=== PATIENT | male | born 1950 | race Caucasian/White ===

== ENCOUNTER 2019-12-09 06:17 | Day surgery (SDC) | payer OTHER, SELFPAY ==
[2019-12-08 07:46] VITALS: BMI 23.8
[2019-12-09 06:46] VITALS: BP 146/89; PULSE 104; RESP 18; TEMP 36.4; O2SAT 92
[2019-12-09] MEDS: sodium chloride 0.9% 1,000 ML 30 ML (06:50)
--- NOTE | 2019-12-09 07:04 | PM.HPUD ---
H&P update H&P Update: DATE OF SURGERY/PROCEDURE: 12/09/19 DATE H&P PERFORMED: 09/13/19 H&P UPDATE INFORMATION: No changes to prior documentation and H&P to be scanned into chart PLANNED PROCEDURE: Operation Date: 12/09/19 07:15 Proposed Procedures p EGD/COLON 87945 [id number] R14.10 Z86.010(Not Applicable) - Jacinto Diez MD s Colonoscopy(Not Applicable) - Jacinto Diez MD Conscious Sedation: PHYSICAL EXAM: alert and oriented x 3 OTHER PERTINENT EXAM FINDINGS: Abdomen: Soft Full H&P HPI: PLANNED PROCEDURE: colonoscopy with possible biopsy HPI: Patient is here for a 6-month follow-up colonoscopy, denies any symptoms ROS: ROS: Negative except for HPI Perinent History: Social History: Social History Smoking and tobacco status: former smoker Pertinent Exam Findings: PHYSICAL EXAM: alert and oriented x 3 OTHER PERTINENT EXAM FINDINGS: Abdomen soft A&P Assessment and plan (1) Hx of colonic polyps: Colonoscopy under MAC Status: Acute Code(s): Z86.010 - Personal history of colonic polyps
--- NOTE | 2019-12-09 07:15 | ANES.PREANE2 ---
Pre-Anesthetic Assessment Pre-Anesthetic Assessment: Height/Weight: Height 1.65 m Weight 64.864 kg Temp Pulse Resp BP Pulse Ox 97.5 F L 104 H 18 146/89 92 12/09/19 06:46 12/09/19 06:46 12/09/19 06:46 12/09/19 06:46 12/09/19 06:46 Proposed Procedure: Operation Date: 12/09/19 07:15 Proposed Procedures p EGD/COLON 54634 97287 R14.10 Z86.010(Not Applicable) - Jacinto Diez MD s Colonoscopy(Not Applicable) - Jacinto Diez MD Was Beta Maria Elena taken within 24 hours: N/A Last intake: Intake Last Liquid Date 12/08/19 Last Liquid Time 21:00 Social: Social History: No alcohol and No tobacco Exam: Pre-Anes Outpt Exam: alert, oriented x 3, clear to auscultation bilaterally and regular rate & rhythm Airway: Submandibular: WNL Cervical ROM: WNL MP: 2 Dentition: False (U & L) History/ROS: No significant history except as noted and No significant complaints Pulmonary: Pulmonary: Sleep apnea (CPAP at night) : Comments: ureteral stone Hepatic: Hepatic: None reported Musc/skel: Musc/skel: None reported Neuropsych: Neuropsych: None reported Anesthetic Plan: ASA status: II Anesthesia: Anesthesia Evaluation and MAC Risk of > 500 ml blood loss (7ml/kg in children): No PFSH Anesthesia PFSH: Medical History (Updated 12/09/19 @ 07:06 by Jacinto Diez MD) Hx of colonic polyps (Acute) Social History (Updated 11/17/19 @ 07:29 by Maame Calloway RN) Smoking and tobacco status: former smoker Data Anesthesia Cardiac Studies: No Data to Display
[2019-12-09 08:25] VITALS: BP 89/58; PULSE 99; RESP 16; TEMP 36.1; O2SAT 99
[2019-12-09 08:46] VITALS: BP 109/74; PULSE 85; RESP 18; O2SAT 98
--- NOTE | 2019-12-09 09:08 | ANE.PACU2 ---
 Inpatient post-anesthesia follow up: Airway intact: Yes Vital signs: Temperature 97 F Pulse Rate 85 Respiratory Rate 18 Blood Pressure 109/74 Pulse Oximetry 98 Oxygen Delivery Me thod Room Air Oxygen Flow Rate 3 Fraction of Inspir ed Oxygen Hydration adequate: Yes Nausea and vomiting: No Mental status: Baseline
--- NOTE | 2019-12-20 12:33 | P.HP_ITS ---
Same Day Surgery H&P Indication for Procedure/HPI DATE OF PROCEDURE: December 09, 2019 CHIEF COMPLAINT/INDICATIONFOR SURGICAL PROCEDURE: Anemia PREOP DIAGNOSIS: Anemia PLANNED PROCEDRUE: Operation Date: 12/09/19 07:15 Proposed Procedures p EGD/COLON 78872 97831 R14.10 Z86.010(Not Applicable) - Jacinto Diez MD s Colonoscopy(Not Applicable) - Jacinto Diez MD Medications/Allergies* Home Medications Medication Instructions Recorded Confirmed Type Combivent Respimat 1 puff INHALATION BID 11/17/19 12/09/19 History aspirin [Aspir-81] 81 mg PO DAILY 11/17/19 12/09/19 History bupropion HCl 300 mg PO DAILY 11/17/19 12/09/19 History diphenhydramine HCl 25 mg PO BEDTIME 11/17/19 12/09/19 History donepezil 5 mg PO DAILY 11/17/19 12/09/19 History loratadine 10 mg PO DAILY 11/17/19 12/09/19 History potassium citrate 10 meq PO BID 11/17/19 12/09/19 History primidone 250 mg PO BID 11/17/19 12/09/19 History Allergies/Adverse Reactions Allergy/AdvReac Type Severity Reaction Status Date / Time No Known Drug Allergies Allergy Unknown Verified 11/17/19 07:29 Pertinent History/Comorbid Conditions* Medical History (Updated 12/09/19 @ 07:06 by Jacinto Diez MD) Hx of colonic polyps Surgical History (Updated 12/09/19 @ 08:32 by Jacinto Diez MD) H/O esophagogastroduodenoscopy 12/09/2019: Gastritis Status post colonoscopy with polypectomy 12/09/2019: 3 polyps removed from descending colon Social History Smoking and tobacco status: former smoker Pertinent Exam Findings alert, oriented x 3, clear to auscultation bilaterally and regular rate & rhythm Recommendations Surgery/Procedure today Coding Level of Care Code Acute Security Systems Integrator for Frnakie Garcia
== END 2019-12-09 09:15 | disposition home or self-care (01) ==
PROVIDERS: Family Provider Internal Medicine; PCP Internal Medicine; Visit Provider Surgery
PROC: 0DJ08ZZ Inspection of Upper Intestinal Tract, Via Natural or Artificial Opening Endoscopic (ICD-10-PCS; CPT 43235; principal; 2019-12-09 07:15)
PROC: 0DJD8ZZ Inspection of Lower Intestinal Tract, Via Natural or Artificial Opening Endoscopic (ICD-10-PCS; CPT 45378; 2019-12-09 07:15)
DX: Z86.010 Personal history of colon polyps (principal); D64.9 Anemia, unspecified; Z87.891 Personal history of nicotine dependence; D12.4 Benign neoplasm of descending colon; K57.30 Diverticulosis of large intestine without perforation or abscess without bleeding; K64.8 Other hemorrhoids; K29.70 Gastritis, unspecified, without bleeding; G47.30 Sleep apnea, unspecified
CPT/HCPCS: 12345; 43239; 45385; 88305; J2704; J7030

== ENCOUNTER 2021-03-14 06:00 | Outpatient (RCR) | payer OTHER, SELFPAY | END 2021-04-04 23:59 | disposition home or self-care (01) | LOC: TST 06:00 | PROVIDERS: PCP Internal Medicine; Referring Provider Family Medicine; Visit Provider Family Medicine | DX: R47.02 Dysphasia (principal) | CPT/HCPCS: 92507; 92523 ==

== ENCOUNTER 2021-04-05 06:00 | Outpatient (RCR) | payer OTHER, SELFPAY | END 2021-05-04 23:59 | disposition home or self-care (01) | LOC: TST 06:00 | PROVIDERS: PCP Internal Medicine; Referring Provider Family Medicine; Visit Provider Family Medicine | DX: R47.02 Dysphasia (principal) | CPT/HCPCS: 92507 ==

== ENCOUNTER 2021-04-19 10:48 | Emergency (ER) | payer OTHER, MEDICARE, SELFPAY ==
[2021-04-19 11:22] VITALS: BP 129/55; PULSE 67; RESP 16; TEMP 36.3; O2SAT 94; BMI 20.9
--- NOTE | 2021-04-19 11:37 | XR_ITS ---
WS: [id number] Exam: XR knee RT 3V* [id number] Date/Time of Exam: 04/19/2021 11:52 AM Reason For Exam: fall No fracture or dislocation noted. Articular relationships are intact. No joint effusion. XR/XR knee RT 3V* [id number] Impression: Normal right knee Kellgren-Melchor Classification: 0
--- NOTE | 2021-04-19 11:37 | XR_ITS ---
WS: [id number] Exam: XR knee LT 3V* [id number] Date/Time of Exam: 04/19/2021 11:52 AM Reason For Exam: fall No fracture or dislocation noted. Articular relationships are intact. No joint effusion. XR/XR knee LT 3V* [id number] Impression: Normal left knee Kellgren-Melchor Classification: 0
--- NOTE | 2021-04-19 11:37 | XR_ITS ---
WS: [id number] Exam: XR elbow LT 2V [id number] Date/Time of Exam: 04/19/2021 11:52 AM Reason For Exam: fall Findings: There are no fractures, soft tissue swelling, or calcifications. The elbow shows normal bony alignme nt. There is no irregularity of the bony architecture. XR/XR elbow LT 2V [id number] IMPRESSION: Negative left elbow.
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
[2021-04-19 12:34] VITALS: BP 124/74; PULSE 65; RESP 16; O2SAT 96
== END 2021-04-19 12:35 | disposition home or self-care (01) ==
PROVIDERS: Emergency Provider Family Medicine; PCP Internal Medicine
DX: S80.02XA Contusion of left knee, initial encounter (principal); S80.01XA Contusion of right knee, initial encounter; S50.02XA Contusion of left elbow, initial encounter; Z79.82 Long term (current) use of aspirin; Z87.891 Personal history of nicotine dependence; V49.9XXA Car occupant (driver) (passenger) injured in unspecified traffic accident, initial encounter
CPT/HCPCS: 73070; 73562; 99282

== ENCOUNTER 2021-06-28 12:58 | Emergency (ER) | payer OTHER, MEDICARE, SELFPAY ==
[2021-06-28 14:12] VITALS: BP 129/76; PULSE 110; RESP 17; TEMP 36.4; O2SAT 91
--- NOTE | 2021-06-28 14:27 | W.ED.EXTPRO ---
HPI - Extremity Problem General: Chief complaint: Extremity Injury, Upper Stated complaint: RUE INJURY Time Seen by Provider: 06/28/21 14:22 History of Present Illness: HPI Narrative: Patient is a 71-year-old male comes to the ED with with right hand pain and stiffness in the fingers. Patient says approximately 4 months ago he fell hurting his right hand. He he then had another incident of falling and landing on his right hand again about 5 weeks ago. He is not been seen by a provider and evaluated after those hand injuries. He has not had any x-rays done of his hand either. He continues to have some right hand pain and stiffness since the initial injury. he says the pain is mild and its the finger stiffness that he is most concerned about. Today, he had a wire mesh cat cage that he was tossing with his right hand. When he went to throw it he says his fingers did not let go causing worsening pain in right hand. Associated symptoms: Deny chest pain, fever(s) or rash Review of Systems Const: Denies: fever(s), chills or fatigue Eyes: Denies: change in vision or eye discomfort ENMT: Denies: throat pain, odynophagia, nasal discharge or nasal congestion Card: Denies: chest pain, palpitations, edema, swelling of feet/ankles, dyspnea on exertion or orthopnea Resp: Denies: dyspnea, productive cough or non-productive cough GI: Denies: abdominal pain, nausea, vomiting, diarrhea, constipation or hematochezia : Denies: flank pain, difficulty urinating, dysuria or hematuria Musc: Reports: extremity pain (right hand pain ) and joint stiffness (fingers in right hand); Denies: neck pain, back pain or extremity swelling Skin/Breast: Denies: rash or new lesions Neuro: Denies: headache(s), numbness in extremities or weakness in extremities PFS ED PFSH: Medical History Gastritis Hx of colonic polyps Surgical History H/O esophagogastroduodenoscopy 12/09/2019: Gastritis Status post colonoscopy with polypectomy 12/09/2019: 3 polyps removed from descending colon, follow-up colonoscopy in 3 years Family History Denies family history of Anesthesia complication Bleeding disorder Social History Smoking and tobacco status: former smoker Alcohol intake: former Lives independently: Yes Household members: spouse Current occupational status: retired History of recent travel: No Physical Exam Const: COMMON NORMALS: no acute distress, patient oriented x3 and alert GENERAL APPEARANCE: cooperative and comfortable HENMT: COMMON NORMALS: normocephalic HEAD & SCALP: normocephalic MOUTH: Normal oral and palatal mucosa present THROAT: posterior oropharynx normal and uvula midline Neck/C-Spine: COMMON NORMALS: supple GENERAL: Yes normal visual inspection Resp: COMMON NORMALS: normal respiratory effort, No retractions, No use of accessory muscles and clear to auscultation bilaterally AUSCULTATION: clear to auscultation bilaterally Cardio: COMMON NORMALS: regular rate, regular rhythm, S1 normal heart sound present, S2 normal heart sound present, No gallops present (Cardio), No clicks present (Cardio), No murmurs present (Cardio) and Peripheral pulses 2+ throughout RATE: regular rate RHYTHM: regular rhythm HEART SOUNDS: S1 normal heart sound present and S2 normal heart sound present PERIPHERAL PULSES: Peripheral pulses 2+ throughout GI: COMMON NORMALS: Normal to inspection, nondistended, normoactive bowel sounds present, Soft to palpation, non-tender and no masses PALPATION: Yes Soft to palpation : COMMON NORMALS: Yes no CVA tenderness BLADDER/KIDNEY EXAM: Yes no CVA tenderness Back/Pelvis: COMMON NORMALS: no CVA tenderness Extremity: COMMON NORMALS: normal to inspection and full ROM Neuro: COMMON NORMALS: patient oriented x3 and moves all extremities SENSORIUM/ORIENTATION: Yes alert Skin: COMMON NORMALS: no rashes or lesions noted GENERAL SKIN EXAM: no rashes or lesions noted Course Vital Signs: Vital signs: Vital Signs Temperature 97.6 F 06/28/21 14:12 Pulse Rate 110 H 06/28/21 14:12 Respiratory Rate 17 06/28/21 14:12 Blood Pressure 129/76 06/28/21 14:12 Pulse Oximetry 91 06/28/21 14:12 MDM - Extremity (Nontraumatic) Imaging Data^: Xray Ortho: Attestation: I personally reviewed and interpreted this imaging study as follows: Radiologist's impression: [address] [address] XRay Report Signed Patient: Catalino Ivy Unit #: [id number] : 1950 Age/Sex: 71 / M ADM Date: 06/28/21 Loc: ER Room/Bed: Attending Dr: Ordering Provider/Ordering MD: Vin Raygoza Date of Service: 06/28/21 Procedure(s): XR hand RT min 3V* [id number] Accession Number(s): [id number] Report Number: [id number] WS: [id number] Exam: XR hand RT min 3V* [id number] Date/Time of Exam: 06/28/2021 2:47 PM Reason For Exam: right hand injury with pain and stiffness in fingers No fracture or dislocation. Soft tissue swelling of the index finger. No radiopaque soft tissue foreign bodies are seen. XR/XR hand RT min 3V* [id number] IMPRESSION: 1. No acute fracture or dislocation. Dictated By: Rafael White DO Signed By: Rafael White DO Signed Date/Time: 06/28/211455 DD/ 52 Discharge Plan Discharge Patient Disposition: Home Clinical Impression: Hand pain, right Joint stiffness of hand Qualifiers: Laterality: right Qualified Code(s): M25.641 - Stiffness of right hand, not elsewhere classified Condition: Stable Prescriptions: No Action donepezil 5 mg tablet 5 mg PO DAILY RF: 0 potassium citrate 10 mEq (1,080 mg) Tablet Extended Release 10 meq PO BID RF: 0 loratadine 10 mg tablet 10 mg PO DAILY RF: 0 bupropion HCl 300 mg tablet extended release 24 hr 300 mg PO DAILY RF: 0 Combivent Respimat 20-100 mcg/actuation Mist 1 puff INHALATION BID RF: 0 primidone 50 mg tablet 50 mg PO DAILY RF: 0 Aspir-81 81 mg Tablet,Delayed Release (Dr/Ec) 81 mg PO DAILY RF: 0 rosuvastatin 10 mg tablet 5 mg PO DAILY RF: 0 Discharge Orders: Discharge ED (Routine); Ordered 06/28/21 Ordered By: Vin Raygoza Referrals: Merle Sanchez MD [Primary Care Provider] - Discharge Diet: Regular Discharge Activity: Increase activity as tolerated Patient Instructions: Arthralgia (ED) Activity Restrictions/Additional Instructions: Follow-up with medical provider as directed in 7-10 days for reevaluation. Continue taking home medications as prescribed. Take [id number] Tylenol for any pain. Return to the ER or your medical provider if condition worsens. Please read and understand discharge instructions. Thank you for choosing [facility] for your healthcare needs today. Please realize this is an emergency room and that we are providing you with a medical screening exam and this may not be complete and all inclusive of all the testing and or work up that you may need to determine your ailment or severity of your illness. It is very important that you follow up as instructed or that you return to the Emergency Department should you have concerns or if your condition changes or worsens in any way. Coding Level of Care Code ED Physiatrist for Frankie Garcia Exam Comprehensive
--- NOTE | 2021-06-28 14:36 | XR_ITS ---
WS: [id number] Exam: XR hand RT min 3V* [id number] Date/Time of Exam: 06/28/2021 2:47 PM Reason For Exam: right hand injury with pain and stiffness in fingers No fracture or dislocation. Soft tissue swelling of the index finger. No radiopaque soft tissue forei gn bodies are seen. XR/XR hand RT min 3V* [id number] IMPRESSION: 1. No acute fracture or dislocation.
== END 2021-06-28 15:37 | disposition home or self-care (01) ==
PROVIDERS: Emergency Provider Physician Assistant; PCP Family Medicine
DX: Z87.891 Personal history of nicotine dependence (principal); M25.641 Stiffness of right hand, not elsewhere classified
CPT/HCPCS: 73130; 99282

== ENCOUNTER 2021-07-23 16:49 | Emergency (ER) | payer OTHER, SELFPAY ==
[2021-07-23 16:51] VITALS: BP 143/92; PULSE 123; RESP 20; TEMP 37.1; O2SAT 93; BMI 21.4
--- NOTE | 2021-07-23 16:59 | ECG_ITS ---
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 Measurements Intervals [place] Rate: 121 P: 78 [place]: 163 QRS: 87 QRSD: 98 T: 63 QT: 298 QTc: 424 Interpretive Statements SINUS TACHYCARDIA ABNORMAL RHYTHM ECG Compared to ECG 10/09/2019 14:25:14 Sinus rhythm no longer present Electronically Signed On 07-24-2021 18:01:17 CDT by Gerard Hall M.D. [id number] f
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
--- NOTE | 2021-07-23 16:59 | XRR_ITS ---
PROCEDURE INFORMATION: Exam: XR Chest Exam date and time: 07/23/2021 4:59 PM Age: 71 years old Clinical indication: Cough TECHNIQUE: Imaging protocol: XR of the chest. Views: 1 view. COMPARISON: CT chest abd pel wo con 07/23/2021 5:28 PM FINDINGS: Lungs: The lungs are somewhat hyperinflated with increased interstitial markings, likely representing COPD. No evidence of focal consolidation to suggest pneumonia. Pleural spaces: Unremarkable. No pleural effusion. No pneumothorax. Heart/Mediastinum: Unremarkable. No cardiomegaly. Bones/joints: Unremarkable. XR/XR chest 1V portable [id number] IMPRESSION: No evidence of focal consolidation. COPD changes.
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
[2021-07-23 17:08] LABS: Basophils % 0.3 %; Eosinophils % 0.3 %; Hematocrit 44.7 % (42.0-52.0); Hemoglobin 14.2 g/dL (11.7-16.6); Lymphocytes # 1.4 10^3/uL (0.8-4.8); Mean Corpuscular HGB Conc 31.8 g/dL (30.0-36.0); Mean Corpuscular Hemoglobin 28.9 pg (28.0-34.0); Mean Corpuscular Volume 90.9 fl (80-94); Mean Platelet Volume 9.8 fL (7.4-10.4); Monocytes # 0.5 10^3/uL (0.2-0.9); Monocytes % 4.7 %; Neutrophils # 7.75 10^3/uL (1.8-7.7); Neutrophils % 80.3 %; Nucleated Red Blood Cells % 0 %; Platelet Count 243 10^3/cmm (130-400); Red Blood Count 4.92 10^6/uL (4.1-5.3); Red Cell Distribution Width 13.6 % (12.1-15.1); White Blood Count 9.7 10^3/uL (4.0-10.0)
[2021-07-23 17:15] VITALS: BP 143/90; RESP 120; O2SAT 94
[2021-07-23 17:36] LABS: Add Urine Microscopic? NO; Charge for UA Resulting for Rev
[2021-07-23 17:39] LABS: Bilirubin Urine Neg (Negative); Blood Urine Neg (Negative); Glucose Urine UA Norm (Normal); Ketones Urine Negative (Negative); Leukocyte Esterase Urine Negative (Negative); Nitrate Urine Negative (Negative); Protein Urine Neg (Negative); Urine Appearance Clear (CLEAR); Urine Color Yellow (Yellow); Urobilinogen Urine Norm (Negative); pH Urine 6 (5-7)
[2021-07-23 17:56] LABS: ABG PCO2 49.7 mmHg (35-45); ABG PH Result 7.36 (7.35-7.45); Alveolar-Arterial Oxygen Gradi 6.4 mmHg (5-10); Arterial Blood Gas Hematocrit 43.6 % (42-52); Blood Gas Allen Test Pos; Blood Gas LPM 1.8 %; Blood Gas Sample Site Radial, left; Blood Gas Sample Type Arterial; HCO3 ABG 28.3 mmol/L (22-26); Ionized Calcium Level - ABG 1.3 mmol/L (1.1-1.4); Methemoglobin 0.4 % (0.4-1.5); Oxygen Device NC; Oxygen Saturation ABG 96.3; PO2 ABG 82.3 mmHg (80.0-100.0); Total Hemoglobin 14.2 g/dL (14-18)
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
[2021-07-23 18:13] LABS: INR 0.98 (0.8-1.2)
[2021-07-23 18:14] LABS: Partial Thromboplastin Time 28.8 SECONDS (23.9-36.7)
[2021-07-23 18:24] LABS: Alanine Aminotransferase 23 U/L (0-41); Albumin Level 4.3 g/dL (3.5-5.2); Alkaline Phosphatase 79 IU/L (40-130); Anion Gap 17.3 (5-19); Aspartate Amino Transferase 23 U/L (0-40); Blood Urea Nitrogen 20 mg/dL (8-23); Calcium 9.7 mg/dL (8.5-10.5); Carbon Dioxide 27 mmol/L (22-29); Chloride 102 mmol/L (98-107); Globulin 2.5 g/dL (1.3-4.6); Glucose 128 mg/dL (65-115); Osmolality Calculated 298 mOsm/kg (285-295); Potassium 4.3 mmol/L (3.5-5.1); Sodium 142 mmol/L (136-145); Total Bilirubin 0.3 mg/dL (0.15-1.2); Total Protein 6.8 g/dL (6.6-8.7)
[2021-07-23 18:32] VITALS: BP 127/82; PULSE 128; RESP 18; O2SAT 98
[2021-07-23] MEDS: ondansetron 2 mg/ML SDV 2 mL 4 MG IVP (19:05)
[2021-07-23] MEDS: morphine 4 mg/mL SDV 1 mL 2 MG IVP (19:06)
[2021-07-23 19:18] LABS: SARS Covid-2 Antigen Negative (Negative)
[2021-07-23 19:29] VITALS: BP 131/79; PULSE 79; RESP 20; O2SAT 94
== END 2021-07-23 19:25 | disposition home or self-care (01) ==
PROVIDERS: Emergency Provider Emergency Medicine; PCP Family Medicine
DX: S39.011A Strain of muscle, fascia and tendon of abdomen, initial encounter (principal); J44.9 Chronic obstructive pulmonary disease, unspecified; Z79.82 Long term (current) use of aspirin; Z87.891 Personal history of nicotine dependence; V89.2XXA Person injured in unspecified motor-vehicle accident, traffic, initial encounter; Z20.822 Contact with and (suspected) exposure to COVID-19
CPT/HCPCS: 36600; 70450; 71045; 71250; 72125; 74176; 80051; 80053; 81003; 82330; 82805; 85025; 85610; 85730; 87426; 93005; 96374; 96375; 99284; J2270; J2405

== ENCOUNTER 2021-08-12 11:17 | Emergency (ER) | payer OTHER, MEDICARE, SELFPAY ==
[2021-08-12 11:30] VITALS: BP 133/73; PULSE 69; RESP 16; TEMP 36.4; O2SAT 96
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
--- NOTE | 2021-08-12 11:59 | XR_ITS ---
WS: [id number] XR chest 1V portable [id number] REASON FOR EXAM: L rib pain FINDINGS: The chest is unchanged compared to previous examination of 07/23/2021. Heart and mediastinum are within normal limits. Calcified granulomatous disease in both hemithoraces. No active pulmonary parenchymal or pleural disease is identified. Degenerative changes in the thoracic spine. XR/XR chest 1V portable [id number] IMPRESSION: No acute chest abnormality.
--- NOTE | 2021-08-12 11:59 | XR_ITS ---
WS: [email or web address] XR ribs LT 2V* 24306 REASON FOR EXAM: L rib pain FINDINGS: No fracture or other focal bony abnormality of the left ribs is identified. No soft tissue abnormality identified. XR/XR ribs LT 2V* [id number] IMPRESSION: No acute abnormality identified.
[2021-08-12 12:02] VITALS: BP 130/70; PULSE 65; RESP 15; O2SAT 99
--- NOTE | 2021-08-12 12:07 | ECG_ITS ---
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 Measurements Intervals Brady Rate: 58 P: 83 VA: 163 QRS: 78 QRSD: 104 T: 80 QT: 387 QTc: 382 Interpretive Statements SINUS BRADYCARDIA Compared to ECG 07/23/2021 17:05:22 Sinus tachycardia no longer present Electronically Signed On 08-12-2021 19:21:20 CDT by Kathya Dimas M.D. [email or web address]
[2021-08-12 14:11] LABS: Basophils % 0.6 %; Eosinophils # 0.1 10^3/uL (0.0-0.8); Eosinophils % 1.2 %; Hematocrit 47.9 % (42.0-52.0); Hemoglobin 15.2 g/dL (11.7-16.6); Lymphocytes # 2.2 10^3/uL (0.8-4.8); Mean Corpuscular HGB Conc 31.7 g/dL (30.0-36.0); Mean Corpuscular Hemoglobin 29.4 pg (28.0-34.0); Mean Corpuscular Volume 92.6 fl (80-94); Monocytes # 0.6 10^3/uL (0.2-0.9); Neutrophils # 3.68 10^3/uL (1.8-7.7); Neutrophils % 55.9 %; Nucleated Red Blood Cells % 0 %; Platelet Count 259 10^3/cmm (130-400); Red Blood Count 5.17 10^6/uL (4.1-5.3); Red Cell Distribution Width 13.9 % (12.1-15.1); White Blood Count 6.6 10^3/uL (4.0-10.0)
[2021-08-12 14:34] LABS: Blood Urea Nitrogen 22 mg/dL (8-23); Carbon Dioxide 31 mmol/L (22-29); Chloride 101 mmol/L (98-107); Glucose 92 mg/dL (65-115); Osmolality Calculated 295 mOsm/kg (285-295); Sodium 141 mmol/L (136-145)
[2021-08-12 14:35] LABS: Troponin T (5th) Once 11 ng/L (0-15)
[2021-08-12 14:57] LABS: D Dimer 0.45 ug/mIFEU (0-0.59)
[2021-08-12 15:52] VITALS: BP 144/88; PULSE 75; RESP 16; O2SAT 97
== END 2021-08-12 15:52 | disposition home or self-care (01) ==
PROVIDERS: Emergency Provider Emergency Medicine; PCP Family Medicine
DX: R07.9 Chest pain, unspecified (principal); R07.81 Pleurodynia; Z79.82 Long term (current) use of aspirin; Z87.891 Personal history of nicotine dependence
CPT/HCPCS: 71045; 71100; 80048; 84484; 85025; 85378; 93005; 99283

== ENCOUNTER 2021-08-19 12:36 | Emergency (ER) | payer OTHER, MEDICARE, SELFPAY ==
[2021-08-19 13:25] VITALS: BP 136/84; PULSE 103; RESP 18; TEMP 36.9; O2SAT 91; BMI 18.1
--- NOTE | 2021-08-19 13:31 | XR_ITS ---
WS: [id number] XR acute abdomen series 56416 REASON FOR EXAM: plugged up and decreased sat FINDINGS: No free air or retroperitoneal air. Bowel gas pattern is unremarkable. No findings of obstruction and no large volume stool in the colon. No mass identified. No significant calcification. No acute chest abnormality. XR/XR acute abdomen series 22426 IMPRESSION: No acute abnormality.
[2021-08-19 16:17] LABS: Add Urine Microscopic? NO; Charge for UA Resulting for Rev
[2021-08-19 16:26] LABS: Bilirubin Urine Neg (Negative); Blood Urine Neg (Negative); Glucose Urine UA Norm (Normal); Ketones Urine Negative (Negative); Leukocyte Esterase Urine Negative (Negative); Nitrate Urine Negative (Negative); Protein Urine Neg (Negative); Specific Gravity, Urine 1.015 (1.005-1.030); Urine Appearance Clear (CLEAR); Urine Color Yellow (Yellow); Urobilinogen Urine Norm (Negative); pH Urine 6 (5-7)
[2021-08-19 17:05] VITALS: BP 142/87; PULSE 86; RESP 14; O2SAT 97
--- NOTE | 2021-08-19 17:12 | PC.NURSE ---
Pt states that four weeks ago after eating fish, he vomited. Pt has had abdominal cramping and vomiting since that episode. Pt states that he was in ER a few days ago with no relief.
--- NOTE | 2021-08-19 17:26 | CTR_ITS ---
PROCEDURE INFORMATION: Exam: CT Chest With Contrast; Diagnostic Exam date and time: 08/19/2021 5:26 PM Age: 71 years old Clinical indication: Nausea and vomiting; Patient HX: C/O recurrent n/v w 30#wt loss in about a month; Additional info: Vomiting and 30 lb weight loss-former smoker TECHNIQUE: Imaging protocol: Diagnostic computed tomography of the chest with contrast. Radiation optimization: All CT scans at this facility use at least one of these dose optimization techniques: automated exposure control; mA and/or kV adjustment per patient size (includes targeted exams where dose is matched to clinical indication); or iterative reconstruction. Contrast material: VISI 320; Contrast volume: 75 ml; Contrast route: INTRAVENOUS (IV); COMPARISON: CT chest abd pel wo con 07/23/2021 5:28 PM RADIATION DOSE METRICS: Total DLP (mGy-cm): 1024.18 FINDINGS: Lungs: Lungs are clear. Pleural spaces: There is mild apical pleural thickening on the right. Heart: Unremarkable. No cardiomegaly. No pericardial effusion. Mediastinal space: There is no evidence of mediastinal fluid, masses, or gas. Aorta: Mild atherosclerotic calcification of the ascending thoracic aorta and aortic arch.There is no thoracic aortic aneurysm or dissection. Lymph nodes: There is no evidence of lymphadenopathy. Bones/joints: Unremarkable. No acute fracture. Soft tissues: Unremarkable. IMPRESSION: No acute findings in the chest. PROCEDURE INFORMATION: Exam: CT Abdomen And Pelvis With Contrast Exam date and time: 08/19/2021 5:26 PM Age: 71 years old Clinical indication: Nausea and vomiting; Patient HX: C/O recurrent n/v w 30#wt loss in about a month; Additional info: Vomiting and 30 lb weight loss-former smoker TECHNIQUE: Imaging protocol: Computed tomography of the abdomen and pelvis with contrast. Radiation optimization: All CT scans at this facility use at least one of these dose optimization techniques: automated exposure control; mA and/or kV adjustment per patient size (includes targeted exams where dose is matched to clinical indication); or iterative reconstruction. Contrast material: VISI 320; Contrast volume: 75 ml; Contrast route: INTRAVENOUS (IV); COMPARISON: CT chest abd pel wo con 07/23/2021 5:28 PM RADIATION DOSE METRICS: Total DLP (mGy-cm): 1024.18 FINDINGS: Liver: There is several small hypodensities in the liver measuring 2-4 mm in size, too small to definitively characterize by CT scanning but possibly small simple cysts. Gallbladder and bile ducts: The gallbladder is normal. Pancreas: The pancreas is normal. Spleen: The spleen is normal. Adrenal glands: The adrenal glands are normal. Kidneys and ureters: There are small simple cortical cysts in both kidneys. There are multiple right renal collecting system calcifications. There is no evidence of hydronephrosis. There is no stone along the course of either ureter. Right kidney is moderately atrophic. Stomach and bowel: There is no evidence of colitis/diverticulitis. Appendix: A normal appendix is identified. Intraperitoneal space: There is no evidence of free intraperitoneal fluid. Vasculature: The aorta demonstrates moderate atherosclerotic calcification. There is no evidence of an abdominal aortic aneurysm. Lymph nodes: There is no evidence of lymphadenopathy. Urinary bladder: Unremarkable as visualized. Reproductive: The prostate demonstrates moderate nonspecific enlargement. The seminal vesicles are normal. Bones/joints: The lumbar spine demonstrates moderate degenerative changes at multiple levels. Soft tissues: There is small right inguinal hernia containing fat. CT/CT chest abd pel w con* IMPRESSION: 1. Right nephrolithiasis 2. Atrophic right kidney 3. Small hepatic hypodensities, likely tiny cysts but too small to definitively characterize by CT scanning. 4. No acute finding. COMMENTS: Consistent with the [employer]'s Incidental Findings Committee white paper (J Am Sydney Radiol 2018): Any incidental renal lesion less than 1 cm or classified as too small to characterize, or any incidental cystic renal lesion characterized as simple-appearing, is likely benign. No follow-up imaging is recommended for these lesions per consensus recommendations based on imaging criteria. Radiation Dose CTDIVOL = (mGy): DLP = 1024.18~1024.18 (mGy-cm)
--- NOTE | 2021-08-19 17:26 | W.ED.NAVMDI ---
HPI - Nausea/Vomiting/Diarrhea General: Chief complaint: Nausea/Vomiting/Diarrhea Stated complaint: PLUGGED UP Time Seen by Provider: 08/19/21 16:57 History of Present Illness: HPI Narrative: This patient presents to our emergency department because of recurrent vomiting. He states he has been having vomiting with eating and drinking for the past month. He states he weighed in excess of 150 pounds over a month ago and his weight today at triage was 109 pounds. He relates that an aunt on a timeline from episode where he was ate a fish restaurant with his and and upon returning home later that evening he vomited. He states that since that time he has had recurrent vomiting with any attempts to eat food or drink much in the way of liquids. He states he is somewhat successful with eating peanut butter and jelly. He has never had any food intolerance in the past. He has had no abdominal surgeries. He states he has had no blood in his stools or black tarry stools but has had very minimal stooling over the past month. He states he is still producing urine and relatively normal amounts. He states he is somewhat fatigued but denies any shortness of breath or chest pain. He has not been exposed to any infectious disease. He is a former smoker having quit some years ago. No history of thyroid problems, travel, etc. He states that he has no pain other than when he vomits. Associated symtoms: Reports fatigue; Denies anxiety, change in vision, chest pain, dysuria, headache(s) or palpitations Review of Systems Const: Reports: change in weight and fatigue; Denies: fever(s) or chills Eyes: Denies: change in vision ENMT: Denies: throat pain or mouth pain Card: Denies: chest pain, palpitations, irregular heart rhythm or edema Resp: Denies: dyspnea, productive cough or non-productive cough GI: Reports: vomiting; Denies: hematemesis, coffee ground emesis, dysphagia, heartburn, early satiety, hematochezia or melena : Denies: flank pain, difficulty urinating, dysuria or urinary frequency Musc: Denies: neck pain, back pain or extremity pain Skin/Breast: Denies: rash Neuro: Denies: headache(s), numbness in extremities or weakness in extremities Psych: Denies: anxiety, depression or mood swings Endo: Denies: polyuria or polydipsia Juan Miguel/Lymph: Denies: easy bruising or easy bleeding All/Imm: Denies: throat swelling PFSH ED PFSH: Medical History Gastritis Hx of colonic polyps Surgical History H/O esophagogastroduodenoscopy 12/09/2019: Gastritis Status post colonoscopy with polypectomy 12/09/2019: 3 polyps removed from descending colon, follow-up colonoscopy in 3 years Family History Denies family history of Anesthesia complication Bleeding disorder Social History Smoking and tobacco status: former smoker Alcohol intake: former Lives independently: Yes Household members: spouse Current occupational status: retired History of recent travel: No Physical Exam Const: COMMON NORMALS: no acute distress and patient oriented x3 OTHER: He is alert no acute distress. He is somewhat thin but no signs of acute illness HENMT: COMMON NORMALS: normocephalic, external ears normal, Normal external nose present, moist oral mucous membranes and oropharynx normal HEAD & SCALP: normocephalic NOSE: Normal external nose present EXTERNAL EAR: Yes external ears normal Eye: COMMON NORMALS: Equal, round and reactive pupils present, EOMs intact bilaterally, conjunctivae normal and no scleral icterus CONJUNCTIVA: Yes conjunctivae normal PUPIL: Yes Equal, round and reactive pupils present Neck/C-Spine: COMMON NORMALS: full ROM, no lymphadenopathy, supple, no meningeal signs and No carotid bruits Lymph: LYMPHATIC: no lymphadenopathy noted Chest: COMMONS NORMALS: normal inspection of the chest and normal palpation of entire chest wall Resp: COMMON NORMALS: normal respiratory effort, No retractions, No use of accessory muscles and clear to auscultation bilaterally EFFORT & INSPECTION: Yes able to speak in complete sentences AUSCULTATION: clear to auscultation bilaterally Cardio: COMMON NORMALS: regular rate, regular rhythm, No murmurs present (Cardio) and Peripheral pulses 2+ throughout RATE: regular rate RHYTHM: regular rhythm PERIPHERAL PULSES: Peripheral pulses 2+ throughout GI: COMMON NORMALS: Normal to inspection, nondistended, normoactive bowel sounds present, Soft to palpation, non-tender, no masses and no bruits PALPATION: Yes Soft to palpation : COMMON NORMALS: Yes no CVA tenderness BLADDER/KIDNEY EXAM: Yes no CVA tenderness Back/Pelvis: COMMON NORMALS: no CVA tenderness, thoracic and lumbar spine normal to inspection, no thoracic nor lumbar tenderness and thoraco-lumbar ROM normal GENERAL BACK: No erythema and No ecchymosis Extremity: COMMON NORMALS: normal to inspection, full ROM, no joint enlargement, no clubbing, cyanosis or edema, no calf tenderness and no pedal edema Neuro: COMMON NORMALS: patient oriented x3, moves all extremities, no focal motor deficits, no sensory deficits noted and gait normal MENINGEAL SIGNS: Yes no meningeal signs CRANIAL NERVES: Yes CN normal except as noted Psych: COMMON NORMALS: mental status grossly normal and Normal thought process present THOUGHT PROCESS: Normal thought process present Skin: COMMON NORMALS: no rashes or lesions noted, no wounds, turgor normal, no jaundice and no petechiae GENERAL SKIN EXAM: no rashes or lesions noted and turgor normal Course Reevaluation(s): Reevaluation #1: He remained stable. I discussed findings with both he and his spouse. They voiced understanding. He is to follow-up with his doctor this coming week to discuss referral for EGD and additional work-up as indicated. Vital Signs: Vital signs: Vital Signs Temperature 98.5 F 08/19/21 13:25 Pulse Rate 89 08/19/21 18:36 Respiratory Rate 20 H 08/19/21 18:36 Blood Pressure 131/97 08/19/21 18:36 Pulse Oximetry 96 08/19/21 18:36 MDM - Nausea/Vomiting/Diarrhea MDM Narrative: Medical decision making narrative: The patient's history is remarkable in that he states he is not been able to eat well for the last 4 weeks or more. His work-up is essentially unremarkable. There is a history of weight loss which needs to be further evaluated. At this point he is not having any evidence of an ongoing emergency medical condition that requires immediate hospitalization or additional observation or work-up at this point. We will go and place him on Reglan for his prokinetic value and have him see his regular doctor for referral for upper endoscopy and additional evaluation. He is stable at this time. Lab Data: Attestation: I reviewed the patient's lab results. Labs: Lab Results 08/19/21 08/19/21 08/19/21 13:24 17:13 17:13 WBC 7.3 10^3/uL 10^3/ uL (4.0-10.0) RBC 5.43 10^6/uL H 10 ^6/uL (4.1-5.3) Hgb 16.1 g/dL g/dL (11.7-16.6) Hct 49.9 % % (42.0-52.0) MCV 91.9 fl fl (80-94) MCH 29.7 pg pg (28.0-34.0) MCHC 32.3 g/dL g/dL (30.0-36.0) RDW 14.1 % % (12.1-15.1) Plt Count 207 10^3/cmm 10^3 /cmm (130-400) MPV 9.9 fL fL (7.4-10.4) Neut % (Auto) 62.4 % % Lymph % (Auto) 29.1 % % [place] % (Auto) 7.6 % % Eos % (Auto) 0.3 % % Baso % (Auto) 0.3 % % Neut # (Auto) 4.53 10^3/uL 10^3 /uL (1.8-7.7) Lymph # (Auto) 2.1 10^3/uL 10^3/ uL (0.8-4.8) [place] # (Auto) 0.6 10^3/uL 10^3/ uL (0.2-0.9) Eos # (Auto) 0.0 10^3/uL 10^3/ uL (0.0-0.8) Baso # (Auto) 0.0 10^3/uL 10^3/ uL (0.0-0.1) Nucleated RBC % (a uto) 0 % % Nucleated RBCs # 0.0 /100WBC /100W BC Sodium 138 mmol/L mmol/L (136-145) Potassium 4.5 mmol/L mmol/L (3.5-5.1) Chloride 96 mmol/L L mmol/ L (98-107) Carbon Dioxide 31 mmol/L H mmol/ L (22-29) Anion Gap 15.5 (5-19) BUN 21 mg/dL mg/dL (8-23) Creatinine 1.1 mg/dL mg/dL (0.7-1.2) GFR Calculation Not Reportable Glucose 87 mg/dL mg/dL (65-115) Calculated Osmolal ity 288 mOsm/kg mOsm/ kg (285-295) Calcium 10.1 mg/dL mg/dL (8.5-10.5) Magnesium Total Bilirubin 0.4 mg/dL mg/dL (0.15-1.2) AST 19 U/L U/L (0-40) ALT 23 U/L U/L (0-41) Alkaline Phosphata se 87 IU/L IU/L (40-130) Total Protein 7.0 g/dL g/dL (6.6-8.7) Albumin 4.7 g/dL g/dL (3.5-5.2) Globulin 2.3 g/dL g/dL (1.3-4.6) Lipase 35 U/L U/L (13-60) TSH Urine Color Yellow (Yellow) Urine Appearance Clear (CLEAR) Urine pH 6 (5-7) Ur Specific Gravit y 1.015 (1.005-1.030) Urine Protein Neg (Negative) Urine Glucose (UA) Norm (Normal) Urine Ketones Negative (Negative) Urine Blood Neg (Negative) Urine Nitrate Negative (Negative) Urine Bilirubin Neg (Negative) Urine Urobilinogen Norm mg/dL mg/dL (Negative) Ur Leukocyte Jasmyne ase Negative (Negative) 08/19/21 17:13 WBC RBC Hgb Hct MCV MCH MCHC RDW Plt Count MPV Neut % (Auto) Lymph % (Auto) [place] % (Auto) Eos % (Auto) Baso % (Auto) Neut # (Auto) Lymph # (Auto) [place] # (Auto) Eos # (Auto) Baso # (Auto) Nucleated RBC % (a uto) Nucleated RBCs # Sodium Potassium Chloride Carbon Dioxide Anion Gap BUN Creatinine GFR Calculation Glucose Calculated Osmolal ity Calcium Magnesium 2.3 mg/dL mg/dL (1.7-2.3) Total Bilirubin AST ALT Alkaline Phosphata se Total Protein Albumin Globulin Lipase TSH 1.36 uIU/mL uIU/m L (0.27-4.20) Urine Color Urine Appearance Urine pH Ur Specific Gravit y Urine Protein Urine Glucose (UA) Urine Ketones Urine Blood Urine Nitrate Urine Bilirubin Urine Urobilinogen Ur Leukocyte Jasmyne ase Discharge Plan Discharge Patient Disposition: Home Clinical Impression: Recurrent vomiting Condition: Stable Prescriptions: New Reglan 5 mg tablet 5 mg PO TIDWMEAL Qty: 30 RF: 0 No Action donepezil 5 mg tablet 5 mg PO DAILY RF: 0 potassium citrate 10 mEq (1,080 mg) Tablet Extended Release 10 meq PO BID RF: 0 loratadine 10 mg tablet 10 mg PO DAILY RF: 0 bupropion HCl 300 mg tablet extended release 24 hr 300 mg PO DAILY RF: 0 Combivent Respimat 20-100 mcg/actuation Mist 1 puff INHALATION BID RF: 0 primidone 50 mg tablet 50 mg PO DAILY RF: 0 Aspir-81 81 mg Tablet,Delayed Release (Dr/Ec) 81 mg PO DAILY RF: 0 rosuvastatin 10 mg tablet 5 mg PO DAILY RF: 0 acetaminophen 500 mg tablet 500 mg PO Q6H PRN (Reason: pain) 10 Days Qty: 40 RF: 0 lidocaine 5 % adhesive patch,medicated 1 patch topical DAILY PRN (Reason: pain) 10 Days Qty: 10 RF: 0 Discharge Orders: Discharge ED (Routine); Ordered 08/19/21 Ordered By: Shon España Referrals: Merle Sanchez MD [Primary Care Provider] - Discharge Diet: Advance as tolerated Discharge Activity: Resume usual activity Patient Instructions: Opioid Safety Activity Restrictions/Additional Instructions: Start taking the medication as prescribed to help reduce your vomiting with meals. Add protein drinks such as Ensure etc. 1?2 8 ounce bottles daily. Call your doctor next week to discuss further work-up. If your symptoms persist or worsen or new symptoms develop return to this or the nearest emergency department. Coding Level of Care Code ED It Network Engineer for Frankie Fwmarlon Exam Comprehensive
[2021-08-19 17:30] LABS: Basophils % 0.3 %; Eosinophils % 0.3 %; Hematocrit 49.9 % (42.0-52.0); Hemoglobin 16.1 g/dL (11.7-16.6); Lymphocytes # 2.1 10^3/uL (0.8-4.8); Lymphocytes % 29.1 %; Mean Corpuscular HGB Conc 32.3 g/dL (30.0-36.0); Mean Corpuscular Hemoglobin 29.7 pg (28.0-34.0); Mean Corpuscular Volume 91.9 fl (80-94); Mean Platelet Volume 9.9 fL (7.4-10.4); Monocytes # 0.6 10^3/uL (0.2-0.9); Monocytes % 7.6 %; Neutrophils # 4.53 10^3/uL (1.8-7.7); Neutrophils % 62.4 %; Nucleated Red Blood Cells % 0 %; Platelet Count 207 10^3/cmm (130-400); Red Blood Count 5.43 10^6/uL (4.1-5.3); Red Cell Distribution Width 14.1 % (12.1-15.1); White Blood Count 7.3 10^3/uL (4.0-10.0)
[2021-08-19 17:47] LABS: Alanine Aminotransferase 23 U/L (0-41); Albumin Level 4.7 g/dL (3.5-5.2); Alkaline Phosphatase 87 IU/L (40-130); Anion Gap 15.5 (5-19); Aspartate Amino Transferase 19 U/L (0-40); Blood Urea Nitrogen 21 mg/dL (8-23); Calcium 10.1 mg/dL (8.5-10.5); Carbon Dioxide 31 mmol/L (22-29); Chloride 96 mmol/L (98-107); Globulin 2.3 g/dL (1.3-4.6); Glucose 87 mg/dL (65-115); Lipase 35 U/L (13-60); Osmolality Calculated 288 mOsm/kg (285-295); Potassium 4.5 mmol/L (3.5-5.1); Sodium 138 mmol/L (136-145); Total Bilirubin 0.4 mg/dL (0.15-1.2)
[2021-08-19] MEDS: sodium chloride 0.9% 500 ML IV (17:51)
[2021-08-19 18:00] VITALS: BP 142/87; PULSE 80; RESP 16; O2SAT 95
[2021-08-19 18:03] LABS: Magnesium 2.3 mg/dL (1.7-2.3); Thyroid Stimulating Hormone 1.36 uIU/mL (0.27-4.20)
[2021-08-19] MEDS: iodixanol 320 mg/mL 100mL Btl IV (18:04)
[2021-08-19 18:10] LABS: Slide Review Slide Review Perform
[2021-08-19 18:36] VITALS: BP 131/97; PULSE 89; RESP 20; O2SAT 96
[2021-08-19 19:57] VITALS: BP 139/87; PULSE 80; RESP 20; O2SAT 97
== END 2021-08-19 19:55 | disposition home or self-care (01) ==
PROVIDERS: Nurse Practitioner Family; Emergency Provider Emergency Medicine; PCP Family Medicine
DX: R11.10 Vomiting, unspecified (principal); Z79.82 Long term (current) use of aspirin; Z87.891 Personal history of nicotine dependence
CPT/HCPCS: 71260; 74022; 74177; 80053; 81003; 83690; 83735; 84443; 85025; 96360; 99283; J7040; Q9967

== ENCOUNTER 2022-01-09 17:57 | Emergency (ER) | payer OTHER, MEDICARE, SELFPAY ==
--- NOTE | 2022-01-09 18:11 | ED_ITS ---
HPI - Nausea/Vomiting/Diarrhea General: Chief complaint: Nausea/Vomiting/Diarrhea Stated complaint: n/v Time Seen by Provider: 01/09/22 18:00 Source: patient Mode of arrival: EMS Limitations: no limitations History of Present Illness: Patient is a nice 71-year-old male who presents to ED today with a complaint of nausea and vomiting. Patient tells me around 9 AM this morning he drove to [facility] to drop his truck off at the [employer]. He states he had not eaten breakfast that morning so he went to [facility]. He states when he walked in the door he became nauseous and went to the bathroom and had one episode of emesis. He states he then ordered a cup of coffee and a breakfast sandwich states he was unable to eat secondary to nausea. He states he had another episode of emesis at [facility]. He states after his truck was finished he drove home and states he had 2 more episodes of emesis when he got home. He states vomit is not bilious or bloody. He is not having any diarrhea. He is not having any abdominal pain. He is not having any throat pain or difficulty swallowing. No chest pains, palpitations, or SOB. Patient was seen here in our facility on 08/2021 for recurrent episodes of vomiting. He states he has not really had any issues since that visit. Reviewing documentation dur ing that last visit he had reported a large amount of weight loss. He states [facility] but tells me the [facility] loss was never addressed. He has not lost any further weight since that visit. He had an unremarkable CT scan on that visit. Patient has not been running fevers. No poor food exposure. No sick contacts. Patient's colonoscopy is UTD-performed in 2019-recommendations were for repeat colonoscopy in 3 years. MD elicited complaint: nausea and vomiting Onset (ago): hour(s) Associated nausea: Yes Associated abdominal pain: No Location of pain: None Associated symtoms: Reports nausea; Denies chest pain, dizziness, dysuria, fatigue, headache(s) or malaise Review of Systems Const: Denies: fever(s), chills, body aches, fatigue or malaise ENMT: Denies: throat pain or odynophagia Card: Denies: chest pain Resp: Denies: dyspnea GI: Reports: nausea and vomiting; Denies: abdominal pain, hematemesis, diarrhea, constipation, change in bowel habits, pain on defecation, hematochezia or melena : Denies: flank pain, dysuria or hematuria Musc: Denies: neck pain, back pain, extremity pain or joint pain Skin/Breast: Denies: rash Neuro: Denies: headache(s), numbness in extremities, weakness in extremities, sensory changes or dizziness PFSH ED PFSH: Medical History Gastritis Hx of colonic polyps Surgical History H/O esophagogastroduodenoscopy 12/09/2019: Gastritis Status post colonoscopy with polypectomy 12/09/2019: 3 polyps removed from descending colon, follow-up colonoscopy in 3 years Family History Denies family history of Anesthesia complication Bleeding disorder Social History Smoking and tobacco status: former smoker Alcohol intake: former Lives independently: Yes Household members: spouse Current occupational status: retired History of recent travel: No Physical Exam Const: COMMON NORMALS: no acute distress, patient oriented x3, no limitations, alert and well nourished GENERAL APPEARANCE: cooperative ORIENTATION/CONSCIOUSNESS: Yes awake, Yes oriented to person, Yes oriented to place and Yes oriented to time HENMT: COMMON NORMALS: normocephalic and atraumatic HEAD & SCALP: normocephalic and atraumatic MOUTH: Normal oral and palatal mucosa present, lip normal and tongue normal THROAT: posterior oropharynx normal, tonsils normal and uvula midline Neck/C-Spine: COMMON NORMALS: full ROM and no lymphadenopathy GENERAL: Yes normal visual inspection, No anterior neck swelling, No tender, No tracheal deviation, No submandibular swelling and No Mass present (neck) Resp: COMMON NORMALS: normal respiratory effort and clear to auscultation bilaterally AUSCULTATION: clear to auscultation bilaterally Cardio: COMMON NORMALS: regular rate and regular rhythm RATE: regular rate RHYTHM: regular rhythm GI: COMMON NORMALS: Normal to inspection, nondistended, normoactive bowel ramona nds present, Soft to palpation, non-tender, No hepatosplenomegaly present and no masses INSPECTION: Yes normal to inspection AUSCULTATION: Yes normoactive bowel sounds PALPATION: Yes Soft to palpation and Yes No hepatosplenomegaly present Extremity: GENERAL: Yes normal exam except as noted Neuro: BO[place] COMA SCALE: document [facility] findings [place] coma scale eye opening: Spontaneous [place] coma scale verbal response: Orientated [place] coma scale motor response: [place]bey commands [place] coma scale total score: 15 COMMON NORMALS: patient oriented x3 SENSORIUM/ORIENTATION: Yes alert, Yes oriented to person, Yes oriented to place and Yes oriented to time SPEECH: speech normal Skin: COMMON NORMALS: no rashes or lesions noted GENERAL SKIN EXAM: no rashes or lesions noted Course Vital Signs: Vital signs: Vital Signs Pulse Rate 88 01/09/22 18:30 Respiratory Rate 18 01/09/22 18:30 Blood Pressure 133/86 01/09/22 18:30 Pulse Oximetry 95 01/09/22 18:30 MDM - Nausea/Vomiting/Diarrhea Medical Decision Making Patient clinically appears in no acute distress. His vital signs are normal. Lab work is unremarkable. Patient was given oral Zofran and was able to hold down fluids here. He has not had any episodes of vomiting during his visit. Again he does not complain of diarrhea, abdominal pain, or fevers. He is not complaining of any throat pain or trouble swallowing. Patient states he believes he has an appointment with [facility] this [facility]. Recommend he speak to them if he is still having nausea and vomiting. Also recommended he speak to them in re gards to the weight loss although he states his weight has been stable over the past 4 months. Strict return to ED precautions verbally given to patient. Lab Data : 01/09/22 18:15 01/09/22 18:15 Laboratory Results WBC 7.6 10^3/uL (4.0-10.0) 01/09/22 18:15 RBC 5.26 10^6/uL (4.1-5.3) 01/09/22 18:15 Hgb 15.3 g/dL (11.7-16.6) 01/09/22 18:15 Hct 49.0 % (42.0-52.0) 01/09/22 18:15 MCV 93.2 fl (80-94) 01/09/22 18:15 MCH 29.1 pg (28.0-34.0) 01/09/22 18:15 MCHC 31.2 g/dL (30.0-36.0) 01/09/22 18:15 RDW 13.5 % (12.1-15.1) 01/09/22 18:15 Plt Count 190 10^3/cmm (130-400) 01/09/22 18:15 MPV 10.0 fL (7.4-10.4) 01/09/22 18:15 Neut % (Auto) 82.7 % 01/09/22 18:15 Lymph % (Auto) 11.7 % 01/09/22 18:15 [place] % (Auto) 5.1 % 01/09/22 18:15 Eos % (Auto) 0.1 % 01/09/22 18:15 Baso % (Auto) 0.3 % 01/09/22 18:15 Neut # (Auto) 6.30 10^3/uL (1.8-7.7) 01/09/22 18:15 Lymph # (Auto) 0.9 10^3/uL (0.8-4.8) 01/09/22 18:15 [place] # (Auto) 0.4 10^3/uL (0.2-0.9) 01/09/22 18:15 Eos # (Auto) 0.0 10^3/uL (0.0-0.8) 01/09/22 18:15 Baso # (Auto) 0.0 10^3/uL (0.0-0.1) 01/09/22 18:15 Nucleated RBC % (auto) 0 % 01/09/22 18:15 Nucleated RBCs # 0.0 /100WBC 01/09/22 18:15 Sodium 141 mmol/L (136-145) 01/09/22 18:15 Potassium 5.0 mmol/L (3.5-5.1) 01/09/22 18:15 Chloride 101 mmol/L (98-107) 01/09/22 18:15 Carbon Dioxide 29 mmol/L (22-29) 01/09/22 18:15 Anion Gap 16.0 (5-19) 01/09/22 18:15 BUN 19 mg/dL (8-23) 01/09/22 18:15 Creatinine 1.3 mg/dL (0.7-1.2) H 01/09/22 18:15 GFR Calculation Not Reportable 01/09/22 18:15 Glucose 148 mg/dL (65-115) H 01/09/22 18:15 Calculated Osmolality 297 mOsm/kg (285-295) H 01/09/22 18:15 Calcium 10.5 mg/dL (8.5-10.5) 01/09/22 18:15 Total Bilirubin 0.3 mg/dL (0.15-1.2) 01/09/22 18:15 AST 32 U/L (0-40) 01/09/22 18:15 ALT 35 U/L (0-41) 01/09/22 18:15 Alkaline Phosphatase 91 IU/L (40-130) 01/09/22 18:15 Total Protein 7.2 g/dL (6.6-8.7) 01/09/22 18:15 Albumin 4.9 g/dL (3.5-5.2) 01/09/22 18:15 Globulin 2.3 g/dL (1.3-4.6) 01/09/22 18:15 Lipase 23 U/L (13-60) 01/09/22 18:15 Urine Color Yellow (Yellow) 01/09/22 19:07 Urine Appearance Clear (CLEAR) 01/09/22 19:07 Urine pH 7 (5-7) 01/09/22 19:07 Ur Specific [place] 1.015 (1.005-1.030) 01/09/22 19:07 Urine Protein Neg (Negative) 01/09/22 19:07 Urine Glucose (UA) Norm (Normal) 01/09/22 19:07 Urine Ketones Negative (Negative) 01/09/22 19:07 Urine Blood Neg (Negative) 01/09/22 19:07 Urine Nitrate Negative (Negative) 01/09/22 19:07 Urine Bilirubin Neg (Negative) 01/09/22 19:07 Urine Urobilinogen Norm mg/dL (Negative) 01/09/22 19:07 Ur Leukocyte Esterase Negative (Negative) 01/09/22 19:07 Discharge Plan Discharge Patient Disposition: Home Clinical Impression: Nausea and vomiting Qualifiers: Vomiting type: unspecified Qualified Code(s): R11.2 - Nausea with vomiting, unspecified Condition: Stable Prescriptions: New Zofran 4 mg tablet 4 mg PO Q6H PRN (Reason: nausea and vomiting) Qty: 10 0RF No Action donepezil 5 mg tablet 5 mg PO DAILY 0RF loratadine 10 mg tablet 10 mg PO DAILY 0RF bupropion HCl 300 mg tablet extended release 24 hr 300 mg PO DAILY 0RF Combivent Respimat 20-100 mcg/actuation Mist 1 puff INHALATION BID 0RF primidone 50 mg tablet 50 mg PO DAILY 0RF aspirin [Aspir-81] 81 mg Tablet,Delayed Release (Dr/Ec) 81 mg PO DAILY 0RF rosuvastatin 10 mg tablet 5 mg PO DAILY 0RF Rx Instructions: TAKE 1/2 TAB DAILY Klor-Con M20 20 mEq Tablet,Er Particles/Crystals 20 meq PO BID 0RF tamsulosin 0.4 mg capsule 0.4 mg PO DAILY 0RF hydroxyzine HCl 10 mg tablet 10 mg PO QID 0RF Discharge Orders: Discharge ED (Routine); Ordered 01/09/22 Ordered By: Una Grimaldo Referrals: Merle Sanchez MD [Primary Care Provider] - Activity Restrictions/Additional Instructions: As we discussed please follow-up with your primary care provider at your scheduled appointment this week at the [place] [facility]. [facility] of vomiting, diarrhea, severe abdominal pains, fevers, or any other concerns you may have. Coding Level of Care Code ED Drivematic Machine Operator for Frankie Fwmarlon Exam Comprehensive
[2022-01-09] MEDS: ondansetron 4 MG Tablet PO (18:24)
[2022-01-09 18:30] VITALS: BP 133/86; PULSE 88; RESP 18; O2SAT 95
[2022-01-09 18:30] LABS: Basophils % 0.3 %; Eosinophils % 0.1 %; Hemoglobin 15.3 g/dL (11.7-16.6); Lymphocytes # 0.9 10^3/uL (0.8-4.8); Lymphocytes % 11.7 %; Mean Corpuscular HGB Conc 31.2 g/dL (30.0-36.0); Mean Corpuscular Hemoglobin 29.1 pg (28.0-34.0); Mean Corpuscular Volume 93.2 fl (80-94); Monocytes # 0.4 10^3/uL (0.2-0.9); Monocytes % 5.1 %; Neutrophils % 82.7 %; Nucleated Red Blood Cells % 0 %; Platelet Count 190 10^3/cmm (130-400); Red Blood Count 5.26 10^6/uL (4.1-5.3); Red Cell Distribution Width 13.5 % (12.1-15.1); White Blood Count 7.6 10^3/uL (4.0-10.0)
[2022-01-09 18:51] LABS: Alanine Aminotransferase 35 U/L (0-41); Albumin Level 4.9 g/dL (3.5-5.2); Alkaline Phosphatase 91 IU/L (40-130); Blood Urea Nitrogen 19 mg/dL (8-23); Calcium 10.5 mg/dL (8.5-10.5); Carbon Dioxide 29 mmol/L (22-29); Chloride 101 mmol/L (98-107); Globulin 2.3 g/dL (1.3-4.6); Glucose 148 mg/dL (65-115); Lipase 23 U/L (13-60); Osmolality Calculated 297 mOsm/kg (285-295); Sodium 141 mmol/L (136-145); Total Bilirubin 0.3 mg/dL (0.15-1.2); Total Protein 7.2 g/dL (6.6-8.7)
[2022-01-09 18:55] LABS: Aspartate Amino Transferase 32 U/L (0-40)
[2022-01-09 19:25] LABS: Add Urine Microscopic? NO; Charge for UA Resulting for Rev
[2022-01-09 19:26] LABS: Glucose Urine UA Norm (Normal); Protein Urine Neg (Negative); Specific Gravity, Urine 1.015 (1.005-1.030); Urine Appearance Clear (CLEAR); Urine Color Yellow (Yellow); pH Urine 7 (5-7)
[2022-01-09 19:27] LABS: Bilirubin Urine Neg (Negative); Blood Urine Neg (Negative); Ketones Urine Negative (Negative); Leukocyte Esterase Urine Negative (Negative); Nitrate Urine Negative (Negative); Urobilinogen Urine Norm (Negative)
[2022-01-09 19:41] VITALS: BP 130/78; PULSE 96; RESP 16; O2SAT 96
== END 2022-01-09 19:43 | disposition home or self-care (01) ==
PROVIDERS: Emergency Provider Physician Assistant; PCP Family Medicine
DX: R11.2 Nausea with vomiting, unspecified (principal); Z79.82 Long term (current) use of aspirin; Z87.891 Personal history of nicotine dependence
CPT/HCPCS: 80053; 81003; 83690; 85025; 99283; Q0162

== ENCOUNTER 2022-06-15 07:07 | Emergency (ER) | payer MEDICARE, OTHER, SELFPAY ==
[2022-06-15 07:11] VITALS: BP 136/79; PULSE 112; RESP 16; TEMP 36.5; O2SAT 100; BMI 18.8
--- NOTE | 2022-06-15 07:25 | USCV_ITS ---
Catalino Ivy Age: 72 Gender: M : 1950 Exam Date: 06/15/2022 07:58 Ordering Phys: Vin Raygoza Technologist: William Young Exam Location: [facility] [place]_ Indication: left leg pain PROCEDURES: Venous duplex imaging was performed in only the left lower extremity. The following venous structures were evaluated: common femoral vein, profunda vein, proximal portion of the greater saphenous vein, superficial femoral vein, and the popliteal vein. In addition, the posterior tibial and peroneal trunk were evaluated. Serial compression, augmentation maneuvers, and spectral Doppler flow evaluation were performed. FINDINGS: Normal 2-D Doppler and augmentation and compressibility throughout the lower extremity venous structures. Additional imaging through the proximal calf veins also reveals no thrombus. Limited evaluation of the greater saphenous vein is patent with no thrombus. CONCLUSIONS No DVT left lower extremity. Dr. Jesika Urena DO (Electronically Signed) Final Date: 15 June 2022 08:45 S
--- NOTE | 2022-06-15 07:54 | ED_ITS ---
HPI - Extremity Problem General: Chief complaint: Extremity Injury, Lower Stated complaint: left leg pain Time Seen by Provider: 06/15/22 07:11 History of Present Illness: Patient is a 72-year-old male comes to the ED with left leg pain. Pains been going on now for approximately 1 month. Pain has progressed. Pain initially started in his left foot and has progressed up to mid lieberman. He denies any fall, injury or trauma to cause pain. Pain resolves when he is at rest. He only feels the pain in his left lower leg when he gets up and ambulates. Pain gets worse throughout the day when he is up and ambulating on it. Denies any history of blood clots. Denies any left leg swe lling, chest pain, shortness of breath. Associated symptoms: Deny chest pain, fever(s) or rash Review of Systems Const: Denies: fever(s), chills or fatigue Eyes: Denies: change in vision or eye discomfort ENMT: Denies: throat pain, odynophagia, nasal discharge or nasal congestion Card: Denies: chest pain, palpitations, edema, swelling of feet/ankles, dyspnea on exertion or orthopnea Resp: Denies: dyspnea, productive cough or non-productive cough GI: Denies: abdominal pain, nausea, vomiting, diarrhea, constipation or hematochezia : Denies: flank pain, difficulty urinating, dysuria or hematuria Musc: Denies: neck pain, back pain or extremity swelling Skin/Breast: Denies: rash or new lesions Neuro: Denies: headache(s), numbness in extremities or weakness in extremities PFSH ED PFSH: Medical History Gastritis Hx of colonic polyps Surgical History H/O esophagogastroduodenoscopy 12/09/2019: Gastritis Status post colonoscopy with polypectomy 12/09/2019: 3 polyps removed from descending colon, follow-up colonoscopy in 3 years Family History Denies family history of Anesthesia complication Bleeding disorder Social History Smoking and tobacco status: former smoker Alcohol intake: former Lives independently: Yes Household members: spouse Current occupational status: retired History of recent travel: No Physical Exam Const: COMMON NORMALS: patient oriented x3 and alert HENMT: COMMON NORMALS: normocephalic HEAD & SCALP: normocephalic MOUTH: Normal oral and palatal mucosa present THROAT: posterior oropharynx normal a nd uvula midline Neck/C-Spine: COMMON NORMALS: supple GENERAL: Yes normal visual inspection Resp: COMMON NORMALS: normal respiratory effort, No retractions, No use of accessory muscles and clear to auscultation bilaterally AUSCULTATION: clear to auscultation bilaterally Cardio: COMMON NORMALS: regular rate, regular rhythm, S1 normal heart sound present, S2 normal heart sound present, No gallops present (Cardio), No clicks present (Cardio) and No murmurs present (Cardio) RATE: regular rate RHYTHM: regular rhythm HEART SOUNDS: S1 normal heart sound present and S2 normal heart sound present OTHER: Left lower leg trace popliteal pulse noted. GI: COMMON NORMALS: Normal to inspection, nondistended, normoactive bowel sounds present, Soft to palpation, non-tender and no masses PALPATION: Yes Soft to palpation : COMMON NORMALS: Yes no CVA tenderness BLADDER/KIDNEY EXAM: Yes no CVA tenderness Back/Pelvis: COMMON NORMALS: no CVA tenderness Extremity: COMMON NORMALS: normal to inspection, full ROM, no calf tenderness and no pedal edema Neuro: COMMON NORMALS: patient oriented x3 SENSORIUM/ORIENTATION: Yes alert GAIT: Yes Normal gait present Skin: GENERAL SKIN EXAM: dry skin Course Vital Signs: Vital signs: Vital Signs Temperature 97.7 F 06/15/22 07:11 Pulse Rate 112 H 06/15/22 07:11 Respiratory Rate 16 06/15/22 07:11 Blood Pressure 136/79 06/15/22 07:11 Pulse Oximetry 100 06/15/22 07:11 Oxygen Delivery Me thod 06/15/22 07:11 MDM - Extremity (Nontraumatic) Medical Decision Making Patient is a 72-year-old male comes to the ED with left leg pain. Pains been going on now for approximately 1 month. Denies any injury, fall or trauma to cause pain. He has no pain at rest and only has pain when he is up and ambulating. Denies any chest pain, shortness of breath, fevers, abdominal pain, nausea/vomiting. Vitals are stable. Patient appears nontoxic in no acute distress or pain. Trace left popliteal pulse. No calf tenderness and no edema noted. Rest of exam is benign. Ultrasound venous duplex showed no DVT or blood clot. Ultrasound arterial Doppler of left lower extremity showed triphasic and biphasic flow with ANDRES 0.96. Patient was diagnosed with left leg pain which could be the start of some peripheral arterial disease in the left leg. Patient was stable for discharge home and told to follow-up with his PCP within the next week for reevaluation. I sent patient home with some meloxicam for pain. Return to ED precautions given. Patient understood and agreed with plan. Discharge Plan Discharge Patient Disposition: Home Clinical Impression: Pain in left lower leg Condition: Stable Prescriptions: New meloxicam 15 mg tablet 15 mg PO DAILY PRN (Reason: pain) Qty: 20 0RF No Action donepezil 5 mg tablet 5 mg PO DAILY loratadine 10 mg tablet 10 mg PO DAILY bupropion HCl 300 mg tablet extended release 24 hr 300 mg PO DAILY Combivent Respimat 20-100 mcg/actuation Mist 1 puff INHALATION BID primidone 50 mg tablet 50 mg PO DAILY aspirin [Aspir-81] 81 mg Tablet,Delayed Release (Dr/Ec) 81 mg PO DAILY rosuvastatin 10 mg tablet 5 mg PO DAILY Rx Instructions: TAKE 1/2 TAB DAILY Klor-Con M20 20 mEq Tablet,Er Particles/Crystals 20 meq PO BID tamsulosin 0.4 mg capsule 0.4 mg PO DAILY hydroxyzine HCl 10 mg tablet 10 mg PO QID Zofran 4 mg tablet 4 mg PO Q6H PRN (Reason: nausea and vomiting) Qty: 10 0RF Discharge Orders: Discharge ED (Routine); Ordered 06/15/22 Ordered By: Vin Raygoza Referrals: Merle Sanchez MD [Primary Care Provider] - Discharge Diet: Regular Discharge Activity: Increase activity as tolerated Activity Restrictions/Additional Instructions: Follow-up with medical provider as directed in the next 5 to 7 days for reevaluation. Take medications as prescribed. Return to the ER or your medical provider if condition worsens. Please read and understand discharge instructions. Thank you for choosing [facility] for your healthcare needs today. Please realize this is an emergency room and that we are providing you with a medical screening exam and this may not be complete and all inclusive of all the testing and or work up that you may need to determine your ailment or severity of your illness. It is very important that you follow up as instructed or that you return to the Emergency Department should you have concerns or if your condition changes or worsens in any way. Coding Level of Care Code ED Print Line Operator for Frankie Garcia Exam Comprehensive
--- NOTE | 2022-06-15 07:54 | USR_ITS ---
PROCEDURE INFORMATION: Exam: US Duplex Left Lower Extremity Arteries Or Arterial Bypass Grafts Exam date and time: 06/15/2022 8:13 AM Age: 72 years old Clinical indication: Pain; Leg, lower; Left; Additional info: Left leg pain with ambulation. No injury or trauma TECHNIQUE: Imaging protocol: Left Real-time duplex scan of the arteries or arterial bypass grafts of the left lower extremity with 2-D aguirre scale, color Doppler flow and spectral waveform analysis. Images documented and saved. COMPARISON: CT chest abd pel w con* 08/19/2021 6:00 PM FINDINGS: Left external iliac artery: Left iliac artery: Proximal 79.1 cm/sec, mid 72.3 cm/sec, distal 65.7 cm/sec, triphasic. Left common femoral artery: 64.9 cm/sec, triphasic. Left superficial femoral artery: Proximal SFA 84.9 cm/sec, biphasic. Mid SFA 72.8 cm/sec, biphasic. Distal SFA 40.1 cm/sec, biphasic. Left popliteal artery: Proximal popliteal 47.3 cm/sec, biphasic. Left calf/foot arteries: Distal WOODWORKING MACHINE OFFBEARER 42.1 cm/sec, biphasic. Dorsalis pedis 70.7 cm/sec, biphasic. Ankle brachial index: 0.96 (dorsalis pedis). US/CV arterial duplex [facility] [id number] IMPRESSION: Intimal calcifications. No hemodynamically significant stenosis (0% stenosis) by peak systolic velocity criteria.
[2022-06-15 08:33] VITALS: BMI 28.5
[2022-06-15 08:57] VITALS: PULSE 108; RESP 18; O2SAT 99
[2022-06-15 08:58] VITALS: BP 148/89
--- NOTE | 2022-06-15 08:58 | PC.NURSE ---
PT REFUSING VITAL SIGNS
== END 2022-06-15 09:01 | disposition home or self-care (01) ==
PROVIDERS: Emergency Provider Physician Assistant; PCP Family Medicine
DX: M79.605 Pain in left leg (principal); Z79.82 Long term (current) use of aspirin; Z87.891 Personal history of nicotine dependence
CPT/HCPCS: 93926; 93971; 99284

== ENCOUNTER 2022-07-17 11:21 | Outpatient (CLI) | payer OTHER, SELFPAY ==
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
== END 2022-07-17 11:22 | disposition home or self-care (01) ==
LOC: RAD 11:22
PROVIDERS: PCP Family Medicine; Visit Provider Family Medicine
DX: Z86.73 Personal history of transient ischemic attack (TIA), and cerebral infarction without residual deficits (principal); G93.89 Other specified disorders of brain; I67.82 Cerebral ischemia
CPT/HCPCS: 70450

== ENCOUNTER 2022-12-01 12:12 | Outpatient (CLI) | payer OTHER, SELFPAY ==
--- NOTE | 2022-12-01 12:48 | MR_ITS ---
WS: [id number] MRI LUMBAR SPINE NONCONTRAST HISTORY: RADICULOPATHY SCIATICA COMPARISON: None available. TECHNIQUE: Sagittal and axial multisequence imaging is submitted. Normal lumbar alignment with no compression fractures or marrow edema. Mild disc space narrowing and desiccation at L5-S1. Conus terminates normally at L1-2 disc level. L1-L2: Normal. L2-L3: Very mild bilateral facet joint arthritis and ligamentum flavum hypertrophy. No stenosis. L3-L4: Mild annular disc bulge with a central disc protrusion. Mild ligamentum flavum and facet arthr itis. Very mild central and bilateral subarticular recess encroachment. L4-L5: Mild annular disc bulge. Marked ligamentum flavum hypertrophy and facet arthritis encroaching into the thecal sac. Moderate to severe central with bilateral subarticular recess and moderate tatum inal stenosis. L5-S1: Diffuse asymmetric disc bulging without focal phyllis with a central and LEFT paracentral disc pro trusion extending into the foramen. Additional broad-based disc protrusion in the RIGHT foramen. Most significant contact on the LEFT traversing S1 nerve root. Disc contacts the RIGHT L5 exiting nerve r oot also. LEFT renal cyst 9 mm. Moderate atrophy of the RIGHT kidney. MR/MR lumbar spine wo con* [id number] IMPRESSION: 1. Moderate to severe central with bilateral subarticular recess and moderate foraminal stenosis at L4-5. Significant ligamentum flavum hypertrophy encroachi ng into the thecal sac. 2. Central and LEFT paracentral broad-based disc protrusions with an additiona l RIGHT foraminal broad-based disc protrusion at L5-S1. 3. Significant disc contact on the LEFT traversing S1 nerve root and moderate contact on the RIGHT L5 exiting nerve root. 4. Small central disc protrusion at L3-4. There is mild central and bilateral subarticular recess encroachment at L3-4. 5. Moderate atrophy RIGHT kidney.
--- NOTE | 2022-12-01 12:48 | MR_ITS ---
WS: [id number] MRI PELVIS without CONTRAST. COMPARISON: None Multiplanar, multisequence imaging is performed without contrast. History: Radiculopathy and sciatica. No fractures or marrow edema. SI joints are symmetric bilaterally. No erosions or edema. There is no widening or asymmetry of the SI joints. Disc protrusions and nerve root involvement is reidentified a t the L5-S1 level. Better seen on the MRI of the lumbar spine. The sacrum there is no soft tissue patti ng the nerve root complexes. Symmetric appearance of the soft tissues. MR/MR pelvis wo con* [id number] IMPRESSION: 1. No destructive masses involving the pelvis. 2. Sacral nerve roots are negative.
== END 2022-12-01 12:13 | disposition home or self-care (01) ==
LOC: RAD 12:13
PROVIDERS: PCP Family Medicine; Visit Provider Family Medicine
DX: Z01.89 Encounter for other specified special examinations (principal); M54.10 Radiculopathy, site unspecified; M54.30 Sciatica, unspecified side; N26.1 Atrophy of kidney (terminal); M51.26 Other intervertebral disc displacement, lumbar region
CPT/HCPCS: 72148; 72195

== ENCOUNTER 2022-12-26 20:40 | Emergency (ER) | payer OTHER, SELFPAY ==
[2022-12-26 20:44] VITALS: BP 140/68; PULSE 69; RESP 20; TEMP 36.9; O2SAT 95; BMI 16.7
--- NOTE | 2022-12-26 20:55 | ECG_ITS ---
[facility] Test Date: 2022-12-26 Pat Name: Catalino Ivy Department: Room: Gender: Male Gore Cutter: : 1950 Requested By: Yan Palmer Order Number: [id number] [place] MD: Gio Walters M.D. Measurements Intervals [place] Rate: 75 P: 72 NH: 155 QRS: 76 QRSD: 110 T: 71 QT: 379 QTc: 425 Interpretive Statements SINUS RHYTHM POSSIBLE LEFT ATRIAL ENLARGEMENT [-0.1mV P-WAVE IN V1/V2] Compared to ECG 08/12/2021 12:27:52 Sinus bradycardia no longer present Electronically Signed On 12-27-2022 10:27:03 JEWELRY MAKER by Gio Walters M.D. [id number]
--- NOTE | 2022-12-26 21:07 | CTR_ITS ---
PROCEDURE INFORMATION: Exam: CT Head Without Contrast Exam date and time: 12/26/2022 9:21 PM Age: 72 years old Clinical indication: Altered mental status/memory loss; Patient HX: Arrival via EMS for AMS. Patient acting confused. History of stroke. TECHNIQUE: Imaging protocol: Computed tomography of the head without contrast. Radiation optimization: All CT scans at this facility use at least one of these dose optimization techniques: automated exposure control; mA and/or kV adjustment per patient size (includes targeted exams where dose is matched to clinical indication); or iterative reconstruction. REPORTING DATA: Count of CT and Cardiac NM exams in prior 12 months: This patient has received [address] and 0 known cardiac nuclear medicine studies in the 12 months prior to the current study. COMPARISON: CT head wo con* [id number] 07/17/2022 11:28 AM RADIATION DOSE METRICS: Total DLP (mGy-cm): 1081.58 FINDINGS: Brain: Moderate diffuse white matter disease likely reflecting chronic microvascular ischemic changes. Cerebral ventricles: No ventriculomegaly. Paranasal sinuses: Visualized sinuses are unremarkable. No fluid levels. Mastoid air cells: Visualized mastoid air cells are well aerated. Bones/joints: Unremarkable. No acute fracture. Soft tissues: Unremarkable. 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 CT/CT head wo con* [id number] IMPRESSION: 1. Negative for intracranial hemorrhage or mass effect. 2. Moderate diffuse white matter disease likely reflecting chronic microvascular ischemic changes. 3. 

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
[2022-12-26 21:26] LABS: Add Urine Microscopic? NO; Charge for UA Resulting for Rev
[2022-12-26 21:37] LABS: Bilirubin Urine Neg (Negative); Blood Urine Neg (Negative); Glucose Urine UA Norm (Normal); Ketones Urine 1+ (Negative); Leukocyte Esterase Urine Negative (Negative); Nitrate Urine Negative (Negative); Protein Urine Neg (Negative); Specific Gravity, Urine 1.015 (1.005-1.030); Urine Appearance Clear (CLEAR); Urine Color Yellow (Yellow); Urobilinogen Urine Norm (Negative); pH Urine 7 (5-7)
[2022-12-26 21:42] LABS: Basophils % 0.5 %; Eosinophils % 0.7 %; Hematocrit 42.1 % (42.0-52.0); Hemoglobin 13.2 g/dL (11.7-16.6); Lymphocytes # 1.4 10^3/uL (0.8-4.8); Lymphocytes % 25.2 %; Mean Corpuscular HGB Conc 31.4 g/dL (30.0-36.0); Mean Corpuscular Volume 92.5 fl (80-94); Mean Platelet Volume 9.9 fL (7.4-10.4); Monocytes # 0.6 10^3/uL (0.2-0.9); Monocytes % 10.1 %; Neutrophils # 3.51 10^3/uL (1.8-7.7); Neutrophils % 63.3 %; Nucleated Red Blood Cells % 0 %; Platelet Count 223 10^3/cmm (130-400); Red Blood Count 4.55 10^6/uL (4.1-5.3); Red Cell Distribution Width 13.4 % (12.1-15.1); White Blood Count 5.6 10^3/uL (4.0-10.0)
[2022-12-26 22:10] LABS: Albumin Level 4.3 g/dL (3.5-5.2); Alkaline Phosphatase 75 U/L (40-130); Blood Urea Nitrogen 21 mg/dL (8-23); Calcium 9.8 mg/dL (8.5-10.5); Carbon Dioxide 30 mmol/L (22-29); Chloride 102 mmol/L (98-107); Globulin 2.4 g/dL (1.3-4.6); Glucose 90 mg/dL (65-115); Osmolality Calculated 297 mOsm/kg (285-295); Sodium 142 mmol/L (136-145); Total Bilirubin 0.4 mg/dL (0.15-1.2); Total Protein 6.7 g/dL (6.6-8.7)
[2022-12-26 22:13] LABS: Alanine Aminotransferase 37 U/L (0-41); Alcohol Level < 10 mg/dL (0-10); Aspartate Amino Transferase 51 U/L (0-40)
[2022-12-26 22:14] LABS: Anion Gap 14.4 (5-19); Potassium 4.4 mmol/L (3.5-5.1)
[2022-12-26 22:29] VITALS: PULSE 72; RESP 16; O2SAT 96
== END 2022-12-26 22:40 | disposition home or self-care (01) ==
PROVIDERS: Emergency Provider Emergency Medicine; PCP Family Medicine
DX: R41.0 Disorientation, unspecified (principal); Z79.82 Long term (current) use of aspirin; Z87.891 Personal history of nicotine dependence
CPT/HCPCS: 70450; 80053; 80307; 81003; 85025; 93005; 99285

== ENCOUNTER 2022-12-29 20:00 | Emergency (ER) | payer OTHER, SELFPAY ==
[2022-12-29 20:05] VITALS: BP 145/90; PULSE 80; RESP 18; TEMP 36.7; O2SAT 94; BMI 13.9
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
== END 2022-12-29 22:31 | disposition home or self-care (01) ==
PROVIDERS: Emergency Provider Emergency Medicine; PCP Family Medicine
DX: Z63.4 Disappearance and death of family member (principal); Z79.82 Long term (current) use of aspirin; Z87.891 Personal history of nicotine dependence
CPT/HCPCS: 99283

== ENCOUNTER 2023-02-23 11:43 | Observation (INO) | payer OTHER, SELFPAY ==
[2023-02-23] VITALS (54 sets, daily range): BP systolic 123–152; BP diastolic 70–91; PULSE 62–107; RESP 15–21; TEMP 36.4–36.6; O2SAT 76–100
--- NOTE | 2023-02-23 11:59 | XRR_ITS ---
PROCEDURE INFORMATION: Exam: XR Chest Exam date and time: 02/23/2023 12:16 PM Age: 72 years old Clinical indication: Other: AMS TECHNIQUE: Imaging protocol: Radiologic exam of the chest. Views: 1 view. COMPARISON: CT chest abdpel w/*[id number] 08/19/2021 6:00 PM FINDINGS: Lungs: Unremarkable. No consolidation. Pleural spaces: Unremarkable. No pleural effusion. No pneumothorax. Heart/Mediastinum: Unremarkable. No cardiomegaly. Bones/joints: Unremarkable for age. XR/XR chest 1V portable [id number] IMPRESSION: Negative chest exam.
--- NOTE | 2023-02-23 11:59 | CT_ITS ---
WS: [id number] CT HEAD NONCONTRAST HISTORY: ams, vomiting TECHNIQUE: Contiguous axial imaging performed through the brain in 2.5 mm imaging. Bone and soft tiss ue windows. Sagittal and coronal reformats reviewed. All CT scans at [facility] use at least one of these dose optimization techniques: automated exposure control; mA and/or kV adjustment per pa tient size (includes targeted exams where dose is matched to clinical indication); or iterative recon struction. DLP: 1037.98 mGy.cm COMPARISON: 12/26/2022 No acute intracranial hemorrhage, midline shift or mass effect. Moderate atrophy is symmetric. Mild small vessel ischemic type changes. No acute infarct. No interval change. Ventricles: Mild ventriculomegaly and also prominence of the extra-axial spaces on the basis of atro phy. Mild temporal horn dilatation. No inferior displacement of cerebellar tonsils. Paranasal sinuses: As visualized are clear. Mastoid air cells: Well pneumatized. Calvarium and scalp: Skull is intact with no soft tissue edema or swelling. CT/CT head wo con* [id number] IMPRESSION: 1. No acute intracranial hemorrhage or edema. 2. Stable noncontrast head CT since 12/26/2022. 3. Mild ventriculomegaly is probably on the basis of atrophy. Consider normal pressure hydrocephalus also as a possible etiology.
--- NOTE | 2023-02-23 12:01 | ECG_ITS ---
[facility] Test Date: 2023-02-23 Pat Name: Catalino Ivy Department: Room: Gender: Male Hospital Cna: : [id number] Requested By: Antwan Angulo Order Number: [id number] [place] MD: Gerard Hall M.D. Measurements Intervals [place] Rate: 60 P: 83 MO: 171 QRS: 86 QRSD: 101 T: 78 QT: 385 QTc: 388 Interpretive Statements SINUS RHYTHM POSSIBLE LEFT ATRIAL ENLARGEMENT [-0.1mV P-WAVE IN V1/V2] Compared to ECG 12/26/2022 20:58:45 No significant changes Electronically Signed On 02-23-2023 22:07:33 CDT by Gerard Hall M.D. [email or web address]
[2023-02-23 12:02] LABS: Glucose Point of Care 114 mg/dL (70-110)
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
[2023-02-23 13:39] LABS: Basophils % 0.3 %; Eosinophils % 0.1 %; Hematocrit 49.7 % (42.0-52.0); Hemoglobin 15.2 g/dL (11.7-16.6); Lymphocytes # 0.9 10^3/uL (0.8-4.8); Mean Corpuscular HGB Conc 30.6 g/dL (30.0-36.0); Mean Corpuscular Hemoglobin 28.4 pg (28.0-34.0); Mean Corpuscular Volume 92.9 fl (80-94); Mean Platelet Volume 10.2 fL (7.4-10.4); Monocytes # 0.3 10^3/uL (0.2-0.9); Monocytes % 3.9 %; Neutrophils # 5.51 10^3/uL (1.8-7.7); Neutrophils % 82.6 %; Nucleated Red Blood Cells % 0 %; Platelet Count 234 10^3/cmm (130-400); Red Blood Count 5.35 10^6/uL (4.1-5.3); Red Cell Distribution Width 13.7 % (12.1-15.1); White Blood Count 6.7 10^3/uL (4.0-10.0)
[2023-02-23 13:54] LABS: Ammonia 21 umol/L (16-60); Lactate (Lactic Acid level) 1.3 mmol/L (0.5-2.2)
[2023-02-23 14:02] LABS: Troponin(5th) Baseline 16 ng/L (0-15)
[2023-02-23 14:05] LABS: Alanine Aminotransferase 20 U/L (0-41); Albumin Level 4.8 g/dL (3.5-5.2); Alkaline Phosphatase 105 U/L (40-130); Anion Gap 15.8 (5-19); Aspartate Amino Transferase 17 U/L (0-40); Blood Urea Nitrogen 24 mg/dL (8-23); Carbon Dioxide 31 mmol/L (22-29); Chloride 100 mmol/L (98-107); Glucose 98 mg/dL (65-115); Lipase 84 U/L (13-60); Osmolality Calculated 298 mOsm/kg (285-295); Potassium 4.8 mmol/L (3.5-5.1); Sodium 142 mmol/L (136-145); Thyroid Stimulating Hormone 1.38 uIU/mL (0.27-4.20); Total Bilirubin 0.5 mg/dL (0.15-1.2); Total Protein 7.8 g/dL (6.6-8.7)
[2023-02-23 14:10] LABS: Alcohol Level < 10 mg/dL (0-10)
[2023-02-23 14:42] LABS: Add Urine Microscopic? NO; Charge for UA Resulting for Rev
[2023-02-23 14:59] LABS: Bilirubin Urine Neg (Negative); Blood Urine Neg (Negative); Glucose Urine UA Norm (Normal); Ketones Urine Negative (Negative); Leukocyte Esterase Urine Negative (Negative); Nitrate Urine Negative (Negative); Protein Urine Neg (Negative); Urine Appearance SL Hazy (CLEAR); Urine Color Yellow (Yellow); Urobilinogen Urine Neg (Negative); pH Urine 7 (5-7)
[2023-02-23 15:05] LABS: Amphetamines Screen Urine Negative (Negative); Barbiturates Screen Urine Positive (Negative); Benzodiazepines Screen Urine Negative (Negative); Cocaine Screen Urine Negative (Negative); Opiate Screen Urine Negative (Negative); PCP Screen Urine Negative (Negative); THC Screen Urine Negative (Negative)
--- NOTE | 2023-02-23 15:10 | PC.PHAR ---
pt states he takes no medications pt states he has not picked up any medications up from [facility] from himself and states he doesnt get meds from [facility] has crestor 5mg qpm-bupropion sa 300mg 24hr 1 tab daily-primidone 50mg take 25mg bid-aspirin 325mg daily and advair 100/50 1p bid-jim [facility] states the pt picked up donepezil 5mg hs-mirtazapine 15mg hs -bupropion xl 150mg qam on 01/09/23 30d/s
--- NOTE | 2023-02-23 16:09 | CTR_ITS ---
PROCEDURE INFORMATION: Exam: CT Abdomen And Pelvis With Contrast Exam date and time: 02/23/2023 4:23 PM Age: 72 years old Clinical indication: Abdominal pain; Generalized; Additional info: N/v, poss pancreatitis TECHNIQUE: Imaging protocol: Computed tomography of the abdomen and pelvis with contrast. Radiation optimization: All CT scans at this facility use at least one of these dose optimization techniques: automated exposure control; mA and/or kV adjustment per patient size (includes targeted exams where dose is matched to clinical indication); or iterative reconstruction. Contrast material: OMNI 350; Contrast volume: 80 ml; Contrast route: INTRAVENOUS (IV); REPORTING DATA: Count of CT and Cardiac NM exams in prior 12 months: This patient has received 2 known CTs and 0 known cardiac nuclear medicine studies in the 12 months prior to the current study. COMPARISON: MR pelvis wo con* [id number] 12/01/2022 1:43 PM RADIATION DOSE METRICS: Total DLP (mGy-cm): 283.13 FINDINGS: Lungs: Lung bases are clear. Liver: There are scattered small hypodensities within the liver too small to adequately characterize but statistically likely benign. Gallbladder and bile ducts: Normal. No calcified stones. No ductal dilation. Pancreas: Pancreas is unremarkable. There are no mass or inflammatory changes evident. Main pancreatic duct is not dilated. Spleen: Normal. No splenomegaly. Adrenal glands: Diffuse thickening of the mediolateral limbs of the left adrenal gland likely benign, secondary to nodular hyperplasia. Right adrenal gland is unremarkable. Kidneys and ureters: Right kidney is atrophic and somewhat scarred. There are small nonobstructing right renal stones. Small left renal cysts and tiny nonobstructing left renal stone otherwise kidneys unremarkable Stomach and bowel: Unremarkable. No obstruction. No mucosal thickening. Appendix: No evidence of appendicitis. Intraperitoneal space: Unremarkable. No free air. No significant fluid collection. Vasculature: Mild atherosclerotic changes with focal ectasia of the distal abdominal aorta measuring 2.3 cm. No aortic aneurysm. Lymph nodes: Unremarkable. No enlarged lymph nodes. Urinary bladder: Unremarkable as visualized. Reproductive: Prostate gland is mildly enlarged. Bones/joints: Unremarkable. No acute fracture. Soft tissues: 4.5 cm oval-shaped mass lower portion right inguinal canal suspicious for partially undescended right testicle. CT/CT abdomen pelvis w con* [id number] IMPRESSION: 1. No acute findings within the abdomen or pelvis. No evidence of acute pancreatitis. 2. Chronic scarring and atrophy right kidney and small nonobstructing calculi both kidneys. 3. Findings suspicious for partially undescended right testicle. 4. Additional nonemergent findings as above. COMMENTS: Consistent with the [employer]'s Incidental Findings Committee white paper (J Am Sydney Radiol 2018): Any incidental renal lesion less than 1 cm or classified as too small to characterize, or any incidental cystic renal lesion characterized as simple-appearing, is likely benign. No follow-up imaging is recommended for these lesions per consensus recommendations based on imaging criteria.
[2023-02-23 16:11] LABS: Troponin 5 2HR 13.45 ng/L (0-15)
[2023-02-23 16:30] LABS: Troponin 5 2HR Delta -2.55 ABS# (0-10)
[2023-02-23] MEDS: iohexol 350 mg/mL 500 mL Btl (per mL) IV (16:32)
[2023-02-23] MEDS: lactated ringers 1,000 ML 999 ML IV (16:52)
--- NOTE | 2023-02-23 19:11 | PC.NURSE ---
report given to JONATHAN Reis to assume care
[2023-02-23 19:59] LABS: Troponin 5 6HR 14.13 ng/L (0-15)
[2023-02-23 20:02] LABS: Troponin 5 6HR Delta -1.87 ng/L (0-12)
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
[2023-02-23 22:49] LABS: Estmated Average Glucose 108; Hemoglobin A1C 5.4 % (4.0-6.0)
[2023-02-23 23:03] LABS: Procalcitonin 0.08 ng/mL (0-0.5); Thyroid Stimulating Hormone 1.87 uIU/mL (0.27-4.20)
[2023-02-23] MEDS: sodium chloride 0.9% 1,000 ML 75 ML IV (23:03)
[2023-02-23] MEDS: enoxaparin 40 mg/0.4 mL Syringe SUBCUT (23:04)
[2023-02-23] MEDS: pantoprazole 40 mg SDV IVP (23:04)
[2023-02-23 23:14] LABS: Chol HDL Ratio 2.55 mg/dL (1.0-5.00); Cholesterol 120 mg/dL (0-200); HDL Cholesterol 47 mg/dL (60-100); LDL Cholesterol Calculated 62 mg/dL (50-129); LDL HDL Ratio 1.32 RATIO (0.00-3.22); Triglycerides 53 mg/dL (0-150)
[2023-02-24] VITALS (7 sets, daily range): BP systolic 123–146; BP diastolic 65–78; PULSE 52–74; RESP 15–18; TEMP 36.4–36.7; O2SAT 97–98
[2023-02-24 06:24] LABS: Basophils % 0.5 %; Eosinophils % 0.6 %; Hematocrit 43.5 % (42.0-52.0); Hemoglobin 13.8 g/dL (11.7-16.6); Lymphocytes # 1.5 10^3/uL (0.8-4.8); Lymphocytes % 24.8 %; Mean Corpuscular HGB Conc 31.7 g/dL (30.0-36.0); Mean Corpuscular Hemoglobin 29.5 pg (28.0-34.0); Mean Corpuscular Volume 92.9 fl (80-94); Mean Platelet Volume 10.4 fL (7.4-10.4); Monocytes # 0.7 10^3/uL (0.2-0.9); Monocytes % 10.6 %; Neutrophils % 63.3 %; Nucleated Red Blood Cells % 0 %; Platelet Count 211 10^3/cmm (130-400); Red Blood Count 4.68 10^6/uL (4.1-5.3); Red Cell Distribution Width 13.7 % (12.1-15.1); White Blood Count 6.2 10^3/uL (4.0-10.0)
[2023-02-24 06:51] LABS: Anion Gap 8.6 (5-19); Blood Urea Nitrogen 18 mg/dL (8-23); Calcium 9.2 mg/dL (8.5-10.5); Carbon Dioxide 31 mmol/L (22-29); Chloride 96 mmol/L (98-107); Glucose 80 mg/dL (65-115); Magnesium 1.9 mg/dL (1.7-2.3); Osmolality Calculated 273 mOsm/kg (285-295); Phosphorus 2.8 mg/dL (2.5-4.5); Potassium 4.6 mmol/L (3.5-5.1); Sodium 131 mmol/L (136-145)
[2023-02-24] MEDS: fluoxetine 20 mg Capsule PO (09:39)
[2023-02-24] MEDS: sodium chloride 0.9% 1,000 ML 75 ML IV (11:57)
--- NOTE | 2023-02-24 15:14 | PC.NURSE ---
Pt had a dog tick on his right hip.
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
== END 2023-02-24 18:15 | disposition home or self-care (01) ==
LOC: ER 20:47 → MEDSURG 21:04
PROVIDERS: Admitting Provider Family Medicine; Emergency Provider Emergency Medicine; PCP Family Medicine; Visit Provider Student in an Organized Health Care Education/Training Program
DX: R41.82 Altered mental status, unspecified (principal); R62.7 Adult failure to thrive; Z68.1 Body mass index [BMI] 19.9 or less, adult; Z63.4 Disappearance and death of family member; E86.0 Dehydration; F32.A Depression, unspecified; E78.5 Hyperlipidemia, unspecified
CPT/HCPCS: 36415; 36416; 70450; 71045; 74177; 80048; 80053; 80061; 80306; 80307; 81003; 82140; 82962; 83036; 83605; 83690; 83735; 84100; 84145; 84443; 84484; 85025; 93005; 96361; 96372; 96374; 97116; 97161; 97165; 99285; C9113; G0378; J1650; J7030; J7120; Q9967

== ENCOUNTER 2023-03-02 15:56 | Observation (INO) | payer OTHER, SELFPAY ==
[2023-03-02] VITALS (7 sets, daily range): BP systolic 107–161; BP diastolic 72–88; PULSE 63–85; RESP 16–18; TEMP 36.4–36.9; O2SAT 90–95; BMI 16.6
--- NOTE | 2023-03-02 16:11 | ECG_ITS ---
[facility] Test Date: 2023-03-02 Pat Name: Catalino Ivy Department: Room: Gender: Male [employer]: : 1950 Requested By: Rosendo Boo Order Number: [id number] [place] MD: Gerard Hall M.D. Measurements Intervals [place] Rate: 73 P: 89 WA: 156 QRS: 82 QRSD: 99 T: 88 QT: 373 QTc: 413 Interpretive Statements SINUS RHYTHM POSSIBLE RIGHT ATRIAL ENLARGEMENT [0.25mV P-WAVE] Compared to ECG 02/23/2023 12:34:06 No significant changes Electronically Signed On 03-03-2023 16:34:25 CDT by Gerard Hall M.D. [email or web address]
--- NOTE | 2023-03-02 16:26 | W.ED.GENADLT ---
Documented by User: Rosendo Crowley DO 03/03/23 05:47 HPI - General Adult General: Chief complaint: Upper Respiratory Infection Stated complaint: Trouble Remembering, N/V Time Seen by Provider: 03/02/23 16:09 Source: patient Mode of arrival: ambulatory History of Present Illness: 72-year-old male presents to the emergency room complaining of difficulty remembering confusion poor appetite moderate cough. Patient is disoriented to time and place he is oriented to person. He was here about a week ago CT of his head was negative he has similar complaint at that time. He denies chest or abdominal pain dysuria urgency or frequency. He is cachectic in appearance. Severity: moderate Relieving factors: none Exacerbating factors: none Associated symptoms: Deny chest pain, confusion, cough, diaphoresis, decreased appetite, dyspnea, fevers/chills, headache(s), malaise, nausea, rash, palpitations, seizures, short of breath, syncope, vomiting or weakness Treatments prior to arrival: none Review of Systems Const: Denies: fever(s), chills, fatigue, malaise or diaphoresis Card: Denies: chest pain, palpitations or syncope Resp: Denies: dyspnea GI: Denies: abdominal pain, nausea or vomiting : Denies: flank pain, dysuria, urinary frequency or urinary urgency Skin/Breast: Denies: rash Neuro: Denies: headache(s) or confusion PFSH ED PFSH: Medical History Anxiety Gastritis History of kidney stones Hx of colonic polyps Hyperlipidemia Sleep apnea Surgical History H/O esophagogastroduodenoscopy 12/09/2019: Gastritis Status post colonoscopy with polypectomy 12/09/2019: 3 polyps removed from descending colon, follow-up colonoscopy in 3 years Family History Denies family history of Anesthesia complication Bleeding disorder Social History Smoking and tobacco status: former smoker Alcohol intake: former Substance/Drug Use: never Lives independently: Yes Household members: spouse Current occupational status: retired Physical Exam Const: GENERAL APPEARANCE: cooperative and comfortable ORIENTATION/CONSCIOUSNESS: Yes awake and Yes oriented to place HENMT: COMMON NORMALS: normocephalic, atraumatic and hearing grossly normal bilaterally HEAD & SCALP: normocephalic and atraumatic Resp: COMMON NORMALS: normal respiratory effort, No retractions, No use of accessory muscles and clear to auscultation bilaterally AUSCULTATION: clear to auscultation bilaterally Cardio: COMMON NORMALS: regular rate, regular rhythm and No murmurs present (Cardio) RATE: regular rate RHYTHM: regular rhythm GI: COMMON NORMALS: Soft to palpation and No hepatosplenomegaly present AUSCULTATION: Yes normoactive bowel sounds PALPATION: Yes Soft to palpation, No Tenderness to palpation present (GI), No Guarding due to palpation present (GI) and Yes No hepatosplenomegaly present Extremity: COMMON NORMALS: normal to inspection, capillary refill normal, no clubbing, cyanosis or edema, no calf tenderness and no pedal edema Neuro: SENSORIUM/ORIENTATION: Yes oriented to place Skin: COMMON NORMALS: no rashes or lesions noted GENERAL SKIN EXAM: no rashes or lesions noted Course Vital Signs: Vital signs: Vital Signs Temperature 97.5 F L 03/03/23 04:00 Pulse Rate 52 L 03/03/23 04:00 Respiratory Rate 16 03/03/23 04:00 Blood Pressure 137/66 03/03/23 04:00 Pulse Oximetry 92 03/03/23 04:00 Oxygen Delivery Me thod Room Air 03/03/23 04:00 MDM - General Adult Medical Decision Making Care signed out to Dr. Aaron at change of shift. See final notes for diagnosis and disposition. Patient presents here with weakness along with failure to thrive he does live alone he is not really able to take care of himself at all and has had multiple falls will admit at this time for likely fdc placement. Lab Data 03/02/23 17:39 03/02/23 17:[address] 03/02/23 16:27 IMPRESSION: 1. Negative for intracranial hemorrhage or mass effect. 2. Mild stable ventricular prominence may be secondary to underlying atrophy, normal pressure hydrocephalus may also be a consideration as previously noted. Chest X-Ray 03/02/23 17:43 IMPRESSION: No acute findings. Laboratory Results WBC 5.8 10^3/uL (4.0-10.0) 03/02/23 17: RBC 4.57 10^6/uL (4.1-5.3) 03/02/23 17: Hgb 13.2 g/dL (11.7-16.6) 03/02/23 17: Hct 41.6 % (42.0-52.0) L 03/02/23 17: MCV 91.0 fl (80-94) 03/02/23 17: MCH 28.9 pg (28.0-34.0) 03/02/23 17: MCHC 31.7 g/dL (30.0-36.0) 03/02/23 17: RDW 14.2 % (12.1-15.1) 03/02/23 17: Plt Count 190 10^3/cmm (130-400) 03/02/23 17: MPV 10.2 fL (7.4-10.4) 03/02/23 17: Neut % (Auto) 77.2 % 03/02/23 17: Lymph % (Auto) 12.2 % 03/02/23 17:39 [place] % (Auto) 10.1 % 03/02/23 17: Eos % (Auto) 0.0 % 03/02/23 17: Baso % (Auto) 0.3 % 03/02/23: Neut # (Auto) 4.49 10^3/uL (1.8-7.7) 03/02/23 17: Lymph # (Auto) 0.7 10^3/uL (0.8-4.8) L 03/02/23 17:39 [place] # (Auto) 0.6 10^3/uL (0.2-0.9) 03/02/23 17: Eos # (Auto) 0.0 10^3/uL (0.0-0.8) 03/02/23 17: Baso # (Auto) 0.0 10^3/uL (0.0-0.1) 03/02/23 17: Nucleated RBC % (auto) 0 % 03/02/23: Nucleated RBCs # 0.0 /100WBC 03/02/23 17:39 D-Dimer 0.70 ug/mIFEU (0-0.59) H 03/02/23 17:39 Sodium 139 mmol/L (136-145) 03/02/23 17:39 Potassium 4.0 mmol/L (3.5-5.1) 03/02/23 17:39 Chloride 99 mmol/L (98-107) 03/02/23 17:39 Carbon Dioxide 30 mmol/L (22-29) H 03/02/23 17:39 Anion Gap 14.0 (5-19) 03/02/23 17:39 BUN 30 mg/dL (8-23) H 03/02/23 17:39 Creatinine 1.2 mg/dL (0.7-1.2) 03/02/23 17:39 GFR Calculation Not Reportable 03/02/23 17:39 Glucose 97 mg/dL (65-115) 03/02/23 17:39 Estimat Average Glucose 123 03/02/23 17:39 Hemoglobin A1c 5.9 % (4.0-6.0) 03/02/23 17:39 Calculated Osmolality 294 mOsm/kg (285-295) 03/02/23 17:39 Calcium 9.1 mg/dL (8.5-10.5) 03/02/23 17:39 Total Bilirubin 0.3 mg/dL (0.15-1.2) 03/02/23 17:39 AST 20 U/L (0-40) 03/02/23 17:39 ALT 22 U/L (0-41) 03/02/23 17:39 Alkaline Phosphatase 74 U/L (40-130) 03/02/23 17:39 Ammonia 55 umol/L (16-60) 03/02/23 17:39 Total Protein 6.3 g/dL (6.6-8.7) L 03/02/23 17:39 Albumin 4.0 g/dL (3.5-5.2) 03/02/23 17:39 Globulin 2.3 g/dL (1.3-4.6) 03/02/23 17:39 Lipase 73 U/L (13-60) H 03/02/23 17:39 Vitamin B12 900 pg/mL (232-1245) 03/02/23 17:39 TSH 1.26 uIU/mL (0.27-4.20) 03/02/23 17:39 Discharge Plan Discharge Patient Disposition: Admitted As Inpatient Admit Provider: Kt Nix Clinical Impression: Weakness, Adult failure to thrive Condition: Stable Coding Level of Care Code ED Sports Activities Foul Judge for Chg Fwd Documented by User: Joel Aaron MD 03/02/23 18:45 HPI - General Adult General: Chief complaint: Upper Respiratory Infection Stated complaint: Trouble Remembering, N/V Time Seen by Provider: 03/02/23 16:09 PFSH ED PFSH: Medical History Anxiety Gastritis History of kidney stones Hx of colonic polyps Hyperlipidemia Sleep apnea Surgical History H/O esophagogastroduodenoscopy 12/09/2019: Gastritis Status post colonoscopy with polypectomy 12/09/2019: 3 polyps removed from descending colon, follow-up colonoscopy in 3 years Family History Denies family history of Anesthesia complication Bleeding disorder Social History Smoking and tobacco status: former smoker Alcohol intake: former Substance/Drug Use: never Lives independently: Yes Household members: spouse Current occupational status: retired Course Vital Signs: Vital signs: Vital Signs Temperature 97.5 F L 03/03/23 04:00 Pulse Rate 52 L 03/03/23 04:00 Respiratory Rate 16 03/03/23 04:00 Blood Pressure 137/66 03/03/23 04:00 Pulse Oximetry 92 03/03/23 04:00 Oxygen Delivery Me thod Room Air 03/03/23 04:00 MDM - General Adult Medical Decision Making Patient presents here with weakness along with failure to thrive he does live alone he is not really able to take care of himself at all and has had multiple falls will admit at this time for likely fdc placement. Lab Data 03/02/23 17:39 03/02/23 17:[address] 03/02/23 16:27 IMPRESSION: 1. Negative for intracranial hemorrhage or mass effect. 2. Mild stable ventricular prominence may be secondary to underlying atrophy, normal pressure hydrocephalus may also be a consideration as previously noted. Chest X-Ray 03/02/23 17:43 IMPRESSION: No acute findings. Laboratory Results WBC 5.8 10^3/uL (4.0-10.0) 03/02/23 17:39 RBC 4.57 10^6/uL (4.1-5.3) 03/02/23 17:39 Hgb 13.2 g/dL (11.7-16.6) 03/02/23 17:39 Hct 41.6 % (42.0-52.0) L 03/02/23 17:39 MCV 91.0 fl (80-94) 03/02/23 17:39 MCH 28.9 pg (28.0-34.0) 03/02/23 17:39 MCHC 31.7 g/dL (30.0-36.0) 03/02/23 17:39 RDW 14.2 % (12.1-15.1) 03/02/23 17:39 Plt Count 190 10^3/cmm (130-400) 03/02/23 17:39 MPV 10.2 fL (7.4-10.4) 03/02/23 17:39 Neut % (Auto) 77.2 % 03/02/23 17:39 Lymph % (Auto) 12.2 % 03/02/23 17:39 [place] % (Auto) 10.1 % 03/02/23 17:39 Eos % (Auto) 0.0 % 03/02/23 17:39 Baso % (Auto) 0.3 % 03/02/23 17:39 Neut # (Auto) 4.49 10^3/uL (1.8-7.7) 03/02/23 17:39 Lymph # (Auto) 0.7 10^3/uL (0.8-4.8) L 03/02/23 17:39 [place] # (Auto) 0.6 10^3/uL (0.2-0.9) 03/02/23 17:39 Eos # (Auto) 0.0 10^3/uL (0.0-0.8) 03/02/23 17:39 Baso # (Auto) 0.0 10^3/uL (0.0-0.1) 03/02/23 17:39 Nucleated RBC % (auto) 0 % 03/02/23 17:39 Nucleated RBCs # 0.0 /100WBC 03/02/23 17:39 D-Dimer 0.70 ug/mIFEU (0-0.59) H 03/02/23 17:39 Sodium 139 mmol/L (136-145) 03/02/23 17:39 Potassium 4.0 mmol/L (3.5-5.1) 03/02/23 17:39 Chloride 99 mmol/L (98-107) 03/02/23 17:39 Carbon Dioxide 30 mmol/L (22-29) H 03/02/23 17:39 Anion Gap 14.0 (5-19) 03/02/23 17:39 BUN 30 mg/dL (8-23) H 03/02/23 17:39 Creatinine 1.2 mg/dL (0.7-1.2) 03/02/23 17:39 GFR Calculation Not Reportable 03/02/23 17:39 Glucose 97 mg/dL (65-115) 03/02/23 17:39 Estimat Average Glucose 123 03/02/23 17:39 Hemoglobin A1c 5.9 % (4.0-6.0) 03/02/23 17:39 Calculated Osmolality 294 mOsm/kg (285-295) 03/02/23 17:39 Calcium 9.1 mg/dL (8.5-10.5) 03/02/23 17:39 Total Bilirubin 0.3 mg/dL (0.15-1.2) 03/02/23 17:39 AST 20 U/L (0-40) 03/02/23 17:39 ALT 22 U/L (0-41) 03/02/23 17:39 Alkaline Phosphatase 74 U/L (40-130) 03/02/23 17:39 Ammonia 55 umol/L (16-60) 03/02/23 17:39 Total Protein 6.3 g/dL (6.6-8.7) L 03/02/23 17:39 Albumin 4.0 g/dL (3.5-5.2) 03/02/23 17:39 Globulin 2.3 g/dL (1.3-4.6) 03/02/23 17:39 Lipase 73 U/L (13-60) H 03/02/23 17:39 Vitamin B12 900 pg/mL (232-1245) 03/02/23 17:39 TSH 1.26 uIU/mL (0.27-4.20) 03/02/23 17:39 Discharge Plan Discharge Patient Disposition: Admitted As Inpatient Admit Provider: Kt Nix Clinical Impression: Weakness, Adult failure to thrive Condition: Stable Coding Level of Care Code ED Sports Activities Foul Judge for Frankie Garcia
--- NOTE | 2023-03-02 16:27 | CTR_ITS ---
PROCEDURE INFORMATION: Exam: CT Head Without Contrast Exam date and time: 03/02/2023 4:40 PM Age: 72 years old Clinical indication: Altered mental status/memory loss; Confusion or disorientation; Additional info: AMS TECHNIQUE: Imaging protocol: Computed tomography of the head without contrast. Radiation optimization: All CT scans at this facility use at least one of these dose optimization techniques: automated exposure control; mA and/or kV adjustment per patient size (includes targeted exams where dose is matched to clinical indication); or iterative reconstruction. REPORTING DATA: Count of CT and Cardiac NM exams in prior 12 months: This patient has received 4 known CTs and 0 known cardiac nuclear medicine studies in the 12 months prior to the current study. COMPARISON: CT head wo con* [id number] 02/23/2023 12:03 PM RADIATION DOSE METRICS: Total DLP (mGy-cm): 1055.55 FINDINGS: Brain: Mild diffuse white matter disease likely reflecting chronic microvascular ischemic changes. Cerebral ventricles: Mild stable ventricular prominence may be secondary to underlying atrophy, normal pressure hydrocephalus may also be a consideration as previously noted. Paranasal sinuses: Visualized sinuses are unremarkable. No fluid levels. Mastoid air cells: Visualized mastoid air cells are well aerated. Bones/joints: Unremarkable. No acute fracture. Soft tissues: Unremarkable. CT/CT head wo con* [id number] IMPRESSION: 1. Negative for intracranial hemorrhage or mass effect. 2. Mild stable ventricular prominence may be secondary to underlying atrophy, normal pressure hydrocephalus may also be a consideration as previously noted.
--- NOTE | 2023-03-02 17:43 | XRR_ITS ---
PROCEDURE INFORMATION: Exam: XR Chest Exam date and time: 03/02/2023 5:56 PM Age: 72 years old Clinical indication: Cough; Additional info: Dyspnea/cough TECHNIQUE: Imaging protocol: Radiologic exam of the chest. Views: 1 view. COMPARISON: CR XR chest 1V portable [id number] 02/23/2023 12:16 PM FINDINGS: Lungs: Unremarkable. No consolidation. Pleural spaces: Unremarkable. No pleural effusion. No pneumothorax. Heart/Mediastinum: Unremarkable. No cardiomegaly. Bones/joints: Unremarkable. XR/XR chest 1V portable [id number] IMPRESSION: No acute findings.
[2023-03-02 17:46] LABS: Basophils % 0.3 %; Hematocrit 41.6 % (42.0-52.0); Hemoglobin 13.2 g/dL (11.7-16.6); Lymphocytes # 0.7 10^3/uL (0.8-4.8); Lymphocytes % 12.2 %; Mean Corpuscular HGB Conc 31.7 g/dL (30.0-36.0); Mean Corpuscular Hemoglobin 28.9 pg (28.0-34.0); Mean Platelet Volume 10.2 fL (7.4-10.4); Monocytes # 0.6 10^3/uL (0.2-0.9); Monocytes % 10.1 %; Neutrophils # 4.49 10^3/uL (1.8-7.7); Neutrophils % 77.2 %; Nucleated Red Blood Cells % 0 %; Platelet Count 190 10^3/cmm (130-400); Red Blood Count 4.57 10^6/uL (4.1-5.3); Red Cell Distribution Width 14.2 % (12.1-15.1); White Blood Count 5.8 10^3/uL (4.0-10.0)
[2023-03-02 18:03] LABS: Alanine Aminotransferase 22 U/L (0-41); Alkaline Phosphatase 74 U/L (40-130); Aspartate Amino Transferase 20 U/L (0-40); Blood Urea Nitrogen 30 mg/dL (8-23); Calcium 9.1 mg/dL (8.5-10.5); Carbon Dioxide 30 mmol/L (22-29); Chloride 99 mmol/L (98-107); Globulin 2.3 g/dL (1.3-4.6); Glucose 97 mg/dL (65-115); Lipase 73 U/L (13-60); Osmolality Calculated 294 mOsm/kg (285-295); Sodium 139 mmol/L (136-145); Total Bilirubin 0.3 mg/dL (0.15-1.2); Total Protein 6.3 g/dL (6.6-8.7)
[2023-03-02 18:04] LABS: Ammonia 55 umol/L (16-60)
--- NOTE | 2023-03-02 18:43 | PM.HP ---
Providers/Chief Complaint Primary Care Provider: Merle Sanchez MD Chief Complaint: Trouble Remembering, N/V History of Present Illness Catalino Ivy is a 72 year old male who lives alone, patient is stating that his son is not in touch with him, present to the hospital for recurrent falls failure to thrive he has not been able to take care of himself. Patient is stating that he is not sure whether he will opt for snf but he needs some help. He has been extremely recurrent falls, does not have energy to take care of himself and daily activities. He also syncopal episode of emesis. He has not experienced any chest pain, shortness of breath, fever. At the time of evaluation he is on room air hemodynamically stable. He was worried about his cat at home Review of Systems Const: Reports: chills and body aches; Denies: fever(s) Eyes: Denies: change in vision ENMT: Denies: throat pain Card: Denies: chest pain Resp: Reports: dyspnea GI: Reports: nausea : Denies: flank pain Musc: Denies: neck pain Skin/Breast: Denies: rash Neuro: Denies: headache(s) Psych: Reports: anxiety Endo: Denies: polyuria Juan Miguel/Lymph: Denies: easy bruising Medications/Allergies Home Medications Medication Instructions Recorded Confirmed Last Taken Type fluoxetine 20 mg capsule 20 mg PO DAILY 30 days #30 caps 02/24/23 Unknown Rx fluoxetine 20 mg capsule 20 mg PO DAILY 30 days #30 caps 02/24/23 Unknown Rx Allergies Allergy/AdvReac Type Severity Reaction Status Date / Time No Known Drug Allergies Allergy Unknown Verified 02/23/23 12:02 PFSH Acute PFSH: Medical History Anxiety Gastritis History of kidney stones Hx of colonic polyps Hyperlipidemia Sleep apnea Surgical History H/O esophagogastroduodenoscopy 12/09/2019: Gastritis Status post colonoscopy with polypectomy 12/09/2019: 3 polyps removed from descending colon, follow-up colonoscopy in 3 years Family History Denies family history of Anesthesia complication Bleeding disorder Social History Smoking and tobacco status: former smoker Alcohol intake: former Substance/Drug Use: never Lives independently: Yes Household members: spouse Current occupational status: retired Vitals/I&O/Wt Last Vital Signs Temp 98.4 F 03/02/23 16:07 Pulse 72 03/02/23 18:40 Resp 16 03/02/23 16:07 BP 142/75 03/02/23 18:40 Pulse Ox 91 03/02/23 18:40 O2 Del Method Room Air 03/02/23 16:07 Weight last 48 hrs Weight 45.359 kg Physical Exam Narrative: Cachectic malnourished early male Muscle mass loss elderly male Appears stated age No active signs of CHF Abdomen soft No audible stridor or wheezing Currently on room air Pleasant and cooperative Short attention span Cognitive impairment Nonfocal neuro exam Data 03/02/23 17:39 03/02/23 17:39 A&P Assessment and plan (1) Weakness: (2) Adult failure to thrive: (3) COPD (chronic obstructive pulmonary disease): Plan Recurrent falls Failure to thrive Concern for normal pressure hydrocephalus? Patient has age-related degeneration which is evident on CT head No active signs of pancreatitis Patient care history of gastritis Sickle therapy requested Check TSH and B12 He might benefit from SNF/rehab Lives alone, patient stating he has not been in touch with his son Please call his son in the morning EKG with sinus rhythm Hemodynamically stable Full code Cardiac diet Start IV fluids Patient lives alone and worried about his cat at home Attestations Medical Necessity Statement*: Anticipating discharge to snf Diagnoses Weakness R53.1 Adult failure to thrive R62.7 COPD (chronic obstructive pulmonary disease) J44.9
[2023-03-02] MEDS: sodium chloride 0.9% 1,000 ML 75 ML IV (20:35)
[2023-03-02 20:37] LABS: Thyroid Stimulating Hormone 1.26 uIU/mL (0.27-4.20); Vitamin B12 900 pg/mL (232-1245)
[2023-03-02 22:46] LABS: Estmated Average Glucose 123; Hemoglobin A1C 5.9 % (4.0-6.0)
[2023-03-03] VITALS (9 sets, daily range): BP systolic 122–153; BP diastolic 59–70; PULSE 48–58; RESP 14–19; TEMP 36.3–37; O2SAT 92–95
[2023-03-03 05:58] LABS: Add Urine Microscopic? YES; Bilirubin Urine Neg (Negative); Blood Urine Neg (Negative); Glucose Urine UA Norm (Normal); Ketones Urine Negative (Negative); Leukocyte Esterase Urine Negative (Negative); Nitrate Urine Negative (Negative); Protein Urine Trace (Negative); Urine Appearance Clear (CLEAR); Urine Color Yellow (Yellow); Urobilinogen Urine Norm (Negative); pH Urine 5 (5-7)
[2023-03-03 06:05] LABS: Bacteria Urine 1+ /hpf; Squamous Epithelial Cell Urine 0-4 /hpf (0-5)
[2023-03-03 07:11] LABS: Blood Urea Nitrogen 25 mg/dL (8-23); Calcium 9.1 mg/dL (8.5-10.5); Carbon Dioxide 30 mmol/L (22-29); Chloride 101 mmol/L (98-107); Glucose 82 mg/dL (65-115); Magnesium 2.1 mg/dL (1.7-2.3); Osmolality Calculated 295 mOsm/kg (285-295); Sodium 141 mmol/L (136-145)
[2023-03-03] MEDS: ipratropium-albuterol 3 mL Neb INHALATION (08:32)
[2023-03-03] MEDS: sennosides-docusate Tablet 1 TAB PO (10:00)
[2023-03-03] MEDS: sodium chloride 0.9% 1,000 ML 75 ML IV ×2 (10:02→22:19)
--- NOTE | 2023-03-03 14:58 | PM.PN ---
Subjective Subjective: Patient denies any problems today. States that he is feeling some better. Discussed with patient today regarding possibly going to a facility for short time for rehab. He is not against doing this, but does not have insurance or financial means of affording this. He receives his care through the [facility]. Vitals/I&O/Wt Last Vital Signs Temp 97.4 F L 03/03/23 12:00 Pulse 54 L 03/03/23 12:00 Resp 15 03/03/23 12:00 BP 129/69 03/03/23 12:00 Pulse Ox 95 03/03/23 12:00 O2 Del Method Room Air 03/03/23 12:00 03/02/23 03/03/23 03/03/23 22:59 06:59 14:59 Intake Total 1720 / 1720 Balance 1720 / 1720 Weight last 48 hrs Weight 100 lb Physical Exam Narrative: General: Cooperative patient in no apparent distress. Cachexic. HEENT: Normocephalic, Atraumatic. External ears normal. Nasal passages patent without drainage. MMM. Heart: RRR. Resp: LCTA. No respiratory distress, no use of accessory muscles. Abd: Soft, non-tender. Non-distended. Extremities: No edema. Skin: No rash or lesions on exposed areas. Data 03/02/23 17:39 03/03/23 06:18 A&P Assessment and plan (1) Weakness: (2) Adult failure to thrive: (3) COPD (chronic obstructive pulmonary disease): Plan 72-year-old male admitted for failure to thrive, weakness and recurrent falls. Continue close inpatient monitoring. We will have therapy work with the patient today. Discussed with case management in regards to possible placement after discharge from facility. Patient would likely benefit from from ongoing physical and occupational therapies due to his ongoing weakness and falls. Recheck a.m. labs. Hemodynamically stable Continue oxygen protocol and respiratory to assess and treat. Code Status: Full IVF: NS at 75 DVT PPx: SCDs GI PPx: None ABx: None Diet: Cardiac Discharge plan: Home vs. SNF. Attestations Medical Necessity Statement*: Continue inpatient monitoring for weakness, recurrent falls, therapy and therapy see if placement can be arranged. Coding Level of Care Code Acute Code for Chg Fwd Moderate MDM includes number and complexity of problems actively addressed during encounter, amount and/or complexity of data reviewed/ordered and described risk of complication, morbidity or mortality of management as documented Diagnoses Weakness R53.1 Adult failure to thrive R62.7 COPD (chronic obstructive pulmonary disease) J44.9
[2023-03-04] VITALS (8 sets, daily range): BP systolic 130–164; BP diastolic 64–76; PULSE 44–64; RESP 16–96; TEMP 36.5–36.8; O2SAT 94–97
[2023-03-04 06:10] LABS: Basophils % 0.5 %; Eosinophils % 0.9 %; Hematocrit 37.8 % (42.0-52.0); Lymphocytes # 1.2 10^3/uL (0.8-4.8); Lymphocytes % 28.7 %; Mean Corpuscular HGB Conc 31.7 g/dL (30.0-36.0); Mean Corpuscular Hemoglobin 28.9 pg (28.0-34.0); Mean Corpuscular Volume 91.1 fl (80-94); Mean Platelet Volume 10.5 fL (7.4-10.4); Monocytes # 0.4 10^3/uL (0.2-0.9); Monocytes % 9.5 %; Neutrophils % 60.2 %; Nucleated Red Blood Cells % 0 %; Platelet Count 160 10^3/cmm (130-400); Red Blood Count 4.15 10^6/uL (4.1-5.3); Red Cell Distribution Width 14.2 % (12.1-15.1); White Blood Count 4.3 10^3/uL (4.0-10.0)
[2023-03-04 06:27] LABS: Alanine Aminotransferase 31 U/L (0-41); Albumin Level 3.3 g/dL (3.5-5.2); Alkaline Phosphatase 58 U/L (40-130); Anion Gap 11.7 (5-19); Aspartate Amino Transferase 26 U/L (0-40); Blood Urea Nitrogen 19 mg/dL (8-23); Calcium 8.4 mg/dL (8.5-10.5); Carbon Dioxide 26 mmol/L (22-29); Chloride 102 mmol/L (98-107); Creatinine Clr Calc Pharmacy 53.5488; Globulin 1.9 g/dL (1.3-4.6); Glucose 72 mg/dL (65-115); Osmolality Calculated 283 mOsm/kg (285-295); Potassium 3.7 mmol/L (3.5-5.1); Sodium 136 mmol/L (136-145); Total Bilirubin 0.3 mg/dL (0.15-1.2); Total Protein 5.2 g/dL (6.6-8.7)
--- NOTE | 2023-03-04 09:51 | ECG_ITS ---
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 Measurements Intervals [place] Rate: 53 P: 84 MO: 158 QRS: 84 QRSD: 94 T: 82 QT: 427 QTc: 404 Interpretive Statements SINUS BRADYCARDIA INTERPRETATION BASED ON A DEFAULT AGE OF 40 YEARS Compared to ECG 03/02/2023 16:28:19 Sinus rhythm no longer present Electronically Signed On 03-04-2023 22:35:13 CDT by Gerard Hall M.D. [email or web address]
--- NOTE | 2023-03-04 11:10 | PM.PN ---
Subjective Subjective: Patient is stating that he does not want to go to any snf, He has been working with PT We might be able to arrange home health services Sinus bradycardia noted I request another EKG which showed sinus bradycardia no signs of high degree AV block Most likely patient will be able to go home by tomorrow Vitals/I&O/Wt Last Vital Signs Temp 97.8 F 03/04/23 08:00 Pulse 47 L 03/04/23 08:00 Resp 18 03/04/23 08:00 BP 146/69 03/04/23 08:00 Pulse Ox 96 03/04/23 08:00 O2 Del Method Room Air 03/04/23 08:00 03/03/23 03/04/23 03/04/23 22:59 06:59 14:59 Intake Total 1401.25 / 3121.25 240 / 240 Balance 1401.25 / 3121.25 240 / 240 Weight last 48 hrs Weight 45.359 kg Physical Exam Narrative: Awake and alert Nonfocal neuro exam GCS 15 Hemodynamically stable No active complaints S1, S2 sinus bradycardia Abdomen soft Doing well on room air Data 03/04/23 04:52 03/04/23 04:52 A&P Assessment and plan (1) Weakness: (2) Adult failure to thrive: (3) Hydrocephalus: Qualifiers: Hydrocephalus type: unspecified Qualified Code(s): G91.9 - Hydrocephalus, unspecified (4) H/O esophagogastroduodenoscopy: Plan Recurrent falls Patient is not experiencing any change in mentation to consider normal pressure hydrocephalus No incontinence His recurrent falls are related to generalized weakness and fatigue Physical deconditioning He might benefit from home health services Patient does not want to go to rehab Head CT unremarkable EKG showing sinus bradycardia no signs of high degree AV block Not a candidate of pacemaker No need to repeat labs for tomorrow Discharge tomorrow Full code Attestations Medical Necessity Statement*: Discharge tomorrow Diagnoses Weakness R53.1 Adult failure to thrive R62.7 Hydrocephalus G91.9 Hydrocephalus type: unspecified H/O esophagogastroduodenoscopy Z98.890
[2023-03-05 04:00] VITALS: BP 151/69; PULSE 57; RESP 17; TEMP 36.6; O2SAT 93
[2023-03-05 08:00] VITALS: BP 144/69; PULSE 58; PULSE 62; RESP 16; RESP 18; TEMP 36.8; O2SAT 96; O2SAT 97
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
[2023-03-05 11:46] VITALS: BP 128/80; PULSE 56; RESP 18; TEMP 36.7; O2SAT 97
== END 2023-03-05 15:24 | disposition home health service (06) ==
LOC: ER 18:45 → MEDSURG 19:41
PROVIDERS: Family Medicine; Admitting Provider Internal Medicine; Emergency Provider Emergency Medicine; PCP Family Medicine; Visit Provider Internal Medicine
DX: R53.1 Weakness (principal); R62.7 Adult failure to thrive; J44.9 Chronic obstructive pulmonary disease, unspecified; R53.83 Other fatigue; G91.9 Hydrocephalus, unspecified; E78.5 Hyperlipidemia, unspecified; Z87.891 Personal history of nicotine dependence
CPT/HCPCS: 36415; 70450; 71045; 80048; 80053; 81001; 82140; 82607; 83036; 83690; 83735; 84443; 85025; 85378; 93005; 94640; 94664; 97110; 97116; 97161; 97166; 97530; 99285; G0378; J7030

== ENCOUNTER 2023-03-09 11:04 | Emergency (ER) | payer OTHER, SELFPAY ==
[2023-03-09] VITALS (17 sets, daily range): BP systolic 123–156; BP diastolic 62–107; PULSE 71; RESP 16; TEMP 36.3; O2SAT 81–100
--- NOTE | 2023-03-09 11:06 | CTR_ITS ---
PROCEDURE INFORMATION: Exam: CT Head Without Contrast Exam date and time: 03/09/2023 12:03 PM Age: 72 years old Clinical indication: Altered mental status/memory loss; Additional info: AMS TECHNIQUE: Imaging protocol: Computed tomography of the head without contrast. Radiation optimization: All CT scans at this facility use at least one of these dose optimization techniques: automated exposure control; mA and/or kV adjustment per patient size (includes targeted exams where dose is matched to clinical indication); or iterative reconstruction. REPORTING DATA: Count of CT and Cardiac NM exams in prior 12 months: This patient has received 5 known CTs and 0 known cardiac nuclear medicine studies in the 12 months prior to the current study. COMPARISON: CT head wo con* [id number] 03/02/2023 4:40 PM RADIATION DOSE METRICS: Total DLP (mGy-cm): 1056.15 FINDINGS: Brain: No acute intracranial hemorrhage. Possible lacunar infarct adjacent to the left basal ganglia that is new from prior. No mass, mass effect or midline shift. There is no evidence of acute large vessel infarct. There is mild patchy subcortical and periventricular hypodensity, most commonly associated with small vessel ischemic disease of indeterminate age. The posterior fossa is grossly unremarkable; however, it is partially obscurred by beam hardening artifact. Cerebral ventricles: The ventricles are prominent, compatible with moderate parenchymal volume loss. Paranasal sinuses: The visualized paranasal sinuses are clear. Mastoid air cells: No mastoid effusion. Orbital cavities: The visualized orbits are unremarkable. Bones/joints: No acute fracture is seen. Soft tissues: No significant scalp soft tissue swelling. CT/CT head wo con* [id number] IMPRESSION: 1. Possible lacunar infarct adjacent to the left basal ganglia that is new from prior. 2. [id number] senescent changes as above. 3. No acute intracranial hemorrhage.
--- NOTE | 2023-03-09 11:07 | XR_ITS ---
WS: [id number] Portable AP upright chest, 03/09/2023 Clinical Data: dyspnea/cough Comparison: Portable chest, 03/02/2023 Findings: No nodules, masses or effusions are seen. The heart is normal. The pulmonary vascularity is not increased. No pneumonia or pneumothorax is seen. The aortic arch and descending thoracic aorta s how minimal tortuosity and calcification. The diaphragms are flattened. XR/XR chest 1V portable [id number] Impression: Atherosclerosis and hyperinflation.
--- NOTE | 2023-03-09 11:14 | ECG_ITS ---
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 Measurements Intervals [place] Rate: 69 P: 84 [place]: 148 QRS: 83 QRSD: 101 T: 76 QT: 378 QTc: 405 Interpretive Statements SINUS RHYTHM POSSIBLE LEFT ATRIAL ENLARGEMENT [-0.1mV P-WAVE IN V1/V2] Compared to ECG 03/04/2023 09:51:52 Sinus bradycardia no longer present Electronically Signed On 03-09-2023 11:21:58 CDT by iGo Walters M.D. [id number]
[2023-03-09 11:40] LABS: ABG PCO2 47.3 mmHg (35-45); ABG PH Result 7.43 (7.35-7.45); Alveolar-Arterial Oxygen Gradi 4.6 mmHg (5-10); Arterial Blood Gas Hematocrit 44.3 % (42-52); Base Excess ABG 5.7 mmol/L (-2.0-2.0); Blood Gas Allen Test Pos; Blood Gas Operator Identificat WALCI; Blood Gas Sample Site Brachial, right; Blood Gas Sample Type Arterial; Carboxyhemoglobin 1.3 %THgb (0.4-20.1); HCO3 ABG 31.1 mmol/L (22-26); HGB O2 Sat 89.1 % (95-100); Ionized Calcium Level - ABG 1.3 mmol/L (1.1-1.4); Methemoglobin 0.6 % (0.4-1.5); Oxygen Saturation ABG 90.7; PO2 ABG 56.4 mmHg (80.0-100.0); Potassium Level - ABG 4.1 mmol/L (3.5-5.0); Total Hemoglobin 14.5 g/dL (14-18)
--- NOTE | 2023-03-09 11:51 | W.ED.AMS ---
HPI - Altered Mental Status General: Chief Complaint: Altered Mental Status Stated Complaint: ams Time Seen by Provider: 03/09/23 11:05 Source: patient Mode of arrival: EMS PFSH ED PFSH: Medical History Anxiety Gastritis History of kidney stones Hx of colonic polyps Hyperlipidemia Sleep apnea Surgical History H/O esophagogastroduodenoscopy 12/09/2019: Gastritis Status post colonoscopy with polypectomy 12/09/2019: 3 polyps removed from descending colon, follow-up colonoscopy in 3 years Family History Denies family history of Anesthesia complication Bleeding disorder Social History Smoking and tobacco status: former smoker Alcohol intake: former Substance/Drug Use: never Lives independently: Yes Household members: spouse Current occupational status: retired Course Vital Signs: Vital signs: Vital Signs Temperature 97.4 F L 03/09/23 11:06 Pulse Rate 71 03/09/23 11:45 Respiratory Rate 16 03/09/23 11:45 Blood Pressure 123/78 03/09/23 11:45 Pulse Oximetry 97 03/09/23 11:45 Oxygen Delivery Me thod Room Air 03/09/23 11:45 MDM - Altered Mental Status Lab Data Radiology Impressions Chest X-Ray 03/09/23 11:07 Impression: Atherosclerosis and hyperinflation. Laboratory Results Specimen Type Arterial 03/09/23 11:29 Sample Site Brachial, right 03/09/23 11:29 ABG pH 7.43 (7.35-7.45) 03/09/23 11:29 ABG pCO2 47.3 mmHg (35-45) H 03/09/23 11:29 ABG pO2 56.4 mmHg (80.0-100.0) L 03/09/23 11:29 ABG HCO3 31.1 mmol/L (22-26) H 03/09/23 11:29 ABG O2 Saturation 90.7 03/09/23 11:29 ABG Base Excess 5.7 mmol/L (-2.0-2.0) H 03/09/23 11:29 Glen Test Pos 03/09/23 11:29 A-a O2 Gradient 4.6 mmHg (5-10) L 03/09/23 11:29 Hematocrit 44.3 % (42-52) 03/09/23 11:29 Hgb O2 Saturation 89.1 % (95-100) L 03/09/23 11:29 Carboxyhemoglobin 1.3 %THgb (0.4-20.1) 03/09/23 11:29 Methemoglobin 0.6 % (0.4-1.5) 03/09/23 11:29 Total Hemoglobin 14.5 g/dL (14-18) 03/09/23 11:29 Sodium 140.0 mmol/L (131-143) 03/09/23 11:29 Potassium 4.1 mmol/L (3.5-5.0) 03/09/23 11:29 Glucose 92.0 mg/dL (70-115) 03/09/23 11:29 Ionized Calcium 1.3 mmol/L (1.1-1.4) 03/09/23 11:29 O2 Delivery Device None 03/09/23 11:29 FiO2 21.0 % 03/09/23 11:29 Food Adviser ID Jeanetteci 03/09/23 11:29 Discharge Plan Discharge Condition: Stable Prescriptions: No Action fluoxetine 20 mg capsule 20 mg PO DAILY 30 Days Qty: 30 1RF Referrals: Merle Sanchez MD [Primary Care Provider] - Patient Instructions: Altered Mental Status (ED), Alcohol Intoxication (ED), Benzodiazepine Use Disorder (ED), Concussion (ED), Dementia (ED), Subarachnoid Hemorrhage (GEN), Hyponatremia (ED), Non-diabetic Hypoglycemia (ED), Hypoglycemia in a Person with Diabetes (ED) Coding Level of Care Code ED Oyster Opener for Frankie Garcia
--- NOTE | 2023-03-09 11:53 | ED_ITS ---
HPI - General Adult General: Chief complaint: Altered Mental Status Stated complaint: ams Time Seen by Provider: 03/09/23 11:05 Source: patient Mode of arrival: EMS History of Present Illness: 72-year-old male who presents to the emergency room with complaints of hallucinations. He lives alone has home health nurses hematuria his normal state yesterday over the came to see him today he was having apparent hallucinations. On arrival here he is awake and alert he is relatively good historian he can tell me everything that was going on. He knows he is in [place] and was sent here by the home health care nurse he is not a having any apparent hallucinations at this time he does not seem to be entirely sure why he is here. He denies chest pain fever sweats chills shortness of breath denies any abdominal pain. No recent injuries or falls. Relieving factors: none Exacerbating factors: none Associated symptoms: Deny chest pain, confusion, cough, diaphoresis, decreased appetite, dyspnea, fevers/chills, headache(s), malaise, nausea, rash, palpitations, seizures, short of breath, syncope, vomiting or weakness Treatments prior to arrival: none Review of Systems Const: Denies: fever(s), chills, fatigue, malaise or diaphoresis ENMT: Denies: throat pain, ear or mastoid pain, nasal discharge or nasal congestion Card: Denies: chest pain, palpitations or syncope Resp: Denies: dyspnea GI: Denies: abdominal pain, nausea or vomiting : Denies: flank pain, dysuria, urinary frequency or urinary urgency Musc: Denies: neck pain or back pain Skin/Breast: Denies: rash Neuro: Denies: headache(s) or confusion PFSH ED PFSH: Medical History Adult failure to thrive Anxiety Gastritis History of kidney stones Hx of colonic polyps Hyperlipidemia Sleep apnea Weakness Surgical History H/O esophagogastroduodenoscopy 12/09/2019: Gastritis Status post colonoscopy with polypectomy 12/09/2019: 3 polyps removed from descending colon, follow-up colonoscopy in 3 years Family History Denies family history of Anesthesia complication Bleeding disorder Social History Smoking and tobacco status: former smoker Alcohol intake: former Substance/Drug Use: never Lives independently: Yes Household members: spouse Current occupational status: retired Physical Exam Const: GENERAL APPEARANCE: cooperative and comfortable NUTRITIONAL APPEARANCE: cachectic ORIENTATION/CONSCIOUSNESS: Yes awake, Yes oriented to person, Yes oriented to place and Yes oriented to time HENMT: COMMON NORMALS: normocephalic, atraumatic and hearing grossly normal bilaterally HEAD & SCALP: normocephalic and atraumatic Resp: COMMON NORMALS: normal respiratory effort, No retractions, No use of accessory muscles and clear to auscultation bilaterally AUSCULTATION: clear to auscultation bilaterally Cardio: COMMON NORMALS: regular rate, regular rhythm and No murmurs present (Cardio) RATE: regular rate RHYTHM: regular rhythm GI: COMMON NORMALS: Soft to palpation and No hepatosplenomegaly present AUSCULTATION: Yes normoactive bowel sounds PALPATION: Yes Soft to palpation, No Tenderness to palpation present (GI), No Guarding due to palpation present (GI) and Yes No hepatosplenomegaly present Extremity: COMMON NORMALS: normal to inspection, capillary refill normal, no clubbing, cyanosis or edema, no calf tenderness and no pedal edema Neuro: SENSORIUM/ORIENTATION: Yes oriented to person, Yes oriented to place and Yes oriented to time Skin: COMMON NORMALS: no rashes or lesions noted GENERAL SKIN EXAM: no rashes or lesions noted Course Vital Signs: Vital signs: Vital Signs Temperature 97.4 F L 03/09/23 11:06 Pulse Rate 71 03/09/23 11:45 Respiratory Rate 16 03/09/23 11:45 Blood Pressure 123/78 03/09/23 11:45 Pulse Oximetry 97 03/09/23 11:45 Oxygen Delivery Me thod Room Air 03/09/23 11:45 MDM - General Adult Medical Decision Making Patient has no focal neurologic deficit this time the report of altered mental status he is awake and alert no hallucinations. He is able to give appropriate history. Offered admission. Given his new CVA and report of confusion at times also generally he is having failure to thrive. He declines he would prefer to go home. We will go ahead and discharge him home per his request encouraged him to return if he has any further problems. We will contact his home health care nurse who evidently had advised him to come in today. Also to try and help augment available services for him we will have Department of family services contacted to see if they can further assist him. Unfortunately per his report he does not have any family available to is helping at this time. Medical Records I reviewed the patient's medical records. Lab Data I reviewed the patient's lab results. 03/09/23 11:50 03/09/23 11:[address] 03/09/23 11:06 IMPRESSION: 1. Possible lacunar infarct adjacent to the left basal ganglia that is new from prior. 2. [id number] senescent changes as above. 3. No acute intracranial hemorrhage. Chest X-Ray 03/09/23 11:07 Impression: Atherosclerosis and hyperinflation. Laboratory Results WBC 7.1 10^3/uL (4.0-10.0) 03/09/23 11:50 RBC 5.12 10^6/uL (4.1-5.3) 03/09/23 11:50 Hgb 14.9 g/dL (11.7-16.6) 03/09/23 11:50 Hct 46.9 % (42.0-52.0) 03/09/23 11:50 MCV 91.6 fl (80-94) 03/09/23 11:50 MCH 29.1 pg (28.0-34.0) 03/09/23 11:50 MCHC 31.8 g/dL (30.0-36.0) 03/09/23 11:50 RDW 13.8 % (12.1-15.1) 03/09/23 11:50 Plt Count 238 10^3/cmm (130-400) 03/09/23 11:50 MPV 10.2 fL (7.4-10.4) 03/09/23 11:50 Neut % (Auto) 71.8 % 03/09/23 11:50 Lymph % (Auto) 18.1 % 03/09/23 11:50 [place] % (Auto) 9.1 % 03/09/23 11:50 Eos % (Auto) 0.3 % 03/09/23 11:50 Baso % (Auto) 0.4 % 03/09/23 11:50 Neut # (Auto) 5.08 10^3/uL (1.8-7.7) 03/09/23 11:50 Lymph # (Auto) 1.3 10^3/uL (0.8-4.8) 03/09/23 11:50 [place] # (Auto) 0.6 10^3/uL (0.2-0.9) 03/09/23 11:50 Eos # (Auto) 0.0 10^3/uL (0.0-0.8) 03/09/23 11:50 Baso # (Auto) 0.0 10^3/uL (0.0-0.1) 03/09/23 11:50 Nucleated RBC % (auto) 0 % 03/09/23 11:50 Nucleated RBCs # 0.0 /100WBC 03/09/23 11:50 Specimen Type Arterial 03/09/23 11:29 Sample Site Brachial, right 03/09/23 11:29 ABG pH 7.43 (7.35-7.45) 03/09/23 11:29 ABG pCO2 47.3 mmHg (35-45) H 03/09/23 11:29 ABG pO2 56.4 mmHg (80.0-100.0) L 03/09/23 11:29 ABG HCO3 31.1 mmol/L (22-26) H 03/09/23 11:29 ABG O2 Saturation 90.7 03/09/23 11:29 ABG Base Excess 5.7 mmol/L (-2.0-2.0) H 03/09/23 11:29 Glen Test Pos 03/09/23 11:29 A-a O2 Gradient 4.6 mmHg (5-10) L 03/09/23 11:29 Hematocrit 44.3 % (42-52) 03/09/23 11:29 Hgb O2 Saturation 89.1 % (95-100) L 03/09/23 11:29 Carboxyhemoglobin 1.3 %THgb (0.4-20.1) 03/09/23 11:29 Methemoglobin 0.6 % (0.4-1.5) 03/09/23 11:29 Total Hemoglobin 14.5 g/dL (14-18) 03/09/23 11:29 Sodium 140.0 mmol/L (131-143) 03/09/23 11:29 Potassium 4.1 mmol/L (3.5-5.0) 03/09/23 11:29 Glucose 92.0 mg/dL (70-115) 03/09/23 11:29 Ionized Calcium 1.3 mmol/L (1.1-1.4) 03/09/23 11:29 O2 Delivery Device None 03/09/23 11:29 FiO2 21.0 % 03/09/23 11:29 Desk Assistant ID Walci 03/09/23 11:29 Sodium 139 mmol/L (136-145) 03/09/23 11:50 Potassium 4.4 mmol/L (3.5-5.1) 03/09/23 11:50 Chloride 99 mmol/L (98-107) 03/09/23 11:50 Carbon Dioxide 29 mmol/L (22-29) 03/09/23 11:50 Anion Gap 15.4 (5-19) 03/09/23 11:50 BUN 32 mg/dL (8-23) H 03/09/23 11:50 Creatinine 1.4 mg/dL (0.7-1.2) H 03/09/23 11:50 GFR Calculation Not Reportable 03/09/23 11:50 Glucose 86 mg/dL (65-115) 03/09/23 11:50 Calculated Osmolality 294 mOsm/kg (285-295) 03/09/23 11:50 Calcium 9.8 mg/dL (8.5-10.5) 03/09/23 11:50 Total Bilirubin 0.7 mg/dL (0.15-1.2) 03/09/23 11:50 AST 24 U/L (0-40) 03/09/23 11:50 ALT 32 U/L (0-41) 03/09/23 11:50 Alkaline Phosphatase 87 U/L (40-130) 03/09/23 11:50 Troponin T Baseline 22 ng/L (0-15) H 03/09/23 11:50 Total Protein 6.8 g/dL (6.6-8.7) 03/09/23 11:50 Albumin 3.9 g/dL (3.5-5.2) 03/09/23 11:50 Globulin 2.9 g/dL (1.3-4.6) 03/09/23 11:50 Discharge Plan Discharge Patient Disposition: Home Clinical Impression: CVA (cerebral vascular accident), Adult failure to thrive Condition: Stable Prescriptions: No Action fluoxetine 20 mg capsule 20 mg PO DAILY 30 Days Qty: 30 1RF Discharge Orders: Discharge ED (Routine); Ordered 03/09/23 Ordered By: Rosendo Crowley Referrals: Merle Sanchez MD [Primary Care Provider] - Discharge Diet: Usual diet Discharge Activity: Increase activity as tolerated Patient Instructions: Opioid Safety Activity Restrictions/Additional Instructions: You were seen today for weakness and report of altered mental status. Your CT showed what appears to be a new stroke likely from several days ago. We recommend admission but you preferred to go home. I would recommend that you consider having home health assist you at home or even consider assisted living. If you have any further problems or change in your symptoms return to the [facility]. Coding Level of Care Code ED Garde Manger for Frankie Garcia
[2023-03-09 12:01] LABS: Basophils % 0.4 %; Eosinophils % 0.3 %; Hematocrit 46.9 % (42.0-52.0); Hemoglobin 14.9 g/dL (11.7-16.6); Lymphocytes # 1.3 10^3/uL (0.8-4.8); Lymphocytes % 18.1 %; Mean Corpuscular HGB Conc 31.8 g/dL (30.0-36.0); Mean Corpuscular Hemoglobin 29.1 pg (28.0-34.0); Mean Corpuscular Volume 91.6 fl (80-94); Mean Platelet Volume 10.2 fL (7.4-10.4); Monocytes # 0.6 10^3/uL (0.2-0.9); Monocytes % 9.1 %; Neutrophils # 5.08 10^3/uL (1.8-7.7); Neutrophils % 71.8 %; Nucleated Red Blood Cells % 0 %; Platelet Count 238 10^3/cmm (130-400); Red Blood Count 5.12 10^6/uL (4.1-5.3); Red Cell Distribution Width 13.8 % (12.1-15.1); White Blood Count 7.1 10^3/uL (4.0-10.0)
[2023-03-09] MEDS: sodium chloride 0.9% 1,000 ML 999 ML IV (12:01)
[2023-03-09 12:20] LABS: Alanine Aminotransferase 32 U/L (0-41); Albumin Level 3.9 g/dL (3.5-5.2); Alkaline Phosphatase 87 U/L (40-130); Aspartate Amino Transferase 24 U/L (0-40); Blood Urea Nitrogen 32 mg/dL (8-23); Calcium 9.8 mg/dL (8.5-10.5); Carbon Dioxide 29 mmol/L (22-29); Chloride 99 mmol/L (98-107); Globulin 2.9 g/dL (1.3-4.6); Glucose 86 mg/dL (65-115); Osmolality Calculated 294 mOsm/kg (285-295); Sodium 139 mmol/L (136-145); Total Bilirubin 0.7 mg/dL (0.15-1.2); Total Protein 6.8 g/dL (6.6-8.7)
[2023-03-09 12:23] LABS: Anion Gap 15.4 (5-19); Potassium 4.4 mmol/L (3.5-5.1)
--- NOTE | 2023-03-09 12:52 | PC.PHAR ---
Addendum entered by Nteta Cardona 03/09/23 13:08: prozac 20mg daily filled 02/24/23 30d/s as on previous discharge paperwork from 03/05/23 unable to verify any medications with pt or home health states didnt set up meds for pt states referred pt to hospice-pts [place] med list has crestor 5mg qpm-bupropion sa 300mg 24hr 1 tab daily-primidone 50mg take 25mg bid-aspirin 325mg daily and advair 100/50 1p bid-[facility] states the pt picked up donepezil 5mg hs-mirtazapine 15mg hs -bupropion xl 150mg qam on 01/09/23 30d/s Original Note: pt unable to verify medications-pt states he has home health-[facility] home care per evan states the pt didnt meet the needs of home health-[facility] [phone] per mika states the pt didnt meet the needs for home health states they referred him to hospice she thinks it was [facility]-
[2023-03-09 13:06] LABS: Troponin(5th) Baseline 22 ng/L (0-15)
--- NOTE | 2023-03-09 13:07 | ECG_ITS ---
[facility] Test Date: 2023-03-09 Pat Name: Catalino Ivy Department: Room: Gender: Male Memorial Marker Designer: : 1950 Requested By: Rosendo Boo Order Number: [id number] [place] MD: Gio Walters M.D. Measurements Intervals [place] Rate: 46 P: 79 [place]: 161 QRS: 81 QRSD: 94 T: 79 QT: 444 QTc: 391 Interpretive Statements SINUS BRADYCARDIA POSSIBLE LEFT ATRIAL ENLARGEMENT [-0.1mV P-WAVE IN V1/V2] Compared to ECG 03/09/2023 11:14:59 Sinus rhythm no longer present Electronically Signed On 03-09-2023 23:06:18 CDT by Gio Walters M.D. [id number]
--- NOTE | 2023-03-09 13:56 | DCPLANNER ---
manager costing was asked to confirm that patient had been referred to hospice. manager costing was told that patient had been discharged from the hospital and was set up with HH from [facility]. When [facility] went to patients house to evaluate patient, that they declined patient and referred patient to hospice. manager costing called [facility], spoke with Marleny, was told that hospice did receive a referral on patient from [facility]. manager costing faxed patients information to Marelny at [facility].
[2023-03-09 15:26] LABS: Add Urine Microscopic? NO; Charge for UA Resulting for Rev
[2023-03-09 15:30] LABS: Troponin 5 2HR 18.39 ng/L (0-15)
[2023-03-09 15:31] LABS: Troponin 5 2HR Delta -3.61 ABS# (0-10)
[2023-03-09 15:33] LABS: Bilirubin Urine Neg (Negative); Blood Urine Neg (Negative); Glucose Urine UA Norm (Normal); Ketones Urine Negative (Negative); Leukocyte Esterase Urine Negative (Negative); Nitrate Urine Negative (Negative); Protein Urine Neg (Negative); Specific Gravity, Urine 1.015 (1.005-1.030); Urine Appearance Clear (CLEAR); Urine Color Yellow (Yellow); Urobilinogen Urine Neg (Negative); pH Urine 6 (5-7)
== END 2023-03-09 15:38 | disposition home or self-care (01) ==
PROVIDERS: Emergency Provider Family Medicine; PCP Family Medicine
DX: I63.9 Cerebral infarction, unspecified (principal); R62.7 Adult failure to thrive; Z68.1 Body mass index [BMI] 19.9 or less, adult; E78.5 Hyperlipidemia, unspecified; Z87.891 Personal history of nicotine dependence
CPT/HCPCS: 36415; 36600; 70450; 71045; 80051; 80053; 81003; 82330; 82805; 84484; 85025; 93005; 96360; 99285; J7030

== ENCOUNTER 2023-03-13 15:14 | Observation (INO) | payer OTHER, SELFPAY ==
[2023-03-13] VITALS (26 sets, daily range): BP systolic 113–154; BP diastolic 68–102; PULSE 64–95; RESP 17–24; TEMP 36.7–36.9; O2SAT 90–99
--- NOTE | 2023-03-13 15:20 | ED_ITS ---
HPI - Altered Mental Status General: Chief Complaint: Altered Mental Status Stated Complaint: AMS Time Seen by Provider: 03/13/23 15:16 Limitations: altered mental status History of Present Illness: Mr. Ivy is a 72-year-old gentleman presenting the emergency department for mental status change. Apparently he was [facility] and noted to be confused at that time. He does endorse a fall while getting out of the [place] transport van. He was also noted to have wheezing by EMS and an albuterol nebulizer was administered. He has had a cough end identifies having fluid though he is unsure of how long. History is otherwise limited by patient's m ental status. Onset (ago): unknown Severity: moderate Consistency of symptoms: Unknown Review of Systems General: Reports: 10 or more systems reviewed and unremarkable except in HPI and below (Questionable reliability) PFSH ED PFSH: Medical History Adult failure to thrive Anxiety Gastritis History of kidney stones Hx of colonic polyps Hyperlipidemia Sleep apnea Weakness Surgical History H/O esophagogastroduodenoscopy 12/09/2019: Gastritis Status post colonoscopy with polypectomy 12/09/2019: 3 polyps removed from descending colon, follow-up colonoscopy in 3 years Family History Denies family history of Anesthesia complication Bleeding disorder Social History Smoking and tobacco status: former smoker Alcohol intake: former Substance/Drug Use: never Lives independently: Yes Household members: spouse Current occupational status: retired Physical Exam Const: COMMON NORMALS: alert GENERAL APPEARANCE: cooperative, well developed and frail appearing HENMT: COMMON NORMALS: normocephalic and atraumatic HEAD & SCALP: normocephalic and atraumatic Eye: COMMON NORMALS: conjunctivae normal CONJUNCTIVA: Yes conjunctivae normal SCLERA: sclerae normal Neck/C-Spine: COMMON NORMALS: supple GENERAL: Yes trachea midline Resp: COMMON NORMALS: normal respiratory effort EFFORT & INSPECTION: Yes able to speak in complete sentences Cardio: COMMON NORMALS: regular rate and regular rhythm RATE: regular rate RHYTHM: regular rhythm GI: COMMON NORMALS: Soft to palpation PALPATION: Yes Soft to palpation and No Tenderness to palpation present (GI) Extremity: GENERAL: Yes normal exam except as noted and No edema Neuro: COMMON NORMALS: CN's II-XII intact bilaterally, moves all extremities, no focal motor deficits and no sensory deficits noted SENSORIUM/ORIENTATION: Yes alert, Yes Orientation impaired and Yes fluctuating sensorium Course Vital Signs: Vital signs: Vital Signs Temperature 97.8 F 03/16/23 19:41 Pulse Rate 79 03/16/23 20:00 Respiratory Rate 16 03/16/23 20:00 Blood Pressure 138/78 03/16/23 19:41 Pulse Oximetry 99 03/16/23 20:58 Oxygen Delivery Me thod Room Air 03/16/23 20:58 MDM - Altered Mental Status Medical Decision Making 72-year-old gentleman presenting with possible mental status change. Overall there is concern for complete lack of self-care. The patient himself is a very poor historian however there are no focal neurologic deficits. EKG demonstrates sinus rhythm with normal axis and intervals, no STEMI. Labs with no leukocytosis, normal hemoglobin and platelet count. Metabolic panel with evidence of dehydration including KODI. Negative range 2-hour delta troponin. Urine pending. Chest x-ray with no lobar consolidation or pneumothorax, findings are consistent with COPD. Head CT and cervical spine CT are negative for acute traumatic injury, intracranial hemorrhage or mass are negative. On reassessment patient remains confused. Exact etiology of patient's symptoms is unclear however he does have KODI and given overall clinical context requires admission for further evaluation and management. Patient was discussed with state worker assigned to his case. The results of ED evaluation were discussed with the patient including plan for admission due to requirement for level of care not available if discharged to prevent significant worsening/deterioration. Patient agreeable with plan. Discussed with hospitalist service who was agreeable to admit patient. Medical Records I reviewed the patient's medical records. Lab Data I reviewed the patient's lab results. 03/14/23 04:27 03/15/23 10:00 Radiology Impressions Cervical Spine CT 03/13/23 15:38 IMPRESSION: No acute abnormality. Chest X-Ray 03/13/23 15:38 IMPRESSION: Hyperinflated lungs. Correlation with chronic obstructive airway disease. Head CT 03/13/23 15:38 IMPRESSION: No acute intracranial abnormality. Chronic microvascular ischemic changes. Head MRI 03/14/23 09:30 IMPRESSION: 1. No acute infarct or diffusion abnormality identified. 2. Moderate bilateral symmetric atrophy. 3. Mild ventriculomegaly. 4. Very mild small vessel ischemic disease. Laboratory Results WBC 9.3 10^3/uL (4.0-10.0) 03/13/23 15:47 RBC 5.33 10^6/uL (4.1-5.3) H 03/13/23 15:47 Hgb 15.3 g/dL (11.7-16.6) 03/13/23 15:47 Hct 49.2 % (42.0-52.0) 03/13/23 15:47 MCV 92.3 fl (80-94) 03/13/23 15:47 MCH 28.7 pg (28.0-34.0) 03/13/23 15:47 MCHC 31.1 g/dL (30.0-36.0) 03/13/23 15:47 RDW 14.1 % (12.1-15.1) 03/13/23 15:47 Plt Count 283 10^3/cmm (130-400) 03/13/23 15:47 MPV 10.2 fL (7.4-10.4) 03/13/23 15:47 Neut % (Auto) 78.0 % 03/13/23 15:47 Lymph % (Auto) 15.7 % 03/13/23 15:47 [place] % (Auto) 5.4 % 03/13/23 15:47 Eos % (Auto) 0.2 % 03/13/23 15:47 Baso % (Auto) 0.4 % 03/13/23 15:47 Neut # (Auto) 7.22 10^3/uL (1.8-7.7) 03/13/23 15:47 Lymph # (Auto) 1.5 10^3/uL (0.8-4.8) 03/13/23 15:47 [place] # (Auto) 0.5 10^3/uL (0.2-0.9) 03/13/23 15:47 Eos # (Auto) 0.0 10^3/uL (0.0-0.8) 03/13/23 15:47 Baso # (Auto) 0.0 10^3/uL (0.0-0.1) 03/13/23 15:47 Nucleated RBC % (auto) 0 % 03/13/23 15:47 Nucleated RBCs # 0.0 /100WBC 03/13/23 15:47 Sodium 140 mmol/L (136-145) 03/13/23 15:47 Potassium 5.0 mmol/L (3.5-5.1) 03/13/23 15:47 Chloride 97 mmol/L (98-107) L 03/13/23 15:47 Carbon Dioxide 31 mmol/L (22-29) H 03/13/23 15:47 Anion Gap 17.0 (5-19) 03/13/23 15:47 BUN 33 mg/dL (8-23) H 03/13/23 15:47 Creatinine 1.8 mg/dL (0.7-1.2) H 03/13/23 15:47 GFR Calculation Not Reportable 03/13/23 15:47 Glucose 87 mg/dL (65-115) 03/13/23 15:47 Estimat Average Glucose 120 03/13/23 15:47 Hemoglobin A1c 5.8 % (4.0-6.0) 03/13/23 15:47 Calculated Osmolality 297 mOsm/kg (285-295) H 03/13/23 15:47 Calcium 10.4 mg/dL (8.5-10.5) 03/13/23 15:47 Total Bilirubin 0.4 mg/dL (0.15-1.2) 03/13/23 15:47 AST 25 U/L (0-40) 03/13/23 15:47 ALT 31 U/L (0-41) 03/13/23 15:47 Alkaline Phosphatase 96 U/L (40-130) 03/13/23 15:47 Troponin T Baseline 27 ng/L (0-15) H 03/13/23 15:47 Troponin T 120 Minute 21.22 ng/L (0-15) H 03/13/23 17:40 Delta Troponin T -5.78 ABS# (0-10) L 03/13/23 17:40 Total Protein 7.1 g/dL (6.6-8.7) 03/13/23 15:47 Albumin 4.5 g/dL (3.5-5.2) 03/13/23 15:47 Globulin 2.6 g/dL (1.3-4.6) 03/13/23 15:47 Triglycerides 66 mg/dL (0-150) 03/13/23 15:47 Cholesterol 127 mg/dL (0-200) 03/13/23 15:47 LDL Cholesterol, Calc 65 mg/dL (50-129) 03/13/23 15: HDL Cholesterol 49 mg/dL (60-100) L 03/13/23 15:47 LDL/HDL Ratio 1.33 RATIO (0.00-3.22) 03/13/23 15: Cholesterol/HDL Ratio 2.59 mg/dL (1.0-5.00) 03/13/23 15: Procalcitonin 0.14 ng/mL (0-0.5) 03/13/23 15: TSH 1.96 uIU/mL (0.27-4.20) 03/13/23 15:47 Urine Color Yellow (Yellow) 03/13/23 17:00 Urine Appearance Hazy (CLEAR) A 03/13/23 17:00 Urine pH 5 (5-7) 03/13/23 17:00 Ur Specific [place] 1.020 (1.005-1.030) 03/13/23 17:00 Urine Protein 1+ (Negative) H 03/13/23 17:00 Urine Glucose (UA) Norm (Normal) 03/13/23 17:00 Urine Ketones 1+ (Negative) H 03/13/23 17:00 Urine Blood Neg (Negative) 03/13/23 17:00 Urine Nitrate Negative (Negative) 03/13/23 17:00 Urine Bilirubin Neg (Negative) 03/13/23 17:00 Urine Urobilinogen Norm mg/dL (Negative) 03/13/23 17:00 Ur Leukocyte Esterase Trace (Negative) H 03/13/23 17:00 Urine RBC Rare /hpf (0-2) 03/13/23 17:00 Urine WBC 0-4 /hpf (0-5) H 03/13/23 17:00 Ur Squamous Epith Cells Rare /hpf (0-5) 03/13/23 17:00 Amorphous Sediment Not Reportable 03/13/23 17:00 Urine Bacteria Trace /hpf (NONE) 03/13/23 17:00 Discharge Plan Discharge Patient Disposition: Placed in Observation Admit Provider: Sandra Lamar Clinical Impression: Altered mental status, KODI (acute kidney injury) Coding Level of Care Code ED Paper Production Engineer for Frankie Garcia
--- NOTE | 2023-03-13 15:38 | CTR_ITS ---
PROCEDURE INFORMATION: Exam: CT Cervical Spine Without Contrast Exam date and time: 03/13/2023 4:13 PM Age: 72 years old Clinical indication: Injury or trauma; Fall; Blunt trauma; Additional info: AMS, fall TECHNIQUE: Imaging protocol: Computed tomography of the cervical spine without contrast. Radiation optimization: All CT scans at this facility use at least one of these dose optimization techniques: automated exposure control; mA and/or kV adjustment per patient size (includes targeted exams where dose is matched to clinical indication); or iterative reconstruction. REPORTING DATA: Count of CT and Cardiac NM exams in prior 12 months: This patient has received 6 known CTs and 0 known cardiac nuclear medicine studies in the 12 months prior to the current study. COMPARISON: CT cervical spin wo con* [id number] 07/23/2021 5:25 PM RADIATION DOSE METRICS: Total DLP (mGy-cm): 146 FINDINGS: Bones/joints: Multilevel degenerative disc disease, most prominent at C5-C6 level.There is multilevel uncovertebral and facet hypertrophy with neural foramina narrowing. Lungs: Lung apices are normal. Soft tissues: Unremarkable. CT/CT cervical spin wo con* [id number] IMPRESSION: No acute abnormality.
--- NOTE | 2023-03-13 15:38 | XRR_ITS ---
PROCEDURE INFORMATION: Exam: XR Chest Exam date and time: 03/13/2023 3:51 PM Age: 72 years old Clinical indication: Cough; Patient HX: PT AMS TECHNIQUE: Imaging protocol: Radiologic exam of the chest. Views: 1 view. COMPARISON: CR XR chest 1V portable [id number] 03/09/2023 11:11 AM FINDINGS: Lungs: Hyperinflated lungs. Pleural spaces: Unremarkable. No pleural effusion. No pneumothorax. Heart/Mediastinum: Unremarkable. No cardiomegaly. Bones/joints: Degenerative changes of the spine. XR/XR chest 1V portable [id number] IMPRESSION: Hyperinflated lungs. Correlation with chronic obstructive airway disease.
--- NOTE | 2023-03-13 15:38 | CTR_ITS ---
PROCEDURE INFORMATION: Exam: CT Head Without Contrast Exam date and time: 03/13/2023 4:13 PM Age: 72 years old Clinical indication: Injury or trauma; Fall; Blunt trauma (contusions or hematomas); Altered mental status/memory loss; Additional info: AMS TECHNIQUE: Imaging protocol: Computed tomography of the head without contrast. Radiation optimization: All CT scans at this facility use at least one of these dose optimization techniques: automated exposure control; mA and/or kV adjustment per patient size (includes targeted exams where dose is matched to clinical indication); or iterative reconstruction. REPORTING DATA: Count of CT and Cardiac NM exams in prior 12 months: This patient has received 6 known CTs and 0 known cardiac nuclear medicine studies in the 12 months prior to the current study. COMPARISON: CT head wo con* [id number] 03/09/2023 12:03 PM RADIATION DOSE METRICS: Total DLP (mGy-cm): 1100 FINDINGS: Brain: There are moderate periventricular and subcortical lucencies consistent with chronic microvascular ischemic changes.The aguirre-white differentiation is maintained. No hemorrhage. No edema. Cerebral ventricles: No ventriculomegaly. Paranasal sinuses: Visualized sinuses are unremarkable. No fluid levels. Mastoid air cells: Visualized mastoid air cells are well aerated. Bones/joints: Unremarkable. No acute fracture. Soft tissues: Unremarkable. CT/CT head wo con* [id number] IMPRESSION: No acute intracranial abnormality. Chronic microvascular ischemic changes.
--- NOTE | 2023-03-13 16:00 | ECG_ITS ---
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 Measurements Intervals [place] Rate: 80 P: 86 PA: 152 QRS: 88 QRSD: 90 T: 80 QT: 364 QTc: 420 Interpretive Statements SINUS RHYTHM POSSIBLE RIGHT ATRIAL ENLARGEMENT [0.25mV P-WAVE] POSSIBLE LEFT ATRIAL ENLARGEMENT [-0.1mV P-WAVE IN V1/V2] Compared to ECG 03/09/2023 14:29:54 Sinus bradycardia no longer present Electronically Signed On 03-13-2023 16:56:55 CDT by Gio Walters M.D. [email or web address] memorial [email or web address] medical specialty hospital - [id number]
[2023-03-13 16:05] LABS: Basophils % 0.4 %; Eosinophils % 0.2 %; Hematocrit 49.2 % (42.0-52.0); Hemoglobin 15.3 g/dL (11.7-16.6); Lymphocytes # 1.5 10^3/uL (0.8-4.8); Lymphocytes % 15.7 %; Mean Corpuscular HGB Conc 31.1 g/dL (30.0-36.0); Mean Corpuscular Hemoglobin 28.7 pg (28.0-34.0); Mean Corpuscular Volume 92.3 fl (80-94); Mean Platelet Volume 10.2 fL (7.4-10.4); Monocytes # 0.5 10^3/uL (0.2-0.9); Monocytes % 5.4 %; Neutrophils # 7.22 10^3/uL (1.8-7.7); Nucleated Red Blood Cells % 0 %; Platelet Count 283 10^3/cmm (130-400); Red Blood Count 5.33 10^6/uL (4.1-5.3); Red Cell Distribution Width 14.1 % (12.1-15.1); White Blood Count 9.3 10^3/uL (4.0-10.0)
[2023-03-13 16:36] LABS: Troponin(5th) Baseline 27 ng/L (0-15)
[2023-03-13 16:40] LABS: Alanine Aminotransferase 31 U/L (0-41); Albumin Level 4.5 g/dL (3.5-5.2); Alkaline Phosphatase 96 U/L (40-130); Aspartate Amino Transferase 25 U/L (0-40); Blood Urea Nitrogen 33 mg/dL (8-23); Calcium 10.4 mg/dL (8.5-10.5); Carbon Dioxide 31 mmol/L (22-29); Chloride 97 mmol/L (98-107); Globulin 2.6 g/dL (1.3-4.6); Glucose 87 mg/dL (65-115); Osmolality Calculated 297 mOsm/kg (285-295); Sodium 140 mmol/L (136-145); Thyroid Stimulating Hormone 1.96 uIU/mL (0.27-4.20); Total Bilirubin 0.4 mg/dL (0.15-1.2); Total Protein 7.1 g/dL (6.6-8.7)
[2023-03-13] MEDS: sodium chloride 0.9% 1,000 ML 999 ML IV (17:05)
--- NOTE | 2023-03-13 17:38 | ECG_ITS ---
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 Measurements Intervals [place] Rate: 74 P: 82 [place]: 182 QRS: 86 QRSD: 85 T: 83 QT: 376 QTc: 419 Interpretive Statements SINUS RHYTHM POSSIBLE LEFT ATRIAL ENLARGEMENT [-0.1mV P-WAVE IN V1/V2] Compared to ECG 03/13/2023 16:00:39 No significant changes Electronically Signed On 03-14-2023 7:19:36 CDT by Gio Walters M.D. [id number]
[2023-03-13 17:39] LABS: Blood Urine Neg (Negative); Glucose Urine UA Norm (Normal); Ketones Urine 1+ (Negative); Protein Urine 1+ (Negative); Urine Appearance Hazy (CLEAR); Urine Color Yellow (Yellow); pH Urine 5 (5-7)
[2023-03-13 17:40] LABS: Add Urine Microscopic? YES; Bacteria Urine TRACE /hpf; Bilirubin Urine Neg (Negative); Leukocyte Esterase Urine Trace (Negative); Nitrate Urine Negative (Negative); RBC Urine RARE /hpf (0-2); Squamous Epithelial Cell Urine RARE /hpf (0-5); Urobilinogen Urine Norm (Negative); WBC Urine 0-4 /hpf (0-5)
[2023-03-13 18:28] LABS: Troponin 5 2HR 21.22 ng/L (0-15)
[2023-03-13 18:29] LABS: Troponin 5 2HR Delta -5.78 ABS# (0-10)
--- NOTE | 2023-03-13 19:25 | P.HP_ITS ---
Providers/Chief Complaint Primary Care Provider: Merle Sanchez MD Chief Complaint: AMS History of Present Illness Catalino Ivy is a 72 year old male with past medical history of failure to thrive, anxiety, kidney stones, hyperlipidemia, sleep apnea presented to the hospital today for altered mental status initially. [facility] to [facility] and therefore from there was recommended to go to the ER. He did have a fall as well when he got out of the transport van. Patient appeared to be somewhat short of breath and therefore received a nebulizing treatment with albuterol. Patient does have a cough however unknown of how long its been going on for. He is not accompanied by any family at this time. Patient able to answer some questions however unable to provide a detailed history due to word finding difficulty. Does state that he has had 3 strokes in the past. Patient states that this time he would be interested in going to a retirement facility. He noted seizure 2022 and knows that he is in [facility]. It takes a while to answer the question but is able to answer the question. I do not believe patient is confused at this time. He states he has had strokes before however they have not given him any physical deficits except it is difficult for him to speak and find words. States his family cannot do anything for him and we should not be calling his son. He states his son has been informed already that he is in the hospital however does not want us to contact him. He states he is a full code if anything happens. He also states he was told by his primary care doctor that he has pneumonia and therefore he should go to the hospital. He has been coughing and bringing up yellow phlegm. He states even if he had a fever at the hospital he would not know about it. Denies smoking however has smoked in the past. States he was on inhalers in the past however does not use them anymore. Denies nausea, vomiting, diarrhea, abdominal pain, chest pain, shortness of breath at this time. He was recently on the ER on 09 March where he was reported to have hallucinations however he was awake alert and a good historian and therefore was sent home. He has had a recent stroke. Department of family services have been contacted as well. There is no family available to help patient at this time as per previous ER note. Previous admission he was noted to have hydrocephalus ex vacuo on CT head, protein calorie malnourishment, mass loss failure to thrive. He was s uggested to go home with retirement facility however patient refused and was sent home with home health. 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 Today patient seen at bedside with presence of RN using audiovisual cart. ED course: Blood pressure 113/68, respiratory 22, pulse 76, 93% saturation on room air. Cervical spine CT showed no acute abnormality, chest x-ray shows hyperinflated lungs correlation with chronic obstructive airway disease recommended. CT head no acute intracranial abnormality. Chronic microvascular ischemic changes noted. Labs obtained. WBC 9.3, hemoglobin 15.3, platelet 283, sodium 140, potassium 5, CO2 31, creatinine 1.8. Glucose 87, delta troponin - 5.78. UA negative. Medications/Allergies Home Medications Medication Instructions Recorded Confirmed Last Taken Type fluoxetine 20 mg capsule 20 mg PO DAILY 30 days #30 caps 02/24/23 03/13/23 Unknown Rx Allergies Allergy/AdvReac Type Severity Reaction Status Date / Time No Known Drug Allergies Allergy Unknown Verified 03/13/23 15:31 PFSH Acute PFSH: Medical History Adult failure to thrive Anxiety Gastritis History of kidney stones Hx of colonic polyps Hyperlipidemia Sleep apnea Weakness Surgical History H/O esophagogastroduodenoscopy 12/09/2019: Gastritis Status post colonoscopy with polypectomy 12/09/2019: 3 polyps removed from descending colon, follow-up colonoscopy in 3 years Family History Denies family history of Anesthesia complication Bleeding disorder Social History Smoking and tobacco status: former smoker Alcohol intake: former Substance/Drug Use: never Lives independently: Yes Household members: spouse Current occupational status: retired Vitals/I&O/Wt Last Vital Signs Temp 98.4 F 03/13/23 15:19 Pulse 76 03/13/23 19:15 Resp 22 H 03/13/23 18:45 BP 113/68 03/13/23 19:15 Pulse Ox 93 03/13/23 19:15 O2 Del Method Room Air 03/13/23 15:19 Weight last 48 hrs Weight 43.998 kg Physical Exam Narrative: Examined with help of RN using audiovisual cart virtually using telemedicine. General: Alert oriented x3, patient seen up in bed appearing comfortable at this time. Does have significant word finding difficulty and at times broken speech. Appears frail and emaciated. HEENT: Normocephalic, atraumatic, EOMI, breathing after being on room air saturating 91%. Does cough continuously throughout encounter. Cardio: Regular rate rhythm, normal S1-S2, no gross murmurs. Sinus rhythm on monitor. Respiratory: Rhonchi bilateral lung liriano, no wheezing present at this time. GI: Abdomen soft, nontender, bowel sounds + Behavior: Appropriate and cooperative Extremities: No edema noted. Neuro: Cranial nerves II to XII intact, strength left upper extremity 4 out of 5, right upper extremity 3 out of 5. Bilateral lower extremity equal 4 out of 5 . Gait not tested. No gross cerebellar signs present. Does have significant word finding difficulty and at times broken speech. Follows all commands and able to make needs known and answer questions appropriately however takes time to respond. Awake and alert. Data 03/13/23 15:47 03/13/23 15:47 A&P Assessment and plan (1) CVA (cerebral vascular accident): (2) Adult failure to thrive: (3) KODI (acute kidney injury): (4) Adult failure to thrive: (5) Altered mental status: (6) Abnormal serum level of lipase: (7) Hydrocephalus: Qualifiers: Hydrocephalus type: unspecified Qualified Code(s): G91.9 - Hydrocephalus, unspecified Plan #Word finding difficulty most likely secondary to previous CVA #Failure to thrive #Severe protein calorie malnutrition #Recent CVA, possible lacunar infarct #Acute kidney injury on CKD, baseline 1.2-1.4. #Possible COPD exacerbation ? Referral to case management ? I do not believe patient is having altered mental status at this time. He is appropriately able to answer questions but has significant word finding difficulty due to which it seems he may be confused however I do not believe so. ? Fall precautions ? PT/OT ? Placed on IV fluids normal saline 75 cc/h ? We will need to confirm home medications from pharmacy in a.m. ? We will check a urine culture ? Check an ammonia level, B12 ? Troponin delta negative. EKG did not show any acute ischemic changes ? Check procalcitonin ? Check sputum Gram stain culture ? DuoNeb every 4 hours as needed ? Oxygen therapy protocol ? TSH reviewed . ? Patient did have a possible lacunar infarct adjacent to the left basal ganglia that is new from prior on March 09, 2023. His symptoms could possibly be from evolving stroke. He did request to go home from ER visit last time. ? We will check MRI brain without contrast in a.m. ? Consider neurology referral ? Neurochecks every 2 hours - I may start aspirin 325, atorvastatin 40 daily at this time. ? Placed on Solu-Medrol 40 every 12 hours, azithromycin 500x1, 250 daily thereafter x4. ? Consider discharging on albuterol and Symbicort. Full code SCDs, heparin SQ twice daily Patient states not to contact his son. Attestations Medical Necessity Statement*: Will cross greater than 2 midnight stay for possible placement to retirement facility at this time including management of acute kidney injury. Coding Level of Care Code G0426 (50 min) TH Encounter Time (min): 50 Patient seen via Telehealth in the acute care setting (hospital or ED location) by agreement and consent of patient or patient community health representative. Telehealth technology used during the visit includes video and audio. This patient encounter is appropriate and reasonable under the circumstances given the patient?s particular presentation at this time. The patient has been advised of the potential risks and limitations of this mode of treatment (including but not limited to the absence of in-person examination at this time) and has agreed to be treated by an off-site physician for this visit. If deemed clinically necessary from this telehealth visit, or if condition or consent for telehealth visit changes, an in-person visit will be arranged. For this encounter, total time for the origination of telehealth care on this date is as shown. Patient provided consent to be seen over audiovisual cart before proceeding with history taking and physical exam in presence of RN. Diagnoses CVA (cerebral vascular accident) I63.9 Adult failure to thrive R62.7 KODI (acute kidney injury) N17.9 Altered mental status R41.82 Abnormal serum level of lipase R74.8 Hydrocephalus G91.9 Hydrocephalus type: unspecified
[2023-03-13 20:10] LABS: Estmated Average Glucose 120; Hemoglobin A1C 5.8 % (4.0-6.0)
[2023-03-13] MEDS: heparin 5,000 unit/mL INJ 1 mL 5000 UNIT SUBCUT (20:15)
[2023-03-13] MEDS: sodium chloride 0.9% 1,000 ML 75 ML IV (20:23)
[2023-03-13 20:50] LABS: Chol HDL Ratio 2.59 mg/dL (1.0-5.00); Cholesterol 127 mg/dL (0-200); HDL Cholesterol 49 mg/dL (60-100); LDL Cholesterol Calculated 65 mg/dL (50-129); LDL HDL Ratio 1.33 RATIO (0.00-3.22); Triglycerides 66 mg/dL (0-150)
[2023-03-13 20:57] LABS: Procalcitonin 0.14 ng/mL (0-0.5)
[2023-03-13 22:21] LABS: Troponin 5 6HR 24.71 ng/L (0-15)
--- NOTE | 2023-03-13 22:23 | ECG_ITS ---
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 Measurements Intervals [place] Rate: 64 P: 85 [place]: 158 QRS: 85 QRSD: 89 T: 81 QT: 399 QTc: 413 Interpretive Statements SINUS RHYTHM POSSIBLE LEFT ATRIAL ENLARGEMENT [-0.1mV P-WAVE IN V1/V2] Compared to ECG 03/13/2023 17:54:05 No significant changes Electronically Signed On 03-14-2023 7:18:43 CDT by Gio Walters M.D. [email or web address]/store/[id number]
[2023-03-13 22:24] LABS: Troponin 5 6HR Delta -2.29 ng/L (0-12)
[2023-03-13] MEDS: aspirin 325 mg Tablet PO (23:02)
[2023-03-13] MEDS: atorvastatin 40 mg Tablet PO (23:02)
[2023-03-14] VITALS (11 sets, daily range): BP systolic 102–116; BP diastolic 54–71; PULSE 55–76; RESP 14–18; TEMP 36.6–37.2; O2SAT 90–99
[2023-03-14 00:38] LABS: Vitamin B12 1043 pg/mL (232-1245)
[2023-03-14] MEDS: azithromycin 500 MG in sodium chloride 0.9% 250 ML 250 MG IV ×2 (00:39→23:30)
[2023-03-14 04:46] LABS: Basophils % 0.4 %; Eosinophils % 0.3 %; Hemoglobin 14.3 g/dL (11.7-16.6); Lymphocytes # 0.8 10^3/uL (0.8-4.8); Lymphocytes % 10.5 %; Mean Corpuscular HGB Conc 31.8 g/dL (30.0-36.0); Mean Corpuscular Hemoglobin 29.2 pg (28.0-34.0); Mean Corpuscular Volume 91.8 fl (80-94); Mean Platelet Volume 10.4 fL (7.4-10.4); Monocytes # 0.3 10^3/uL (0.2-0.9); Monocytes % 3.5 %; Neutrophils # 6.62 10^3/uL (1.8-7.7); Nucleated Red Blood Cells % 0 %; Platelet Count 252 10^3/cmm (130-400); Red Cell Distribution Width 14.3 % (12.1-15.1); White Blood Count 7.8 10^3/uL (4.0-10.0)
[2023-03-14] MEDS: ipratropium-albuterol 3 mL Neb INHALATION ×4 (08:02→20:37)
--- NOTE | 2023-03-14 09:30 | MR_ITS ---
WS: [id number] MRI BRAIN WITHOUT CONTRAST HISTORY: stroke, word finding difficulty COMPARISON: Noncontrast CT head 03/13/2023 TECHNIQUE: Diffusion imaging, multiplanar T1, T2 and FLAIR imaging obtained. Motion artifact. No evidence for acute infarct or hemorrhage. Jovel-white matter differentiation is normal. There are a few scattered T2 and FLAIR signal hyperintensities on the FLAIR sequence. The extent of s mall vessel disease may be obscured by the motion artifact. There is no large territory infarct. No h emorrhage. Moderate bilateral diffuse symmetric atrophy. Mild diffuse ventriculomegaly. No inferior displacement of cerebellar tonsils. The sella turcica and pituitary gland are unremarkabl e. Paranasal sinuses: Mucous retention cyst in the RIGHT maxillary sinus. No air-fluid levels. Mastoid air cells: Normal. Calvarium and scalp: Intact. MR/MR head wo con* [id number] IMPRESSION: 1. No acute infarct or diffusion abnormality identified. 2. Moderate bilateral symmetric atrophy. 3. Mild ventriculomegaly. 4. Very mild small vessel ischemic disease.
[2023-03-14] MEDS: heparin 5,000 unit/mL INJ 1 mL 5000 UNIT SUBCUT ×2 (10:20→20:26)
[2023-03-14] MEDS: pantoprazole DR 40 mg Tablet PO (10:21)
[2023-03-14 13:02] LABS: Alanine Aminotransferase 33 U/L (0-41); Albumin Level 3.6 g/dL (3.5-5.2); Alkaline Phosphatase 75 U/L (40-130); Aspartate Amino Transferase 33 U/L (0-40); Blood Urea Nitrogen 31 mg/dL (8-23); Calcium 8.7 mg/dL (8.5-10.5); Carbon Dioxide 27 mmol/L (22-29); Chloride 104 mmol/L (98-107); Globulin 2.5 g/dL (1.3-4.6); Glucose 177 mg/dL (65-115); Magnesium 1.9 mg/dL (1.7-2.3); Osmolality Calculated 305 mOsm/kg (285-295); Sodium 142 mmol/L (136-145); Total Bilirubin 0.2 mg/dL (0.15-1.2); Total Protein 6.1 g/dL (6.6-8.7)
[2023-03-14 13:06] LABS: Anion Gap 15.8 (5-19); Potassium 4.8 mmol/L (3.5-5.1)
--- NOTE | 2023-03-14 13:24 | PM.PN ---
Subjective Subjective: Patient is awake. He is conversational but extremely tangential make it difficult to obtain a reliable history. He seems to recall some of the events that brought him to the hospital but many if not most the details seem incorrect. He denies any pain. Denies fevers, chills, nausea or emesis. Medications: Reviewed: Yes Vitals/I&O/Wt Last Vital Signs Temp 98.9 F 03/14/23 11:53 Pulse 68 03/14/23 11:53 Resp 14 03/14/23 11:53 BP 102/60 03/14/23 11:53 Pulse Ox 98 03/14/23 11:53 O2 Del Method Room Air 03/14/23 11:53 03/13/23 03/14/23 03/14/23 22:59 06:59 14:59 Intake Total 1000 / 1000 250 / 1250 1599 / 1599 Output Total 150 / 150 Balance 1000 / 1000 250 / 1250 1449 / 1449 Weight last 48 hrs Weight 43.998 kg Physical Exam Narrative: General: Patient is awake. Frail and cachetic appearing. Head: Normocephalic. Atraumatic. Temporal wasting. Neck: No JVD. Cardiovascular: RRR. No gallops. No murmurs. Lungs: Non-labored. No use of accessory muscles, no crackles or wheezes. Skin: No jaundice. No rashes. Abdomen: Normal bowel sounds, abdomen soft. Genito Urinary: Genital exam not performed since complaints not related. Rectal: Rectal exam not performed since no symptoms indicated blood loss. Extremities: No cyanosis or clubbing. Musculoskeletal: No swollen or erythematous joints. Neurological: Moves all 4 extremities. No myoclonus. Data 03/14/23 04:27 03/14/23 11:55 A&P Assessment and plan (1) CVA (cerebral vascular accident): (2) Adult failure to thrive: (3) KODI (acute kidney injury): (4) Altered mental status: (5) Abnormal serum level of lipase: (6) Hydrocephalus: Qualifiers: Hydrocephalus type: unspecified Qualified Code(s): G91.9 - Hydrocephalus, unspecified Plan Word finding difficulty most likely secondary to previous CVA Failure to thrive Severe protein calorie malnutrition Recent CVA, possible lacunar infarct Acute kidney injury on CKD, baseline 1.2-1.4. Acute COPD exacerbation Discussed w/ CM Follow up imaging Therapy evaluation Labs reviewed Change to prednisone Continue abx Supplemental oxygen as needed Full code SCDs, heparin SQ twice daily Patient states not to contact his son Attestations Medical Necessity Statement*: Patient requires ongoing hospitalization for antibiotics, MRI imaging, serial neuro exams, therapy, IV fluids, and supportive care. Coding Level of Care Code Acute Code for Chg Fwd Diagnoses CVA (cerebral vascular accident) I63.9 Adult failure to thrive R62.7 KODI (acute kidney injury) N17.9 Altered mental status R41.82 Abnormal serum level of lipase R74.8 Hydrocephalus G91.9 Hydrocephalus type: unspecified
[2023-03-14] MEDS: sodium chloride 0.9% 1,000 ML 44 ML IV (21:08)
[2023-03-15] VITALS (9 sets, daily range): BP systolic 115–137; BP diastolic 64–79; PULSE 52–93; RESP 16–18; TEMP 36.4–36.8; O2SAT 95–100
[2023-03-15] MEDS: ipratropium-albuterol 3 mL Neb INHALATION ×3 (08:06→20:25)
[2023-03-15] MEDS: heparin 5,000 unit/mL INJ 1 mL 5000 UNIT SUBCUT ×2 (08:21→20:14)
[2023-03-15] MEDS: predniSONE 20 mg Tablet 40 MG PO (08:21)
[2023-03-15] MEDS: pantoprazole DR 40 mg Tablet PO (08:21)
[2023-03-15 10:52] LABS: Albumin Level 3.3 g/dL (3.5-5.2); Anion Gap 14.9 (5-19); Blood Urea Nitrogen 21 mg/dL (8-23); Calcium 8.6 mg/dL (8.5-10.5); Carbon Dioxide 25 mmol/L (22-29); Chloride 102 mmol/L (98-107); Glucose 151 mg/dL (65-115); Phosphorus 2.1 mg/dL (2.5-4.5); Potassium 4.9 mmol/L (3.5-5.1); Sodium 137 mmol/L (136-145)
--- NOTE | 2023-03-15 13:14 | PM.PN ---
Subjective Subjective: Patient is initially sleeping but awake to verbal stimulation. He denies fevers, chills, nausea, chest pain or abdominal pain. Tangential on exam. Medications: Reviewed: Yes Vitals/I&O/Wt Last Vital Signs Temp 98.2 F 03/15/23 11:53 Pulse 79 03/15/23 11:53 Resp 18 03/15/23 11:53 BP 136/73 03/15/23 11:53 Pulse Ox 97 03/15/23 11:53 O2 Del Method Room Air 03/15/23 11:53 03/14/23 03/15/23 03/15/23 22:59 06:59 14:59 Intake Total 0 / 1719 250 / 1969 240 / 240 Balance 0 / 1569 250 / 1819 240 / 240 Weight last 48 hrs Weight 43.998 kg Physical Exam Narrative: General: Patient is awake after verbal stimulation. Frail and cachetic. Pleasant. Interactive but tangential. Head: Normocephalic. Atraumatic. Temporal wasting. Neck: No JVD. Cardiovascular: RRR. No gallops. No murmurs. Lungs: Non-labored. No use of accessory muscles, no crackles or wheezes. Skin: No jaundice. No rashes. Abdomen: Normal bowel sounds, abdomen soft. Extremities: No cyanosis or clubbing. Musculoskeletal: No swollen or erythematous joints. Neurological: Moves all 4 extremities. No myoclonus. Data 03/14/23 04:27 03/15/23 10:00 Micro: Microbiology 03/14/23 08:09 Gram Stain - Final Sputum - Expectorated Sputum A&P Assessment and plan (1) Adult failure to thrive: Patient with multiple comorbidities c/b by FTT Therapy evaluation, anticipate postacute care needs Assess neuro status Fall precautions Encourage oral intake CM consulted Discontinue IVF (2) Altered mental status: Secondary to acute metabolic encephalopathy Imaging reviewed Resolved, mentation back at baseline (3) CVA (cerebral vascular accident): Start aspirin Not on statin, consider stating Neurochecks (4) Abnormal serum level of lipase: Denies abnl pain (5) Hydrocephalus: Supportive care Qualifiers: Hydrocephalus type: unspecified Qualified Code(s): G91.9 - Hydrocephalus, unspecified (6) KODI (acute kidney injury): Resolved Plan Word finding difficulty most likely secondary to previous CVA Failure to thrive Severe protein calorie malnutrition Recent CVA, possible lacunar infarct Acute kidney injury on CKD, baseline 1.2-1.4. Acute COPD exacerbation Discussed w/ CM Follow up imaging Therapy evaluation Labs reviewed Change to prednisone Continue abx Supplemental oxygen as needed Full code SCDs, heparin SQ twice daily Patient states not to contact his son Attestations Medical Necessity Statement*: Patient requires ongoing hospitalization for therapy, coordiation of post acute care, monitoring of electrolytes, and supportive care Coding Level of Care Code Acute Code for Chg Fwd Diagnoses Adult failure to thrive R62.7 Altered mental status R41.82 CVA (cerebral vascular accident) I63.9 Abnormal serum level of lipase R74.8 Hydrocephalus G91.9 Hydrocephalus type: unspecified KODI (acute kidney injury) N17.9
[2023-03-15] MEDS: sodium chloride 0.9% 1,000 ML 44 ML IV (20:14)
[2023-03-15] MEDS: azithromycin 500 MG in sodium chloride 0.9% 250 ML 250 MG IV (23:11)
[2023-03-16] VITALS (12 sets, daily range): BP systolic 103–151; BP diastolic 52–79; PULSE 62–98; RESP 16–18; TEMP 36.6–37; O2SAT 92–99
[2023-03-16] MEDS: fluoxetine 20 mg Capsule PO (08:22)
[2023-03-16] MEDS: pantoprazole DR 40 mg Tablet PO (08:22)
[2023-03-16] MEDS: heparin 5,000 unit/mL INJ 1 mL 5000 UNIT SUBCUT ×2 (08:22→19:59)
[2023-03-16] MEDS: aspirin 81 mg Chew Tablet PO (08:22)
[2023-03-16] MEDS: predniSONE 20 mg Tablet 40 MG PO (08:22)
[2023-03-16] MEDS: ipratropium-albuterol 3 mL Neb INHALATION ×3 (10:05→20:53)
--- NOTE | 2023-03-16 12:33 | PM.PN ---
Subjective Subjective: Patient is awake and alert. Denies fevers, chills, nausea or emesis. Discussed waiting for insurance auth for SNF. Medications: Reviewed: Yes Vitals/I&O/Wt Last Vital Signs Temp 98.1 F 03/16/23 12:00 Pulse 77 03/16/23 12:00 Resp 17 03/16/23 12:00 BP 125/76 03/16/23 12:00 Pulse Ox 93 03/16/23 12:00 O2 Del Method Room Air 03/16/23 12:00 03/15/23 03/16/23 03/16/23 22:59 06:59 14:59 Intake Total 1360 / 1960 250 / 2210 240 / 240 Output Total 350 / 350 Balance 1360 / 1960 -100 / 1860 240 / 240 Physical Exam Narrative: General: Patient is awake. Frail appaering. Head: Normocephalic. Atraumatic. Temporal wasting. Neck: No JVD. Cardiovascular: RRR. No gallops. No murmurs. Lungs: Non-labored. No use of accessory muscles, no crackles or wheezes. Skin: No jaundice. No rashes. Abdomen: Normal bowel sounds, abdomen soft. Extremities: No cyanosis or clubbing. Musculoskeletal: No swollen or erythematous joints. Neurological: Moves all 4 extremities. No myoclonus. Data 03/14/23 04:27 03/15/23 10:00 Micro: Microbiology 03/14/23 08:09 Gram Stain - Final Sputum - Expectorated Sputum Sputum Culture - Preliminary A&P Assessment and plan (1) Adult failure to thrive: Patient with multiple comorbidities c/b by FTT Working on post acute arrangements Fall precautions Encourage oral intake Discontinue IVF (2) CVA (cerebral vascular accident): Continue aspirin Not on statin, consider stating (3) Altered mental status: Resolved Plan DVT ppx: Heparin Code status: Full Code Attestations Medical Necessity Statement*: Pt requires ongoing hospitalization for ongoing medical care as well as no safe disposition has yet been secured either. Coding Level of Care Code Acute Code for Chg Fwd Diagnoses Adult failure to thrive R62.7 CVA (cerebral vascular accident) I63.9 Altered mental status R41.82
[2023-03-17] VITALS (12 sets, daily range): BP systolic 125–143; BP diastolic 65–84; PULSE 52–96; RESP 16–19; TEMP 36.6–36.8; O2SAT 90–99
--- NOTE | 2023-03-17 07:49 | ECG_ITS ---
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 Measurements Intervals [place] Rate: 56 P: 87 [place]: 154 QRS: 82 QRSD: 101 T: 74 QT: 405 QTc: 393 Interpretive Statements SINUS BRADYCARDIA POSSIBLE LEFT ATRIAL ENLARGEMENT [-0.1mV P-WAVE IN V1/V2] SEPTAL MYOCARDIAL INFARCTION , OF INDETERMINATE AGE [40+ ms Q WAVE IN V1/V2] Compared to ECG 03/13/2023 22:23:08 Myocardial infarct finding now present Sinus rhythm no longer present Electronically Signed On 03-17-2023 19:22:41 CDT by Gerard Hall M.D. [email or web address]
[2023-03-17] MEDS: ipratropium-albuterol 3 mL Neb INHALATION ×4 (07:51→20:25)
[2023-03-17] MEDS: pantoprazole DR 40 mg Tablet PO (08:17)
[2023-03-17] MEDS: heparin 5,000 unit/mL INJ 1 mL 5000 UNIT SUBCUT ×2 (08:17→20:35)
[2023-03-17] MEDS: predniSONE 20 mg Tablet 40 MG PO (08:17)
[2023-03-17] MEDS: fluoxetine 20 mg Capsule PO (08:17)
[2023-03-17] MEDS: aspirin 81 mg Chew Tablet PO (08:17)
--- NOTE | 2023-03-17 16:05 | P.PN_ITS ---
Subjective Subjective: Patient remains impulsive. Denies nausea, chest pain, fevers, abdominal pain or headache. Peer to peer is needed by Sunday per . Medications: Reviewed: Yes Vitals/I&O/Wt Last Vital Signs Temp 97.8 F 03/17/23 15:52 Pulse 96 03/17/23 15:52 Resp 18 03/17/23 15:52 BP 135/65 03/17/23 15:52 Pulse Ox 92 03/17/23 15:52 O2 Del Method Room Air 03/17/23 15:52 O2 Flow Rate 2 03/17/23 07:30 03/17/23 03/17/23 03/17/23 06:59 14:59 22:59 Intake Total 880 / 880 Output Total 950 / 950 950 / 950 Balance -950 / 770 -70 / -70 Physical Exam Narrative: General: Patient is awake. Frail appaering. Laying in bed. Head: Normocephalic. Atraumatic. Temporal wasting. Neck: No JVD. Cardiovascular: RRR. No gallops. No murmurs. Lungs: Non-labored. No use of accessory muscles, no crackles or wheezes. Skin: No jaundice. No rashes. Abdomen: Normal bowel sounds, abdomen soft. Extremities: No cyanosis or clubbing. Musculoskeletal: Poor muscular development. Neurological: Moves all 4 extremities. No myoclonus. Data 03/14/23 04:27 03/15/23 10:00 Micro: Microbiology 03/14/23 08:09 Gram Stain - Final Sputum - Expectorated Sputum Sputum Culture - Preliminary Yeast A&P Assessment and plan (1) Adult failure to thrive: Patient with multiple comorbidities c/b by FTT Working on post acute arrangements, his insurance has denied him, peer to peer now pending Fall precautions Encourage oral intake (2) CVA (cerebral vascular accident): Continue aspirin (3) Debility: Supportive care (4) Physical deconditioning: Supportive care Plan DVT ppx: Heparin Code status: Full Code Attestations Medical Necessity Statement*: Patient requires ongoing hospitalization for ongoing medical care as well as no safe disposition has yet been secured either. Coding Level of Care Code Acute Code for [facility] Fwd Diagnoses Adult failure to thrive R62.7 CVA (cerebral vascular accident) I63.9 Debility R53.81 Physical deconditioning R53.81
[2023-03-18] VITALS (12 sets, daily range): BP systolic 110–154; BP diastolic 65–84; PULSE 64–98; RESP 16–18; TEMP 36.4–36.7; O2SAT 90–97
[2023-03-18] MEDS: ipratropium-albuterol 3 mL Neb INHALATION ×4 (07:59→20:41)
[2023-03-18] MEDS: heparin 5,000 unit/mL INJ 1 mL 5000 UNIT SUBCUT ×2 (08:38→20:23)
[2023-03-18] MEDS: pantoprazole DR 40 mg Tablet PO (08:39)
[2023-03-18] MEDS: predniSONE 20 mg Tablet 40 MG PO (08:39)
[2023-03-18] MEDS: aspirin 81 mg Chew Tablet PO (08:39)
[2023-03-18] MEDS: fluoxetine 20 mg Capsule PO (08:39)
--- NOTE | 2023-03-18 21:13 | PM.PN ---
Subjective Subjective: Catalino remain impulsive occasionally challenging bed alarm. He is noted to be very unsteady on his feet. He is reportedly able to walk some distance but then seems to inevitably fall. Remains unsafe to discharge home. Would benefit from continued skilled therapy. Denies fevers, chills, nausea or emesis. Medications: Reviewed: Yes Vitals/I&O/Wt Last Vital Signs Temp 97.5 F L 03/18/23 20:00 Pulse 80 03/18/23 20:35 Resp 16 03/18/23 20:35 BP 127/73 03/18/23 20:00 Pulse Ox 97 03/18/23 20:35 O2 Del Method Room Air 03/18/23 20:35 O2 Flow Rate 2 03/18/23 08:00 03/18/23 03/18/23 03/18/23 06:59 14:59 22:59 Intake Total 240 / 1660 120 / 120 Output Total 500 / 1450 Balance -260 / 210 120 / 120 Physical Exam Narrative: General: Patient is awake. Frail. Cachetic Laying in bed. Head: Normocephalic. Temporal wasting. Neck: No JVD. Cardiovascular: RRR. No gallops. No murmurs. Lungs: Non-labored. No use of accessory muscles, no crackles or wheezes. Skin: No jaundice. No rashes. Abdomen: Normal bowel sounds, abdomen soft. Extremities: No cyanosis or clubbing. Musculoskeletal: Poor muscular development. Neurological: Moves all 4 extremities. No myoclonus. Data 03/14/23 04:27 03/15/23 10:00 Micro: Microbiology 03/14/23 08:09 Gram Stain - Final Sputum - Expectorated Sputum Sputum Culture - Final Nubia albicans A&P Assessment and plan (1) Adult failure to thrive: Patient with multiple comorbidities c/b by FTT Unfortunately he has a [employer] medical advantage plan which has delayed his care, therapy and SNF placement Plan for peer to peer in AM Fall precautions Encourage oral intake (2) CVA (cerebral vascular accident): Continue aspirin (3) Debility: Supportive care (4) Physical deconditioning: Supportive care Plan DVT ppx: Heparin Code status: Full Code Attestations Medical Necessity Statement*: Patient requires ongoing hospitalization for ongoing medical care as well as no safe disposition has yet been secured due to insurance issues Coding Level of Care Code Acute Code for Chg Fwd Diagnoses Adult failure to thrive R62.7 CVA (cerebral vascular accident) I63.9 Debility R53.81 Physical deconditioning R53.81
[2023-03-19] VITALS (10 sets, daily range): BP systolic 112–141; BP diastolic 68–82; PULSE 80–119; RESP 16–20; TEMP 36.4–37; O2SAT 92–96
[2023-03-19] MEDS: ipratropium-albuterol 3 mL Neb INHALATION ×4 (08:13→19:54)
[2023-03-19] MEDS: heparin 5,000 unit/mL INJ 1 mL 5000 UNIT SUBCUT ×2 (08:48→20:28)
[2023-03-19] MEDS: pantoprazole DR 40 mg Tablet PO (08:49)
[2023-03-19] MEDS: aspirin 81 mg Chew Tablet PO (08:50)
[2023-03-19] MEDS: fluoxetine 20 mg Capsule PO (08:50)
[2023-03-19] MEDS: predniSONE 20 mg Tablet 40 MG PO (08:50)
--- NOTE | 2023-03-19 15:10 | PM.PN ---
Subjective Subjective: Hospital course, labs appreciated. Examination patient sleeping comfortably in bed. Wakes up to verbal stimulus. On waking up patient seems jittery, slightly anxious but able to answer questions appropriately. Is alert and oriented to self, being in hospital. States he came to the hospital because he fell. Denies going to the SNF. States he will only go if he can get physical therapy. As per the nurses no episodes of agitation but does have episodes of confusion requiring reorientation. Hyperkalemia History of lymphoma afebrile on room air. Medications: Reviewed: Yes Medication Review Details: Needs further reconciliation of medications through patient's outpatient pharmacy or PCP. Clinically patient seems to be in withdrawal Vitals/I&O/Wt Last Vital Signs Temp 98.6 F 03/19/23 11:41 Pulse 95 03/19/23 11:58 Resp 20 H 03/19/23 11:58 BP 126/82 03/19/23 11:41 Pulse Ox 93 03/19/23 11:58 O2 Del Method Room Air 03/19/23 11:58 O2 Flow Rate 2 03/18/23 08:00 03/19/23 03/19/23 03/19/23 06:59 14:59 22:59 Intake Total 480 / 480 Balance 480 / 480 Physical Exam Narrative: General: AOx3, anxious, no acute distress, frail, chronically sick appearing, cachectic Head: Normocephalic. Temporal wasting. Neck: No JVD. Cardiovascular: RRR. No gallops. No murmurs. Lungs: Non-labored. No use of accessory muscles, no crackles or wheezes. Skin: No jaundice. No rashes. Abdomen: Normal bowel sounds, abdomen soft. Extremities: No cyanosis or clubbing. Musculoskeletal: Poor muscular development. Neurological: Moves all 4 extremities. No myoclonus. Psych: COMMON NORMALS: mental status grossly normal, speech normal, denies homicidal ideation and denies suicidal ideation ATTITUDE: Yes engaged, No paranoid, No agitated and No aggressive ACTIVITY/MOTOR BEHAVIOR: Yes fidgeting, Yes disorganized behavior and Yes restless SPEECH: Yes normal speech MOOD & AFFECT: Yes anxious THOUGHT PROCESS: Tangential thought process present Data 03/14/23 04:27 03/15/23 10:00 Micro: Microbiology 03/14/23 08:09 Gram Stain - Final Sputum - Expectorated Sputum Sputum Culture - Final Nubia albicans A&P Assessment and plan (1) Altered mental status: Cannot rule out this being patient's baseline. No acute abnormality noted so far during hospitalization. No leg abnormality or signs of infection. MRI done negative for any new stroke but consistent with chronic age-related atrophy. Could be secondary to withdrawal from medications. It seems patient currently is only on fluoxetine 20 mg daily but on further review of home medications patient is supposed to be on donepezil, bupropion as well. Will reconcile after confirming with outpatient pharmacy. (2) Confusion: (3) CVA (cerebral vascular accident): (4) Adult failure to thrive: (5) KODI (acute kidney injury): Most likely secondary dehydration. Resolved. (6) Abnormal serum level of lipase: (7) Hydrocephalus: Qualifiers: Hydrocephalus type: unspecified Qualified Code(s): G91.9 - Hydrocephalus, unspecified (8) Protein-energy malnutrition: Plan Discharge plan: Given advanced age, recent passing of of patient's spouse, failure to thrive, presentation patient would benefit from placement to SNF as he does at a high risk of falls, adverse events though patient did well with physical therapy and as per their evaluation does not need rehabitation. Patient declines going to SNF if not for physical therapy. But is agreeable for possible home health. Patient states he lives by himself does have a son but estranged. We will plan to discharge home with home health once medically stable. We will need to reconcile medications further. Full code. Regular mechanical soft diet. Heparin for DVT prophylaxis Famotidine for PUD prophylaxis. Attestations Medical Necessity Statement*: Requires further hospitalization for management of confusion in the elderly with severe protein energy malnutrition, failure to thrive while safe discharge planning is sought. Diagnoses Altered mental status R41.82 Confusion R41.0 CVA (cerebral vascular accident) I63.9 Adult failure to thrive R62.7 KODI (acute kidney injury) N17.9 Abnormal serum level of lipase R74.8 Hydrocephalus G91.9 Hydrocephalus type: unspecified Protein-energy malnutrition E46
[2023-03-19] MEDS: donepezil 5 MG Tablet PO (20:28)
[2023-03-19] MEDS: mirtazapine 15 mg Tablet PO (20:28)
[2023-03-20] VITALS (11 sets, daily range): BP systolic 108–125; BP diastolic 47–69; PULSE 72–99; RESP 15–18; TEMP 36.6–37.1; O2SAT 92–98
[2023-03-20] MEDS: ipratropium-albuterol 3 mL Neb INHALATION ×4 (07:29→19:45)
[2023-03-20] MEDS: buPROPion XL (24 HR) 150 mg Tablet PO (08:28)
[2023-03-20] MEDS: pantoprazole DR 40 mg Tablet PO (08:28)
[2023-03-20] MEDS: predniSONE 20 mg Tablet 40 MG PO (08:29)
[2023-03-20] MEDS: heparin 5,000 unit/mL INJ 1 mL 5000 UNIT SUBCUT ×2 (08:29→21:27)
[2023-03-20] MEDS: aspirin 81 mg Chew Tablet PO (08:29)
[2023-03-20] MEDS: primidone 50 mg Tablet PO ×2 (11:09→18:03)
--- NOTE | 2023-03-20 12:52 | PM.PN ---
Subjective Subjective: No acute events overnight. Today morning on examination patient is awake and alert. A lot less jittery during conversation today but continues to have difficulty in finding words. During examination he is alert to self. He thinks he is at hospital. Denies any nausea, vomiting, headache. Discussed about possibly going to the [facility] given the recommendations from occupational therapy. Patient continues to decline and states he would like to go home. He states he lives by himself. States usually he takes his medications when he remembers and takes care of his own meals. He is agreeable for home health so that he can continue taking his medications regularly. Medications: Reviewed: Yes Medication Review Details: Needs further reconciliation of medications through patient's outpatient pharmacy or PCP. Clinically patient seems to be in withdrawal Vitals/I&O/Wt Last Vital Signs Temp 97.8 F 03/20/23 08:00 Pulse 75 03/20/23 11:30 Resp 18 03/20/23 11:30 BP 125/63 03/20/23 08:00 Pulse Ox 92 03/20/23 11:30 O2 Del Method Room Air 03/20/23 11:30 O2 Flow Rate 2 03/19/23 20:00 03/19/23 03/20/23 03/20/23 22:59 06:59 14:59 Intake Total 600 / 1080 120 / 1200 240 / 240 Balance 600 / 1080 120 / 1200 240 / 240 Physical Exam Narrative: General: AOx3, anxious, no acute distress, frail, chronically sick appearing, cachectic Head: Normocephalic. Temporal wasting. Neck: No JVD. Cardiovascular: RRR. No gallops. No murmurs. Lungs: Non-labored. No use of accessory muscles, no crackles or wheezes. Skin: No jaundice. No rashes. Abdomen: Normal bowel sounds, abdomen soft. Extremities: No cyanosis or clubbing. Musculoskeletal: Poor muscular development. Neurological: Moves all 4 extremities. No myoclonus. Psych: COMMON NORMALS: mental status grossly normal, speech normal, denies homicidal ideation and denies suicidal ideation ATTITUDE: Yes engaged, No paranoid, No agitated and No aggressive ACTIVITY/MOTOR BEHAVIOR: Yes fidgeting, Yes disorganized behavior and Yes restless SPEECH: Yes normal speech MOOD & AFFECT: Yes anxious THOUGHT PROCESS: Tangential thought process present Data 03/14/23 04:27 03/15/23 10:00 A&P Assessment and plan (1) Altered mental status: Most likely patient is at his baseline. Cannot rule out baseline dementia which has gotten worse since the of his from depression and bereavement. No acute abnormality noted so far during hospitalization. No leg abnormality or signs of infection. MRI done negative for any new stroke but consistent with chronic age-related atrophy. Medication reconciliation done. Started back on bupropion 150 mg oral daily, donepezil 5 mg at bedtime along with mirtazapine. On further review of medication it seems patient was also on primidone until April of last year. Start back on primidone 50 mg twice daily. (2) Confusion: (3) CVA (cerebral vascular accident): (4) Adult failure to thrive: (5) KODI (acute kidney injury): Most likely secondary dehydration. Resolved. (6) Abnormal serum level of lipase: (7) Hydrocephalus: Qualifiers: Hydrocephalus type: unspecified Qualified Code(s): G91.9 - Hydrocephalus, unspecified (8) Protein-energy malnutrition: Plan Appreciate PT/OT evaluation. As per OT evaluation patient is not safe to go live by himself as it is a high risk of confusion, fall, unable or forgetting to take his medications or his meals. Patient continues to decline going to the fci. Patient does not have a DPOA on file. Given concerns of dementia with cachexia and failure to thrive and multiple recent admissions we will consult psychiatry to [place] competence in making his own decisions. We will plan for discharge as per psych recommendations. If psych recommends that patient is incompetent to make his own decisions we will proceed state guardianship. Discharge plan: Given advanced age, recent passing of of patient's spouse, failure to thrive, presentation patient would benefit from placement to SNF as he does at a high risk of falls, adverse events though patient did well with physical therapy and as per their evaluation does not need rehabitation. Patient declines going to SNF if not for physical therapy. But is agreeable for possible home health. Patient states he lives by himself does have a son but estranged. Further plan on discharge as per psych evaluation. Full code. Regular mechanical soft diet. Heparin for DVT prophylaxis Famotidine for PUD prophylaxis. Attestations Medical Necessity Statement*: Requires further hospitalization for management of altered mental status/confusion in setting of acute kidney injury which is resolved, baseline bereavement, failure to thrive, cachexia massive discharge planning and competence to make safe medical decisions is governed. Diagnoses Altered mental status R41.82 Confusion R41.0 CVA (cerebral vascular accident) I63.9 Adult failure to thrive R62.7 KODI (acute kidney injury) N17.9 Abnormal serum level of lipase R74.8 Hydrocephalus G91.9 Hydrocephalus type: unspecified Protein-energy malnutrition E46
--- NOTE | 2023-03-20 18:10 | P.NPUCON_ITS ---
Providers/Reason for Consult Consulting Physican/Specialty*: Speedy Lau MD/Psychiatry Reason for Consult*: confusion/dementia. Attending Physician: Dipak Logan MD Primary Care Provider: Merle Sanchez MD Psych Consult HPI History of Present Illness Catalino Ivy is a 72 year old male admitted with multiple medical problems including confusion ,malnutrition, acute kidney injury, and overall adult failure to thrive. Patient had stated that he would like to go home. The patient had been informed by the treatment team that he would likely require placement in a shelter facility and the patient had reported that he would simply like to go back to live by himself. He had acknowledged having problems with memory. He stated that he did not know what he would do if he could not return home. He had stated that he had been responsible for taking care of himself since his had . He was unable to describe the details of when she had . He had not endorsed any depression or problems with anxiety. He states that he has no support from his son who he is estranged from at this time. He was unable to offer any clear reason for his current hospitalization and he did acknowledge that he had been losing weight but was unable to elaborate regarding this matter. He had denied having problems with grieving the of his . He had reported having no problems with sleep. Past psychiatric history: Unknown, although the patient had been placed on antidepressants including Prozac Wellbutrin and Remeron. He is also on done zepil likely for dementia. Drug and alcohol history: None reported Medical history: See primary note Social history: Limited, he previous does appear to have some history. He has previously been . He was unable to provide any reasonable history at this time. Meds Home Medications and Allergies Home Medications Medication Instructions Recorded Confirmed Last Taken Type fluoxetine 20 mg capsule 20 mg PO DAILY 30 days #30 caps 02/24/23 03/13/23 Unknown Rx bupropion HCl 300 mg 24 hr tablet, 150 mg PO DAILY 03/19/23 03/19/23 Unknown History extended release donepezil 5 mg tablet 5 mg PO BEDTIME 03/19/23 03/19/23 Unknown History mirtazapine 15 mg tablet 15 mg PO BEDTIME 03/19/23 03/19/23 Unknown History Allergies Allergy/AdvReac Type Severity Reaction Status Date / Time No Known Drug Allergies Allergy Unknown Verified 03/13/23 15:31 Current Medications Current Medications Generic Name Dose Route Start Last Admin Trade Name Freq PRN Reason Stop Dose Admin Albuterol/Ipratropium 3 ml 03/14/23 08:00 03/20/23 15:41 Ipratropium-Albuterol 3 Ml Neb INHALATION 3 ml QID.RESPIRATORY NILE Administration Aspirin 81 mg 03/16/23 09:00 03/20/23 08:29 Aspirin 81 Mg Chew Tablet PO 81 mg DAILY NILE Administration Bupropion HCl 150 mg 03/20/23 09:00 03/20/23 08:28 Bupropion Xl (24 Hr) 150 Mg Tablet PO 150 mg DAILY NILE Administration Donepezil HCl 5 mg 03/19/23 21:00 03/19/23 20:28 Donepezil 5 Mg Tablet PO 5 mg BEDTIME NILE Administration Heparin Sodium (Porcine) 5,000 unit 03/13/23 19:45 03/20/23 08:29 Heparin 5,000 Unit/Ml Inj 1 Ml SUBCUT 5,000 unit Q12H NILE Administration Mirtazapine 15 mg 03/19/23 21:00 03/19/23 20:28 Mirtazapine 15 Mg Tablet PO 15 mg BEDTIME NILE Administration Pantoprazole Sodium 40 mg 03/14/23 09:00 03/20/23 08:[address] 40 Mg Tablet PO 40 mg DAILY NILE Administration Primidone 50 mg 03/20/23 09:20 03/20/23 18:03 Primidone 50 Mg Tablet PO 50 mg BID NILE Administration PFSH NPU PFSH: Medical History (Updated 03/20/23 @ 18:35 by Speedy Lau MD) Adult failure to thrive Anxiety CVA (cerebral vascular accident) Depression Gastritis History of kidney stones Hx of colonic polyps Hyperlipidemia PTSD (post-traumatic stress disorder) Sleep apnea Weakness Surgical History H/O esophagogastroduodenoscopy 12/09/2019: Gastritis Status post colonoscopy with polypectomy 12/09/2019: 3 polyps removed from descending colon, follow-up colonoscopy in 3 years Family History Denies family history of Anesthesia complication Bleeding disorder Social History Smoking and tobacco status: former smoker Alcohol intake: former Substance/Drug Use: never Lives independently: Yes Household members: spouse Current occupational status: retired Mental Status Exam MSE Comments: The patient appeared quite confused on interview. He had significant problems with stammering and significant word finding issues. He is an emaciated cachectic male who appeared his stated age. He had fair eye contact. His gait was somewhat unsteady. His mood was described as okay. His affect appeared mood incongruent and somewhat flat. His thought process was nonlinear and illogical. He had perseverated about wanting to go home. He did not endorse any thoughts of hurting himself or others. He was unable to provide information regarding his current location but identified himself by name. He he did not appear oriented to year day date or day of the week. Registration of 3 words was 1 out of 3 with efforts to prompt 2 times. His recall after 5 minutes was 0 out of 3. His ability to abstract was impaired. He did not appear to be responding to internal stimuli there was no clear evidence of delusional think ing. His insight and judgment were impaired. His impulse control appeared limited. He had struggled with any clear ability to plan or execute when asked questions on how he would be able to make spaghetti he was unable to provide any reasonable [id number] fashion of constructing a plan to execute this meal. Vitals/I&O/Wt Last Vital Signs Temp 97.9 F 03/20/23 16:00 Pulse 99 03/20/23 16:00 Resp 17 03/20/23 16:00 BP 109/65 03/20/23 16:00 Pulse Ox 94 03/20/23 16:00 O2 Del Method Room Air 03/20/23 16:00 O2 Flow Rate 2 03/19/23 20:00 03/20/23 03/20/23 03/20/23 06:59 14:59 22:59 Intake Total 120 / 1200 720 / 720 Balance 120 / 1200 720 / 720 Data NPU 03/14/23 04:27 03/15/23 10:00 A&P Assessment and plan (1) Dementia: (2) Protein-energy malnutrition: (3) Confusion: (4) Physical deconditioning: (5) Debility: (6) KODI (acute kidney injury): (7) Adult failure to thrive: Plan This patient will require a shelter facility. Despite being informed of risks and benefits of treatment he is unable to process this or even recall and provide any reasonable ability to make a informed decision. He is largely unlikely to be able to make any further decisions given his level of cognitive impairment and will probably require guardianship in some capacity. His chronic neuropsychiatric illness puts him at risk of impaired decision-making capacity. He had shown a basic inability to manage in way pluses and minuses of decision making and was unable to appreciate or understand the conditions that were largely leading to him being malnourished. Furthermore, his active cognitive problems prevented him from being able to fully understand and contemplate the problems that have led to his malnutrition. Further evaluation [facility] Evaluation of living Skills would support his inability to manage himself independently Attestations NPU Medical Necessity Statement*: NA Coding Level of Care Code Acute Code for g Fwd Diagnoses Dementia F03.90 Protein-energy malnutrition E46 Confusion R41.0 Physical deconditioning R53.81 Debility R53.81 KODI (acute kidney injury) N17.9 Adult failure to thrive R62.7
[2023-03-20] MEDS: donepezil 5 MG Tablet PO (21:27)
[2023-03-20] MEDS: mirtazapine 15 mg Tablet PO (21:27)
[2023-03-21] VITALS (14 sets, daily range): BP systolic 111–134; BP diastolic 60–89; PULSE 63–97; RESP 15–18; TEMP 36.4–37; O2SAT 92–96
[2023-03-21] MEDS: ipratropium-albuterol 3 mL Neb INHALATION ×4 (07:32→20:44)
[2023-03-21] MEDS: heparin 5,000 unit/mL INJ 1 mL 5000 UNIT SUBCUT ×2 (08:35→22:05)
[2023-03-21] MEDS: aspirin 81 mg Chew Tablet PO (08:35)
[2023-03-21] MEDS: pantoprazole DR 40 mg Tablet PO (08:35)
[2023-03-21] MEDS: primidone 50 mg Tablet PO ×2 (08:35→17:54)
[2023-03-21] MEDS: buPROPion XL (24 HR) 150 mg Tablet PO (08:35)
--- NOTE | 2023-03-21 11:33 | PC.OT ---
Therapist attempt tx 2x. Patient was asleep both times and was unable to be seen.
--- NOTE | 2023-03-21 15:52 | P.PN_ITS ---
Subjective Subjective: No acute events overnight. Patient has not had any episodes of agitation. Laying comfortably in bed on examination. Wakes up to physical and verbal stimulus. Less jittery and tremors. Continues to remain on room air and hemodynamically stable. Medications: Reviewed: Yes Medication Review Details: Medications reconciled through outpatient pharmacy and outpatient medication logs. Vitals/I&O/Wt Last Vital Signs Temp 97.9 F 03/21/23 12:00 Pulse 91 03/21/23 15:18 Resp 16 03/21/23 15:15 BP 134/74 03/21/23 12:00 Pulse Ox 96 03/21/23 15:15 O2 Del Method Room Air 03/21/23 15:15 O2 Flow Rate 2 03/19/23 20:00 03/21/23 03/21/23 03/21/23 06:59 14:59 22:59 Intake Total 960 / 960 Balance 960 / 960 Physical Exam Narrative: General: AOx3, anxious, no acute distress, frail, chronically sick appearing, cachectic Head: Normocephalic. Temporal wasting. Neck: No JVD. Cardiovascular: RRR. No gallops. No murmurs. Lungs: Non-labored. No use of accessory muscles, no crackles or wheezes. Skin: No jaundice. No rashes. Abdomen: Normal bowel sounds, abdomen soft. Extremities: No cyanosis or clubbing. Musculoskeletal: Poor muscular development. Neurological: Moves all 4 extremities. No myoclonus. Psych: COMMON NORMALS: mental status grossly normal, speech normal, denies h omicidal ideation and denies suicidal ideation ATTITUDE: Yes engaged, No paranoid, No agitated and No aggressive ACTIVITY/MOTOR BEHAVIOR: Yes fidg eting, Yes disorganized behavior and Yes restless SPEECH: Yes normal speech MOOD & AFFECT: Yes anxious THOUGHT PROCESS: Tangential thought process present Data 03/14/23 04:27 03/15/23 10:00 A&P Assessment and plan (1) Altered mental status: Most likely patient is at his baseline. Cannot rule out baseline dementia which has gotten worse since the of his from depression and bereavement. No acute abnormality noted so far during hospitalization. No leg abnormality or signs of infection. MRI done negative for any new stroke but consistent with chronic age-related atrophy. Medication reconciliation done. Started back on bupropion 150 mg oral daily, donepezil 5 mg at bedtime along with mirtazapine. On further review of medication it seems patient was also on primidone until April of last year. Start back on primidone 50 mg twice daily. (2) Confusion: (3) CVA (cerebral vascular accident): (4) Adult failure to thrive: (5) KODI (acute kidney injury): Most likely secondary dehydration. Resolved. (6) Abnormal serum level of lipase: (7) Hydrocephalus: Qualifiers: Hydrocephalus type: unspecified Qualified Code(s): G91.9 - Hydrocephalus, unspecified (8) Protein-energy malnutrition: Plan Plan for today: Appreciate psychiatry evaluation. Deemed not safe to make his own medical decisions. Worsening state guardianship for safe discharge planning. Paperwork filled and notarized. Plan to discharge to SNF. Awaiting AFUA OT evaluation. Continue with bupropion 150 mg oral daily, donepezil 5 mg, mirtazapine 15 mg and primidone 50 mg twice daily. Continue soft mechanical diet. Labs vacation tomorrow. Discharge plan: Given advanced age, recent passing of of patient's spouse, failure to thrive, presentation patient would benefit from placement to SNF as he does at a high risk of falls, adverse events though patient did well with physical therapy and as per their evaluation does not need rehabitation. Patient declines going to SNF if not for physical therapy. But is agreeable for possible home health. Patient states he lives by himself does have a son but estranged. Patient is being not Able to make his own medical decisions safely by psychiatry. Awaiting state guardianship. Case management alerted. Full code. Regular mechanical soft diet. Heparin for DVT prophylaxis Famotidine for PUD prophylaxis. Attestations Medical Necessity Statement*: Requires further hospitalization while state appointed guardianship is sought given patient found to be incompetent to make his own medical decision safely Diagnoses Altered mental status R41.82 Confusion R41.0 CVA (cerebral vascular accident) I63.9 Adult failure to thrive R62.7 KODI (acute kidney injury) N17.9 Abnormal serum level of lipase R74.8 Hydrocephalus G91.9 Hydrocephalus type: unspecified Protein-energy malnutrition E46
--- NOTE | 2023-03-21 17:49 | W.PM.NPUPNS ---
Subjective NPU Subjective: 72-year-old white male with dementia and significant medical problems with severe malnutrition and confusion. The patient appeared to be in no acute distress today. He had stated that he needed his dentures in order to eat. He had continued to show evidence of word finding issues. He had not appeared to recognize the blog writer of this note today. There were no notable changes today compared to yesterday. Mental Status Exam MSE Comments: The patient appeared quite confused on interview. He had significant problems with stammering and significant word finding issues. He is an emaciated cachectic male who appeared his stated age. He had fair eye contact. His mood was described as all right. His affect appeared mood incongruent and somewhat flat. His thought process was nonlinear and illogical. There was no perseveration regarding his going home today. He did not endorse any thoughts of hurting himself or others. He was unable to provide information regarding his current location but identified himself by name. He he did not appear oriented to year month day date or day of the week. His recent and remote memory appeared impaired. His ability to abstract was poor. He did not appear to be responding to internal stimuli there was no clear evidence of delusional thinking. His insight and judgment were impaired. His impulse control appeared limited. Vitals/I&O/Wt Last Vital Signs Temp 97.9 F 03/21/23 16:00 Pulse 89 03/21/23 16:00 Resp 15 03/21/23 16:00 BP 116/65 03/21/23 16:00 Pulse Ox 96 03/21/23 16:00 O2 Del Method Room Air 03/21/23 16:00 O2 Flow Rate 2 03/19/23 20:00 03/21/23 03/21/23 03/21/23 06:59 14:59 22:59 Intake Total 960 / 960 Balance 960 / 960 Data NPU 03/14/23 04:27 03/15/23 10:00 A&P Assessment and plan (1) Dementia: (2) Protein-energy malnutrition: (3) Confusion: (4) Physical deconditioning: (5) Debility: (6) KODI (acute kidney injury): (7) Adult failure to thrive: Plan This patient will require placement at a care home facility. Despite being informed of risks and benefits of treatment he is unable to process this or even recall and provide any reasonable ability to make a informed decision. He is largely unlikely to be able to make any further decisions given his level of cognitive impairment and will probably require guardianship in some capacity. His chronic neuropsychiatric illness puts him at risk of impaired decision-making capacity. He had shown a basic inability to weigh risks and benefits and make a reasonable decision regarding his care. He remains unable to appreciate or understand the conditions that had led him to being malnourished. Furthermore, his active cognitive problems prevented him from being able to fully understand and contemplate the problems that have led to his malnutrition. Further [facility] Skills would support his inability to manage himself independently Attestations NPU Medical Necessity Statement*: The patient requires placement at SNF once guardianship is obtained. Petition for guardianship completed today. Coding Level of Care Code Acute Code for Chg Fwd Diagnoses Dementia F03.90 Protein-energy malnutrition E46 Confusion R41.0 Physical deconditioning R53.81 Debility R53.81 KODI (acute kidney injury) N17.9 Adult failure to thrive R62.7
[2023-03-21] MEDS: mirtazapine 15 mg Tablet PO (22:05)
[2023-03-21] MEDS: donepezil 5 MG Tablet PO (22:06)
[2023-03-22] VITALS (13 sets, daily range): BP systolic 102–143; BP diastolic 48–74; PULSE 66–116; RESP 12–18; TEMP 36.4–37.3; O2SAT 92–99
--- NOTE | 2023-03-22 04:47 | PC.NURSE ---
Pt has sleep well this night. No complaints voiced. Pt has been alert/oriented to self, place, birthday. Pt has been encouraged to drinks fluids, was offered snacks but refused.
[2023-03-22] MEDS: ipratropium-albuterol 3 mL Neb INHALATION ×3 (07:32→15:20)
[2023-03-22] MEDS: buPROPion XL (24 HR) 150 mg Tablet PO (08:14)
[2023-03-22] MEDS: primidone 50 mg Tablet PO ×2 (08:14→17:19)
[2023-03-22] MEDS: aspirin 81 mg Chew Tablet PO (08:14)
[2023-03-22] MEDS: heparin 5,000 unit/mL INJ 1 mL 5000 UNIT SUBCUT ×2 (08:14→21:06)
[2023-03-22] MEDS: pantoprazole DR 40 mg Tablet PO (08:14)
--- NOTE | 2023-03-22 15:21 | P.PN_ITS ---
Subjective Subjective: Status quo. No new complaints. Lying comfortably in bed. Denies any nausea, vomiting, headache. Appreciate occupational therapy recommendations. Patient failed AFUA exam yesterday. Medications: Reviewed: Yes Medication Review Details: Medications reconciled through outpatient pharmacy and outpatient medication logs. Vitals/I&O/Wt Last Vital Signs Temp 97.6 F 03/22/23 12:00 Pulse 68 03/22/23 15:18 Resp 16 03/22/23 15:18 BP 108/72 03/22/23 12:00 Pulse Ox 93 03/22/23 15:18 O2 Del Method Room Air 03/22/23 15:18 O2 Flow Rate 2 03/19/23 20:00 03/22/23 03/22/23 03/22/23 06:59 14:59 22:59 Intake Total 120 / 1440 720 / 720 Balance 120 / 1440 720 / 720 Physical Exam Narrative: General: AOx3, anxious, no acute distress, frail, chronically sick appearing, cachectic Head: Normocephalic. Temporal wasting. Neck: No JVD. Cardiovascular: RRR. No gallops. No murmurs. Lungs: Non-labored. No use of accessory muscles, no crackles or wheezes. Skin: No jaundice. No rashes. Abdomen: Normal bowel sounds, abdomen soft. Extremities: No cyanosis or clubbing. Musculoskeletal: Poor muscular development. Neurological: Moves all 4 extremities. No myoclonus. Psych: COMMON NORMALS: mental status grossly normal, speech normal, denies homicidal ideation and denies suicidal ideation ATTITUDE: Yes engaged, No paranoid, No agitated and No aggressive ACTIVITY/MOTOR BEHAVIOR: Yes fidgeting, Yes disorganized behavior and Yes restless SPEECH: Yes normal speech MOOD & AFFECT: Yes anxious THOUGHT PROCESS: Tangential thought process present Data 03/14/23 04:27 03/15/23 10:00 A&P Assessment and plan (1) Altered mental status: Most likely patient is at his baseline. Cannot rule out baseline dementia which has gotten worse since the of his from depression and bereavement. No acute abnormality noted so far during hospitalization. No leg abnormality or signs of infection. MRI done negative for any new stroke but consistent with chronic age-related atrophy. Medication reconciliation done. Started back on bupropion 150 mg oral daily, donepezil 5 mg at bedtime along with mirtazapine. On further review of medication it seems patient was also on primidone until April of last year. Start back on primidone 50 mg twice daily. (2) Confusion: (3) CVA (cerebral vascular accident): (4) Adult failure to thrive: (5) KODI (acute kidney injury): Most likely secondary dehydration. Resolved. (6) Abnormal serum level of lipase: (7) Hydrocephalus: Qualifiers: Hydrocephalus type: unspecified Qualified Code(s): G91.9 - Hydrocephalus, unspecified (8) Protein-energy malnutrition: Plan Plan for today: Continue treatment as above. Awaiting guardianship and eventual discharge to SNF. Repeat CBC and CMP in AM. Discharge plan: Given advanced age, recent passing of of patient's spouse, fa ilure to thrive, presentation patient would benefit from placement to SNF as he does at a high risk of falls, adverse events though patient did well with physical therapy and as per their evaluation does not need rehabitation. Patient declines going to SNF if not for physical therapy. But is agreeable for possible home health. Patient states he lives by himself does have a son but estranged. Patient is being not Able to make his own medical decisions safely by psychiatry. Awaiting state guardianship. Case management alerted. Full code. Regular mechanical soft diet. Heparin for DVT prophylaxis Famotidine for PUD prophylaxis. Attestations Medical Necessity Statement*: Requires further hospitalization while state appointed guardianship and safe discharge planning is sought in a patient who has been deemed incompetent to make his own medical decisions and is at a risk of fall, failure to thrive in setting of severe protein energy malnutrition by himself. Diagnoses Altered mental status R41.82 Confusion R41.0 CVA (cerebral vascular accident) I63.9 Adult failure to thrive R62.7 KODI (acute kidney injury) N17.9 Abnormal serum level of lipase R74.8 Hydrocephalus G91.9 Hydrocephalus type: unspecified Protein-energy malnutrition E46
[2023-03-22] MEDS: donepezil 5 MG Tablet PO (21:06)
[2023-03-22] MEDS: mirtazapine 15 mg Tablet PO (21:06)
[2023-03-23] VITALS (7 sets, daily range): BP systolic 114–139; BP diastolic 71–81; PULSE 66–90; RESP 12–18; TEMP 36.1–36.9; O2SAT 93–99
[2023-03-23 01:37] LABS: Basophils % 0.3 %; Eosinophils # 0.1 10^3/uL (0.0-0.8); Eosinophils % 1.5 %; Hematocrit 41.7 % (42.0-52.0); Lymphocytes # 2.2 10^3/uL (0.8-4.8); Lymphocytes % 29.8 %; Mean Corpuscular HGB Conc 31.2 g/dL (30.0-36.0); Mean Corpuscular Hemoglobin 28.5 pg (28.0-34.0); Mean Corpuscular Volume 91.4 fl (80-94); Mean Platelet Volume 10.3 fL (7.4-10.4); Monocytes # 0.5 10^3/uL (0.2-0.9); Monocytes % 6.7 %; Neutrophils # 4.56 10^3/uL (1.8-7.7); Neutrophils % 61.4 %; Nucleated Red Blood Cells % 0 %; Platelet Count 248 10^3/cmm (130-400); Red Blood Count 4.56 10^6/uL (4.1-5.3); Red Cell Distribution Width 14.8 % (12.1-15.1); White Blood Count 7.4 10^3/uL (4.0-10.0)
[2023-03-23 02:00] LABS: Alanine Aminotransferase 45 U/L (0-41); Albumin Level 3.5 g/dL (3.5-5.2); Alkaline Phosphatase 64 U/L (40-130); Anion Gap 11.7 (5-19); Aspartate Amino Transferase 21 U/L (0-40); Blood Urea Nitrogen 37 mg/dL (8-23); Calcium 9.5 mg/dL (8.5-10.5); Carbon Dioxide 32 mmol/L (22-29); Chloride 100 mmol/L (98-107); Globulin 2.3 g/dL (1.3-4.6); Glucose 80 mg/dL (65-115); Osmolality Calculated 296 mOsm/kg (285-295); Potassium 4.7 mmol/L (3.5-5.1); Sodium 139 mmol/L (136-145); Total Bilirubin 0.3 mg/dL (0.15-1.2); Total Protein 5.8 g/dL (6.6-8.7)
[2023-03-23] MEDS: heparin 5,000 unit/mL INJ 1 mL 5000 UNIT SUBCUT ×2 (06:45→18:59)
[2023-03-23] MEDS: pantoprazole DR 40 mg Tablet PO (09:55)
[2023-03-23] MEDS: primidone 50 mg Tablet PO ×2 (09:55→18:59)
[2023-03-23] MEDS: buPROPion XL (24 HR) 150 mg Tablet PO (09:55)
[2023-03-23] MEDS: aspirin 81 mg Chew Tablet PO (09:55)
--- NOTE | 2023-03-23 15:08 | P.PN_ITS ---
Subjective Subjective: Status quo. No new complaints. Laying comfortably in bed. Walking around without any assistance. Has remained calm without any episodes of agitation. A lot more awake and alert. Able to have conversation but continues to remain on and off confused. Failed AFUA with occupational therapy yesterday. Medications: Reviewed: Yes Medication Review Details: Medications reconciled through outpatient pharmacy and outpatient medication logs. Vitals/I&O/Wt Last Vital Signs Temp 98 F 03/23/23 08:00 Pulse 86 03/23/23 08:00 Resp 16 03/23/23 08:00 BP 131/74 03/23/23 08:00 Pulse Ox 93 03/23/23 08:00 O2 Del Method Room Air 03/23/23 08:00 O2 Flow Rate 2 03/19/23 20:00 03/23/23 03/23/23 03/23/23 06:59 14:59 22:59 Intake Total 450 / 1650 240 / 240 Balance 450 / 1650 240 / 240 Physical Exam Narrative: General: AOx3, anxious, no acute distress, frail, chronically sick appearing, cachectic Head: Normocephalic. Temporal wasting. Neck: No JVD. Cardiovascular: RRR. No gallops. No murmurs. Lungs: Non-labored. No use of accessory muscles, no crackles or wheezes. Skin: No jaundice. No rashes. Abdomen: Normal bowel sounds, abdomen soft. Extremities: No cyanosis or clubbing. Musculoskeletal: Poor muscular development. Neurological: Moves all 4 extremities. No myoclonus. Psych: COMMON NORMALS: mental status grossly normal, speech normal, denies homicidal ideation and denies suicidal ideation ATTITUDE: Yes engaged, No paranoid, No agitated and No aggressive ACTIVITY/MOTOR BEHAVIOR: Yes fidgeting, Yes disorganized behavior and Yes restless SPEECH: Yes normal speech MOOD & AFFECT: Yes anxious THOUGHT PROCESS: Tangential thought process present Data 03/23/23 01:15 03/23/23 01:15 A&P Assessment and plan (1) Altered mental status: Most likely patient is at his baseline. Cannot rule out baseline dementia which has gotten worse since the of his from depression and bereavement. No acute abnormality noted so far during hospitalization. No leg abnormality or signs of infection. MRI done negative for any new stroke but consistent with chronic age-related atrophy. Medication reconciliation done. Started back on bupropion 150 mg oral daily, donepezil 5 mg at bedtime along with mirtazapine. On further review of medication it seems patient was also on primidone until April of last year. Start back on primidone 50 mg twice daily. (2) Confusion: (3) CVA (cerebral vascular accident): (4) Adult failure to thrive: (5) KODI (acute kidney injury): Most likely secondary dehydration. Resolved. (6) Abnormal serum level of lipase: (7) Hydrocephalus: Qualifiers: Hydrocephalus type: unspecified Qualified Code(s): G91.9 - Hydr ocephalus, unspecified (8) Protein-energy malnutrition: Plan Plan for today: Appreciate lab work done today. Hemoglobin, white count, CMP has remained stable. Will hold off on any further blood work for now. Repeat as needed. Continue to pursue guardianship. Continue with bupropion, donepezil and mirtazapine along with trazodone. Discharge plan: Given advanced age, recent passing of of patient's spouse, failure to thrive, presentation patient would benefit from placement to SNF as he does at a high risk of falls, adverse events though patient did well with physical therapy and as per their evaluation does not need rehabitation. Patient declines going to SNF if not for physical therapy. But is agreeable for possible home health. Patient states he lives by himself does have a son but estranged. Patient is being not Able to make his own medical decisions safely by psychiatry. Awaiting state guardianship. Case management alerted. Full code. Regular mechanical soft diet. Heparin for DVT prophylaxis Famotidine for PUD prophylaxis. Attestations Medical Necessity Statement*: Requires further hospitalization where guardianship was pursued in setting of an elderly gentleman who has been determined incompetent to make his own safety medical decisions as per psych evaluation Diagnoses Altered mental status R41.82 Confusion R41.0 CVA (cerebral vascular accident) I63.9 Adult failure to thrive R62.7 KODI (acute kidney injury) N17.9 Abnormal serum level of lipase R74.8 Hydrocephalus G91.9 Hydrocephalus type: unspecified Protein-energy malnutrition E46
[2023-03-23] MEDS: ipratropium-albuterol 3 mL Neb INHALATION (16:02)
[2023-03-23] MEDS: mirtazapine 15 mg Tablet PO (20:21)
[2023-03-23] MEDS: donepezil 5 MG Tablet PO (20:21)
[2023-03-24] VITALS (10 sets, daily range): BP systolic 104–143; BP diastolic 62–87; PULSE 67–88; RESP 16–18; TEMP 36.4–36.8; O2SAT 90–99
[2023-03-24] MEDS: ipratropium-albuterol 3 mL Neb INHALATION ×2 (07:42→11:17)
[2023-03-24] MEDS: primidone 50 mg Tablet PO ×2 (08:43→16:45)
[2023-03-24] MEDS: heparin 5,000 unit/mL INJ 1 mL 5000 UNIT SUBCUT ×2 (08:43→21:00)
[2023-03-24] MEDS: buPROPion XL (24 HR) 150 mg Tablet PO (08:43)
[2023-03-24] MEDS: pantoprazole DR 40 mg Tablet PO (08:43)
[2023-03-24] MEDS: aspirin 81 mg Chew Tablet PO (08:43)
--- NOTE | 2023-03-24 16:43 | P.PN_ITS ---
Subjective Subjective: No gross overnight. Today morning on examination patient was trying to have his lunch. He was unable to open his bottle of Glucerna or take of the lead of his applesauce. He states he has been trying to open it for the last 5 minutes but unable to. Otherwise patient denies any nausea vomiting, headache. Still having some difficulty in finding words. Has remained calm and no episodes of agitations Medications: Reviewed: Yes Medication Review Details: Medications reconciled through outpatient pharmacy and outpatient medication logs. Vitals/I&O/Wt Last Vital Signs Temp 97.7 F 03/24/23 11:50 Pulse 86 03/24/23 11:50 Resp 18 03/24/23 11:50 BP 126/70 03/24/23 11:50 Pulse Ox 90 03/24/23 11:50 O2 Del Method Room Air 03/24/23 11:50 O2 Flow Rate 2 03/19/23 20:00 03/24/23 03/24/23 03/24/23 06:59 14:59 22:59 Intake Total 200 / 1040 960 / 960 Balance 200 / 740 960 / 960 Physical Exam Narrative: General: AOx3, anxious, no acute distress, frail, chronically sick appearing, cachectic Head: Normocephalic. Temporal wasting. Neck: No JVD. Cardiovascular: RRR. No gallops. No murmurs. Lungs: Non-labored. No use of accessory muscles, no crackles or wheezes. Skin: No jaundice. No rashes. Abdomen: Normal bowel sounds, abdomen soft. Extremities: No cyanosis or clubbing. Musculoskeletal: Poor muscular development. Neurological: Moves all 4 extremities. No myoclonus. Psych: COMMON NORMALS: mental status grossly normal, speech normal, denies homicidal ideation and denies suicidal ideation ATTITUDE: Yes engaged, No paranoid, No agitated and No aggressive ACTIVITY/MOTOR BEHAVIOR: Yes fidgeting, Yes disorganized behavior and Yes restless SPEECH: Yes normal speech MOOD & AFFECT: Yes anxious THOUGHT PROCESS: Tangential thought proc ess present Data 03/23/23 01:15 03/23/23 01:15 A&P Assessment and plan (1) Altered mental status: Most likely patient is at his baseline. Cannot rule out baseline dementia which has gotten worse since the of his from depression and bereavement. No acute abnormality noted so far during hospitalization. No leg abnormality or signs of infection. MRI done negative for any new stroke but consistent with chronic age-related atrophy. Medication reconciliation done. Started back on bupropion 150 mg oral daily, donepezil 5 mg at bedtime along with mirtazapine. On further review of medication it seems patient was also on primidone until April of last year. Start back on primidone 50 mg twice daily. (2) Confusion: (3) CVA (cerebral vascular accident): (4) Adult failure to thrive: (5) KODI (acute kidney injury): Most likely secondary dehydration. Resolved. (6) Abnormal serum level of lipase: (7) Hydrocephalus: Qualifiers: Hydrocephalus type: unspecified Qualified Code(s): G91.9 - Hy drocephalus, unspecified (8) Protein-energy malnutrition: Plan Discharge plan: Given advanced age, recent passing of of patient's spouse, failure to thrive, presentation patient would benefit from placement to SNF as he does at a high risk of falls, adverse events though patient did well with physical therapy and as per their evaluation does not need rehabitation. Patient declines going to SNF if not for physical therapy. But is agreeable for possible home health. Patient states he lives by himself does have a son but estranged. Patient is being not Able to make his own medical decisions safely by psychiatry. Awaiting state guardianship. Case management alerted. Full code. Regular mechanical soft diet. Heparin for DVT prophylaxis Famotidine for PUD prophylaxis. Attestations Medical Necessity Statement*: Awaiting state appointed guardianship for safe discharge planning Diagnoses Altered mental status R41.82 Confusion R41.0 CVA (cerebral vascular accident) I63.9 Adult failure to thrive R62.7 KODI (acute kidney injury) N17.9 Abnormal serum level of lipase R74.8 Hydrocephalus G91.9 Hydrocephalus type: unspecified Protein-energy malnutrition E46
[2023-03-24] MEDS: donepezil 5 MG Tablet PO (21:00)
[2023-03-24] MEDS: mirtazapine 15 mg Tablet PO (21:00)
[2023-03-25] VITALS (7 sets, daily range): BP systolic 111–145; BP diastolic 71–83; PULSE 60–88; RESP 16–18; TEMP 36.4–36.8; O2SAT 94–98
[2023-03-25] MEDS: aspirin 81 mg Chew Tablet PO (09:01)
[2023-03-25] MEDS: pantoprazole DR 40 mg Tablet PO (09:01)
[2023-03-25] MEDS: primidone 50 mg Tablet PO ×2 (09:01→16:45)
[2023-03-25] MEDS: buPROPion XL (24 HR) 150 mg Tablet PO (09:01)
[2023-03-25] MEDS: heparin 5,000 unit/mL INJ 1 mL 5000 UNIT SUBCUT ×2 (09:01→20:57)
--- NOTE | 2023-03-25 12:10 | PM.PN ---
Subjective Subjective: Status quo. No new complaints. Comfortably sitting in bed on room air. No agitation. Medications: Reviewed: Yes Medication Review Details: Medications reconciled through outpatient pharmacy and outpatient medication logs. Vitals/I&O/Wt Last Vital Signs Temp 98.0 F 03/25/23 11:38 Pulse 88 03/25/23 11:38 Resp 18 03/25/23 11:38 BP 111/71 03/25/23 11:38 Pulse Ox 95 03/25/23 11:38 O2 Del Method Room Air 03/25/23 11:38 O2 Flow Rate 2 03/19/23 20:00 03/24/23 03/25/23 03/25/23 22:59 06:59 14:59 Intake Total 480 / 1440 240 / 240 Balance 480 / 1440 240 / 240 Physical Exam Narrative: General: AOx3, anxious, no acute distress, frail, chronically sick appearing, cachectic Head: Normocephalic. Temporal wasting. Neck: No JVD. Cardiovascular: RRR. No gallops. No murmurs. Lungs: Non-labored. No use of accessory muscles, no crackles or wheezes. Skin: No jaundice. No rashes. Abdomen: Normal bowel sounds, abdomen soft. Extremities: No cyanosis or clubbing. Musculoskeletal: Poor muscular development. Neurological: Moves all 4 extremities. No myoclonus. Psych: COMMON NORMALS: mental status grossly normal, speech normal, denies homicidal ideation and denies suicidal ideation ATTITUDE: Yes engaged, No paranoid, No agitated and No aggressive ACTIVITY/MOTOR BEHAVIOR: Yes fidgeting, Yes disorganized behavior and Yes restless SPEECH: Yes normal speech MOOD & AFFECT: Yes anxious THOUGHT PROCESS: Tangential thought process present Data 03/23/23 01:15 03/23/23 01:15 A&P Assessment and plan (1) Altered mental status: Most likely patient is at his baseline. Cannot rule out baseline dementia which has gotten worse since the of his from depression and bereavement. No acute abnormality noted so far during hospitalization. No leg abnormality or signs of infection. MRI done negative for any new stroke but consistent with chronic age-related atrophy. Medication reconciliation done. Started back on bupropion 150 mg oral daily, donepezil 5 mg at bedtime along with mirtazapine. On further review of medication it seems patient was also on primidone until April of last year. Start back on primidone 50 mg twice daily. (2) Confusion: (3) CVA (cerebral vascular accident): (4) Adult failure to thrive: (5) KODI (acute kidney injury): Most likely secondary dehydration. Resolved. (6) Abnormal serum level of lipase: (7) Hydrocephalus: Qualifiers: Hydrocephalus type: unspecified Qualified Code(s): G91.9 - Hydrocephalus, unspecified (8) Protein-energy malnutrition: Plan Plan for the day: Continue with current medications. Continue with soft mechanical diet. Change DuoNebs to as needed. Discharge plan: Given advanced age, recent passing of of patient's spouse, failure to thrive, presentation patient would benefit from placement to SNF as he does at a high risk of falls, adverse events though patient did well with physical therapy and as per their evaluation does not need rehabitation. Patient declines going to SNF if not for physical therapy. But is agreeable for possible home health. Patient states he lives by himself does have a son but estranged. Patient is being not Able to make his own medical decisions safely by psychiatry. Awaiting state guardianship. Case management alerted. Full code. Regular mechanical soft diet. Heparin for DVT prophylaxis Famotidine for PUD prophylaxis. Attestations Medical Necessity Statement*: Patient awaiting state guardianship for safe discharge planning. Diagnoses Altered mental status R41.82 Confusion R41.0 CVA (cerebral vascular accident) I63.9 Adult failure to thrive R62.7 KODI (acute kidney injury) N17.9 Abnormal serum level of lipase R74.8 Hydrocephalus G91.9 Hydrocephalus type: unspecified Protein-energy malnutrition E46
[2023-03-25] MEDS: donepezil 5 MG Tablet PO (20:58)
[2023-03-25] MEDS: mirtazapine 15 mg Tablet PO (20:58)
[2023-03-26] VITALS (7 sets, daily range): BP systolic 114–144; BP diastolic 71–79; PULSE 59–83; RESP 16–17; TEMP 36.3–36.7; O2SAT 97–98
[2023-03-26] MEDS: heparin 5,000 unit/mL INJ 1 mL 5000 UNIT SUBCUT ×2 (08:08→20:04)
[2023-03-26] MEDS: aspirin 81 mg Chew Tablet PO (08:08)
[2023-03-26] MEDS: buPROPion XL (24 HR) 150 mg Tablet PO (08:08)
[2023-03-26] MEDS: pantoprazole DR 40 mg Tablet PO (08:08)
[2023-03-26] MEDS: primidone 50 mg Tablet PO ×2 (08:08→17:21)
--- NOTE | 2023-03-26 12:11 | P.PN_ITS ---
Subjective Subjective: no acute events.Awaiting guardianship. Medications: Reviewed: Yes Medication Review Details: Generic Name Dose Route Start Last Admin Trade Name Jeffreyq PRN Reason Stop Dose Admin Aspirin 81 mg 03/16/23 09:00 03/26/23 08:08 Aspirin 81 Mg Ch ew Tablet PO 81 mg DAILY NILE Administration Bupropion HCl 150 mg 03/20/23 09:00 03/26/23 08:08 Bupropion Xl (24 Hr) 150 Mg Tablet PO 150 mg DAILY NILE Administration Donepezil HCl 5 mg 03/19/23 21:00 03/25/23 20:58 Donepezil 5 Mg T ablet PO 5 mg BEDTIME NILE Administration Heparin Sodium (Po rcine) 5,000 unit 03/13/23 19:45 03/26/23 08:08 Heparin 5,000 Un it/Ml Inj 1 Ml SUBCUT 5,000 unit Q12H NILE Administration Mirtazapine 15 mg 03/19/23 21:00 03/25/23 20:58 Mirtazapine 15 M g Tablet PO 15 mg BEDTIME NILE Administration Pantoprazole Sodiu m 40 mg 03/14/23 09:00 03/26/23 08:[address] 40 Mg Tablet PO 40 mg DAILY NILE Administration Primidone 50 mg 03/20/23 09:20 03/26/23 08:08 Primidone 50 Mg Tablet PO 50 mg BID NILE Administration Vitals/I&O/Wt Last Vital Signs Temp 97.4 F L 03/26/23 08:00 Pulse 69 03/26/23 08:00 Resp 16 03/26/23 08:00 BP 125/79 03/26/23 08:00 Pulse Ox 98 03/26/23 08:00 O2 Del Method Room Air 03/26/23 08:00 O2 Flow Rate 2 03/19/23 20:00 03/25/23 03/26/23 03/26/23 22:59 06:59 14:59 Intake Total 360 / 720 Balance 360 / 720 Physical Exam HENMT: COMMON NORMALS: normocephalic and atraumatic HEAD & SCALP: normocephalic and atraumatic Resp: COMMON NORMALS: normal respiratory effort, No retractions, No use of accessory muscles and clear to auscultation bilaterally EFFORT & INSPECTION: Yes symmetric chest movement AUSCULTATION: clear to auscultation bilaterally Cardio: COMMON NORMALS: regular rate, regular rhythm, S1 normal heart sound present, S2 normal heart sound present, No gallops present (Cardio), No murmurs present (Cardio), No rub (Cardio) and Peripheral pulses 2+ throughout RATE: regular rate RHYTHM: regular rhythm HEART SOUNDS: S1 normal heart sound present and S2 normal heart sound present PERIPHERAL PULSES: Peripheral pulses 2+ throughout GI: COMMON NORMALS: Normal to inspection, nondistended, normoactive bowel soun ds present, Soft to palpation, non-tender, No hepatosplenomegaly present and no masses AUSCULTATION: Yes normoactive bowel sounds PALPATION: Yes Soft to palpation and Yes No hepatosplenomegaly present RECTAL EXAM: Yes deferred Extremity: COMMON NORMALS: no clubbing, cyanosis or edema and no pedal edema Data 03/23/23 01:15 03/23/23 01:15 A&P Assessment and plan (1) Altered mental status: Most likely patient is at his baseline. Cannot rule out baseline dementia which has gotten worse since the of his from depression and bereavement. No acute abnormality noted so far during hospitalization. No leg abnormality or signs of infection. MRI done negative for any new stroke but consistent with chronic age-related atrophy. Medication reconciliation done. Started back on bupropion 150 mg oral daily, donepezil 5 mg at bedtime along with mirtazapine. On further review of medication it seems patient was also on primidone until April of last year. Start back on primidone 50 mg twice daily. (2) Confusion: (3) CVA (cerebral vascular accident): (4) Adult failure to thrive: (5) KODI (acute kidney injury): Most likely secondary dehydration. Resolved. (6) Abnormal serum level of lipase: (7) Hydrocephalus: Qualifiers: Hydrocephalus type: unspecified Qualified Code(s): G91.9 - Hydrocephalus, unspecified (8) Protein-energy malnutrition: Plan Plan for the day: Continue with current medications. Continue with soft mechanical diet. Change DuoNebs to as needed. Discharge plan: Given advanced age, recent passing of of patient's spouse, failure to thrive, presentation patient would benefit from placement to SNF as he does at a high risk of falls, adverse events though patient did well with physical therapy and as per their evaluation does not need rehabitation. Patient declines going to SNF if not for physical therapy. But is agreeable for possible home health. Patient states he lives by himself does have a son but estranged. Patient is being not Able to make his own medical decisions safely by psychiatry. Awaiting state guardianship. Case management alerted. Full code. Regular mechanical soft diet. Heparin for DVT prophylaxis Famotidine for PUD prophylaxis. Attestations Medical Necessity Statement*: Awaiting state guardianship. Coding Level of Care Code Acute Code for Chg Fwd Diagnoses Altered mental status R41.82 Confusion R41.0 CVA (cerebral vascular accident) I63.9 Adult failure to thrive R62.7 KODI (acute kidney injury) N17.9 Abnormal serum level of lipase R74.8 Hydrocephalus G91.9 Hydrocephalus type: unspecified Protein-energy malnutrition E46
[2023-03-26] MEDS: mirtazapine 15 mg Tablet PO (20:04)
[2023-03-26] MEDS: donepezil 5 MG Tablet PO (20:04)
[2023-03-27] VITALS (7 sets, daily range): BP systolic 103–150; BP diastolic 55–82; PULSE 60–89; RESP 14–18; TEMP 36.4–36.6; O2SAT 95–98
[2023-03-27] MEDS: heparin 5,000 unit/mL INJ 1 mL 5000 UNIT SUBCUT ×2 (08:48→20:08)
[2023-03-27] MEDS: aspirin 81 mg Chew Tablet PO (08:49)
[2023-03-27] MEDS: pantoprazole DR 40 mg Tablet PO (08:49)
[2023-03-27] MEDS: primidone 50 mg Tablet PO ×2 (08:49→18:18)
[2023-03-27] MEDS: buPROPion XL (24 HR) 150 mg Tablet PO (08:49)
--- NOTE | 2023-03-27 13:35 | PM.PN ---
Subjective Subjective: no acute events.Awaiting guardianship. Medications: Reviewed: Yes Medication Review Details: Generic Name Dose Route Start Last Admin Trade Name Jeffreyq PRN Reason Stop Dose Admin Aspirin 81 mg 03/16/23 09:00 03/27/23 08:49 Aspirin 81 Mg Ch ew Tablet PO 81 mg DAILY NILE Administration Bupropion HCl 150 mg 03/20/23 09:00 03/27/23 08:49 Bupropion Xl (24 Hr) 150 Mg Tablet PO 150 mg DAILY NILE Administration Donepezil HCl 5 mg 03/19/23 21:00 03/26/23 20:04 Donepezil 5 Mg T ablet PO 5 mg BEDTIME NILE Administration Heparin Sodium (Po rcine) 5,000 unit 03/13/23 19:45 03/27/23 08:48 Heparin 5,000 Un it/Ml Inj 1 Ml SUBCUT 5,000 unit Q12H NILE Administration Mirtazapine 15 mg 03/19/23 21:00 03/26/23 20:04 Mirtazapine 15 M g Tablet PO 15 mg BEDTIME NILE Administration Pantoprazole Sodiu m 40 mg 03/14/23 09:00 03/27/23 08:[address] 40 Mg Tablet PO 40 mg DAILY NILE Administration Primidone 50 mg 03/20/23 09:20 03/27/23 08:49 Primidone 50 Mg Tablet PO 50 mg BID NILE Administration Vitals/I&O/Wt Last Vital Signs Temp 97.6 F 03/27/23 08:00 Pulse 60 03/27/23 08:31 Resp 16 03/27/23 08:31 BP 150/79 03/27/23 08:00 Pulse Ox 98 03/27/23 08:31 O2 Del Method Room Air 03/27/23 08:31 O2 Flow Rate 2 03/27/23 08:00 03/26/23 03/27/23 03/27/23 22:59 06:59 14:59 Intake Total 360 / 480 360 / 360 Balance 360 / 480 360 / 360 Physical Exam HENMT: COMMON NORMALS: normocephalic and atraumatic HEAD & SCALP: normocephalic and atraumatic Resp: COMMON NORMALS: normal respiratory effort, No retractions, No use of accessory muscles and clear to auscultation bilaterally EFFORT & INSPECTION: Yes symmetric chest movement AUSCULTATION: clear to auscultation bilaterally Cardio: COMMON NORMALS: regular rate, regular rhythm, S1 normal heart sound present, S2 normal heart sound present, No gallops present (Cardio), No murmurs present (Cardio), No rub (Cardio) and Peripheral pulses 2+ throughout RATE: regular rate RHYTHM: regular rhythm HEART SOUNDS: S1 normal heart sound present and S2 normal heart sound present PERIPHERAL PULSES: Peripheral pulses 2+ throughout GI: COMMON NORMALS: Normal to inspection, nondistended, normoactive bowel sounds present, Soft to palpation, non-tender, No hepatosplenomegaly present and no masses AUSCULTATION: Yes normoactive bowel sounds PALPATION: Yes Soft to palpation and Yes No hepatosplenomegaly present RECTAL EXAM: Yes deferred Extremity: COMMON NORMALS: no clubbing, cyanosis or edema and no pedal edema Data 03/23/23 01:15 03/23/23 01:15 A&P Assessment and plan (1) Altered mental status: Most likely patient is at his baseline. Cannot rule out baseline dementia which has gotten worse since the of his from depression and bereavement. No acute abnormality noted so far during hospitalization. No leg abnormality or signs of infection. MRI done negative for any new stroke but consistent with chronic age-related atrophy. Medication reconciliation done. Started back on bupropion 150 mg oral daily, donepezil 5 mg at bedtime along with mirtazapine. On further review of medication it seems patient was also on primidone until April of last year. Start back on primidone 50 mg twice daily. (2) Confusion: (3) CVA (cerebral vascular accident): (4) Adult failure to thrive: (5) KODI (acute kidney injury): Most likely secondary dehydration. Resolved. (6) Abnormal serum level of lipase: (7) Hydrocephalus: Qualifiers: Hydrocephalus type: unspecified Qualified Code(s): G91.9 - Hydrocephalus, unspecified (8) Protein-energy malnutrition: Plan Plan for the day: Continue with current medications. Continue with soft mechanical diet. Change DuoNebs to as needed. Discharge plan: Given advanced age, recent passing of of patient's spouse, failure to thrive, presentation patient would benefit from placement to SNF as he does at a high risk of falls, adverse events though patient did well with physical therapy and as per their evaluation does not need rehabitation. Patient declines going to SNF if not for physical therapy. But is agreeable for possible home health. Patient states he lives by himself does have a son but estranged. Patient is being not Able to make his own medical decisions safely by psychiatry. Awaiting state guardianship. Case management alerted. Full code. Regular mechanical soft diet. Heparin for DVT prophylaxis Famotidine for PUD prophylaxis. Attestations Medical Necessity Statement*: Patient is awaiting guardianship Coding Level of Care Code Acute Code for Chg Fwd Diagnoses Altered mental status R41.82 Confusion R41.0 CVA (cerebral vascular accident) I63.9 Adult failure to thrive R62.7 KODI (acute kidney injury) N17.9 Abnormal serum level of lipase R74.8 Hydrocephalus G91.9 Hydrocephalus type: unspecified Protein-energy malnutrition E46
[2023-03-27] MEDS: donepezil 5 MG Tablet PO (20:08)
[2023-03-27] MEDS: mirtazapine 15 mg Tablet PO (20:08)
[2023-03-28] VITALS (7 sets, daily range): BP systolic 107–131; BP diastolic 56–80; PULSE 67–96; RESP 16–18; TEMP 36.3–36.7; O2SAT 93–99
[2023-03-28] MEDS: pantoprazole DR 40 mg Tablet PO (07:59)
[2023-03-28] MEDS: aspirin 81 mg Chew Tablet PO (07:59)
[2023-03-28] MEDS: buPROPion XL (24 HR) 150 mg Tablet PO (07:59)
[2023-03-28] MEDS: heparin 5,000 unit/mL INJ 1 mL 5000 UNIT SUBCUT ×2 (07:59→19:02)
--- NOTE | 2023-03-28 12:26 | P.PN_ITS ---
Subjective Subjective: no acute events.Awaiting guardianship. Medications: Reviewed: Yes Medication Review Details: Generic Name Dose Route Start Last Admin Trade Name Nicky PRN Reason Stop Dose Admin Aspirin 81 mg 03/16/23 09:00 03/28/23 07:59 Aspirin 81 Mg Ch ew Tablet PO 81 mg DAILY NILE Administration Bupropion HCl 150 mg 03/20/23 09:00 03/28/23 07:59 Bupropion Xl (24 Hr) 150 Mg Tablet PO 150 mg DAILY NILE Administration Donepezil HCl 5 mg 03/19/23 21:00 03/27/23 20:08 Donepezil 5 Mg T ablet PO 5 mg BEDTIME NILE Administration Heparin Sodium (Po rcine) 5,000 unit 03/13/23 19:45 03/28/23 07:59 Heparin 5,000 Un it/Ml Inj 1 Ml SUBCUT 5,000 unit Q12H NILE Administration Mirtazapine 15 mg 03/19/23 21:00 03/27/23 20:08 Mirtazapine 15 M g Tablet PO 15 mg BEDTIME NILE Administration Pantoprazole Sodiu m 40 mg 03/14/23 09:00 03/28/23 07:[address] 40 Mg Tablet PO 40 mg DAILY NILE Administration Vitals/I&O/Wt Last Vital Signs Temp 97.9 F 03/28/23 07:58 Pulse 73 03/28/23 07:58 Resp 18 03/28/23 07:58 BP 131/80 03/28/23 07:58 Pulse Ox 95 03/28/23 07:58 O2 Del Method Room Air 03/28/23 07:58 O2 Flow Rate 2 03/27/23 08:00 03/27/23 03/28/23 03/28/23 22:59 06:59 14:59 Intake Total 240 / 600 240 / 240 Balance 240 / 600 240 / 240 Physical Exam HENMT: COMMON NORMALS: normocephalic and atraumatic HEAD & SCALP: normocephalic and atraumatic Resp: COMMON NORMALS: normal respiratory effort, No retractions, No use of accessory muscles and clear to auscultation bilaterally EFFORT & INSPECTION: Yes symmetric chest movement AUSCULTATION: clear to auscultation bilaterally Cardio: COMMON NORMALS: regular rate, regular rhythm, S1 normal heart sound present, S2 normal heart sound present, No gallops present (Cardio), No murmurs present (Cardio), No rub (Cardio) and Peripheral pulses 2+ throughout RATE: regular rate RHYTHM: regular rhythm HEART SOUNDS: S1 normal heart sound present and S2 normal heart sound present PERIPHERAL PULSES: Peripheral pulses 2+ throughout GI: COMMON NORMALS: Normal to inspection, nondistended, normoactive bowel sounds present, Soft to palpation, non-tender, No hepatosplenomegaly present and no masses AUSCULTATION: Yes normoactive bowel sounds PALPATION: Yes Soft to palpation and Yes No hepatosplenomegaly present RECTAL EXAM: Yes deferred Extremity: COMMON NORMALS: no clubbing, cyanosis or edema and no pedal edema Data 03/23/23 01:15 03/23/23 01:15 A&P Assessment and plan (1) Altered mental status: Most likely patient is at his baseline. Cannot rule out baseline dementia which has gotten worse since the of his from depression and bereavement. No acute abnormality noted so far during hospitalization. No leg abnormality or signs of infection. MRI done negative for any new stroke but consistent with chronic age-related atrophy. Medication reconciliation done. Started back on bupropion 150 mg oral daily, donepezil 5 mg at bedtime along with mirtazapine. On further review of medication it seems patient was also on primidone until April of last year. Start back on primidone 50 mg twice daily. (2) Confusion: (3) CVA (cerebral vascular accident): (4) Adult failure to thrive: (5) KODI (acute kidney injury): Most likely secondary dehydration. Resolved. (6) Abnormal serum level of lipase: (7) Hydrocephalus: Qualifiers: Hydrocephalus type: unspecified Qualified Code(s): G91.9 - Hydrocephalus, unspecified (8) Protein-energy malnutrition: Plan Plan for the day: Continue with current medications. Continue with soft mechanical diet. Change DuoNebs to as needed. Discharge plan: Given advanced age, recent passing of of patient's spouse, failure to thrive, presentation patient would benefit from placement to SNF as he does at a high risk of falls, adverse events though patient did well with physical therapy and as per their evaluation does not need rehabitation. Pat ient declines going to SNF if not for physical therapy. But is agreeable for possible home health. Patient states he lives by himself does have a son but estranged. Patient is being not Able to make his own medical decisions safely by psychiatry. Awaiting state guardianship. Case management alerted. Full code. Regular mechanical soft diet. Heparin for DVT prophylaxis Famotidine for PUD prophylaxis. Attestations Medical Necessity Statement*: Awaiting guardianship Coding Level of Care Code Acute Code for Chg Fwd Diagnoses Altered mental status R41.82 Confusion R41.0 CVA (cerebral vascular accident) I63.9 Adult failure to thrive R62.7 KODI (acute kidney injury) N17.9 Abnormal serum level of lipase R74.8 Hydrocephalus G91.9 Hydrocephalus type: unspecified Protein-energy malnutrition E46
[2023-03-28] MEDS: mirtazapine 15 mg Tablet PO (21:47)
[2023-03-28] MEDS: donepezil 5 MG Tablet PO (21:47)
[2023-03-29] VITALS (9 sets, daily range): BP systolic 97–151; BP diastolic 66–79; PULSE 57–99; RESP 16–18; TEMP 36.3–36.8; O2SAT 90–100
[2023-03-29] MEDS: pantoprazole DR 40 mg Tablet PO (08:17)
[2023-03-29] MEDS: aspirin 81 mg Chew Tablet PO (08:17)
[2023-03-29] MEDS: heparin 5,000 unit/mL INJ 1 mL 5000 UNIT SUBCUT ×2 (08:17→20:53)
[2023-03-29] MEDS: buPROPion XL (24 HR) 150 mg Tablet PO (08:17)
--- NOTE | 2023-03-29 10:30 | PC.CHAP ---
Pastoral Care Encounter/Spiritual Assessment Type of Contact [] Declined compensation business partner visit [] Patient/Family/Request visit [] Outpatient visit [] Follow-up visit [] Physician referral [] Code/Alert [x] Routine visit [] Staff referral [] Actively dying [] Patient sleeping [] Family support [] [] Out of room [] Palliative care [] [x] Receiving care in room [] Pre-surgical visit [] Trauma [] Long length of stay [] ICU visit [] Other: Relational/Emotional Strength [x] Patient feels connected with others/family/visitors/staff [] Distress [] Loneliness/isolation [] Abandonment Spirituality of Patient [x] Person of Debbi [] Attends Yazdanism of their Debbi [x] Believes in Prayer [] Reads Bible or Hoahaoism materials [] There are Spiritual issues to be addressed 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 Interventions [x] Prayer [x] Active listening [x] Non-anxious presence [x] Spiritual/emotional support [] Crisis/trauma care [] Spiritual counseling [] Bereavement support [] Provided bereavement packet [] Provided Bible/devotional materials [] Provided toy/stuffed animal, coloring book to patient or family member [] Provided Communion [] Anointing/[place] [] Salvation [x] Completed spiritual assessment [] Other: Impact on Illness or Injury [] Angry [] Fearful [] Anxious [] Often cries [] Exhaustion [] Unable to work [] Unable to attend zoroastrian [] Unable to walk/stand [] Unable to read [] Unable to drive [] Unable to eat/drink [] Unable to sleep [] Unable to be with family [] Patient intubated [] Other: Summary senior he feel checked out going home Time spent with patient 10 mins
--- NOTE | 2023-03-29 17:40 | PM.PN ---
Subjective Subjective: no acute events.Awaiting guardianship. Medications: Reviewed: Yes Medication Review Details: Generic Name Dose Route Start Last Admin Trade Name Nicky PRN Reason Stop Dose Admin Aspirin 81 mg 03/16/23 09:00 03/29/23 08:17 Aspirin 81 Mg Ch ew Tablet PO 81 mg DAILY NILE Administration Bupropion HCl 150 mg 03/20/23 09:00 03/29/23 08:17 Bupropion Xl (24 Hr) 150 Mg Tablet PO 150 mg DAILY NILE Administration Donepezil HCl 5 mg 03/19/23 21:00 03/28/23 21:47 Donepezil 5 Mg T ablet PO 5 mg BEDTIME NILE Administration Heparin Sodium (Po rcine) 5,000 unit 03/13/23 19:45 03/29/23 08:17 Heparin 5,000 Un it/Ml Inj 1 Ml SUBCUT 5,000 unit Q12H NILE Administration Mirtazapine 15 mg 03/19/23 21:00 03/28/23 21:47 Mirtazapine 15 M g Tablet PO 15 mg BEDTIME NILE Administration Pantoprazole Sodiu m 40 mg 03/14/23 09:00 03/29/23 08:[address] 40 Mg Tablet PO 40 mg DAILY NILE Administration Vitals/I&O/Wt Last Vital Signs Temp 98.2 F 03/29/23 15:35 Pulse 99 03/29/23 15:35 Resp 18 03/29/23 15:35 BP 104/71 03/29/23 15:35 Pulse Ox 90 03/29/23 15:35 O2 Del Method Room Air 03/29/23 15:35 O2 Flow Rate 2 03/27/23 08:00 03/29/23 03/29/23 03/29/23 06:59 14:59 22:59 Intake Total 960 / 960 Balance 960 / 960 Physical Exam HENMT: COMMON NORMALS: normocephalic and atraumatic HEAD & SCALP: normocephalic and atraumatic Resp: COMMON NORMALS: normal respiratory effort, No retractions, No use of accessory muscles and clear to auscultation bilaterally EFFORT & INSPECTION: Yes symmetric chest movement AUSCULTATION: clear to auscultation bilaterally Cardio: COMMON NORMALS: regular rate, regular rhythm, S1 normal heart sound present, S2 normal heart sound present, No gallops present (Cardio), No murmurs present (Cardio), No rub (Cardio) and Peripheral pulses 2+ throughout RATE: regular rate RHYTHM: regular rhythm HEART SOUNDS: S1 normal heart sound present and S2 normal heart sound present PERIPHERAL PULSES: Peripheral pulses 2+ throughout GI: COMMON NORMALS: Normal to inspection, nondistended, normoactive bowel sounds present, Soft to palpation, non-tender, No hepatosplenomegaly present and no masses AUSCULTATION: Yes normoactive bowel sounds PALPATION: Yes Soft to palpation and Yes No hepatosplenomegaly present RECTAL EXAM: Yes deferred Extremity: COMMON NORMALS: no clubbing, cyanosis or edema and no pedal edema Data 03/23/23 01:15 03/23/23 01:15 A&P Assessment and plan (1) Altered mental status: Most likely patient is at his baseline. Cannot rule out baseline dementia which has gotten worse since the of his from depression and bereavement. No acute abnormality noted so far during hospitalization. No leg abnormality or signs of infection. MRI done negative for any new stroke but consistent with chronic age-related atrophy. Medication reconciliation done. Started back on bupropion 150 mg oral daily, donepezil 5 mg at bedtime along with mirtazapine. On further review of medication it seems patient was also on primidone until April of last year. Start back on primidone 50 mg twice daily. (2) Confusion: (3) CVA (cerebral vascular accident): (4) Adult failure to thrive: (5) KODI (acute kidney injury): Most likely secondary dehydration. Resolved. (6) Abnormal serum level of lipase: (7) Hydrocephalus: Qualifiers: Hydrocephalus type: unspecified Qualified Code(s): G91.9 - Hydrocephalus, unspecified (8) Protein-energy malnutrition: Plan Plan for the day: Continue with current medications. Continue with soft mechanical diet. Change DuoNebs to as needed. Discharge plan: Given advanced age, recent passing of of patient's spouse, failure to thrive, presentation patient would benefit from placement to SNF as he does at a high risk of falls, adverse events though patient did well with physical therapy and as per their evaluation does not need rehabitation. Patient declines going to SNF if not for physical therapy. But is agreeable for possible home health. Patient states he lives by himself does have a son but estranged. Patient is being not Able to make his own medical decisions safely by psychiatry. Awaiting state guardianship. Case management alerted. Full code. Regular mechanical soft diet. Heparin for DVT prophylaxis Famotidine for PUD prophylaxis. Attestations Medical Necessity Statement*: Awaiting guardianship Coding Level of Care Code Acute Code for Chg Fwd Diagnoses Altered mental status R41.82 Confusion R41.0 CVA (cerebral vascular accident) I63.9 Adult failure to thrive R62.7 KODI (acute kidney injury) N17.9 Abnormal serum level of lipase R74.8 Hydrocephalus G91.9 Hydrocephalus type: unspecified Protein-energy malnutrition E46
[2023-03-29] MEDS: donepezil 5 MG Tablet PO (20:53)
[2023-03-29] MEDS: mirtazapine 15 mg Tablet PO (20:53)
[2023-03-30 04:00] VITALS: BP 113/66; PULSE 67; RESP 16; TEMP 36.4; O2SAT 99
--- NOTE | 2023-03-30 07:28 | PC.SOCIAL ---
IMM Update pg 2 of IMM not updated @ this time. Guardianship is pending @ this time.
[2023-03-30 08:00] VITALS: BP 112/69; PULSE 66; RESP 15; TEMP 36.6; O2SAT 98
[2023-03-30] MEDS: aspirin 81 mg Chew Tablet PO (08:21)
[2023-03-30] MEDS: heparin 5,000 unit/mL INJ 1 mL 5000 UNIT SUBCUT ×2 (08:21→20:43)
[2023-03-30] MEDS: pantoprazole DR 40 mg Tablet PO (08:21)
[2023-03-30] MEDS: buPROPion XL (24 HR) 150 mg Tablet PO (08:21)
[2023-03-30 08:22] VITALS: PULSE 66; RESP 16; O2SAT 98
--- NOTE | 2023-03-30 12:13 | PM.PN ---
Subjective Subjective: currently doing well. Medications: Reviewed: Yes Medication Review Details: Generic Name Dose Route Start Last Admin Trade Name Nicky PRN Reason Stop Dose Admin Aspirin 81 mg 03/16/23 09:00 03/29/23 08:17 Aspirin 81 Mg Ch ew Tablet PO 81 mg DAILY NILE Administration Bupropion HCl 150 mg 03/20/23 09:00 03/29/23 08:17 Bupropion Xl (24 Hr) 150 Mg Tablet PO 150 mg DAILY NILE Administration Donepezil HCl 5 mg 03/19/23 21:00 03/28/23 21:47 Donepezil 5 Mg T ablet PO 5 mg BEDTIME NILE Administration Heparin Sodium (Po rcine) 5,000 unit 03/13/23 19:45 03/29/23 08:17 Heparin 5,000 Un it/Ml Inj 1 Ml SUBCUT 5,000 unit Q12H NILE Administration Mirtazapine 15 mg 03/19/23 21:00 03/28/23 21:47 Mirtazapine 15 M g Tablet PO 15 mg BEDTIME NILE Administration Pantoprazole Sodiu m 40 mg 03/14/23 09:00 03/29/23 08:[address] 40 Mg Tablet PO 40 mg DAILY NILE Administration Vitals/I&O/Wt Last Vital Signs Temp 97.9 F 03/30/23 08:00 Pulse 66 03/30/23 08:22 Resp 16 03/30/23 08:22 BP 112/69 03/30/23 08:00 Pulse Ox 98 03/30/23 08:22 O2 Del Method Room Air 03/30/23 08:22 O2 Flow Rate 2 03/27/23 08:00 03/29/23 03/30/23 03/30/23 22:59 06:59 14:59 Intake Total 960 / 1920 185 / 185 Balance 960 / 1920 185 / 185 Physical Exam HENMT: COMMON NORMALS: normocephalic and atraumatic HEAD & SCALP: normocephalic and atraumatic Resp: COMMON NORMALS: normal respiratory effort, No retractions, No use of accessory muscles and clear to auscultation bilaterally EFFORT & INSPECTION: Yes symmetric chest movement AUSCULTATION: clear to auscultation bilaterally Cardio: COMMON NORMALS: regular rate, regular rhythm, S1 normal heart sound present, S2 normal heart sound present, No gallops present (Cardio), No murmurs present (Cardio), No rub (Cardio) and Peripheral pulses 2+ throughout RATE: regular rate RHYTHM: regular rhythm HEART SOUNDS: S1 normal heart sound present and S2 normal heart sound present PERIPHERAL PULSES: Peripheral pulses 2+ throughout GI: COMMON NORMALS: Normal to inspection, nondistended, normoactive bowel sounds present, Soft to palpation, non-tender, No hepatosplenomegaly present and no masses AUSCULTATION: Yes normoactive bowel sounds PALPATION: Yes Soft to palpation and Yes No hepatosplenomegaly present RECTAL EXAM: Yes deferred Extremity: COMMON NORMALS: no clubbing, cyanosis or edema and no pedal edema Data 03/23/23 01:15 03/23/23 01:15 A&P Assessment and plan (1) Altered mental status: Most likely patient is at his baseline. Cannot rule out baseline dementia which has gotten worse since the of his from depression and bereavement. No acute abnormality noted so far during hospitalization. No leg abnormality or signs of infection. MRI done negative for any new stroke but consistent with chronic age-related atrophy. Medication reconciliation done. Started back on bupropion 150 mg oral daily, donepezil 5 mg at bedtime along with mirtazapine. On further review of medication it seems patient was also on primidone until April of last year. Start back on primidone 50 mg twice daily. (2) Confusion: (3) CVA (cerebral vascular accident): (4) Adult failure to thrive: (5) KODI (acute kidney injury): Most likely secondary dehydration. Resolved. (6) Abnormal serum level of lipase: (7) Hydrocephalus: Qualifiers: Hydrocephalus type: unspecified Qualified Code(s): G91.9 - Hydrocephalus, unspecified (8) Protein-energy malnutrition: Plan Plan for the day: Continue with current medications. Continue with soft mechanical diet. Change DuoNebs to as needed. Discharge plan: Given advanced age, recent passing of of patient's spouse, failure to thrive, presentation patient would benefit from placement to SNF as he does at a high risk of falls, adverse events though patient did well with physical therapy and as per their evaluation does not need rehabitation. Patient declines going to SNF if not for physical therapy. But is agreeable for possible home health. Patient states he lives by himself does have a son but estranged. Patient is being not Able to make his own medical decisions safely by psychiatry. Awaiting state guardianship. Case management alerted. Full code. Regular mechanical soft diet. Heparin for DVT prophylaxis Famotidine for PUD prophylaxis. Attestations Medical Necessity Statement*: Awaiting guardianship. Coding Level of Care Code Acute Code for Chg Fwd Diagnoses Altered mental status R41.82 Confusion R41.0 CVA (cerebral vascular accident) I63.9 Adult failure to thrive R62.7 KODI (acute kidney injury) N17.9 Abnormal serum level of lipase R74.8 Hydrocephalus G91.9 Hydrocephalus type: unspecified Protein-energy malnutrition E46
[2023-03-30 16:00] VITALS: BP 121/73; PULSE 76; RESP 15; TEMP 36.8; O2SAT 97
[2023-03-30 19:24] VITALS: PULSE 85; RESP 16; O2SAT 93
[2023-03-30 20:00] VITALS: BP 106/66; PULSE 88; RESP 18; TEMP 36.9; O2SAT 95
[2023-03-30] MEDS: mirtazapine 15 mg Tablet PO (20:43)
[2023-03-30] MEDS: donepezil 5 MG Tablet PO (20:43)
[2023-03-31] VITALS: BP 119/68; PULSE 62; RESP 16; TEMP 36.7; O2SAT 94
[2023-03-31 03:58] VITALS: BP 114/70; PULSE 92; RESP 18; TEMP 36.4; O2SAT 94
[2023-03-31 08:00] VITALS: BP 126/69; PULSE 61; PULSE 82; RESP 17; RESP 18; TEMP 36.5; O2SAT 95; O2SAT 96
[2023-03-31] MEDS: pantoprazole DR 40 mg Tablet PO (10:22)
[2023-03-31] MEDS: buPROPion XL (24 HR) 150 mg Tablet PO (10:22)
[2023-03-31] MEDS: heparin 5,000 unit/mL INJ 1 mL 5000 UNIT SUBCUT ×2 (10:22→21:15)
[2023-03-31] MEDS: aspirin 81 mg Chew Tablet PO (10:23)
[2023-03-31 15:24] VITALS: BP 95/63; PULSE 78; RESP 15; TEMP 36.6; O2SAT 98
--- NOTE | 2023-03-31 16:14 | PM.PN ---
Subjective Subjective: No acute events Medications: Reviewed: Yes Medication Review Details: Generic Name Dose Route Start Last Admin Trade Name Nicky PRN Reason Stop Dose Admin Aspirin 81 mg 03/16/23 09:00 03/31/23 10:23 Aspirin 81 Mg Ch ew Tablet PO 81 mg DAILY NILE Administration Bupropion HCl 150 mg 03/20/23 09:00 03/31/23 10:22 Bupropion Xl (24 Hr) 150 Mg Tablet PO 150 mg DAILY NILE Administration Donepezil HCl 5 mg 03/19/23 21:00 03/30/23 20:43 Donepezil 5 Mg T ablet PO 5 mg BEDTIME NILE Administration Heparin Sodium (Po rcine) 5,000 unit 03/13/23 19:45 03/31/23 10:22 Heparin 5,000 Un it/Ml Inj 1 Ml SUBCUT 5,000 unit Q12H NILE Administration Mirtazapine 15 mg 03/19/23 21:00 03/30/23 20:43 Mirtazapine 15 M g Tablet PO 15 mg BEDTIME NILE Administration Pantoprazole Sodiu m 40 mg 03/14/23 09:00 03/31/23 10:[address] 40 Mg Tablet PO 40 mg DAILY NILE Administration Vitals/I&O/Wt Last Vital Signs Temp 97.9 F 03/31/23 15:24 Pulse 78 03/31/23 15:24 Resp 15 03/31/23 15:24 BP 95/63 03/31/23 15:24 Pulse Ox 98 03/31/23 15:24 O2 Del Method Room Air 03/31/23 08:00 O2 Flow Rate 2 03/27/23 08:00 03/31/23 03/31/23 03/31/23 06:59 14:59 22:59 Intake Total 480 / 480 Balance 480 / 480 Physical Exam HENMT: COMMON NORMALS: normocephalic and atraumatic HEAD & SCALP: normocephalic and atraumatic Resp: COMMON NORMALS: normal respiratory effort, No retractions, No use of accessory muscles and clear to auscultation bilaterally EFFORT & INSPECTION: Yes symmetric chest movement AUSCULTATION: clear to auscultation bilaterally Cardio: COMMON NORMALS: regular rate, regular rhythm, S1 normal heart sound present, S2 normal heart sound present, No gallops present (Cardio), No murmurs present (Cardio), No rub (Cardio) and Peripheral pulses 2+ throughout RATE: regular rate RHYTHM: regular rhythm HEART SOUNDS: S1 normal heart sound present and S2 normal heart sound present PERIPHERAL PULSES: Peripheral pulses 2+ throughout GI: COMMON NORMALS: Normal to inspection, nondistended, normoactive bowel sounds present, Soft to palpation, non-tender, No hepatosplenomegaly present and no masses AUSCULTATION: Yes normoactive bowel sounds PALPATION: Yes Soft to palpation and Yes No hepatosplenomegaly present RECTAL EXAM: Yes deferred Extremity: COMMON NORMALS: no clubbing, cyanosis or edema and no pedal edema Data 03/23/23 01:15 03/23/23 01:15 A&P Assessment and plan (1) Altered mental status: Most likely patient is at his baseline. Cannot rule out baseline dementia which has gotten worse since the of his from depression and bereavement. No acute abnormality noted so far during hospitalization. No leg abnormality or signs of infection. MRI done negative for any new stroke but consistent with chronic age-related atrophy. Medication reconciliation done. Started back on bupropion 150 mg oral daily, donepezil 5 mg at bedtime along with mirtazapine. On further review of medication it seems patient was also on primidone until April of last year. Start back on primidone 50 mg twice daily. (2) Confusion: (3) CVA (cerebral vascular accident): (4) Adult failure to thrive: (5) KODI (acute kidney injury): Most likely secondary dehydration. Resolved. (6) Abnormal serum level of lipase: (7) Hydrocephalus: Qualifiers: Hydrocephalus type: unspecified Qualified Code(s): G91.9 - Hydrocephalus, unspecified (8) Protein-energy malnutrition: Plan Plan for the day: Continue with current medications. Continue with soft mechanical diet. Change DuoNebs to as needed. Discharge plan: Given advanced age, recent passing of of patient's spouse, failure to thrive, presentation patient would benefit from placement to SNF as he does at a high risk of falls, adverse events though patient did well with physical therapy and as per their evaluation does not need rehabitation. Patient declines going to SNF if not for physical therapy. But is agreeable for possible home health. Patient states he lives by himself does have a son but estranged. Patient is being not Able to make his own medical decisions safely by psychiatry. Awaiting state guardianship. Case management alerted. Full code. Regular mechanical soft diet. Heparin for DVT prophylaxis Famotidine for PUD prophylaxis. Attestations Medical Necessity Statement*: Awaiting guardianship. Coding Level of Care Code Acute Code for Chg Fwd Diagnoses Altered mental status R41.82 Confusion R41.0 CVA (cerebral vascular accident) I63.9 Adult failure to thrive R62.7 KODI (acute kidney injury) N17.9 Abnormal serum level of lipase R74.8 Hydrocephalus G91.9 Hydrocephalus type: unspecified Protein-energy malnutrition E46
[2023-03-31 19:46] VITALS: PULSE 77; RESP 16; O2SAT 97
[2023-03-31 20:00] VITALS: BP 103/70; PULSE 88; RESP 18; TEMP 37; O2SAT 90
[2023-03-31] MEDS: donepezil 5 MG Tablet PO (21:15)
[2023-03-31] MEDS: mirtazapine 15 mg Tablet PO (21:15)
[2023-04-01] VITALS (9 sets, daily range): BP systolic 94–123; BP diastolic 59–72; PULSE 62–92; RESP 15–18; TEMP 36.4–36.9; O2SAT 96–97
--- NOTE | 2023-04-01 07:44 | PC.SOCIAL ---
IMM Update pg 2 of IMM not updated as patient is in observation status @ this time w/ guardianship and level 2 pending.
[2023-04-01] MEDS: buPROPion XL (24 HR) 150 mg Tablet PO (08:49)
[2023-04-01] MEDS: pantoprazole DR 40 mg Tablet PO (08:50)
[2023-04-01] MEDS: aspirin 81 mg Chew Tablet PO (08:50)
[2023-04-01] MEDS: heparin 5,000 unit/mL INJ 1 mL 5000 UNIT SUBCUT ×2 (08:50→20:22)
--- NOTE | 2023-04-01 16:21 | P.PN_ITS ---
Subjective Subjective: No acute events Medications: Reviewed: Yes Medication Review Details: Generic Name Dose Route Start Last Admin Trade Name Nicky PRN Reason Stop Dose Admin Aspirin 81 mg 03/16/23 09:00 03/31/23 10:23 Aspirin 81 Mg Ch ew Tablet PO 81 mg DAILY NILE Administration Bupropion HCl 150 mg 03/20/23 09:00 03/31/23 10:22 Bupropion Xl (24 Hr) 150 Mg Tablet PO 150 mg DAILY NILE Administration Donepezil HCl 5 mg 03/19/23 21:00 03/30/23 20:43 Donepezil 5 Mg T ablet PO 5 mg BEDTIME NILE Administration Heparin Sodium (Po rcine) 5,000 unit 03/13/23 19:45 03/31/23 10:22 Heparin 5,000 Un it/Ml Inj 1 Ml SUBCUT 5,000 unit Q12H NILE Administration Mirtazapine 15 mg 03/19/23 21:00 03/30/23 20:43 Mirtazapine 15 M g Tablet PO 15 mg BEDTIME NILE Administration Pantoprazole Sodiu m 40 mg 03/14/23 09:00 03/31/23 10:[address] 40 Mg Tablet PO 40 mg DAILY NILE Administration Vitals/I&O/Wt Last Vital Signs Temp 98.1 F 04/01/23 12:00 Pulse 82 04/01/23 12:00 Resp 15 04/01/23 12:00 BP 112/72 04/01/23 12:00 Pulse Ox 97 04/01/23 12:00 O2 Del Method Room Air 04/01/23 12:00 O2 Flow Rate 2 04/01/23 08:05 04/01/23 04/01/23 04/01/23 06:59 14:59 22:59 Intake Total 510 / 510 Balance 510 / 510 Physical Exam HENMT: COMMON NORMALS: normocephalic and atraumatic HEAD & SCALP: normocephalic and atraumatic Resp: COMMON NORMALS: clear to auscultation bilaterally EFFORT & INSPE CTION: Yes symmetric chest movement AUSCULTATION: clear to auscultation bilaterally Cardio: COMMON NORMALS: regular rate, regular rhythm, S1 normal heart sound present, S2 normal heart sound present, No gallops present (Cardio), No murmurs present (Cardio), No rub (Cardio) and Peripheral pulses 2+ throughout RATE: regular rate RHYTHM: regular rhythm HEART SOUNDS: S1 normal heart sound present and S2 normal heart sound present PERIPHERAL PULSES: Peripheral pulses 2+ throughout GI: COMMON NORMALS: Normal to inspection, nondistended, normoactive bowel sounds present, Soft to palpation, non-tender, No hepatosplenomegaly present and no masses AUSCULTATION: Yes normoactive bowel sounds PALPATION: Yes Soft to palpation and Yes No hepatosplenomegaly present RECTAL EXAM: Yes deferred Extremity: COMMON NORMALS: no clubbing, cyanosis or edema and no pedal edema Data 03/23/23 01:15 03/23/23 01:15 A&P Assessment and plan (1) Altered mental status: Most likely patient is at his baseline. Cannot rule out baseline dementia which has gotten worse since the of his from depression and bereavement. No acute abnormality noted so far during hospitalization. No leg abnormality or signs of infection. MRI done negative for any new stroke but consistent with chronic age-related atrophy. Medication reconciliation done. Started back on bupropion 150 mg oral daily, donepezil 5 mg at bedtime along with mirtazapine. On further review of medication it seems patient was also on primidone until April of last year. Start back on primidone 50 mg twice daily. (2) Confusion: (3) CVA (cerebral vascular accident): (4) Adult failure to thrive: (5) KODI (acute kidney injury): Most likely secondary dehydration. Resolved. (6) Abnormal serum level of lipase: (7) Hydrocephalus: Qualifiers: Hydrocephalus type: unspecified Qualified Code(s): G91.9 - Hydrocephalus, unspecified (8) Protein-energy malnutrition: Plan Plan for the day: Continue with current medications. Continue with soft mechanical diet. Change DuoNebs to as needed. Discharge plan: Given advanced age, recent passing of of patient's spouse, failure to thrive, presentation patient would benefit from placement to SNF as he does at a high risk of falls, adverse events though patient did well with physical therapy and as per their evaluation does not need rehabitation. Patient declines going to SNF if not for physical therapy. But is agreeable for possible home health. Patient states he lives by himself does have a son but estranged. Patient is being not Able to make his own medical decisions safely by psychiatry. Awaiting state guardianship. Case management alerted. Full code. Regular mechanical soft diet. Heparin for DVT prophylaxis Famotidine for PUD prophylaxis. Attestations Medical Necessity Statement*: Awaiting guardianship Coding Level of Care Code Acute Code for Chg Fwd Diagnoses Altered mental status R41.82 Confusion R41.0 CVA (cerebral vascular accident) I63.9 Adult failure to thrive R62.7 KODI (acute kidney injury) N17.9 Abnormal serum level of lipase R74.8 Hydrocephalus G91.9 Hydrocephalus type: unspecified Protein-energy malnutrition E46
[2023-04-01] MEDS: donepezil 5 MG Tablet PO (20:22)
[2023-04-01] MEDS: mirtazapine 15 mg Tablet PO (20:22)
[2023-04-02 04:00] VITALS: BP 119/68; PULSE 67; RESP 16; TEMP 36.1; O2SAT 94
[2023-04-02 08:00] VITALS: BP 135/69; PULSE 83; RESP 18; TEMP 36.3; O2SAT 92
[2023-04-02] MEDS: heparin 5,000 unit/mL INJ 1 mL 5000 UNIT SUBCUT ×2 (08:18→19:51)
[2023-04-02] MEDS: pantoprazole DR 40 mg Tablet PO (08:18)
[2023-04-02] MEDS: buPROPion XL (24 HR) 150 mg Tablet PO (08:18)
[2023-04-02] MEDS: aspirin 81 mg Chew Tablet PO (08:18)
[2023-04-02 12:00] VITALS: BP 116/75; PULSE 75; RESP 17; TEMP 36.6; O2SAT 97
--- NOTE | 2023-04-02 15:40 | P.PN_ITS ---
Subjective Subjective: Status quo. No new complaints. Awaiting guardianship. Denies any nausea, vomiting, headache. Medications: Reviewed: Yes Medication Review Details: Medications reconciled through outpatient pharmacy and outpatient medication logs. Vitals/I&O/Wt Last Vital Signs Temp 97.8 F 04/02/23 12:00 Pulse 75 04/02/23 12:00 Resp 17 04/02/23 12:00 BP 116/75 04/02/23 12:00 Pulse Ox 97 04/02/23 12:00 O2 Del Method Room Air 04/02/23 12:00 O2 Flow Rate 2 04/01/23 08:05 04/02/23 04/02/23 04/02/23 06:59 14:59 22:59 Intake Total 720 / 720 Balance 720 / 720 Physical Exam Narrative: General: AOx3, anxious, no acute distress, frail, chronically sick appearing, cachectic Head: Normocephalic. Temporal wasting. Neck: No JVD. Cardiovascular: RRR. No gallops. No murmurs. Lungs: Non-labored. No use of accessory muscles, no crackles or wheezes. Skin: No jaundice. No rashes. Abdomen: Normal bowel sounds, abdomen soft. Extremities: No cyanosis or clubbing. Musculoskeletal: Poor muscular development. Neurological: Moves all 4 extremities. No myoclonus. Psych: COMMON NORMALS: mental status grossly normal, speech normal, denies homicidal ideation and denies suicidal ideation ATTITUDE: Yes engaged, No paranoid, No agitated and No aggressive ACTIVITY/MOTOR BEHAVIOR: Yes fidgeting, Yes disorganized behavior and Yes restless SPEECH: Yes normal speech MOOD & AFFECT: Yes anxious THOUGHT PROCESS: Tangential thought process present Data 03/23/23 01:15 03/23/23 01:15 A&P Assessment and plan (1) Altered mental status: Most likely patient is at his baseline. Cannot rule out baseline dementia which has gotten worse since the of his from depression and bereavement. No acute abnormality noted so far during hospitalization. No leg abnormality or signs of infection. MRI done negative for any new stroke but consistent with chronic age-related atrophy. Medication reconciliation done. Started back on bupropion 150 mg oral daily, donepezil 5 mg at bedtime along with mirtazapine. On further review of medication it seems patient was also on primidone until April of last year. Start back on primidone 50 mg twice daily. (2) Confusion: (3) CVA (cerebral vascular accident): (4) Adult failure to thrive: (5) KODI (acute kidney injury): Most likely secondary dehydration. Resolved. (6) Abnormal serum level of lipase: (7) Hydrocephalus: Qualifiers: Hydrocephalus type: unspecified Qualified Code(s): G91.9 - Hydrocephalus, unspecified (8) Protein-energy malnutrition: Plan Plan for the day: Continue current medications and diet. Awaiting guardianship. Repeat labs tomorrow as no labs done over last 10 days. Discharge plan: Given advanced age, recent passing of of patient's spouse, fa ilure to thrive, presentation patient would benefit from placement to SNF as he does at a high risk of falls, adverse events though patient did well with physical therapy and as per their evaluation does not need rehabitation. Patient declines going to SNF if not for physical therapy. But is agreeable for possible home health. Patient states he lives by himself does have a son but estranged. Patient is being not Able to make his own medical decisions safely by psychiatry. Awaiting state appointed guardianship. Full code. Dysphagia level 6 diet. Heparin for DVT prophylaxis Famotidine for PUD prophylaxis. Attestations Medical Necessity Statement*: Requires further hospitalization for state appointed guardianship for safe discharge planning. Diagnoses Altered mental status R41.82 Confusion R41.0 CVA (cerebral vascular accident) I63.9 Adult failure to thrive R62.7 KODI (acute kidney injury) N17.9 Abnormal serum level of lipase R74.8 Hydrocephalus G91.9 Hydrocephalus type: unspecified Protein-energy malnutrition E46
[2023-04-02 16:00] VITALS: BP 117/68; PULSE 79; RESP 17; TEMP 36.7; O2SAT 91
[2023-04-02 20:00] VITALS: BP 131/75; PULSE 65; RESP 18; TEMP 36.6; O2SAT 96
[2023-04-02] MEDS: donepezil 5 MG Tablet PO (21:13)
[2023-04-02] MEDS: mirtazapine 15 mg Tablet PO (21:13)
[2023-04-03] VITALS (7 sets, daily range): BP systolic 96–127; BP diastolic 66–75; PULSE 70–153; RESP 16–19; TEMP 36.3–36.8; O2SAT 90–98
[2023-04-03 06:23] LABS: Basophils % 0.6 %; Eosinophils # 0.1 10^3/uL (0.0-0.8); Eosinophils % 1.5 %; Hematocrit 41.5 % (42.0-52.0); Hemoglobin 13.1 g/dL (11.7-16.6); Lymphocytes # 1.8 10^3/uL (0.8-4.8); Lymphocytes % 38.8 %; Mean Corpuscular HGB Conc 31.6 g/dL (30.0-36.0); Mean Corpuscular Hemoglobin 28.6 pg (28.0-34.0); Mean Corpuscular Volume 90.6 fl (80-94); Mean Platelet Volume 10.3 fL (7.4-10.4); Monocytes # 0.4 10^3/uL (0.2-0.9); Monocytes % 9.1 %; Neutrophils # 2.31 10^3/uL (1.8-7.7); Neutrophils % 49.8 %; Nucleated Red Blood Cells % 0 %; Platelet Count 207 10^3/cmm (130-400); Red Blood Count 4.58 10^6/uL (4.1-5.3); White Blood Count 4.6 10^3/uL (4.0-10.0)
[2023-04-03 06:37] LABS: Alanine Aminotransferase 41 U/L (0-41); Albumin Level 3.9 g/dL (3.5-5.2); Alkaline Phosphatase 63 U/L (40-130); Anion Gap 12.3 (5-19); Aspartate Amino Transferase 25 U/L (0-40); Blood Urea Nitrogen 34 mg/dL (8-23); Calcium 9.3 mg/dL (8.5-10.5); Carbon Dioxide 29 mmol/L (22-29); Chloride 102 mmol/L (98-107); Globulin 2.3 g/dL (1.3-4.6); Glucose 78 mg/dL (65-115); Osmolality Calculated 294 mOsm/kg (285-295); Potassium 4.3 mmol/L (3.5-5.1); Sodium 139 mmol/L (136-145); Total Bilirubin 0.3 mg/dL (0.15-1.2); Total Protein 6.2 g/dL (6.6-8.7)
[2023-04-03] MEDS: buPROPion XL (24 HR) 150 mg Tablet PO (09:54)
[2023-04-03] MEDS: pantoprazole DR 40 mg Tablet PO (09:55)
[2023-04-03] MEDS: heparin 5,000 unit/mL INJ 1 mL 5000 UNIT SUBCUT ×2 (09:55→20:00)
[2023-04-03] MEDS: mirtazapine 15 mg Tablet PO (20:00)
[2023-04-03] MEDS: donepezil 5 MG Tablet PO (20:00)
[2023-04-04] VITALS (8 sets, daily range): BP systolic 100–132; BP diastolic 65–82; PULSE 67–113; RESP 15–19; TEMP 36.4–37.2; O2SAT 92–97
[2023-04-04] MEDS: pantoprazole DR 40 mg Tablet PO (08:16)
[2023-04-04] MEDS: buPROPion XL (24 HR) 150 mg Tablet PO (08:17)
[2023-04-04] MEDS: heparin 5,000 unit/mL INJ 1 mL 5000 UNIT SUBCUT ×2 (08:20→20:45)
--- NOTE | 2023-04-04 13:43 | PM.PN ---
Subjective Subjective: No acute overnight. Patient has remained hemodynamically stable and afebrile without episodes of agitation. Lab work done Yesterday Appreciated. Medications: Reviewed: Yes Medication Review Details: Medications reconciled through outpatient pharmacy and outpatient medication logs. Vitals/I&O/Wt Last Vital Signs Temp 97.9 F 04/04/23 12:00 Pulse 113 H 04/04/23 12:00 Resp 18 04/04/23 12:00 BP 108/65 04/04/23 12:00 Pulse Ox 93 04/04/23 12:00 O2 Del Method Room Air 04/04/23 12:00 O2 Flow Rate 2 04/01/23 08:05 04/03/23 04/04/23 04/04/23 22:59 06:59 14:59 Intake Total 480 / 960 240 / 240 Output Total 150 / 150 Balance 330 / 810 240 / 240 Physical Exam Narrative: General: AOx3, anxious, no acute distress, frail, chronically sick appearing, cachectic Head: Normocephalic. Temporal wasting. Neck: No JVD. Cardiovascular: RRR. No gallops. No murmurs. Lungs: Non-labored. No use of accessory muscles, no crackles or wheezes. Skin: No jaundice. No rashes. Abdomen: Normal bowel sounds, abdomen soft. Extremities: No cyanosis or clubbing. Musculoskeletal: Poor muscular development. Neurological: Moves all 4 extremities. No myoclonus. Psych: COMMON NORMALS: mental status grossly normal, speech normal, denies homicidal ideation and denies suicidal ideation ATTITUDE: Yes engaged, No paranoid, No agitated and No aggressive ACTIVITY/MOTOR BEHAVIOR: Yes fidgeting, Yes disorganized behavior and Yes restless SPEECH: Yes normal speech MOOD & AFFECT: Yes anxious THOUGHT PROCESS: Tangential thought process present Data 04/03/23 05:41 04/03/23 05:41 A&P Assessment and plan (1) Altered mental status: Most likely patient is at his baseline. Cannot rule out baseline dementia which has gotten worse since the of his from depression and bereavement. No acute abnormality noted so far during hospitalization. No leg abnormality or signs of infection. MRI done negative for any new stroke but consistent with chronic age-related atrophy. Medication reconciliation done. Started back on bupropion 150 mg oral daily, donepezil 5 mg at bedtime along with mirtazapine. On further review of medication it seems patient was also on primidone until April of last year. Start back on primidone 50 mg twice daily. (2) Confusion: (3) CVA (cerebral vascular accident): (4) Adult failure to thrive: (5) KODI (acute kidney injury): Most likely secondary dehydration. Resolved. (6) Abnormal serum level of lipase: (7) Hydrocephalus: Qualifiers: Hydrocephalus type: unspecified Qualified Code(s): G91.9 - Hydrocephalus, unspecified (8) Protein-energy malnutrition: Plan Plan for the day: Continue current medications and diet. Awaiting guardianship. Hold off on any further labs for now. Repeat labs done on 04/03 within normal limits. Discharge plan: Given advanced age, recent passing of of patient's spouse, failure to thrive, presentation patient would benefit from placement to SNF as he does at a high risk of falls, adverse events though patient did well with physical therapy and as per their evaluation does not need rehabitation. Patient declines going to SNF if not for physical therapy. But is agreeable for possible home health. Patient states he lives by himself does have a son but estranged. Patient is being not Able to make his own medical decisions safely by psychiatry. Awaiting state appointed guardianship. Full code. Dysphagia level 6 diet. Heparin for DVT prophylaxis Famotidine for PUD prophylaxis. Attestations Medical Necessity Statement*: Awaiting state appointed guardianship for safe discharge planning. Diagnoses Altered mental status R41.82 Confusion R41.0 CVA (cerebral vascular accident) I63.9 Adult failure to thrive R62.7 KODI (acute kidney injury) N17.9 Abnormal serum level of lipase R74.8 Hydrocephalus G91.9 Hydrocephalus type: unspecified Protein-energy malnutrition E46
[2023-04-04] MEDS: mirtazapine 15 mg Tablet PO (20:45)
[2023-04-04] MEDS: donepezil 5 MG Tablet PO (20:45)
[2023-04-05] VITALS (7 sets, daily range): BP systolic 109–122; BP diastolic 63–77; PULSE 77–114; RESP 15–18; TEMP 36.4–36.6; O2SAT 93–96
[2023-04-05] MEDS: heparin 5,000 unit/mL INJ 1 mL 5000 UNIT SUBCUT ×2 (10:29→20:49)
[2023-04-05] MEDS: buPROPion XL (24 HR) 150 mg Tablet PO (10:29)
[2023-04-05] MEDS: pantoprazole DR 40 mg Tablet PO (10:29)
--- NOTE | 2023-04-05 15:13 | P.PN_ITS ---
Subjective Subjective: No acute overnight. Patient has remained hemodynamically stable and afebrile without episodes of agitation. Lab work done Yesterday Appreciated. Medications: Reviewed: Yes Medication Review Details: Medications reconciled through outpatient pharmacy and outpatient medication logs. Vitals/I&O/Wt Last Vital Signs Temp 97.5 F L 04/05/23 12:00 Pulse 114 H 04/05/23 12:00 Resp 18 04/05/23 12:00 BP 116/77 04/05/23 12:00 Pulse Ox 96 04/05/23 08:53 O2 Del Method Room Air 04/05/23 08:53 O2 Flow Rate 2 04/01/23 08:05 04/05/23 04/05/23 04/05/23 06:59 14:59 22:59 Intake Total 360 / 360 Balance 360 / 360 Physical Exam Narrative: General: AOx3, anxious, no acute distress, frail, chronically sick appearing, cachectic Head: Normocephalic. Temporal wasting. Neck: No JVD. Cardiovascular: RRR. No gallops. No murmurs. Lungs: Non-labored. No use of accessory muscles, no crackles or wheezes. Skin: No jaundice. No rashes. Abdomen: Normal bowel sounds, abdomen soft. Extremities: No cyanosis or clubbing. Musculoskeletal: Poor muscular development. Neurological: Moves all 4 extremities. No myoclonus. Psych: COMMON NORMALS: mental status grossly normal, speech normal, denies homicidal ideation and denies suicidal ideation ATTITUDE: Yes engaged, No paranoid, No agitated and No aggressive ACTIVITY/MOTOR BEHAVIOR: Yes fi dgeting, Yes disorganized behavior and Yes restless SPEECH: Yes normal speech MOOD & AFFECT: Yes anxious THOUGHT PROCESS: Tangential thought process present Data 04/03/23 05:41 04/03/23 05:41 A&P Assessment and plan (1) Altered mental status: Most likely patient is at his baseline. Cannot rule out baseline dementia which has gotten worse since the of his from depression and bereavement. No acute abnormality noted so far during hospitalization. No leg abnormality or signs of infection. MRI done negative for any new stroke but consistent with chronic age-related atrophy. Medication reconciliation done. Started back on bupropion 150 mg oral daily, donepezil 5 mg at bedtime along with mirtazapine. On further review of medication it seems patient was also on primidone until April of last year. Start back on primidone 50 mg twice daily. (2) Confusion: (3) CVA (cerebral vascular accident): (4) Adult failure to thrive: (5) KODI (acute kidney injury): Most likely secondary dehydration. Resolved. (6) Abnormal serum level of lipase: (7) Hydrocephalus: Qualifiers: Hydrocephalus type: unspecified Qualified Code(s): G91.9 - Hydrocephalus, unspecified (8) Protein-energy malnutrition: Plan Plan for the day: Continue current medications and diet. Awaiting guardianship. Hold off on any further labs for now. Repeat labs done on 04/03 within normal limits. Discharge plan: Given advanced age, recent passing of of patient's spouse, failure to thrive, presentation patient would benefit from placement to SNF as he does at a high risk of falls, adverse events though patient did well with physical therapy and as per their evaluation does not need rehabitation. Patient declines going to SNF if not for physical therapy. But is agreeable for possible home health. Patient states he lives by himself does have a son but estranged. Patient is being not Able to make his own medical decisions safely by psychiatry. Awaiting state appointed guardianship. Full code. Dysphagia level 6 diet. Heparin for DVT prophylaxis Famotidine for PUD prophylaxis. Attestations Medical Necessity Statement*: Awaiting state appointed guardianship. Coding Level of Care Code Acute Code for Chg Fwd Diagnoses Altered mental status R41.82 Confusion R41.0 CVA (cerebral vascular accident) I63.9 Adult failure to thrive R62.7 KODI (acute kidney injury) N17.9 Abnormal serum level of lipase R74.8 Hydrocephalus G91.9 Hydrocephalus type: unspecified Protein-energy malnutrition E46
[2023-04-05] MEDS: donepezil 5 MG Tablet PO (21:46)
[2023-04-05] MEDS: metoprolol tartrate 25 mg Tablet 12.5 MG PO (21:46)
[2023-04-05] MEDS: mirtazapine 15 mg Tablet PO (21:47)
[2023-04-06] VITALS (7 sets, daily range): BP systolic 100–115; BP diastolic 59–70; PULSE 56–76; RESP 15–18; TEMP 36.6–37.2; O2SAT 95–98
[2023-04-06] MEDS: pantoprazole DR 40 mg Tablet PO (08:00)
[2023-04-06] MEDS: heparin 5,000 unit/mL INJ 1 mL 5000 UNIT SUBCUT ×2 (08:00→20:41)
[2023-04-06] MEDS: metoprolol tartrate 25 mg Tablet 12.5 MG PO ×2 (08:00→20:47)
[2023-04-06] MEDS: buPROPion XL (24 HR) 150 mg Tablet PO (08:00)
--- NOTE | 2023-04-06 14:39 | PM.PN ---
Subjective Subjective: No acute events overnight. Denies any new complaints. Remains comfortable. Getting out of bed to the bathroom. On review of hemodynamics patient seems to have been tachycardia. No asymptomatic. Blood pressure stable. Medications: Reviewed: Yes Medication Review Details: Medications reconciled through outpatient pharmacy and outpatient medication logs. Vitals/I&O/Wt Last Vital Signs Temp 97.8 F 04/06/23 12:00 Pulse 67 04/06/23 12:00 Resp 16 04/06/23 12:00 BP 111/66 04/06/23 08:00 Pulse Ox 95 04/06/23 12:00 O2 Del Method Room Air 04/06/23 12:00 O2 Flow Rate 2 04/01/23 08:05 04/05/23 04/06/23 04/06/23 22:59 06:59 14:59 Intake Total 360 / 720 600 / 600 Balance 360 / 720 600 / 600 Physical Exam Narrative: General: AOx3, anxious, no acute distress, frail, chronically sick appearing, cachectic Head: Normocephalic. Temporal wasting. Neck: No JVD. Cardiovascular: RRR. No gallops. No murmurs. Lungs: Non-labored. No use of accessory muscles, no crackles or wheezes. Skin: No jaundice. No rashes. Abdomen: Normal bowel sounds, abdomen soft. Extremities: No cyanosis or clubbing. Musculoskeletal: Poor muscular development. Neurological: Moves all 4 extremities. No myoclonus. Psych: COMMON NORMALS: mental status grossly normal, speech normal, denies homicidal ideation and denies suicidal ideation ATTITUDE: Yes engaged, No paranoid, No agitated and No aggressive ACTIVITY/MOTOR BEHAVIOR: Yes fidgeting, Yes disorganized behavior and Yes restless SPEECH: Yes normal speech MOOD & AFFECT: Yes anxious THOUGHT PROCESS: Tangential thought process present Data 04/03/23 05:41 04/03/23 05:41 A&P Assessment and plan (1) Altered mental status: Most likely patient is at his baseline. Cannot rule out baseline dementia which has gotten worse since the of his from depression and bereavement. No acute abnormality noted so far during hospitalization. No leg abnormality or signs of infection. MRI done negative for any new stroke but consistent with chronic age-related atrophy. Medication reconciliation done. Started back on bupropion 150 mg oral daily, donepezil 5 mg at bedtime along with mirtazapine. On further review of medication it seems patient was also on primidone until April of last year. Start back on primidone 50 mg twice daily. (2) Confusion: (3) CVA (cerebral vascular accident): (4) Adult failure to thrive: (5) KODI (acute kidney injury): Most likely secondary dehydration. Resolved. (6) Abnormal serum level of lipase: (7) Hydrocephalus: Qualifiers: Hydrocephalus type: unspecified Qualified Code(s): G91.9 - Hydrocephalus, unspecified (8) Protein-energy malnutrition: Plan Plan for the day: Continue current medications and diet. Start on oral metoprolol 12.5 mg twice daily. Goal blood pressure less than 140/90 mmHg with systolic of more than 100. Monitor heart rate and blood pressures. Awaiting guardianship. Hold off on any further labs for now. Repeat labs done on 04/03 within normal limits. Discharge plan: Given advanced age, recent passing of of patient's spouse, failure to thrive, presentation patient would benefit from placement to SNF as he does at a high risk of falls, adverse events though patient did well with physical therapy and as per their evaluation does not need rehabitation. Patient declines going to SNF if not for physical therapy. But is agreeable for possible home health. Patient states he lives by himself does have a son but estranged. Patient is being not Able to make his own medical decisions safely by psychiatry. Awaiting state appointed guardianship. Full code. Dysphagia level 6 diet. Heparin for DVT prophylaxis Famotidine for PUD prophylaxis. Attestations Medical Necessity Statement*: Requires further hospitalization while state appointed guardianship is awaited Diagnoses Altered mental status R41.82 Confusion R41.0 CVA (cerebral vascular accident) I63.9 Adult failure to thrive R62.7 KODI (acute kidney injury) N17.9 Abnormal serum level of lipase R74.8 Hydrocephalus G91.9 Hydrocephalus type: unspecified Protein-energy malnutrition E46
--- NOTE | 2023-04-06 15:35 | PC.OT ---
OT tx attempted at this time. Therapist offering pt a shower and he declines stating, no I'm watching this and points to The Matrix movie on tv. Therapist attempted to encourage pt again, but he is adamant not to participate at this time. Therapist unable to reschedule visit for today and will resume tx next week.
[2023-04-06] MEDS: donepezil 5 MG Tablet PO (20:41)
[2023-04-06] MEDS: mirtazapine 15 mg Tablet PO (20:41)
[2023-04-07] VITALS (8 sets, daily range): BP systolic 89–122; BP diastolic 48–71; PULSE 63–109; RESP 15–18; TEMP 36.4–37.1; O2SAT 93–97
[2023-04-07] MEDS: pantoprazole DR 40 mg Tablet PO (08:11)
[2023-04-07] MEDS: metoprolol tartrate 25 mg Tablet 12.5 MG PO ×2 (08:11→20:49)
[2023-04-07] MEDS: buPROPion XL (24 HR) 150 mg Tablet PO (08:11)
--- NOTE | 2023-04-07 11:53 | PM.PN ---
Subjective Subjective: No acute events. Hemodynamically stable. Awaiting state guardianship and placement. Status quo. Medications: Reviewed: Yes Medication Review Details: Medications reconciled through outpatient pharmacy and outpatient medication logs. Vitals/I&O/Wt Last Vital Signs Temp 97.6 F 04/07/23 08:00 Pulse 90 04/07/23 11:39 Resp 16 04/07/23 11:39 BP 92/59 04/07/23 11:39 Pulse Ox 93 04/07/23 11:39 O2 Del Method Room Air 04/07/23 11:39 O2 Flow Rate 2 04/01/23 08:05 04/06/23 04/07/23 04/07/23 22:59 06:59 14:59 Intake Total 360 / 960 360 / 1320 240 / 240 Balance 360 / 960 360 / 1320 240 / 240 Physical Exam Narrative: General: AOx3, anxious, no acute distress, frail, chronically sick appearing, cachectic Head: Normocephalic. Temporal wasting. Neck: No JVD. Cardiovascular: RRR. No gallops. No murmurs. Lungs: Non-labored. No use of accessory muscles, no crackles or wheezes. Skin: No jaundice. No rashes. Abdomen: Normal bowel sounds, abdomen soft. Extremities: No cyanosis or clubbing. Musculoskeletal: Poor muscular development. Neurological: Moves all 4 extremities. No myoclonus. Psych: COMMON NORMALS: mental status grossly normal, speech normal, denies homicidal ideation and denies suicidal ideation ATTITUDE: Yes engaged, No paranoid, No agitated and No aggressive ACTIVITY/MOTOR BEHAVIOR: Yes fidgeting, Yes disorganized behavior and Yes restless SPEECH: Yes normal speech MOOD & AFFECT: Yes anxious THOUGHT PROCESS: Tangential thought process present Data 04/03/23 05:41 04/03/23 05:41 A&P Assessment and plan (1) Altered mental status: Most likely patient is at his baseline. Cannot rule out baseline dementia which has gotten worse since the of his from depression and bereavement. No acute abnormality noted so far during hospitalization. No leg abnormality or signs of infection. MRI done negative for any new stroke but consistent with chronic age-related atrophy. Medication reconciliation done. Started back on bupropion 150 mg oral daily, donepezil 5 mg at bedtime along with mirtazapine. On further review of medication it seems patient was also on primidone until April of last year. Start back on primidone 50 mg twice daily. (2) Confusion: (3) CVA (cerebral vascular accident): (4) Adult failure to thrive: (5) KODI (acute kidney injury): Most likely secondary dehydration. Resolved. (6) Abnormal serum level of lipase: (7) Hydrocephalus: Qualifiers: Hydrocephalus type: unspecified Qualified Code(s): G91.9 - Hydrocephalus, unspecified (8) Protein-energy malnutrition: Plan Plan for the day: Heart rate and blood pressure stable after having metoprolol. Continue other medications. Awaiting guardianship. Discharge plan: Given advanced age, recent passing of of patient's spouse, failure to thrive, presentation patient would benefit from placement to SNF as he does at a high risk of falls, adverse events though patient did well with physical therapy and as per their evaluation does not need rehabitation. Patient declines going to SNF if not for physical therapy. But is agreeable for possible home health. Patient states he lives by himself does have a son but estranged. Patient is being not Able to make his own medical decisions safely by psychiatry. Awaiting state appointed guardianship. Full code. Dysphagia level 6 diet. Heparin for DVT prophylaxis Famotidine for PUD prophylaxis. Attestations Medical Necessity Statement*: Requires further hospitalization while state appointed guardianship and discharge planning is sought Diagnoses Altered mental status R41.82 Confusion R41.0 CVA (cerebral vascular accident) I63.9 Adult failure to thrive R62.7 KODI (acute kidney injury) N17.9 Abnormal serum level of lipase R74.8 Hydrocephalus G91.9 Hydrocephalus type: unspecified Protein-energy malnutrition E46
[2023-04-07] MEDS: heparin 5,000 unit/mL INJ 1 mL 5000 UNIT SUBCUT (19:33)
[2023-04-07] MEDS: mirtazapine 15 mg Tablet PO (20:49)
[2023-04-07] MEDS: donepezil 5 MG Tablet PO (20:49)
--- NOTE | 2023-04-07 22:28 | PC.NURSE ---
HEMSTITCHING MACHINE OPERATORNatalia Calloway answered the patients call light. The HEMSTITCHING MACHINE OPERATOR reported that she found the patient sitting naked in bed. According to the HEMSTITCHING MACHINE OPERATOR, the patient stated that he fell, but got himself back up. This nurse reassessed the patient and found no injuries or change in mentation, vitals are as follows: blood pressure 102/66, HR 64, RR 18, temp 97.4, spo2% 95%. Patient has AMS and confusion at baseline; no increased confusion or AMS noted upon assessment. Dr. Merida was made aware 22:15. The fall was unwitnessed and unheard, although there were multiple staff members sitting at the nurses station outside of the patient's room, and the patient's door was open.
[2023-04-08] VITALS (7 sets, daily range): BP systolic 90–106; BP diastolic 58–69; PULSE 60–83; RESP 15–18; TEMP 36.3–37.1; O2SAT 92–98
[2023-04-08] MEDS: buPROPion XL (24 HR) 150 mg Tablet PO (09:09)
[2023-04-08] MEDS: pantoprazole DR 40 mg Tablet PO (09:09)
[2023-04-08] MEDS: metoprolol tartrate 25 mg Tablet 12.5 MG PO ×2 (09:21→20:40)
--- NOTE | 2023-04-08 16:26 | PM.PN ---
Subjective Subjective: Patient was seen this morning, he is a bit upset about all the shots that were giving into his belly, the blood thinners,, he is hoping we can stop them Vitals/I&O/Wt Last Vital Signs Temp 98.5 F 04/08/23 16:00 Pulse 61 04/08/23 16:00 Resp 15 04/08/23 16:00 BP 90/58 04/08/23 16:00 Pulse Ox 92 04/08/23 16:00 O2 Del Method Room Air 04/08/23 16:00 O2 Flow Rate 2 04/01/23 08:05 04/08/23 04/08/23 04/08/23 06:59 14:59 22:59 Intake Total 120 / 1080 720 / 720 Balance 120 / 1080 720 / 720 Physical Exam Const: COMMON NORMALS: no acute distress Resp: COMMON NORMALS: normal respiratory effort, No retractions, No use of accessory muscles and clear to auscultation bilaterally AUSCULTATION: clear to auscultation bilaterally Cardio: COMMON NORMALS: regular rate, regular rhythm, S1 normal heart sound present and S2 normal heart sound present RATE: regular rate RHYTHM: regular rhythm HEART SOUNDS: S1 normal heart sound present and S2 normal heart sound present GI: COMMON NORMALS: Normal to inspection, nondistended, normoactive bowel sounds present and non-tender Extremity: COMMON NORMALS: no pedal edema Data 04/03/23 05:41 04/03/23 05:41 A&P Assessment and plan (1) Altered mental status: Most likely patient is at his baseline. Cannot rule out baseline dementia which has gotten worse since the of his from depression and bereavement. No acute abnormality noted so far during hospitalization. No leg abnormality or signs of infection. MRI done negative for any new stroke but consistent with chronic age-related atrophy. Medication reconciliation done. Started back on bupropion 150 mg oral daily, donepezil 5 mg at bedtime along with mirtazapine. On further review of medication it seems patient was also on primidone until April of last year. Continue primidone 50 mg twice daily. (2) Confusion: (3) CVA (cerebral vascular accident): (4) Adult failure to thrive: Dietary eval (5) KODI (acute kidney injury): Most likely secondary dehydration. Resolved. (6) Abnormal serum level of lipase: (7) Hydrocephalus: Qualifiers: Hydrocephalus type: unspecified Qualified Code(s): G91.9 - Hydrocephalus, unspecified (8) Protein-energy malnutrition: (9) Physical deconditioning: PT OT (10) Debility: Plan Plan for the day: As per patient request stop heparin as he is can be here for extended period of time awaiting guardianship, his mobile according to nursing staff, walks around the room, will place on SCDs stop heparin Continue other medications. Awaiting guardianship. Discharge plan: Given advanced age, recent passing of of patient's spouse, failure to thrive, presentation patient would benefit from placement to SNF as he does at a high risk of falls, adverse events though patient did well with physical therapy and as per their evaluation does not need rehabitation. Patient declines going to SNF if not for physical therapy. But is agreeable for possible home health. Patient states he lives by himself does have a son but estranged. Patient is being not Able to make his own medical decisions safely by psychiatry. Awaiting state appointed guardianship. Full code. Dysphagia level 6 diet. SCDs DVT prophylaxis Famotidine for PUD prophylaxis. Attestations Medical Necessity Statement*: Patient requires hospitalization for adult failure to thrive, protein calorie malnutrition, deconditioning, awaiting guardianship Diagnoses Altered mental status R41.82 Confusion R41.0 CVA (cerebral vascular accident) I63.9 Adult failure to thrive R62.7 KODI (acute kidney injury) N17.9 Abnormal serum level of lipase R74.8 Hydrocephalus G91.9 Hydrocephalus type: unspecified Protein-energy malnutrition E46 Physical deconditioning R53.81 Debility R53.81
[2023-04-08] MEDS: mirtazapine 15 mg Tablet PO (20:40)
[2023-04-08] MEDS: donepezil 5 MG Tablet PO (20:40)
[2023-04-09] VITALS (8 sets, daily range): BP systolic 83–106; BP diastolic 52–66; PULSE 53–89; RESP 15–18; TEMP 36.3–37; O2SAT 92–100
[2023-04-09] MEDS: pantoprazole DR 40 mg Tablet PO (08:05)
[2023-04-09] MEDS: metoprolol tartrate 25 mg Tablet 12.5 MG PO ×2 (08:05→20:52)
[2023-04-09] MEDS: buPROPion XL (24 HR) 150 mg Tablet PO (08:05)
--- NOTE | 2023-04-09 16:22 | PM.PN ---
Subjective Subjective: Patient was seen this morning, he has no complaints, Vitals/I&O/Wt Last Vital Signs Temp 97.4 F L 04/09/23 12:23 Pulse 53 L 04/09/23 12:23 Resp 15 04/09/23 12:23 BP 106/62 04/09/23 12:23 Pulse Ox 93 04/09/23 12:23 O2 Del Method Room Air 04/09/23 08:00 O2 Flow Rate 2 04/01/23 08:05 Physical Exam Const: COMMON NORMALS: no acute distress Resp: COMMON NORMALS: normal respiratory effort, No retractions, No use of accessory muscles and clear to auscultation bilaterally AUSCULTATION: clear to auscultation bilaterally Cardio: COMMON NORMALS: regular rate, regular rhythm, S1 normal heart sound present and S2 normal heart sound present RATE: regular rate RHYTHM: regular rhythm HEART SOUNDS: S1 normal heart sound present and S2 normal heart sound present GI: COMMON NORMALS: Normal to inspection, nondistended, normoactive bowel sounds present and non-tender Extremity: COMMON NORMALS: no pedal edema Psych: COMMON NORMALS: mental status grossly normal Data 04/03/23 05:41 04/03/23 05:41 A&P Assessment and plan (1) Altered mental status: Most likely patient is at his baseline. Cannot rule out baseline dementia which has gotten worse since the of his from depression and bereavement. No acute abnormality noted so far during hospitalization. No leg abnormality or signs of infection. MRI done negative for any new stroke but consistent with chronic age-related atrophy. Medication reconciliation done. Started back on bupropion 150 mg oral daily, donepezil 5 mg at bedtime along with mirtazapine. On further review of medication it seems patient was also on primidone until April of last year. Continue primidone 50 mg twice daily. (2) Confusion: (3) CVA (cerebral vascular accident): (4) Adult failure to thrive: Dietary eval (5) KODI (acute kidney injury): Most likely secondary dehydration. Resolved. (6) Abnormal serum level of lipase: (7) Hydrocephalus: Qualifiers: Hydrocephalus type: unspecified Qualified Code(s): G91.9 - Hydrocephalus, unspecified (8) Protein-energy malnutrition: (9) Physical deconditioning: PT OT (10) Debility: Plan Plan for the day: As per patient request stop heparin as he is can be here for extended period of time awaiting guardianship, his mobile according to nursing staff, walks around the room, will place on SCDs Continue other medications. Awaiting guardianship. Discharge plan: Given advanced age, recent passing of of patient's spouse, failure to thrive, presentation patient would benefit from placement to SNF as he does at a high risk of falls, adverse events though patient did well with physical therapy and as per their evaluation does not need rehabitation. Patient declines going to SNF if not for physical therapy. But is agreeable for possible home health. Patient states he lives by himself does have a son but estranged. Patient is being not Able to make his own medical decisions safely by psychiatry. Awaiting state appointed guardianship. Full code. Dysphagia level 6 diet. SCDs DVT prophylaxis Famotidine for PUD prophylaxis. Attestations Medical Necessity Statement*: Patient awaiting guardianship here in the hospital Diagnoses Altered mental status R41.82 Confusion R41.0 CVA (cerebral vascular accident) I63.9 Adult failure to thrive R62.7 KODI (acute kidney injury) N17.9 Abnormal serum level of lipase R74.8 Hydrocephalus G91.9 Hydrocephalus type: unspecified Protein-energy malnutrition E46 Physical deconditioning R53.81 Debility R53.81
--- NOTE | 2023-04-09 18:46 | PC.NURSE ---
Could not get the O2 monitor to give a reading even tried using the finger prob,ear prob, and tried the forehead probe as well, nurse is has been made aware on me not being able to obtain an SpO2 and heart rate reading.
[2023-04-09] MEDS: mirtazapine 15 mg Tablet PO (20:52)
[2023-04-09] MEDS: donepezil 5 MG Tablet PO (20:52)
[2023-04-10] VITALS (7 sets, daily range): BP systolic 93–118; BP diastolic 50–70; PULSE 52–94; RESP 16–93; TEMP 36.5–36.8; O2SAT 92–98
[2023-04-10] MEDS: pantoprazole DR 40 mg Tablet PO (09:48)
[2023-04-10] MEDS: metoprolol tartrate 25 mg Tablet 12.5 MG PO ×2 (09:48→20:49)
[2023-04-10] MEDS: buPROPion XL (24 HR) 150 mg Tablet PO (09:48)
--- NOTE | 2023-04-10 18:02 | PM.PN ---
Subjective Subjective: Patient was seen this morning, he has no complaints, no fevers overnight Vitals/I&O/Wt Last Vital Signs Temp 97.7 F 04/10/23 12:00 Pulse 52 L 04/10/23 12:00 Resp 17 04/10/23 12:00 BP 112/61 04/10/23 12:00 Pulse Ox 92 04/10/23 12:00 O2 Del Method Room Air 04/10/23 12:00 O2 Flow Rate 2 04/01/23 08:05 04/10/23 04/10/23 04/10/23 06:59 14:59 22:59 Intake Total 960 / 960 240 / 1200 Balance 960 / 960 240 / 1200 Physical Exam Const: COMMON NORMALS: no acute distress Resp: COMMON NORMALS: normal respiratory effort, No retractions, No use of accessory muscles and clear to auscultation bilaterally AUSCULTATION: clear to auscultation bilaterally Cardio: COMMON NORMALS: regular rate, regular rhythm, S1 normal heart sound present and S2 normal heart sound present RATE: regular rate RHYTHM: regular rhythm HEART SOUNDS: S1 normal heart sound present and S2 normal heart sound present GI: COMMON NORMALS: Normal to inspection, nondistended, normoactive bowel sounds present and non-tender Extremity: COMMON NORMALS: no pedal edema Data 04/03/23 05:41 04/03/23 05:41 A&P Assessment and plan (1) Altered mental status: Most likely patient is at his baseline. Cannot rule out baseline dementia which has gotten worse since the of his from depression and bereavement. No acute abnormality noted so far during hospitalization. No leg abnormality or signs of infection. MRI done negative for any new stroke but consistent with chronic age-related atrophy. Medication reconciliation done. Started back on bupropion 150 mg oral daily, donepezil 5 mg at bedtime along with mirtazapine. On further review of medication it seems patient was also on primidone until April of last year. Continue primidone 50 mg twice daily. (2) Confusion: (3) CVA (cerebral vascular accident): (4) Adult failure to thrive: Dietary eval (5) KODI (acute kidney injury): Most likely secondary dehydration. Resolved. (6) Abnormal serum level of lipase: (7) Hydrocephalus: Qualifiers: Hydrocephalus type: unspecified Qualified Code(s): G91.9 - Hydrocephalus, unspecified (8) Protein-energy malnutrition: (9) Physical deconditioning: PT OT (10) Debility: Plan Plan for the day: As per patient request stop heparin as he is can be here for extended period of time awaiting guardianship, his mobile according to nursing staff, walks around the room, will place on SCDs Continue other medications. Awaiting guardianship. Discharge plan: Given advanced age, recent passing of of patient's spouse, failure to thrive, presentation patient would benefit from placement to SNF as he does at a high risk of falls, adverse events though patient did well with physical therapy and as per their evaluation does not need rehabitation. Patient declines going to SNF if not for physical therapy. But is agreeable for possible home health. Patient states he lives by himself does have a son but estranged. Patient is being not Able to make his own medical decisions safely by psychiatry. Awaiting state appointed guardianship. Full code. Dysphagia level 6 diet. SCDs DVT prophylaxis Famotidine for PUD prophylaxis. Attestations Medical Necessity Statement*: Patient requires hospitalization, pursuing guardianship Diagnoses Altered mental status R41.82 Confusion R41.0 CVA (cerebral vascular accident) I63.9 Adult failure to thrive R62.7 KODI (acute kidney injury) N17.9 Abnormal serum level of lipase R74.8 Hydrocephalus G91.9 Hydrocephalus type: unspecified Protein-energy malnutrition E46 Physical deconditioning R53.81 Debility R53.81
[2023-04-10] MEDS: mirtazapine 15 mg Tablet PO (20:49)
[2023-04-10] MEDS: donepezil 5 MG Tablet PO (20:49)
[2023-04-11] VITALS (7 sets, daily range): BP systolic 94–116; BP diastolic 54–67; PULSE 54–93; RESP 14–18; TEMP 36.4–36.7; O2SAT 91–100
[2023-04-11] MEDS: metoprolol tartrate 25 mg Tablet 12.5 MG PO (08:35)
[2023-04-11] MEDS: buPROPion XL (24 HR) 150 mg Tablet PO (08:35)
[2023-04-11] MEDS: pantoprazole DR 40 mg Tablet PO (08:35)
--- NOTE | 2023-04-11 14:09 | P.PN_ITS ---
Subjective Subjective: Patient was served papers today, he is looking through them, he has no complaints Vitals/I&O/Wt Last Vital Signs Temp 97.7 F 04/11/23 12:00 Pulse 56 L 04/11/23 12:00 Resp 14 04/11/23 12:00 BP 99/57 04/11/23 12:00 Pulse Ox 100 04/11/23 12:00 O2 Del Method Room Air 04/11/23 08:00 O2 Flow Rate 2 04/01/23 08:05 04/10/23 04/11/23 04/11/23 22:59 06:59 14:59 Intake Total 360 / 1320 120 / 1440 240 / 240 Balance 360 / 1320 120 / 1440 240 / 240 Physical Exam Const: COMMON NORMALS: no acute distress and patient oriented x3 Resp: COMMON NORMALS: normal respiratory effort, No retractions, No use of accessory muscles and clear to auscultation bilaterally AUSCULTATION: clear to auscultation bilaterally Cardio: COMMON NORMALS: regular rate, regular rhythm, S1 normal heart sound present and S2 normal heart sound present RATE: regular rate RHYTHM: regul ar rhythm HEART SOUNDS: S1 normal heart sound present and S2 normal heart sound present GI: COMMON NORMALS: Normal to inspection, nondistended, normoactive bowel sounds present and non-tender Extremity: COMMON NORMALS: no pedal edema Neuro: COMMON NORMALS: patient oriented x3 Psych: COMMON NORMALS: mental status grossly normal Data 04/03/23 05:41 04/03/23 05:41 A&P Assessment and plan (1) Altered mental status: Most likely patient is at his baseline. Cannot rule out baseline dementia which has gotten worse since the of his from depression and bereavement. No acute abnormality noted so far during hospitalization. No leg abnormality or signs of infection. MRI done negative for any new stroke but consistent with chronic age-related atrophy. Medication reconciliation done. Started back on bupropion 150 mg oral daily, donepezil 5 mg at bedtime along with mirtazapine. On further review of medication it seems patient was also on primidone until April of last year. Continue primidone 50 mg twice daily. (2) Confusion: (3) CVA (cerebral vascular accident): (4) Adult failure to thrive: Dietary eval (5) KODI (acute kidney injury): Most likely secondary dehydration. Resolved. (6) Abnormal serum level of lipase: (7) Hydrocephalus: Qualifiers: Hydrocephalus type: unspecified Qualified Code(s): G91.9 - Hydrocepha mayco, unspecified (8) Protein-energy malnutrition: (9) Physical deconditioning: PT OT (10) Debility: Plan Plan for the day: As per patient request stop heparin as he is can be here for extended period of time awaiting guardianship, his mobile according to nursing staff, walks around the room, will place on SCDs Continue other medications. Awaiting guardianship. Discharge plan: Given advanced age, recent passing of of patient's spouse, failure to thrive, presentation patient would benefit from placement to SNF as he does at a high risk of falls, adverse events though patient did well with physical therapy and as per their evaluation does not need rehabitation. Patient declines going to SNF if not for physical therapy. But is agreeable for possible home health. Patient states he lives by himself does have a son but estranged. Patient is being not Able to make his own medical decisions safely by psychiatry. Awaiting state appointed guardianship. Full code. Dysphagia level 6 diet. SCDs DVT prophylaxis Famotidine for PUD prophylaxis. Attestations Medical Necessity Statement*: Patient requires hospitalization for guardianship Diagnoses Altered mental status R41.82 Confusion R41.0 CVA (cerebral vascular accident) I63.9 Adult failure to thrive R62.7 KODI (acute kidney injury) N17.9 Abnormal serum level of lipase R74.8 Hydrocephalus G91.9 Hydrocephalus type: unspecified Protein-energy malnutrition E46 Physical deconditioning R53.81 Debility R53.81
[2023-04-11] MEDS: donepezil 5 MG Tablet PO (20:24)
[2023-04-11] MEDS: mirtazapine 15 mg Tablet PO (20:24)
[2023-04-12] VITALS: BP 112/65; PULSE 61; RESP 18; TEMP 36.6; O2SAT 96
[2023-04-12 04:00] VITALS: BP 105/63; PULSE 59; RESP 17; TEMP 36.4; O2SAT 96
[2023-04-12 08:06] VITALS: PULSE 60; RESP 16; O2SAT 96
[2023-04-12] MEDS: pantoprazole DR 40 mg Tablet PO (09:16)
[2023-04-12] MEDS: buPROPion XL (24 HR) 150 mg Tablet PO (09:16)
[2023-04-12] MEDS: metoprolol tartrate 25 mg Tablet 12.5 MG PO (09:17)
[2023-04-12 11:20] VITALS: BP 106/65; PULSE 73; RESP 15; TEMP 36.6; O2SAT 96
--- NOTE | 2023-04-12 12:27 | P.PN_ITS ---
Subjective Subjective: Patient was seen this morning, he is ambulating around his room, has no complaints, alert to person, not place, not to time Vitals/I&O/Wt Last Vital Signs Temp 97.9 F 04/12/23 11:20 Pulse 73 04/12/23 11:20 Resp 15 04/12/23 11:20 BP 106/65 04/12/23 11:20 Pulse Ox 96 04/12/23 11:20 O2 Del Method Room Air 04/12/23 08:06 O2 Flow Rate 2 04/11/23 20:00 04/11/23 04/12/23 04/12/23 22:59 06:59 14:59 Intake Total 120 / 705 320 / 320 Balance 120 / 705 320 / 320 Physical Exam Const: COMMON NORMALS: no acute distress Resp: COMMON NORMALS: normal respiratory effort, No retractions, No use of accessory muscles and clear to auscultation bilaterally AUSCULTATION: clear to auscultation bilaterally Cardio: COMMON NORMALS: regular rate, regular rhythm, S1 normal heart sound present and S2 normal heart sound present RATE: regular rate RHYTHM: regular rhythm HEART SOUNDS: S1 normal heart sound present and S2 normal heart sound present GI: COMMON NORMALS: Normal to inspection, nondistended, normoactive bowel sounds present and non-tender Extremity: COMMON NORMALS: no pedal edema Data 04/03/23 05:41 04/03/23 05:41 A&P Assessment and plan (1) Altered mental status: Most likely patient is at his baseline. Cannot rule out baseline dementia which has gotten worse since the of his from depression and bereavement. No acute abnormality noted so far during hospitalization. No leg abnormality or signs of infection. MRI done negative for any new stroke but consistent with chronic age-related atrophy. Medication reconciliation done. Started back on bupropion 150 mg oral daily, donepezil 5 mg at bedtime along with mirtazapine. On further review of medication it seems patient was also on primidone until April of last year. Continue primidone 50 mg twice daily. (2) Confusion: (3) CVA (cerebral vascular accident): (4) Adult failure to thrive: Dietary eval (5) KODI (acute kidney injury): Most likely secondary dehydration. Resolved. (6) Abnormal serum level of lipase: (7) Hydrocephalus: Qualifiers: Hydrocephalus type: unspecified Qualified Code(s): G91.9 - Hydrocephalus, unspecified (8) Protein-energy malnutrition: (9) Physical deconditioning: PT OT (10) Debility: Plan Plan for the day: As per patient request stop heparin as he is can be here for extended period of time awaiting guardianship, his mobile according to nursing staff, walks around the room, will place on SCDs Continue other medications. Awaiting guardianship. Discharge plan: Given advanced age, recent passing of of patient's spouse, failure to thrive, presentation patient would benefit from placement to SNF as he does at a high risk of falls, adverse events though patient did well with physical therapy and as per their evaluation does not need rehabitation. Patient declines going to SNF if not for physical therapy. But is agreeable for possible home health. Patient states he lives by himself does have a son but e stranged. Patient is being not Able to make his own medical decisions safely by psychia try. Awaiting state appointed guardianship. Full code. Dysphagia level 6 diet. SCDs DVT prophylaxis Famotidine for PUD prophylaxis. Attestations Medical Necessity Statement*: Patient requires hospitalization awaiting guardianship, awaiting level 2 Diagnoses Altered mental status R41.82 Confusion R41.0 CVA (cerebral vascular accident) I63.9 Adult failure to thrive R62.7 KODI (acute kidney injury) N17.9 Abnormal serum level of lipase R74.8 Hydrocephalus G91.9 Hydrocephalus type: unspecified Protein-energy malnutrition E46 Physical deconditioning R53.81 Debility R53.81
[2023-04-12 15:00] VITALS: BP 103/58; PULSE 76; RESP 18; TEMP 36.8
[2023-04-12 20:00] VITALS: BP 105/66; PULSE 60; PULSE 78; RESP 16; RESP 18; TEMP 37.2; O2SAT 96; O2SAT 97
[2023-04-12] MEDS: mirtazapine 15 mg Tablet PO (20:22)
[2023-04-12] MEDS: donepezil 5 MG Tablet PO (20:22)
[2023-04-13] VITALS: BP 110/66; PULSE 62; RESP 17; TEMP 37.2; O2SAT 95
--- NOTE | 2023-04-13 02:04 | PC.NURSE ---
pt up on side of bed eating a snack
[2023-04-13 05:00] VITALS: BP 111/60; PULSE 80; RESP 18; TEMP 36.4; O2SAT 96
--- NOTE | 2023-04-13 07:20 | PM.PN ---
Subjective Subjective: Patient was seen this morning, sitting in bed eating breakfast. no complaints. alert to person. not place/time awaiting guardianship. possbly to [facility] today Called at 8:15: s/p mechanical fall in room -abrasion to L forearm -no hit to head, no LOC -fell on R side. some ttp at hip but FROM, 5/5 strength, NVI, able to walk/sit/laydown w/o discomfort or abnormalities. no XRAY ordered. Medications: Reviewed: Yes Vitals/I&O/Wt Last Vital Signs Temp 97.6 F 04/13/23 05:00 Pulse 80 04/13/23 05:00 Resp 18 04/13/23 05:00 BP 111/60 04/13/23 05:00 Pulse Ox 96 04/13/23 05:00 O2 Del Method Room Air 04/12/23 20:00 O2 Flow Rate 2 04/12/23 20:00 04/12/23 04/13/23 04/13/23 22:59 06:59 14:59 Intake Total 240 / 800 Balance 240 / 800 Physical Exam Const: COMMON NORMALS: no acute distress Resp: COMMON NORMALS: normal respiratory effort, No retractions, No use of accessory muscles and clear to auscultation bilaterally AUSCULTATION: clear to auscultation bilaterally Cardio: COMMON NORMALS: regular rate, regular rhythm, S1 normal heart sound present and S2 normal heart sound present RATE: regular rate RHYTHM: regular rhythm HEART SOUNDS: S1 normal heart sound present and S2 normal heart sound present GI: COMMON NORMALS: Normal to inspection, nondistended, normoactive bowel sounds present and non-tender Extremity: COMMON NORMALS: no pedal edema (FROM, 5/5 strength bilateral legs) Data 04/03/23 05:41 04/03/23 05:41 A&P Assessment and plan (1) Altered mental status: Most likely patient is at his baseline. Cannot rule out baseline dementia which has gotten worse since the of his from depression and bereavement. No acute abnormality noted so far during hospitalization. No leg abnormality or signs of infection. MRI done negative for any new stroke but consistent with chronic age-related atrophy. Medication reconciliation done. Started back on bupropion 150 mg oral daily, donepezil 5 mg at bedtime along with mirtazapine. On further review of medication it seems patient was also on primidone until April of last year. Continue primidone 50 mg twice daily. (2) Confusion: (3) CVA (cerebral vascular accident): (4) Adult failure to thrive: Dietary eval (5) KODI (acute kidney injury): Most likely secondary dehydration. Resolved. (6) Abnormal serum level of lipase: (7) Hydrocephalus: Qualifiers: Hydrocephalus type: unspecified Qualified Code(s): G91.9 - Hydrocephalus, unspecified (8) Protein-energy malnutrition: (9) Physical deconditioning: PT OT (10) Debility: Plan Plan for the day: SCDs, heparin stopped per request Continue other medications. Awaiting guardianship. Discharge plan: Given advanced age, recent passing of of patient's spouse, failure to thrive, presentation patient would benefit from placement to SNF as he does at a high risk of falls, adverse events though patient did well with physical therapy and as per their evaluation does not need rehabitation. Patient declines going to SNF if not for physical therapy. But is agreeable for possible home health. Patient states he lives by himself does have a son but estranged. Patient is being not Able to make his own medical decisions safely by psychiatry. Awaiting state appointed guardianship. Full code. Dysphagia level 6 diet. SCDs DVT prophylaxis Famotidine for PUD prophylaxis. Attestations Medical Necessity Statement*: awaiting guardianship from state Coding Level of Care Code 55061 Diagnoses Altered mental status R41.82 Confusion R41.0 CVA (cerebral vascular accident) I63.9 Adult failure to thrive R62.7 KODI (acute kidney injury) N17.9 Abnormal serum level of lipase R74.8 Hydrocephalus G91.9 Hydrocephalus type: unspecified Protein-energy malnutrition E46 Physical deconditioning R53.81 Debility R53.81
[2023-04-13] MEDS: metoprolol tartrate 25 mg Tablet 12.5 MG PO (07:44)
[2023-04-13] MEDS: pantoprazole DR 40 mg Tablet PO (07:44)
[2023-04-13] MEDS: buPROPion XL (24 HR) 150 mg Tablet PO (07:44)
[2023-04-13 08:00] VITALS: BP 120/78; PULSE 62; RESP 16; TEMP 36.6; O2SAT 98
[2023-04-13 08:18] VITALS: PULSE 75; RESP 16; O2SAT 98
--- NOTE | 2023-04-13 09:16 | P.DS_ITS ---
Discharge Providers Date of Admission: 03/13/23 21:08 Date of Discharge: April 13, 2023 Attending Provider at Admission: Sandra Lamar MD Attending Provider at Discharge: Wilian Obrien MD Primary Care Provider: Merle Sanchez MD Diagnoses at Discharge Discharge Diagnosis (1) Altered mental status: Status: Acute (2) Confusion: Status: Acute (3) CVA (cerebral vascular accident): Status: Inactive (4) Adult failure to thrive: Status: Inactive (5) KODI (acute kidney injury): Status: Acute (6) Abnormal serum level of lipase: Status: Acute (7) Hydrocephalus: Status: Acute Qualifiers: Hydrocephalus type: unspecified Qualified Code(s): G91.9 - Hydrocephalus, unspecified Permanent problem details: Hydrocephalus ex vacuo (8) Protein-energy malnutrition: Status: Acute (9) Physical deconditioning: Status: Acute (10) Debility: Status: Acute Reason for Visit Reason for Visit: AMS Hospital Course Hospital Course 72yo M was admitted for AMS 72 year old male with past medical history of failure to thrive, anxiety, kidney stones, hyperlipidemia, sleep apnea presented to the hospital today for altered mental status initially.? He went [facility] and was noted to be confused and therefore from there was recommended to go to the ER.? He did have a fall as well when he got out of the transport van.??pt was admitted for AMS. CT scan on 03/09/23 showed CVA but on admission on 03/13/23 there was no acute abnormalities. Adult failure to thrive, confusion, lack of capacity, Hx of CVA. During course of hospitalization pt demonstrated some ability to care for self; however not suffice to go home on his own. lab/imaging/counselling with psychiatry done which showed the patient likey si back to baseline dementia. Due to passing of spouse, inability to care for himself, BMI 16 and lack of capacity we initially planned for home with home health; however due to inability to care for self pt was deemed for [place]. unfortunately due to family circumstance and lack of capacity of patient we needed to attain a court order guardianship. Pt had prolonged 31 day hospitalization significantly lengthened by this process. on 04/12/23 he attained State guardianship and we attained [facility] placement in [place]. At time of discharge patient was stable, alert to self and ready to leave. 30 day supply of medications sent. Physical Exam Const: COMMON NORMALS: no acute distress Resp: COMMON NORMALS: normal respiratory effort, No retractions, No use of accessory muscles and clear to auscultation bilaterally AUSCULTATION: clear to auscultation bilaterally Cardio: COMMON NORMALS: regular rate, regular rhythm, S1 normal heart sound present and S2 normal heart sound present RATE: regular rate RHYTHM: regular rhythm HEART SOUNDS: S1 normal heart sound present and S2 normal heart sound present GI: COMMON NORMALS: Normal to inspection, nondistended, normoactive bowel sounds present and non-tender Extremity: COMMON NORMALS: no pedal edema (FROM, 5/5 strength bilateral legs) Discharge Data Studies Completed and Pending Completed Studies During Hospitalization Category Date Time Status CT cervical spin wo con* [id number] Stat Cat Scan 03/13/23 15:[address] head wo con* [id number] Stat Cat Scan 03/13/23 15:38 Completed XR chest 1V portable [id number] Stat Exams 03/13/23 15:38 Completed MR head wo con* [id number] Routine MRI 03/14/23 09:30 Completed Pending at discharge Category Date Time Status SARS Covid-2 Antigen Routine Lab 04/12/23 15:23 Uncollected Radiology Impressions Cervical Spine CT 03/13/23 15:38 IMPRESSION: No acute abnormality. Chest X-Ray 03/13/23 15:38 IMPRESSION: Hyperinflated lungs. Correlation with chronic obstructive airway disease. Head CT 03/13/23 15:38 IMPRESSION: No acute intracranial abnormality. Chronic microvascular ischemic changes. Head MRI 03/14/23 09:30 IMPRESSION: 1. No acute infarct or diffusion abnormality identified. 2. Moderate bilateral symmetric atrophy. 3. Mild ventriculomegaly. 4. Very mild small vessel ischemic disease. Laboratory Results WBC 4.6 10^3/uL (4.0-10.0) 04/03/23 05:41 RBC 4.58 10^6/uL (4.1-5.3) 04/03/23 05:41 Hgb 13.1 g/dL (11.7-16.6) 04/03/23 05:41 Hct 41.5 % (42.0-52.0) L 04/03/23 05:41 MCV 90.6 fl (80-94) 04/03/23 05:41 MCH 28.6 pg (28.0-34.0) 04/03/23 05:41 MCHC 31.6 g/dL (30.0-36.0) 04/03/23 05:41 RDW 15.0 % (12.1-15.1) 04/03/23 05:41 Plt Count 207 10^3/cmm (130-400) 04/03/23 05:41 MPV 10.3 fL (7.4-10.4) 04/03/23 05:41 Neut % (Auto) 49.8 % 04/03/23 05:41 Lymph % (Auto) 38.8 % 04/03/23 05:41 [place] % (Auto) 9.1 % 04/03/23 05:41 Eos % (Auto) 1.5 % 04/03/23 05:41 Baso % (Auto) 0.6 % 04/03/23 05:41 Neut # (Auto) 2.31 10^3/uL (1.8-7.7) 04/03/23 05:41 Lymph # (Auto) 1.8 10^3/uL (0.8-4.8) 04/03/23 05:41 [place] # (Auto) 0.4 10^3/uL (0.2-0.9) 04/03/23 05:41 Eos # (Auto) 0.1 10^3/uL (0.0-0.8) 04/03/23 05:41 Baso # (Auto) 0.0 10^3/uL (0.0-0.1) 04/03/23 05:41 Nucleated RBC % (auto) 0 % 04/03/23 05:41 Nucleated RBCs # 0.0 /100WBC 04/03/23 05:41 Sodium 139 mmol/L (136-145) 04/03/23 05:41 Potassium 4.3 mmol/L (3.5-5.1) 04/03/23 05:41 Chloride 102 mmol/L (98-107) 04/03/23 05:41 Carbon Dioxide 29 mmol/L (22-29) 04/03/23 05:41 Anion Gap 12.3 (5-19) 04/03/23 05:41 BUN 34 mg/dL (8-23) H 04/03/23 05:41 Creatinine 1.2 mg/dL (0.7-1.2) 04/03/23 05:41 GFR Calculation Not Reportable 04/03/23 05:41 Glucose 78 mg/dL (65-115) 04/03/23 05:41 Estimat Average Glucose 120 03/13/23 15:47 Hemoglobin A1c 5.8 % (4.0-6.0) 03/13/23 15:47 Calculated Osmolality 294 mOsm/kg (285-295) 04/03/23 05:41 Calcium 9.3 mg/dL (8.5-10.5) 04/03/23 05:41 Phosphorus 2.1 mg/dL (2.5-4.5) L 03/15/23 10:00 Magnesium 1.9 mg/dL (1.7-2.3) 03/14/23 11:55 Total Bilirubin 0.3 mg/dL (0.15-1.2) 04/03/23 05:41 AST 25 U/L (0-40) 04/03/23 05:41 ALT 41 U/L (0-41) 04/03/23 05:41 Alkaline Phosphatase 63 U/L (40-130) 04/03/23 05:41 Troponin T Baseline 27 ng/L (0-15) H 03/13/23 15:47 Troponin T 120 Minute 21.22 ng/L (0-15) H 03/13/23 17:40 Delta Troponin T -5.78 ABS# (0-10) L 03/13/23 17:40 Troponin T Hi Sens 6Hr 24.71 ng/L (0-15) H 03/13/23 21:38 Troponin T Hi Sens 6Hr Delta -2.29 ng/L (0-12) L 03/13/23 21:38 Total Protein 6.2 g/dL (6.6-8.7) L 04/03/23 05:41 Albumin 3.9 g/dL (3.5-5.2) 04/03/23 05:41 Globulin 2.3 g/dL (1.3-4.6) 04/03/23 05:41 Triglycerides 66 mg/dL (0-150) 03/13/23 15:47 Cholesterol 127 mg/dL (0-200) 03/13/23 15:47 LDL Cholesterol, Calc 65 mg/dL (50-129) 03/13/23 15:47 HDL Cholesterol 49 mg/dL (60-100) L 03/13/23 15:47 LDL/HDL Ratio 1.33 RATIO (0.00-3.22) 03/13/23 15: Cholesterol/HDL Ratio 2.59 mg/dL (1.0-5.00) 03/13/23 15:47 Vitamin B12 1043 pg/mL (232-1245) 03/13/23 21:38 Procalcitonin 0.14 ng/mL (0-0.5) 03/13/23 15:47 TSH 1.96 uIU/mL (0.27-4.20) 03/13/23 15:47 Urine Color Yellow (Yellow) 03/13/23 17:00 Urine Appearance Hazy (CLEAR) A 03/13/23 17:00 Urine pH 5 (5-7) 03/13/23 17:00 Ur Specific [place] 1.020 (1.005-1.030) 03/13/23 17:00 Urine Protein 1+ (Negative) H 03/13/23 17:00 Urine Glucose (UA) Norm (Normal) 03/13/23 17:00 Urine Ketones 1+ (Negative) H 03/13/23 17:00 Urine Blood Neg (Negative) 03/13/23 17:00 Urine Nitrate Negative (Negative) 03/13/23 17:00 Urine Bilirubin Neg (Negative) 03/13/23 17:00 Urine Urobilinogen Norm mg/dL (Negative) 03/13/23 17:00 Ur Leukocyte Esterase Trace (Negative) H 03/13/23 17:00 Urine RBC Rare /hpf (0-2) 03/13/23 17:00 Urine WBC 0-4 /hpf (0-5) H 03/13/23 17:00 Ur Squamous Epith Cells Rare /hpf (0-5) 03/13/23 17:00 Amorphous Sediment Not Reportable 03/13/23 17:00 Urine Bacteria Trace /hpf (NONE) 03/13/23 17:00 Vitals Last Vital Signs Temp 97.8 F 04/13/23 08:00 Pulse 75 04/13/23 08:18 Resp 16 04/13/23 08:18 BP 120/78 04/13/23 08:00 Pulse Ox 98 04/13/23 08:18 O2 Del Method Room Air 04/13/23 08:18 O2 Flow Rate 2 04/12/23 20:00 Discharge Plan Discharge Patient Disposition: Home Health Service Condition: Stable Prescriptions: New bupropion HCl 150 mg Tablet Extended Release 24 Hr 150 mg PO DAILY Qty: 30 0RF pantoprazole 40 mg Tablet,Delayed Release (Dr/Ec) 40 mg PO DAILY Qty: 30 0RF donepezil 5 mg Tablet 5 mg PO BEDTIME Qty: 30 0RF metoprolol tartrate 25 mg Tablet 12.5 mg PO BID@0900,2100 Qty: 30 0RF Continued fluoxetine 20 mg capsule 20 mg PO DAILY 30 Days Qty: 30 1RF mirtazapine 15 mg tablet 15 mg PO BEDTIME Discontinued bupropion HCl 300 mg tablet extended release 24 hr 150 mg PO DAILY donepezil 5 mg tablet 5 mg PO BEDTIME Discharge Orders: Discharge Order (Routine); Ordered 04/13/23 Ordered By: Wilian Obrien Referrals: [facility] [Outside] Merle Sanchez MD [Primary Care Provider] - 03/27/23 9:00 am Discharge Diet: Advance as tolerated Discharge Activity: As per PT/OT instructions Patient Instructions: Hyponatremia (ED), Benzodiazepine Use Disorder (ED), Dementia (ED), Non-diabetic Hypoglycemia (ED), Hypoglycemia in a Person with Diabetes (ED), Concussion (ED), Alcohol Intoxication (ED), Subarachnoid Hemorrhage (GEN), Altered Mental Status (ED), Opioid Safety, Post Anesthesia Care Discharge Attestations Time Spent in Discharge Care*: less than 30 min Time Spent in Smoking Cessation: 3 to 10 minutes Quality Metrics Clinical Quality Measures [ No reported AMI, CVA or VTE this stay] Coding Level of Care Code 10561 Diagnoses Altered mental status R41.82 Confusion R41.0 CVA (cerebral vascular accident) I63.9 Adult failure to thrive R62.7 KODI (acute kidney injury) N17.9 Abnormal serum level of lipase R74.8 Hydrocephalus G91.9 Hydrocephalus type: unspecified Protein-energy malnutrition E46 Physical deconditioning R53.81 Debility R53.81
--- NOTE | 2023-04-13 10:25 | PC.CHAP ---
Pastoral Care Encounter/Spiritual Assessment Type of Contact [] Declined vessel captain visit [] Patient/Family/Request visit [] Outpatient visit [] Follow-up visit [] Physician referral [] Code/Alert [x] Routine visit [] Staff referral [] Actively dying [] Patient sleeping [x] Family support [] [] Out of room [] Palliative care [] [] Receiving care in room [] Pre-surgical visit [] Trauma [] Long length of stay [] ICU visit [] Other: Relational/Emotional Strength [x] Patient feels connected with others/family/visitors/staff [] Distress [] Loneliness/isolation [] Abandonment Spirituality of Patient [x] Person of Debbi [] Attends Jehovah'S Witness of their Debbi [] Believes in Prayer [] Reads Bible or Zoroastrian materials [] There are Spiritual issues to be addressed School Photographs Detailer Interventions [x] Prayer [x] Active listening [] Non-anxious presence [x] Spiritual/emotional support [] Crisis/trauma care [] Spiritual counseling [] Bereavement support [] Provided bereavement packet [] Provided Bible/devotional materials [] Provided toy/stuffed animal, coloring book to patient or family member [] Provided Communion [] Anointing/Crane [] Salvation [x] Completed spiritual assessment [] Other: Impact on Illness or Injury [] Angry [] Fearful [] Anxious [] Often cries [] Exhaustion [] Unable to work [] Unable to attend religious [] Unable to walk/stand [] Unable to read [] Unable to drive [] Unable to eat/drink [] Unable to sleep [] Unable to be with family [] Patient intubated [] Other: Summary Time spent with patient 10 min
[2023-04-13 11:45] LABS: SARS Covid-2 Antigen negative (Negative)
[2023-04-13 12:00] VITALS: BP 124/73; PULSE 84; RESP 16; TEMP 36.5; O2SAT 90
[2023-04-13 13:26] VITALS: BP 124/73; PULSE 84; RESP 16; TEMP 36.5; O2SAT 90
--- NOTE | 2023-04-13 13:28 | PC.NURSE ---
report called to Jeri at [facility]. All questions answered. iv removed. catheter tip intact. pt tolerated well. [facility] here to transport pt at 1329. pt safely left the floor with transport.
== END 2023-04-13 13:28 | disposition skilled nursing facility (03) ==
LOC: ER 20:04 → MEDSURG 21:32
PROVIDERS: Family Medicine; Internal Medicine; Student in an Organized Health Care Education/Training Program; Admitting Provider Internal Medicine; Emergency Provider Emergency Medicine; PCP Family Medicine; Visit Provider Family Medicine
DX: R62.7 Adult failure to thrive (principal); I63.9 Cerebral infarction, unspecified; E78.5 Hyperlipidemia, unspecified; F41.9 Anxiety disorder, unspecified; Z75.1 Person awaiting admission to adequate facility elsewhere; Z87.891 Personal history of nicotine dependence; N17.9 Acute kidney failure, unspecified; J44.9 Chronic obstructive pulmonary disease, unspecified; G47.30 Sleep apnea, unspecified; E46 Unspecified protein-calorie malnutrition; E43 Unspecified severe protein-calorie malnutrition; Z68.1 Body mass index [BMI] 19.9 or less, adult; R47.01 Aphasia; R74.8 Abnormal levels of other serum enzymes; Z79.82 Long term (current) use of aspirin
CPT/HCPCS: 36415; 70450; 70551; 71045; 72125; 80053; 80061; 80069; 81001; 82607; 83036; 83735; 84145; 84443; 84484; 85025; 87070; 87205; 87426; 92507; 92526; 92610; 93005; 94640; 94664; 96361; 96372; 96374; 97110; 97116; 97161; 97167; 97168; 97530; 97535; 99285; G0378; J0456; J1644; J2920; J7030; J7050; J7512

== ENCOUNTER 2023-09-04 11:35 | Emergency (ER) | payer OTHER, SELFPAY ==
[2023-09-04 11:41] VITALS: BP 102/72; PULSE 62; TEMP 36.9; O2SAT 100
--- NOTE | 2023-09-04 11:46 | XRR_ITS ---
PROCEDURE INFORMATION: Exam: XR Chest Exam date and time: 09/04/2023 11:50 AM Age: 73 years old Clinical indication: Shortness of breath TECHNIQUE: Imaging protocol: Radiologic exam of the chest. Views: 1 view. COMPARISON: CR XR chest 1V portable [id number] 03/13/2023 3:51 PM FINDINGS: Lungs: There is no consolidation. Lung volumes are large, suggesting COPD. Pleural spaces: There is no pleural effusion or pneumothorax. Heart/Mediastinum: Cardiomediastinal contours are unremarkable. Bones/joints: Bones are unremarkable. XR/XR chest 1V portable [id number] IMPRESSION: No acute findings.
--- NOTE | 2023-09-04 11:46 | CT_ITS ---
WS: [id number] CT HEAD TECHNIQUE: Noncontrast CT of the head obtained from the skullbase to the vertex. CLINICAL INFORMATION: fall, worsening confusion COMPARISON: MRI 03/14/[address] 03/13/2023 DLP: 1126.[address] scans at [facility] use at least one of these dose optimization techniques: automated e xposure control; mA and/or kV adjustment per patient size (includes targeted exams where dose is matc hed to clinical indication); or iterative reconstruction. FINDINGS: No evidence of intracranial hemorrhage or mass effect. Ventricular system and basal cisterns are sen nt. Mild small vessel changes with moderate parenchymal volume loss. No extra-axial fluid collections . No evidence of mass or mass effect. Mild ventriculomegaly unchanged. Vascular calcification. Paranasal sinuses and mastoid air cells are well aerated. .Normal visualized soft tissues. IMPRESSION: 1. No evidence of intracranial hemorrhage or mass effect. 2. No acute intracranial findings.
--- NOTE | 2023-09-04 11:50 | W.ED.FALL ---
HPI - Fall General: Chief Complaint: Fall Stated Complaint: Fall Time Seen by Provider: 09/04/23 11:37 History of Present Illness: Patient presents to the ER by EMS with complaints of a fall at the intermediate last night. care home nurses state the patient is more confused than normal. Patient is in a dementia unit. Patient does have a skin tear in his right elbow region. Patient has no complaints at this time. There is no known loss of consciousness. Review of Systems General: Reports: ROS unobtainable due to medical condition PFSH ED PFSH: Medical History Adult failure to thrive Anxiety CVA (cerebral vascular accident) Depression Gastritis History of kidney stones Hx of colonic polyps Hyperlipidemia PTSD (post-traumatic stress disorder) Sleep apnea Weakness Surgical History H/O esophagogastroduodenoscopy 12/09/2019: Gastritis Status post colonoscopy with polypectomy 12/09/2019: 3 polyps removed from descending colon, follow-up colonoscopy in 3 years Family History Denies family history of Anesthesia complication Bleeding disorder Social History Smoking and tobacco/nicotine status: former use of tobacco/nicotine Alcohol intake: former Substance/Drug Use: never Lives independently: Yes Household members: spouse Current occupational status: retired Physical Exam Const: COMMON NORMALS: no acute distress, average body habitus, healthy appearing, alert and well nourished HENMT: COMMON NORMALS: normocephalic, atraumatic, hearing grossly normal bilaterally, external ears normal, Normal external nose present, moist oral mucous membranes and oropharynx normal HEAD & SCALP: normocephalic and atraumatic NOSE: Normal external nose present EXTERNAL EAR: Yes external ears normal Neck/C-Spine: COMMON NORMALS: full ROM, no lymphadenopathy, supple, no meningeal signs, no JVD and Thyroid normal THYROID: Thyroid normal Lymph: LYMPHATIC: no lymphadenopathy noted Chest: COMMONS NORMALS: normal inspection of the chest and normal palpation of entire chest wall Resp: COMMON NORMALS: normal respiratory effort, No retractions and No use of accessory muscles; negative for clear to auscultation bilaterally (Diffuse rhonchi) AUSCULTATION: not clear to auscultation bilaterally (Diffuse rhonchi) Cardio: COMMON NORMALS: no JVD, regular rate, regular rhythm, S1 normal heart sound present, S2 normal heart sound present, No gallops present (Cardio), No clicks present (Cardio), No murmurs present (Cardio) and No rub (Cardio) RATE: regular rate RHYTHM: regular rhythm HEART SOUNDS: S1 normal heart sound present and S2 normal heart sound present GI: COMMON NORMALS: Normal to inspection, nondistended, normoactive bowel sounds present, Soft to palpation, non-tender, No hepatosplenomegaly present and no masses PALPATION: Yes Soft to palpation and Yes No hepatosplenomegaly present : COMMON NORMALS: Yes no CVA tenderness BLADDER/KIDNEY EXAM: Yes no CVA tenderness Back/Pelvis: COMMON NORMALS: no CVA tenderness Neuro: SENSORIUM/ORIENTATION: Yes alert MENINGEAL SIGNS: Yes no meningeal signs Course Vital Signs: Vital signs: Vital Signs Temperature 98.5 F 09/04/23 11:41 Pulse Rate 110 H 09/04/23 11:58 Respiratory Rate 14 09/04/23 11:58 Blood Pressure 114/56 09/04/23 13:58 Pulse Oximetry 93 09/04/23 11:58 Oxygen Delivery Me thod Room Air 09/04/23 11:58 MDM - Fall Medical Decision Making Patient presents from intermediate with a fall with no loss of consciousness and a small skin tear on his right elbow. care home nurses stated patient is more confused than normal. Lab work was obtained as well as chest x-ray and head CT all of which are essentially benign for the patient. Other than a mildly elevated BUN/creatinine of 30 and 1.8. Patient be discharged back to the intermediate and is to follow-up with his family practice physician or intermediate physician within 7 days for further evaluation and treatment. Differential Diagnosis Unlikely syncope, dislocation of shoulder region, fracture of wrist, compression fracture, concussion with loss of consciousness or concussion without loss of consciousness Medical Records I reviewed the patient's medical records. Lab Data I reviewed the patient's lab results. 09/04/23 12:15 09/04/23 12:15 Radiology Impressions Chest X-Ray 09/04/23 11:46 IMPRESSION: No acute findings. Laboratory Results WBC 5.59 10^3/uL (3.29-11.43) 09/04/23 12:15 RBC 4.21 10^6/uL (3.85-5.65) 09/04/23 12:15 Hgb 12.40 g/dL (11.27-16.99) 09/04/23 12:15 Hct 39.9 % (37-53) 09/04/23 12:15 MCV 94.8 fl (82-101) 09/04/23 12:15 MCH 29.5 pg (27-33) 09/04/23 12:15 MCHC 31.1 g/dL (30-55) 09/04/23 12:15 RDW 14.0 % (12.1-15.1) 09/04/23 12:15 Plt Count 188 10^3/cmm (157-399) 09/04/23 12:15 MPV 9.2 fL (7.4-10.4) 09/04/23 12:15 Neut % (Auto) 68.8 % 09/04/23 12:15 Lymph % (Auto) 16.1 % 09/04/23 12:15 [place] % (Auto) 13.6 % 09/04/23 12:15 Eos % (Auto) 0.7 % 09/04/23 12:15 Baso % (Auto) 0.4 % 09/04/23 12:15 Neut # (Auto) 3.85 10^3/uL (1.8-7.7) 09/04/23 12:15 Lymph # (Auto) 0.9 10^3/uL (0.8-4.8) 09/04/23 12:15 [place] # (Auto) 0.8 10^3/uL (0.2-0.9) 09/04/23 12:15 Eos # (Auto) 0.0 10^3/uL (0.0-0.8) 09/04/23 12:15 Baso # (Auto) 0.0 10^3/uL (0.0-0.1) 09/04/23 12:15 Nucleated RBC % (auto) 0 % 09/04/23 12:15 Nucleated RBCs # 0.0 /100WBC 09/04/23 12:15 Sodium 138 mmol/L (136-145) 09/04/23 12:15 Potassium 4.4 mmol/L (3.5-5.1) 09/04/23 12:15 Chloride 100 mmol/L (98-107) 09/04/23 12:15 Carbon Dioxide 30 mmol/L (22-29) H 09/04/23 12:15 Anion Gap 12.4 (5-19) 09/04/23 12:15 BUN 30 mg/dL (8-23) H 09/04/23 12:15 Creatinine 1.8 mg/dL (0.7-1.2) H 09/04/23 12:15 GFR Calculation Not Reportable 09/04/23 12:15 Glucose 98 mg/dL (65-115) 09/04/23 12:15 Calculated Osmolality 292 mOsm/kg (285-295) 09/04/23 12:15 Calcium 9.8 mg/dL (8.5-10.5) 09/04/23 12:15 Total Bilirubin 0.4 mg/dL (0.15-1.2) 09/04/23 12:15 AST 15 U/L (0-40) 09/04/23 12:15 ALT 11 U/L (0-41) 09/04/23 12:15 Alkaline Phosphatase 76 U/L (40-130) 09/04/23 12:15 Total Protein 6.5 g/dL (6.6-8.7) L 09/04/23 12:15 Albumin 4.4 g/dL (3.5-5.2) 09/04/23 12:15 Globulin 2.1 g/dL (1.3-4.6) 09/04/23 12:15 Urine Color Yellow (Yellow) 09/04/23 14:40 Urine Appearance Clear (CLEAR) 09/04/23 14:40 Urine pH 5 (5-7) 09/04/23 14:40 Ur Specific [place] 1.020 (1.005-1.030) 09/04/23 14:40 Urine Protein Neg (Negative) 09/04/23 14:40 Urine Glucose (UA) Norm (Normal) 09/04/23 14:40 Urine Ketones 1+ (Negative) H 09/04/23 14:40 Urine Blood Neg (Negative) 09/04/23 14:40 Urine Nitrate Negative (Negative) 09/04/23 14:40 Urine Bilirubin 1+ (Negative) H 09/04/23 14:40 Urine Urobilinogen Neg mg/dL (Negative) 09/04/23 14:40 Ur Leukocyte Esterase Negative (Negative) 09/04/23 14:40 All radiology interpretation(s) finalized by discharge Discharge Plan Discharge Patient Disposition: Home Clinical Impression: Acute kidney insufficiency, Skin tear Fall Qualifiers: Encounter type: initial encounter Qualified Code(s): W19.XXXA - Unspecified fall, initial encounter Condition: Stable Prescriptions: No Action fluoxetine 20 mg capsule 20 mg PO DAILY 30 Days Qty: 30 1RF mirtazapine 15 mg tablet 15 mg PO BEDTIME donepezil 5 mg Tablet 5 mg PO BEDTIME Qty: 30 0RF pantoprazole 40 mg Tablet,Delayed Release (Dr/Ec) 40 mg PO DAILY Qty: 30 0RF bupropion HCl 150 mg Tablet Extended Release 24 Hr 150 mg PO DAILY Qty: 30 0RF metoprolol tartrate 25 mg Tablet 12.5 mg PO BID@0900,2100 Qty: 30 0RF tamsulosin 0.4 mg capsule 0.4 mg PO DAILY Discharge Orders: Discharge ED (Routine); Ordered 09/04/23 Ordered By: Anival Ko Referrals: Merle Sanchez MD [Primary Care Provider] - 7-10 days Patient Instructions: Skin Tear (ED), Impaired Kidney Function (ED) Activity Restrictions/Additional Instructions: Please push plenty of fluids. Please follow-up with your family practice physician or intermediate doctor within the next 7 days for further evaluation and treatment such as but not limited to rechecking your kidney function. Coding Level of Care Code ED Play Reader for Frankie Garcia
[2023-09-04 11:58] VITALS: BP 118/71; PULSE 110; RESP 14; O2SAT 93
[2023-09-04 12:20] LABS: Basophils % 0.4 %; Eosinophils % 0.7 %; Hematocrit 39.9 % (37-53); Lymphocytes # 0.9 10^3/uL (0.8-4.8); Lymphocytes % 16.1 %; Mean Corpuscular HGB Conc 31.1 g/dL (30-55); Mean Corpuscular Hemoglobin 29.5 pg (27-33); Mean Corpuscular Volume 94.8 fl (82-101); Mean Platelet Volume 9.2 fL (7.4-10.4); Monocytes # 0.8 10^3/uL (0.2-0.9); Monocytes % 13.6 %; Neutrophils # 3.85 10^3/uL (1.8-7.7); Neutrophils % 68.8 %; Nucleated Red Blood Cells % 0 %; Platelet Count 188 10^3/cmm (157-399); Red Blood Count 4.21 10^6/uL (3.85-5.65); White Blood Count 5.59 10^3/uL (3.29-11.43)
[2023-09-04 12:44] LABS: Alanine Aminotransferase 11 U/L (0-41); Albumin Level 4.4 g/dL (3.5-5.2); Alkaline Phosphatase 76 U/L (40-130); Anion Gap 12.4 (5-19); Aspartate Amino Transferase 15 U/L (0-40); Blood Urea Nitrogen 30 mg/dL (8-23); Calcium 9.8 mg/dL (8.5-10.5); Carbon Dioxide 30 mmol/L (22-29); Chloride 100 mmol/L (98-107); Globulin 2.1 g/dL (1.3-4.6); Glucose 98 mg/dL (65-115); Osmolality Calculated 292 mOsm/kg (285-295); Potassium 4.4 mmol/L (3.5-5.1); Sodium 138 mmol/L (136-145); Total Bilirubin 0.4 mg/dL (0.15-1.2); Total Protein 6.5 g/dL (6.6-8.7)
[2023-09-04 13:58] VITALS: BP 114/56
[2023-09-04 14:57] LABS: Add Urine Microscopic? NO; Charge for UA Resulting for Rev
[2023-09-04 15:09] LABS: Bilirubin Urine 1+ (Negative); Blood Urine Neg (Negative); Glucose Urine UA Norm (Normal); Ketones Urine 1+ (Negative); Leukocyte Esterase Urine Negative (Negative); Nitrate Urine Negative (Negative); Protein Urine Neg (Negative); Urine Appearance Clear (CLEAR); Urine Color Yellow (Yellow); Urobilinogen Urine Neg (Negative); pH Urine 5 (5-7)
== END 2023-09-04 17:28 | disposition home or self-care (01) ==
PROVIDERS: Emergency Provider Emergency Medicine; PCP Family Medicine
DX: N28.9 Disorder of kidney and ureter, unspecified (principal); S51.011A Laceration without foreign body of right elbow, initial encounter; Z87.891 Personal history of nicotine dependence; Z86.73 Personal history of transient ischemic attack (TIA), and cerebral infarction without residual deficits; E78.5 Hyperlipidemia, unspecified; W19.XXXA Unspecified fall, initial encounter; Y92.129 Unspecified place in nursing home as the place of occurrence of the external cause
CPT/HCPCS: 36415; 70450; 71045; 80053; 81003; 85025; 99284

== ENCOUNTER 2023-09-12 12:58 | Observation (INO) | payer OTHER, SELFPAY ==
[2023-09-12] VITALS (10 sets, daily range): BP systolic 82–98; BP diastolic 42–60; PULSE 71–95; RESP 15–22; TEMP 36.4; O2SAT 94–99
--- NOTE | 2023-09-12 13:06 | ECG_ITS ---
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 Measurements Intervals [place] Rate: 85 P: 97 MT: 173 QRS: 86 QRSD: 90 T: 68 QT: 397 QTc: 473 Interpretive Statements Possible SINUS RHYTHM WITH OCCASIONAL ECTOPIC PREMATURE COMPLEXES Further interpretation is not pulse Heavy baseline artifact. Need to repeat this study Electronically Signed On 09-13-2023 0:43:21 NURSE PRACTITIONER MANAGER by Gerard Hall M.D. [id number]
[2023-09-12 13:17] LABS: Glucose Point of Care 93 mg/dL (70-110)
[2023-09-12 13:19] LABS: Basophils % 0.2 %; Eosinophils # 0.1 10^3/uL (0.0-0.8); Eosinophils % 0.5 %; Hematocrit 38.7 % (37-53); Lymphocytes # 1.1 10^3/uL (0.8-4.8); Lymphocytes % 11.3 %; Mean Corpuscular Hemoglobin 29.7 pg (27-33); Mean Corpuscular Volume 95.8 fl (82-101); Mean Platelet Volume 9.5 fL (7.4-10.4); Monocytes # 0.9 10^3/uL (0.2-0.9); Monocytes % 9.9 %; Neutrophils # 7.11 10^3/uL (1.8-7.7); Neutrophils % 76.9 %; Nucleated Red Blood Cells % 0 %; Platelet Count 260 10^3/cmm (157-399); Red Blood Count 4.04 10^6/uL (3.85-5.65); Red Cell Distribution Width 13.9 % (12.1-15.1); White Blood Count 9.26 10^3/uL (3.29-11.43)
--- NOTE | 2023-09-12 13:25 | CTR_ITS ---
PROCEDURE INFORMATION: Exam: CT Head Without Contrast Exam date and time: 09/12/2023 4:20 PM Age: 73 years old Clinical indication: Altered mental status/memory loss; Additional info: Tremor/ams/myoclonic jerks TECHNIQUE: Imaging protocol: Computed tomography of the head without contrast. Radiation optimization: All CT scans at this facility use at least one of these dose optimization techniques: automated exposure control; mA and/or kV adjustment per patient size (includes targeted exams where dose is matched to clinical indication); or iterative reconstruction. REPORTING DATA: Count of CT and Cardiac NM exams in prior 12 months: This patient has received 8 known CTs and 0 known cardiac nuclear medicine studies in the 12 months prior to the current study. COMPARISON: CT head wo con* [id number] 09/04/2023 11:53 AM RADIATION DOSE METRICS: Total DLP (mGy-cm): 1131 FINDINGS: Brain: Atrophic or involutional change of volume loss, as noted with prior exam. Mild periventricular chronic small-vessel disease change, unchanged from previous exam. No findings territorial or large vessel ischemic infarct. No mass effect or shift of midline structures. No intracranial hemorrhage or hematoma is seen. Cerebral ventricles: [id number] ventricular prominence with atrophic change, unchanged with prior exam. Paranasal sinuses: Visualized sinuses are unremarkable. No fluid levels. Mastoid air cells: Visualized mastoid air cells are well aerated. Bones/joints: Bone windows of the skull show no acute skull abnormality. Soft tissues: Unremarkable. Other findings: No significant change with prior exam. CT/CT head wo con* [id number] IMPRESSION: Noncontrast CT brain demonstrates stable appearance with previous exam September 04, 2023, without acute findings.
--- NOTE | 2023-09-12 13:25 | XR_ITS ---
WS: [id number] Portable AP semiupright chest, 09/12/2023 Clinical Data: dyspnea/cough Comparison: Portable chest, 09/04/2023 Findings: No nodules, masses or effusions are seen. The heart is normal. The pulmonary vascularity is not increased. No pneumonia or pneumothorax is seen. The aortic arch and descending thoracic aorta s how mild tortuosity. Monitor leads are on the chest wall. Impression: Atherosclerosis.
[2023-09-12 13:51] LABS: Alanine Aminotransferase 17 U/L (0-41); Albumin Level 3.9 g/dL (3.5-5.2); Alkaline Phosphatase 73 U/L (40-130); Anion Gap 17.3 (5-19); Aspartate Amino Transferase 24 U/L (0-40); Blood Urea Nitrogen 40 mg/dL (8-23); Calcium 9.7 mg/dL (8.5-10.5); Carbon Dioxide 30 mmol/L (22-29); Chloride 104 mmol/L (98-107); Globulin 2.8 g/dL (1.3-4.6); Glucose 103 mg/dL (65-115); Osmolality Calculated 312 mOsm/kg (285-295); Potassium 5.3 mmol/L (3.5-5.1); Sodium 146 mmol/L (136-145); Total Bilirubin 0.3 mg/dL (0.15-1.2); Total Protein 6.7 g/dL (6.6-8.7)
[2023-09-12 14:29] LABS: Lactic Sepsis W/Reflex 2.6 mmol/L (0.5-2.2)
--- NOTE | 2023-09-12 14:57 | ED_ITS ---
HPI - General Adult General: Chief complaint: General Medical Stated complaint: Shaking Time Seen by Provider: 09/12/23 12:59 Source: patient Mode of arrival: EMS History of Present Illness: 73-year-old male presents emergency room with myoclonic jerking. Initially usp test that he had some tremors became disoriented and unable to answer questions. He does have a history of some cognitive deficits. On first appearance he also appears to have Parkinson's. He has been admitted several times for failure to thrive and physical gait deconditioning and dementia. No report of fever sweats or chills. Review of Systems General: Reports: ROS unobtainable due to mental status PFSH ED PFSH: Medical History Adult failure to thrive Anxiety CVA (cerebral vascular accident) Depression Gastritis History of kidney stones Hx of colonic polyps Hyperlipidemia PTSD (post-traumatic stress disorder) Sleep apnea Weakness Surgical History H/O esophagogastroduodenoscopy 12/09/2019: Gastritis Status post colonoscopy with polypectomy 12/09/2019: 3 polyps removed from descending colon, follow-up colonoscopy in 3 years Family History Denies family history of Anesthesia complication Bleeding disorder Social History Smoking and tobacco/nicotine status: former use of tobacco/nicotine Alcohol intake: former Substance/Drug Use: never Lives independently: Yes Household members: spouse Current occupational status: retired Physical Exam Const: GENERAL APPEARANCE: cooperative and comfortable ORIENTATION/CONSCIOUSNESS: Yes awake HENMT: COMMON NORMALS: normocephalic and atraumatic HEAD & SCALP: normocephalic and atraumatic Resp: COMMON NORMALS: normal respiratory effort, No retractions, No use of accessory muscles and clear to auscultation bilaterally AUSCULTATION: clear to auscultation bilaterally Cardio: COMMON NORMALS: regular rate, regular rhythm and No murmurs present (Cardio) RATE: regular rate RHYTHM: regular rhythm GI: COMMON NORMALS: Soft to palpation and No hepatosplenomegaly present AUSCULTATION: Yes normoactive bowel sounds PALPATION: Yes Soft to palpation, No Tenderness to palpation present (GI), No Guarding due to palpation present (GI) and Yes No hepatosplenomegaly present Extremity: COMMON NORMALS: normal to inspection, capillary refill normal, no clubbing, cyanosis or edema, no calf tenderness and no pedal edema Neuro: OTHER: Myoclonic jerking of the upper and lower extremities. Masklike facies. Patient is able to respond to questions but is not able to contribute to history. Skin: COMMON NORMALS: no rashes or lesions noted GENERAL SKIN EXAM: no rashes or lesions noted Course Vital Signs: Vital signs: Vital Signs Temperature 97.5 F L 09/17/23 16:00 Pulse Rate 74 09/17/23 16:00 Respiratory Rate 18 09/17/23 16:00 Blood Pressure 126/68 09/17/23 16:00 Pulse Oximetry 92 09/17/23 16:00 Oxygen Delivery Me thod Room Air 09/16/23 12:00 Oxygen Flow Rate 1.5 09/13/23 13:17 MDM - General Adult Medical Decision Making Patient presented myoclonic jerking and unresponsive. He has acute kidney failure with hyperkalemia progressive dementia suspect he also has Parkinson's as well.. Patient had some mild anemia as well. Will admit to the hospitalist discussed orders written Medical Records I reviewed the patient's medical records. Lab Data I reviewed the patient's lab results. 09/14/23 04:25 09/15/23 04:[address] 09/12/23 13:25 IMPRESSION: Noncontrast CT brain demonstrates stable appearance with previous exam September 04, 2023, without acute findings. Laboratory Results WBC 9.26 10^3/uL (3.29-11.43) 09/12/23 13:12 RBC 4.04 10^6/uL (3.85-5.65) 09/12/23 13:12 Hgb 12.00 g/dL (11.27-16.99) 09/12/23 13:12 Hct 38.7 % (37-53) 09/12/23 13:12 MCV 95.8 fl (82-101) 09/12/23 13:12 MCH 29.7 pg (27-33) 09/12/23 13:12 MCHC 31.0 g/dL (30-55) 09/12/23 13:12 RDW 13.9 % (12.1-15.1) 09/12/23 13:12 Plt Count 260 10^3/cmm (157-399) 09/12/23 13:12 MPV 9.5 fL (7.4-10.4) 09/12/23 13:12 Neut % (Auto) 76.9 % 09/12/23 13:12 Lymph % (Auto) 11.3 % 09/12/23 13:12 Frederick % (Auto) 9.9 % 09/12/23 13:12 Eos % (Auto) 0.5 % 09/12/23 13:12 Baso % (Auto) 0.2 % 09/12/23 13:12 Neut # (Auto) 7.11 10^3/uL (1.8-7.7) 09/12/23 13:12 Lymph # (Auto) 1.1 10^3/uL (0.8-4.8) 09/12/23 13:12 Frederick # (Auto) 0.9 10^3/uL (0.2-0.9) 09/12/23 13:12 Eos # (Auto) 0.1 10^3/uL (0.0-0.8) 09/12/23 13:12 Baso # (Auto) 0.0 10^3/uL (0.0-0.1) 09/12/23 13:12 Nucleated RBC % (auto) 0 % 09/12/23 13:12 Nucleated RBCs # 0.0 /100WBC 09/12/23 13:12 Sodium 146 mmol/L (136-145) H 09/12/23 13:12 Potassium 5.3 mmol/L (3.5-5.1) H 09/12/23 13:12 Chloride 104 mmol/L (98-107) 09/12/23 13:12 Carbon Dioxide 30 mmol/L (22-29) H 09/12/23 13:12 Anion Gap 17.3 (5-19) 09/12/23 13:12 BUN 40 mg/dL (8-23) H 09/12/23 13:12 Creatinine 3.0 mg/dL (0.7-1.2) H 09/12/23 13:12 GFR Calculation Not Reportable 09/12/23 13:12 Glucose 103 mg/dL (65-115) 09/12/23 13:12 POC Glucose 93 mg/dL (70-110) 09/12/23 13:14 Calculated Osmolality 312 mOsm/kg (285-295) H 09/12/23 13:12 Lactic Acid 2.6 mmol/L (0.5-2.2) H 09/12/23 13:12 Lactic Acid (Sepsis) 2.5 mmol/L (0.5-2.2) H 09/12/23 16:13 Calcium 9.7 mg/dL (8.5-10.5) 09/12/23 13:12 Total Bilirubin 0.3 mg/dL (0.15-1.2) 09/12/23 13:12 AST 24 U/L (0-40) 09/12/23 13:12 ALT 17 U/L (0-41) 09/12/23 13:12 Alkaline Phosphatase 73 U/L (40-130) 09/12/23 13:12 C-Reactive Protein 17.6 mg/L (0.0-4.9) H 09/12/23 13:12 Total Protein 6.7 g/dL (6.6-8.7) 09/12/23 13:12 Albumin 3.9 g/dL (3.5-5.2) 09/12/23 13:12 Globulin 2.8 g/dL (1.3-4.6) 09/12/23 13:12 Procalcitonin 0.22 ng/mL (0-0.5) 09/12/23 13:12 All radiology interpretation(s) finalized by discharge Discharge Plan Discharge Patient Disposition: Admitted As Inpatient Admit Provider: Vin Wellington Clinical Impression: KODI (acute kidney injury), Hyperkalemia, Hypotension Condition: Stable Discharge Diet: As Directed Coding Level of Care Code ED Technology Sales Consultant for Frankie Garcia
[2023-09-12 15:03] LABS: Reflex Lactate Order REFLEX LACTIC ORDERD
[2023-09-12] MEDS: LORazepam 2 mg/mL INJ 1 mL IVP (15:40)
--- NOTE | 2023-09-12 16:08 | PM.HP ---
Providers/Chief Complaint Primary Care Provider: Merle Sanchez MD Chief Complaint: Shaking History of Present Illness Catalino Ivy is a 73 year old male with a past medical history significant for failure to thrive, anxiety, kidney stones, hyperlipidemia, and sleep apnea who presented with altered mental status with jerking. Patient has a known history of dementia and is a poor historian. Per collateral, patient has reportedly been more confused and disoriented than usual. He subsequently developed myoclonic jerking. In the ED, patient was found to have soft blood pressure treated with IV fluids. Labs revealed KODI, lactic acidosis and hyperkalemia. Head CT obtained and negative for acute findings. Review of Systems Narrative: A complete review of systems was obtained and is negative except as stated in HPI. Medications/Allergies Home Medications Medication Instructions Recorded Confirmed Last Taken Type fluoxetine 20 mg capsule 20 mg PO DAILY 30 days #30 caps 02/24/23 09/12/23 09/12/23 Rx mirtazapine 15 mg tablet 15 mg PO BEDTIME 03/19/23 09/12/23 09/11/23 History bupropion HCl 150 mg 24 hr tablet, 150 mg PO DAILY #30 tabs 04/13/23 09/12/23 09/12/23 Rx extended release donepezil 5 mg tablet 5 mg PO BEDTIME #30 tabs 04/13/23 09/12/23 09/11/23 Rx metoprolol tartrate 25 mg tablet 12.5 mg PO BID@0900,2100 #30 tabs 04/13/23 09/12/23 09/12/23 Rx pantoprazole 40 mg tablet,delayed 40 mg PO DAILY #30 tabs 04/13/23 09/12/23 09/12/23 Rx release tamsulosin 0.4 mg capsule 0.4 mg PO DAILY 09/04/23 09/12/23 09/12/23 History acetaminophen 325 mg tablet 650 mg PO QID PRN Pain 09/12/23 09/12/23 Unknown History Allergies Allergy/AdvReac Type Severity Reaction Status Date / Time No Known Drug Allergies Allergy Unknown Verified 03/13/23 15:31 PFSH Acute PFSH: Medical History Adult failure to thrive Anxiety CVA (cerebral vascular accident) Depression Gastritis History of kidney stones Hx of colonic polyps Hyperlipidemia PTSD (post-traumatic stress disorder) Sleep apnea Weakness Surgical History H/O esophagogastroduodenoscopy 12/09/2019: Gastritis Status post colonoscopy with polypectomy 12/09/2019: 3 polyps removed from descending colon, follow-up colonoscopy in 3 years Family History Denies family history of Anesthesia complication Bleeding disorder Social History Smoking and tobacco/nicotine status: former use of tobacco/nicotine Alcohol intake: former Substance/Drug Use: never Lives independently: Yes Household members: spouse Current occupational status: retired Vitals/I&O/Wt Last Vital Signs Pulse 93 09/12/23 15:58 Resp 20 H 09/12/23 15:58 BP 84/42 09/12/23 15:58 Pulse Ox 94 09/12/23 15:58 O2 Del Method Room Air 09/12/23 15:58 Physical Exam Narrative: General: Patient is awake. Very frail and cachetic. Head: Temporal wasting. Neck: No JVD. Cardiovascular: RRR. No gallops. No murmurs. Lungs: Clear to auscultation, no use of accessory muscles, no crackles or wheezes. Skin: No jaundice. No rashes. Abdomen: Normal bowel sounds, abdomen soft and nontender. Extremities: No cyanosis or clubbing. Musculoskeletal: Poor muscular development Neurological: Moves all 4 extremities. Intermittent jerking. Data 09/13/23 03:35 09/13/23 03:35 A&P Assessment and plan (1) KODI (acute kidney injury): Suspect pre-renal versus ATN; given duration and recent Cr of 1.8, there is a high likelihood he may have progressed already to intrinsic renal injury Start IV fluids Renal ultrasound Urine electrolytes Start IV fluids at 1 mL/kg bw Monitor respiratory status (2) Lactic acidosis: Lactic acidosis suspected 2/2 dehydration Receiving IVF bolus in ED Start IV fluids Procalcitonin and CRP to evaluate for possible infection No leukocytosis, left shift, or febrile; however infection remains within the differential Will cover with empiric abx while awaiting further work up (3) Dementia: Patient demented at baseline Need to determine decision maker (4) Protein-energy malnutrition: Nutrition consult (5) Physical deconditioning: Optimize comorbidities CM consult (6) Adult failure to thrive: Optimize comorbidities As above (7) Tremor: Unclear etiology, possibly related to renal failure May need neurology evaluation pending clinical course (8) Confusion: Dementia at baseline, will need to clarify recent baseline to gauge progress Avoid further sedating medication, already received Ativan in ED Plan DVT ppx: Heparin Code: Full Attestations Medical Necessity Statement*: Pt presents with tremors of unclear etiology, found to have KODI and lactic acidosis with failure to thrive with expected hospitalization not to cross two midnights. Coding Level of Care Code Acute Code for g Fwd Diagnoses KODI (acute kidney injury) N17.9 Lactic acidosis E87.20 Dementia F03.90 Protein-energy malnutrition E46 Physical deconditioning R53.81 Adult failure to thrive R62.7 Tremor R25.1 Confusion R41.0
[2023-09-12 16:44] LABS: Lactic Acid level (Lactate) 2.5 mmol/L (0.5-2.2)
[2023-09-12] MEDS: sodium chloride 0.9% 1,000 ML 999 ML IV (16:57)
--- NOTE | 2023-09-12 17:12 | PC.NURSE ---
patient resting with eyes closed, respirations even and unlabored, vitals are BP 88/54 HR 75 resp 20 O2 97 on 2L. PSA sitting with patient at this time due to tremors.
--- NOTE | 2023-09-12 18:10 | US_ITS ---
WS: [id number] RENAL ULTRASOUND URINARY BLADDER ULTRASOUND HISTORY: KODI COMPARISON: 10/09/2019 TECHNIQUE: 2-D and color Doppler imaging of the kidney submitted. Right kidney: 6.7 cm x 4.8 cm x 3.9 cm. Cortex: 0.3 cm Moderate atrophy with marked increased echogenicity. No hydronephrosis. No vascularity identified. Left kidney: 9.6 cm x 6.4 cm x 5.4 cm. Cortex: 1.1 cm Normal size and normal echogenicity. Cortical cyst lower pole with a maximum diameter of 9 mm. No obs truction. Aorta: Normal. Urinary Bladder: Well-distended urinary bladder. No intraluminal filling defects. Patient was unable to void for this exam. Prostate is normal size with central calcifications. IMPRESSION: 1. Moderate atrophy RIGHT kidney with progression since 2019. Increasing echogenicity throughout the kidney. No vascularity is identified. 2. Negative LEFT kidney. No hydronephrosis or atrophy. 3. Normal urinary bladder. No intraluminal filling defect.
[2023-09-12] MEDS: sodium chloride 0.9% 1,000 ML 50 ML IV (18:17)
[2023-09-12 19:16] LABS: C Reactive Protein 17.6 mg/L (0.0-4.9)
[2023-09-12 19:24] LABS: Procalcitonin 0.22 ng/mL (0-0.5)
--- NOTE | 2023-09-12 20:21 | PC.PHAR ---
[id number] Vancomycin - standard dosing requested. pt parameters require longer frequency. 15 mg/kg = 750 q48h draw level before 3rd dose 09/16/2023 @1999 - lab entered by LUKE
--- NOTE | 2023-09-12 20:45 | PC.NURSE ---
Admission assessment unable to complete due to patient AMS.
[2023-09-12] MEDS: cefTRIAXone 1,000 MG in sodium chloride 0.9% (plus) 50 ML 100 MG IV (20:57)
[2023-09-12] MEDS: heparin 5,000 unit/mL INJ 1 mL 5000 UNIT SUBCUT (20:57)
[2023-09-12] MEDS: vancomycin 750 MG in sodium chloride 0.9% 250 ML 250 MG IV (21:38)
[2023-09-12 23:57] LABS: Add Urine Microscopic? NO
[2023-09-13] VITALS (10 sets, daily range): BP systolic 87–109; BP diastolic 48–84; PULSE 67–103; RESP 17–29; TEMP 36.4–37.6; O2SAT 93–100; BMI 18.6
[2023-09-13 00:01] LABS: Bilirubin Urine Neg (Negative); Blood Urine Neg (Negative); Glucose Urine UA Norm (Normal); Ketones Urine 1+ (Negative); Leukocyte Esterase Urine Negative (Negative); Nitrate Urine Negative (Negative); Protein Urine Neg (Negative); Specific Gravity, Urine 1.015 (1.005-1.030); Urine Appearance Clear (CLEAR); Urine Color Yellow (Yellow); Urobilinogen Urine Norm (Negative); pH Urine 6 (5-7)
[2023-09-13 00:17] LABS: Potassium, Radom Urine 60 mmol/L; Urine Random Chloride 74 mmol/L; Urine Random Sodium 80 mmol/L
[2023-09-13] MEDS: haloperidol inj 5 mg/mL INJ 1 mL 1 MG IM (01:34)
[2023-09-13 04:04] LABS: Basophils % 0.3 %; Eosinophils # 0.1 10^3/uL (0.0-0.8); Eosinophils % 0.7 %; Hematocrit 33.9 % (37-53); Lymphocytes # 1.3 10^3/uL (0.8-4.8); Lymphocytes % 17.9 %; Mean Corpuscular HGB Conc 29.2 g/dL (30-55); Mean Corpuscular Hemoglobin 29.8 pg (27-33); Mean Corpuscular Volume 102.1 fl (82-101); Mean Platelet Volume 9.5 fL (7.4-10.4); Monocytes # 0.9 10^3/uL (0.2-0.9); Monocytes % 12.2 %; Neutrophils # 4.74 10^3/uL (1.8-7.7); Neutrophils % 67.8 %; Nucleated Red Blood Cells % 0 %; Platelet Count 209 10^3/cmm (157-399); Red Blood Count 3.32 10^6/uL (3.85-5.65); Red Cell Distribution Width 14.3 % (12.1-15.1); White Blood Count 6.99 10^3/uL (3.29-11.43)
[2023-09-13 04:29] LABS: Alanine Aminotransferase 15 U/L (0-41); Alkaline Phosphatase 59 U/L (40-130); Anion Gap 12.5 (5-19); Aspartate Amino Transferase 23 U/L (0-40); Blood Urea Nitrogen 33 mg/dL (8-23); Calcium 8.4 mg/dL (8.5-10.5); Carbon Dioxide 24 mmol/L (22-29); Chloride 114 mmol/L (98-107); Globulin 2.3 g/dL (1.3-4.6); Glucose 72 mg/dL (65-115); Osmolality Calculated 308 mOsm/kg (285-295); Phosphorus 3.4 mg/dL (2.5-4.5); Potassium 4.5 mmol/L (3.5-5.1); Sodium 146 mmol/L (136-145); Total Bilirubin 0.2 mg/dL (0.15-1.2); Total Protein 5.3 g/dL (6.6-8.7)
[2023-09-13] MEDS: tamsulosin 0.4 mg Capsule PO (08:29)
[2023-09-13] MEDS: dextrose 5%-sod chloride 0.45% 1,000 ML 50 ML IV (08:29)
[2023-09-13] MEDS: heparin 5,000 unit/mL INJ 1 mL 5000 UNIT SUBCUT ×2 (08:29→20:50)
[2023-09-13] MEDS: metoprolol tartrate 25 mg Tablet 12.5 MG PO ×2 (08:29→20:50)
--- NOTE | 2023-09-13 10:10 | PM.PN ---
Subjective Subjective: Patient required Haldol overnight. He is resting comfortably this morning. In no acute distress. Afebrile. Seems to deny any complaints. Sitter at bedside. Medications: Reviewed: Yes Vitals/I&O/Wt Last Vital Signs Temp 97.8 F 09/13/23 07:32 Pulse 73 09/13/23 09:43 Resp 19 H 09/13/23 09:43 BP 90/56 09/13/23 09:43 Pulse Ox 100 09/13/23 09:43 O2 Del Method Nasal Cannula 09/13/23 07:32 O2 Flow Rate 1.5 09/13/23 07:32 09/12/23 09/13/23 09/13/23 22:59 06:59 14:59 Intake Total 1300 / 1300 Balance 1300 / 1300 Weight last 48 hrs Weight 50.621 kg Weight 50.621 kg Physical Exam Narrative: General: Patient is lethargic. Lying in bed. Head: Temporal wasting. Eyes closed. Neck: No JVD. Cardiovascular: RRR. No gallops. No murmurs. Lungs: Breath sounds are course and slightly diminished in bilateral bases. No distress. On nasal canula. Skin: No jaundice. No rashes. Abdomen: Normal bowel sounds, abdomen soft and nontender. Extremities: No cyanosis or clubbing. Musculoskeletal: Poor muscular development Neurological: Moves all 4 extremities. Intermittent jerking. Urinary Catheter Management: Rodriguez: Cath Placed During This Visit: yes Reason for Continuing Indwelling Catheter: Accurate Measurement of Urinary Output in Critically Ill Patients Urinary Catheter Date of Insertion: 09/12/23 Urinary Catheter Time of Insertion: 23:37 Data 09/13/23 03:35 09/13/23 03:35 Micro: Microbiology 09/12/23 20:33 Blood Culture - Preliminary Blood SPECIMEN COLLECTED 09/12/23 20:33 Blood Culture - Preliminary Blood SPECIMEN COLLECTED A&P Assessment and plan (1) KODI (acute kidney injury): Trend Cr 3.0 -> 2.3 Continue gentle IVF, formulation adjusted Renal ultrasound reviewed Urine electrolytes pending Monitor respiratory status (2) Lactic acidosis: Inflammatory markers reviewed, not markedly elevated MRSA infection less likely, hold off on additional vancomcyin for renal protection for now Follow up MRSA swab Continue empiric ceftriaxone fow now (3) Dementia: Patient demented at baseline D/w CM, pt reportedly has guardian (4) Protein-energy malnutrition: Nutrition consult (5) Physical deconditioning: Optimize comorbidities CM consult (6) Adult failure to thrive: Optimize comorbidities As above (7) Tremor: Unclear etiology, possibly related to renal failure Correcting metabolic derrangements May need neurology evaluation pending clinical course (8) Confusion: Dementia at baseline Holding psychiatric medications due to renal failure May requires additional medications for agitation as he did overnight Continue to monitor closely Plan DVT ppx: Heparin Code: Full Attestations Medical Necessity Statement*: Patient requires ongoing hospitalization for IV fluids, electrolyte monitoring, titration of psychiatric medications, and supportive care. Coding Level of Care Code Acute Code for Chg Fwd Diagnoses KODI (acute kidney injury) N17.9 Lactic acidosis E87.20 Dementia F03.90 Protein-energy malnutrition E46 Physical deconditioning R53.81 Adult failure to thrive R62.7 Tremor R25.1 Confusion R41.0
--- NOTE | 2023-09-13 10:16 | PC.CHAP ---
Pastoral Care Encounter/Spiritual Assessment Type of Contact [] Declined gas pumping station helper visit [] Patient/Family/Request visit [] Outpatient visit [] Follow-up visit [] Physician referral [] Code/Alert [x] Routine visit [] Staff referral [] Actively dying [] Patient sleeping [] Family support [] [] Out of room [] Palliative care [] [] Receiving care in room [] Pre-surgical visit [] Trauma [] Long length of stay [] ICU visit [] Other: Relational/Emotional Strength [] Patient feels connected with others/family/visitors/staff [] Distress [] Loneliness/isolation [] Abandonment Spirituality of Patient [] Person of Debbi [] Attends Rastafari of their Debbi [] Believes in Prayer [] Reads Bible or Episcopalian materials [] There are Spiritual issues to be addressed Beam Dyer Recessed Vat Interventions [] Prayer [] Active listening [] Non-anxious presence [] Spiritual/emotional support [] Crisis/trauma care [] Spiritual counseling [] Bereavement support [] Provided bereavement packet [] Provided Bible/devotional materials [] Provided toy/stuffed animal, coloring book to patient or family member [] Provided Communion [] Anointing/[place] [] Salvation [] Completed spiritual assessment [] Other: Impact on Illness or Injury [] Angry [] Fearful [] Anxious [] Often cries [] Exhaustion [] Unable to work [] Unable to attend episcopalian [] Unable to walk/stand [] Unable to read [] Unable to drive [] Unable to eat/drink [] Unable to sleep [] Unable to be with family [] Patient intubated [] Other: Summary unable to communicate Staff Time spent with patient 5 mins
[2023-09-13] MEDS: quetiapine 25 mg Tablet PO (20:50)
[2023-09-13] MEDS: cefTRIAXone 1,000 MG in sodium chloride 0.9% (plus) 50 ML 100 MG IV (20:50)
[2023-09-14] VITALS: BP 106/56; PULSE 70; RESP 17; TEMP 36.7; O2SAT 92
[2023-09-14] MEDS: dextrose 5%-sod chloride 0.45% 1,000 ML 50 ML IV ×2 (02:36→22:32)
[2023-09-14 04:00] VITALS: BP 109/66; PULSE 69; RESP 17; TEMP 36.8; O2SAT 94
[2023-09-14 05:29] LABS: Basophils % 0.4 %; Eosinophils # 0.2 10^3/uL (0.0-0.8); Hematocrit 33.5 % (37-53); Lymphocytes # 1.1 10^3/uL (0.8-4.8); Lymphocytes % 15.3 %; Mean Corpuscular HGB Conc 30.4 g/dL (30-55); Mean Corpuscular Hemoglobin 29.1 pg (27-33); Mean Corpuscular Volume 95.4 fl (82-101); Mean Platelet Volume 9.9 fL (7.4-10.4); Monocytes # 0.7 10^3/uL (0.2-0.9); Monocytes % 9.6 %; Neutrophils # 5.28 10^3/uL (1.8-7.7); Neutrophils % 71.6 %; Nucleated Red Blood Cells % 0 %; Platelet Count 242 10^3/cmm (157-399); Red Blood Count 3.51 10^6/uL (3.85-5.65); Red Cell Distribution Width 14.2 % (12.1-15.1); White Blood Count 7.38 10^3/uL (3.29-11.43)
[2023-09-14 05:53] LABS: Albumin Level 3.2 g/dL (3.5-5.2); Anion Gap 14.2 (5-19); Blood Urea Nitrogen 26 mg/dL (8-23); Calcium 8.8 mg/dL (8.5-10.5); Carbon Dioxide 27 mmol/L (22-29); Chloride 109 mmol/L (98-107); Glucose 93 mg/dL (65-115); Phosphorus 2.2 mg/dL (2.5-4.5); Potassium 4.2 mmol/L (3.5-5.1); Sodium 146 mmol/L (136-145)
--- NOTE | 2023-09-14 07:52 | PC.SOCIAL ---
IMM Update pg 2 of IMM not updated at this time as patient is currently in observation status.
[2023-09-14 08:00] VITALS: BP 135/62; PULSE 65; RESP 17; TEMP 36.9; O2SAT 94
[2023-09-14] MEDS: heparin 5,000 unit/mL INJ 1 mL 5000 UNIT SUBCUT ×2 (08:55→20:11)
[2023-09-14] MEDS: pantoprazole DR 40 mg Tablet PO (08:55)
[2023-09-14] MEDS: metoprolol tartrate 25 mg Tablet 12.5 MG PO ×2 (08:55→20:11)
[2023-09-14] MEDS: buPROPion XL (24 HR) 150 mg Tablet PO (08:55)
[2023-09-14] MEDS: fluoxetine 20 mg Capsule PO (08:55)
[2023-09-14] MEDS: tamsulosin 0.4 mg Capsule PO (08:55)
--- NOTE | 2023-09-14 10:43 | PM.PN ---
Subjective Subjective: Patient is sitting up eating breakfast this morning. Denies nausea, vomiting, fevers or chills. His diffuse tremors have improved somewhat. Medications: Reviewed: Yes Vitals/I&O/Wt Last Vital Signs Temp 98.5 F 09/14/23 08:00 Pulse 65 09/14/23 08:00 Resp 17 09/14/23 08:00 BP 135/62 09/14/23 08:00 Pulse Ox 94 09/14/23 08:00 O2 Del Method Room Air 09/14/23 04:00 O2 Flow Rate 1.5 09/13/23 13:17 09/13/23 09/14/23 09/14/23 22:59 06:59 14:59 Intake Total 1050 / 1050 Output Total 800 / 1200 500 / 1700 Balance 250 / -150 -500 / -650 Weight last 48 hrs Weight 51.823 kg Weight 50.621 kg Weight 50.621 kg Physical Exam Narrative: General: Patient is awake. Interactive. Pleasant. Head: Temporal wasting. Neck: No JVD. Cardiovascular: RRR. No gallops. No murmurs. Lungs: Breath sounds are slightly diminished bilateral bases. No wheezing. No respiratory distress. Skin: No jaundice. No rashes. Abdomen: Normal bowel sounds, abdomen soft and nontender. Extremities: No cyanosis or clubbing. Musculoskeletal: Poor muscular development Neurological: Moves all 4 extremities. Intermittent jerking. Urinary Catheter Management: Rodriguez: Cath Placed During This Visit: yes Reason for Continuing Indwelling Catheter: Not indwelling catheter Urinary Catheter Date of Insertion: 09/12/23 Urinary Catheter Time of Insertion: 23:37 Data 09/14/23 04:25 09/14/23 04:25 Micro: Microbiology 09/12/23 20:33 Blood Culture - Preliminary Blood NEGATIVE TO DATE 09/12/23 20:33 Blood Culture - Preliminary Blood NEGATIVE TO DATE A&P Assessment and plan (1) KODI (acute kidney injury): Associated with hyponatremia, hyperchloremia, azotemia, hypophosphatemia Trend Cr 3.0 -> 2.3 -> 1.6 Continue IV fluids Monitor respiratory status (2) Lactic acidosis: No source of infection identified, discontinue antibiotics (3) Tremor: Tremors was chief complaint, these seem to be improving Continue to monitor closely (4) Dementia: Mentation is improving, suspect close to baseline (5) Protein-energy malnutrition: Encourage oral intake (6) Physical deconditioning: Optimize comorbidities (7) Adult failure to thrive: Optimize comorbidities As above (8) Confusion: Restart home meds now that mentation and renal function is improving Plan DVT ppx: Heparin Code: Full Attestations Medical Necessity Statement*: Patient is in persistent renal failure requiring ongoing hospitalization for IV fluids, titration of psychiatric medications, and supportive care. Coding Level of Care Code Acute Code for Chg Fwd Diagnoses KODI (acute kidney injury) N17.9 Lactic acidosis E87.20 Tremor R25.1 Dementia F03.90 Protein-energy malnutrition E46 Physical deconditioning R53.81 Adult failure to thrive R62.7 Confusion R41.0
[2023-09-14 12:00] VITALS: PULSE 68; RESP 18; TEMP 37
--- NOTE | 2023-09-14 12:53 | PC.SOCIAL ---
IMM Update pg 2 of IMM copy left @ bedside. Called patients guardian Betzy Jj @ [phone] unable to leave a message as her mailbox is full. Copy dated, initialed and placed in chart.
[2023-09-14 16:00] VITALS: BP 118/60; PULSE 82; RESP 18; TEMP 36.6; O2SAT 98
[2023-09-14 18:04] LABS: Methicillin-Resist S.aureu PCR NOT DETECTED (NOT DETECTED)
[2023-09-14 20:00] VITALS: BP 106/67; PULSE 77; RESP 18; TEMP 36.6; O2SAT 95
[2023-09-14] MEDS: quetiapine 25 mg Tablet PO (20:11)
[2023-09-14] MEDS: donepezil 5 MG Tablet PO (20:11)
[2023-09-15] VITALS: BP 139/65; PULSE 72; RESP 18; TEMP 36.6; O2SAT 95
[2023-09-15 04:00] VITALS: BP 126/70; PULSE 71; RESP 18; TEMP 36.9; O2SAT 95
[2023-09-15 05:21] LABS: Albumin Level 3.3 g/dL (3.5-5.2); Anion Gap 15.1 (5-19); Blood Urea Nitrogen 20 mg/dL (8-23); Calcium 8.8 mg/dL (8.5-10.5); Carbon Dioxide 25 mmol/L (22-29); Chloride 107 mmol/L (98-107); Glucose 99 mg/dL (65-115); Phosphorus 1.8 mg/dL (2.5-4.5); Potassium 4.1 mmol/L (3.5-5.1); Sodium 143 mmol/L (136-145)
[2023-09-15 07:46] VITALS: BP 141/70; PULSE 75; RESP 19; TEMP 36.4; O2SAT 95
[2023-09-15] MEDS: heparin 5,000 unit/mL INJ 1 mL 5000 UNIT SUBCUT ×2 (08:26→21:02)
[2023-09-15] MEDS: metoprolol tartrate 25 mg Tablet 12.5 MG PO ×2 (08:27→21:02)
[2023-09-15] MEDS: fluoxetine 20 mg Capsule PO (08:27)
[2023-09-15] MEDS: tamsulosin 0.4 mg Capsule PO (08:27)
[2023-09-15] MEDS: buPROPion XL (24 HR) 150 mg Tablet PO (08:27)
[2023-09-15] MEDS: pantoprazole DR 40 mg Tablet PO (08:28)
--- NOTE | 2023-09-15 10:21 | PM.PN ---
Subjective Subjective: Patient sleeping but awakens to name. Denies nausea, emesis, fevers or shortness of breath. No new complaints. Eager for breakfast. Medications: Reviewed: Yes Vitals/I&O/Wt Last Vital Signs Temp 97.5 F L 09/15/23 07:46 Pulse 75 09/15/23 07:46 Resp 19 H 09/15/23 07:46 BP 141/70 09/15/23 07:46 Pulse Ox 95 09/15/23 07:46 O2 Del Method Room Air 09/15/23 07:46 O2 Flow Rate 1.5 09/13/23 13:17 09/14/23 09/15/23 09/15/23 22:59 06:59 14:59 Intake Total 1236.667 / 1716.667 240 / 240 Output Total 700 / 700 250 / 950 Balance 536.667 / 1016.667 -250 / 766.667 240 / 240 Weight last 48 hrs Weight 49.158 kg Weight 51.823 kg Physical Exam Narrative: General: Patient is sleeping but awakens easily. Head: Temporal wasting. Neck: No JVD. Cardiovascular: RRR. No gallops. No murmurs. Lungs: Breath sounds are slightly diminished bilateral bases. No wheezing. No respiratory distress. Skin: No jaundice. No rashes. Abdomen: Normal bowel sounds, abdomen soft and nontender. Extremities: No cyanosis or clubbing. Musculoskeletal: Poor muscular development Neurological: Moves all 4 extremities. Intermittent jerking. Urinary Catheter Management: Rodriguez: Cath Placed During This Visit: yes Reason for Continuing Indwelling Catheter: Not indwelling catheter Urinary Catheter Date of Insertion: 09/12/23 Urinary Catheter Time of Insertion: 23:37 Data 09/14/23 04:25 09/15/23 04:14 A&P Assessment and plan (1) KODI (acute kidney injury): Associated with hyponatremia, hyperchloremia, azotemia, hypophosphatemia Trend Cr 3.0 -> 2.3 -> 1.6 -> 1.4 Discontinue IV fluids Encourage oral intake (2) Tremor: Tremors are improving, possibly exacerbated by the renal failure Considering anti-tremor medications if symptoms return (3) Dementia: Mentation approaching baseline (4) Protein-energy malnutrition: Encourage oral intake (5) Physical deconditioning: Optimize comorbidities (6) Adult failure to thrive: Optimize comorbidities (7) Confusion: Continue home medications (8) Lactic acidosis: Plan DVT ppx: Heparin Code: Full Attestations Medical Necessity Statement*: Patient requires ongoing hospitalization for supportive care. A safe disposition is not currently available. Coding Level of Care Code Acute Code for Chg Fwd Diagnoses KODI (acute kidney injury) N17.9 Tremor R25.1 Dementia F03.90 Protein-energy malnutrition E46 Physical deconditioning R53.81 Adult failure to thrive R62.7 Confusion R41.0 Lactic acidosis E87.20
[2023-09-15 11:31] VITALS: BP 123/68; PULSE 72; RESP 18; TEMP 36.6; O2SAT 95
[2023-09-15 16:00] VITALS: BP 132/69; PULSE 69; RESP 18; TEMP 36.7; O2SAT 96
[2023-09-15 19:38] VITALS: BP 137/68; PULSE 77; RESP 17; TEMP 37.2; O2SAT 98
[2023-09-15] MEDS: quetiapine 25 mg Tablet PO (21:02)
[2023-09-15] MEDS: donepezil 5 MG Tablet PO (21:03)
[2023-09-16] VITALS (7 sets, daily range): BP systolic 104–138; BP diastolic 58–80; PULSE 71–85; RESP 16–20; TEMP 36.5–37.1; O2SAT 94–96
[2023-09-16] MEDS: tamsulosin 0.4 mg Capsule PO (09:59)
[2023-09-16] MEDS: heparin 5,000 unit/mL INJ 1 mL 5000 UNIT SUBCUT ×2 (09:59→20:46)
[2023-09-16] MEDS: metoprolol tartrate 25 mg Tablet 12.5 MG PO ×2 (09:59→20:46)
[2023-09-16] MEDS: pantoprazole DR 40 mg Tablet PO (09:59)
[2023-09-16] MEDS: buPROPion XL (24 HR) 150 mg Tablet PO (09:59)
[2023-09-16] MEDS: fluoxetine 20 mg Capsule PO (10:00)
--- NOTE | 2023-09-16 14:38 | P.PN_ITS ---
Subjective Subjective: Patient denies new complaints. Denies nausea, emesis, fevers, chills, or other new complaints. Endorses good appetite. Medications: Reviewed: Yes Vitals/I&O/Wt Last Vital Signs Temp 97.7 F 09/16/23 12:00 Pulse 76 09/16/23 12:00 Resp 18 09/16/23 12:00 BP 122/58 09/16/23 12:00 Pulse Ox 94 09/16/23 12:00 O2 Del Method Room Air 09/16/23 12:00 O2 Flow Rate 1.5 09/13/23 13:17 09/15/23 09/16/23 09/16/23 22:59 06:59 14:59 Intake Total 480 / 1740 840 / 840 Balance 480 / 1740 840 / 840 Weight last 48 hrs Weight 49.158 kg Physical Exam Narrative: General: Patient is awake. No distress. Head: Temporal wasting. Neck: No JVD. Cardiovascular: RRR. No gallops. No murmurs. Lungs: Adequate air movement. No wheezing. No respiratory distress. Skin: No jaundice. No rashes. Abdomen: Normal bowel sounds, abdomen soft and nontender. Extremities: No cyanosis or clubbing. Musculoskeletal: Poor muscular development Neurological: Moves all 4 extremities. Intermittent jerking. Urinary Catheter Management: Rodriguez: Cath Placed During This Visit: yes Reason for Continuing Indwelling Catheter: Not indwelling catheter Urinary Catheter Date of Insertion: 09/12/23 Urinary Catheter Time of Insertion: 23:37 Data 09/14/23 04:25 09/15/23 04:14 A&P Assessment and plan (1) KODI (acute kidney injury): Resolved Encourage oral intake (2) Tremor: Tremors have significantly improved, likely exacerbated by KODI which has now resolved Continue to monitor, consider anti-tremor medication vs neuro referral if worsens again (3) Dementia: Mentation at baseline Continue home meds (4) Protein-energy malnutrition: Encourage oral intake (5) Physical deconditioning: Optimize comorbidities (6) Adult failure to thrive: Optimize comorbidities Plan to discharge back to nursing facility when able, likely on Sunday (7) Confusion: Some confusion is baseline in the setting of dementia Plan DVT ppx: Heparin Code: Full Attestations Medical Necessity Statement*: Patient requires ongoing hospitalization for supportive care until he is ac cepted back at his nursing facility. Coding Level of Care Code Acute Code for Chg Fwd Diagnoses KODI (acute kidney injury) N17.9 Tremor R25.1 Dementia F03.90 Protein-energy malnutrition E46 Physical deconditioning R53.81 Adult failure to thrive R62.7 Confusion R41.0
[2023-09-16 20:25] LABS: Vancomycin Trough < 4.0 ug/mL (10-15)
[2023-09-16] MEDS: quetiapine 25 mg Tablet PO (20:46)
[2023-09-16] MEDS: donepezil 5 MG Tablet PO (20:46)
[2023-09-17 04:00] VITALS: BP 118/63; PULSE 76; RESP 14; TEMP 36.8; O2SAT 95
[2023-09-17 07:49] VITALS: BP 129/68; PULSE 74; RESP 18; TEMP 36.6; O2SAT 95
[2023-09-17] MEDS: pantoprazole DR 40 mg Tablet PO (08:26)
[2023-09-17] MEDS: tamsulosin 0.4 mg Capsule PO (08:26)
[2023-09-17] MEDS: heparin 5,000 unit/mL INJ 1 mL 5000 UNIT SUBCUT (08:26)
[2023-09-17] MEDS: fluoxetine 20 mg Capsule PO (08:26)
[2023-09-17] MEDS: buPROPion XL (24 HR) 150 mg Tablet PO (08:27)
[2023-09-17] MEDS: metoprolol tartrate 25 mg Tablet 12.5 MG PO (08:27)
--- NOTE | 2023-09-17 11:20 | PM.DCS ---
Discharge Providers Date of Admission: 09/12/23 19:24 Date of Discharge: September 17, 2023 Attending Provider at Admission: Vni Wellington MD Attending Provider at Discharge: Kt Nix MD Primary Care Provider: Merle Sanchez MD Diagnoses at Discharge Discharge Diagnosis (1) KODI (acute kidney injury): Status: Acute (2) Tremor: Status: Acute (3) Dementia: Status: Acute (4) Protein-energy malnutrition: Status: Acute (5) Physical deconditioning: Status: Acute (6) Adult failure to thrive: Status: Acute (7) Confusion: Status: Acute Reason for Visit Reason for Visit: Shaking Hospital Course Hospital Course 70-year-old male with dementia, hyperlipidemia sleep apnea, failure to thrive, history of kidney stones presented to hospital with altered mental status with concern related to myoclonic tremors, CT head was negative, patient was diagnosed with KODI, with IV fluid hydration his creatinine improved lactic acidosis was related to dehydration which improved as well nutrition was consulted as well for protein calorie malnourishment, I will discontinue bupropion at the time of discharge. Patient remained afebrile no concern for neuroleptic treatment syndrome or serotonin syndrome. Considering history of recurrent falls discontinue mirtazapine. Patient carries history of hydrocephalus ex vacuo. Normal TSH and B12 level I will give him referral for neurology does not necessitate inpatient evaluation at this point for his tremors Physical Exam Narrative: Patient able to follow simple commands He is forgetful, memory impairment Not able to tell me his date of Pleasant and cooperative Hemodynamic stable Currently on room air No resting tremors however does have coarse tremors on voluntary movement Urinary Catheter Management: Rodriguez: Cath Placed During This Visit: yes Reason for Continuing Indwelling Catheter: Not indwelling catheter Urinary Catheter Date of Insertion: 09/12/23 Urinary Catheter Time of Insertion: 23:37 Discharge Data Studies Completed and Pending Completed Studies During Hospitalization Category Date Time Status CT head wo con* [id number] Stat Cat Scan 09/12/23 13:25 Completed XR chest 1V portable [id number] Stat Exams 09/12/23 13:25 Completed US kidney bilateral [US renal BI* [id number]] Stat Ultrasound 09/12/23 18:10 Completed Pending at discharge Category Date Time Status Blood Culture Stat Lab 09/12/23 20:33 Results Radiology Impressions Head CT 09/12/23 13:25 IMPRESSION: Noncontrast CT brain demonstrates stable appearance with previous exam September 04, 2023, without acute findings. Laboratory Results WBC 7.38 10^3/uL (3.29-11.43) 09/14/23 04:25 RBC 3.51 10^6/uL (3.85-5.65) L 09/14/23 04:25 Hgb 10.20 g/dL (11.27-16.99) L 09/14/23 04:25 Hct 33.5 % (37-53) L 09/14/23 04:25 MCV 95.4 fl (82-101) 09/14/23 04:25 MCH 29.1 pg (27-33) 09/14/23 04:25 MCHC 30.4 g/dL (30-55) 09/14/23 04:25 RDW 14.2 % (12.1-15.1) 09/14/23 04:25 Plt Count 242 10^3/cmm (157-399) 09/14/23 04:25 MPV 9.9 fL (7.4-10.4) 09/14/23 04:25 Neut % (Auto) 71.6 % 09/14/23 04:25 Lymph % (Auto) 15.3 % 09/14/23 04:25 [place] % (Auto) 9.6 % 09/14/23 04:25 Eos % (Auto) 2.0 % 09/14/23 04:25 Baso % (Auto) 0.4 % 09/14/23 04:25 Neut # (Auto) 5.28 10^3/uL (1.8-7.7) 09/14/23 04:25 Lymph # (Auto) 1.1 10^3/uL (0.8-4.8) 09/14/23 04:25 [place] # (Auto) 0.7 10^3/uL (0.2-0.9) 09/14/23 04:25 Eos # (Auto) 0.2 10^3/uL (0.0-0.8) 09/14/23 04:25 Baso # (Auto) 0.0 10^3/uL (0.0-0.1) 09/14/23 04:25 Nucleated RBC % (auto) 0 % 09/14/23 04:25 Nucleated RBCs # 0.0 /100WBC 09/14/23 04:25 Sodium 143 mmol/L (136-145) 09/15/23 04:14 Potassium 4.1 mmol/L (3.5-5.1) 09/15/23 04:14 Chloride 107 mmol/L (98-107) 09/15/23 04:14 Carbon Dioxide 25 mmol/L (22-29) 09/15/23 04:14 Anion Gap 15.1 (5-19) 09/15/23 04:14 BUN 20 mg/dL (8-23) 09/15/23 04:14 Creatinine 1.4 mg/dL (0.7-1.2) H 09/15/23 04:14 GFR Calculation Not Reportable 09/15/23 04:14 Glucose 99 mg/dL (65-115) 09/15/23 04:14 POC Glucose 93 mg/dL (70-110) 09/12/23 13:14 Calculated Osmolality 308 mOsm/kg (285-295) H 09/13/23 03:35 Lactic Acid 2.6 mmol/L (0.5-2.2) H 09/12/23 13:12 Lactic Acid (Sepsis) 2.5 mmol/L (0.5-2.2) H 09/12/23 16:13 Calcium 8.8 mg/dL (8.5-10.5) 09/15/23 04:14 Phosphorus 1.8 mg/dL (2.5-4.5) L 09/15/23 04:14 Magnesium 2.0 mg/dL (1.7-2.3) 09/14/23 04:25 Total Bilirubin 0.2 mg/dL (0.15-1.2) 09/13/23 03:35 AST 23 U/L (0-40) 09/13/23 03:35 ALT 15 U/L (0-41) 09/13/23 03:35 Alkaline Phosphatase 59 U/L (40-130) 09/13/23 03:35 C-Reactive Protein 17.6 mg/L (0.0-4.9) H 09/12/23 13:12 Total Protein 5.3 g/dL (6.6-8.7) L D 09/13/23 03:35 Albumin 3.3 g/dL (3.5-5.2) L 09/15/23 04:14 Globulin 2.3 g/dL (1.3-4.6) 09/13/23 03:35 Procalcitonin 0.22 ng/mL (0-0.5) 09/12/23 13:12 Urine Color Cancelled 09/12/23 23:50 Urine Color Yellow (Yellow) 09/12/23 23:50 Urine Appearance Cancelled 09/12/23 23:50 Urine Appearance Clear (CLEAR) 09/12/23 23:50 Urine pH 6 (5-7) 09/12/23 23:50 Urine pH Cancelled 09/12/23 23:50 Ur Specific [place] 1.015 (1.005-1.030) 09/12/23 23:50 Ur Specific [place] Cancelled 09/12/23 23:50 Urine Protein Cancelled 09/12/23 23:50 Urine Protein Neg (Negative) 09/12/23 23:50 Urine Glucose (UA) Cancelled 09/12/23 23:50 Urine Glucose (UA) Norm (Normal) 09/12/23 23:50 Urine Ketones 1+ (Negative) H 09/12/23 23:50 Urine Ketones Cancelled 09/12/23 23:50 Urine Blood Cancelled 09/12/23 23:50 Urine Blood Neg (Negative) 09/12/23 23:50 Urine Nitrate Cancelled 09/12/23 23:50 Urine Nitrate Negative (Negative) 09/12/23 23:50 Urine Bilirubin Cancelled 09/12/23 23:50 Urine Bilirubin Neg (Negative) 09/12/23 23:50 Prot Sulfosalicylic Acd Cancelled 09/12/23 23:50 Urine Urobilinogen Cancelled 09/12/23 23:50 Urine Urobilinogen Norm mg/dL (Negative) 09/12/23 23:50 Ur Leukocyte Esterase Cancelled 09/12/23 23:50 Ur Leukocyte Esterase Negative (Negative) 09/12/23 23:50 Ur Random Sodium 80 mmol/L 09/12/23 23:50 Ur Random Potassium 60 mmol/L 09/12/23 23:50 Ur Random Chloride 74 mmol/L 09/12/23 23:50 Vancomycin Trough < 4.0 ug/mL (10-15) L 09/16/23 19:57 MRSA (PCR) Not detected (NOT DETECTED) 09/12/23 20:27 Vitals Last Vital Signs Temp 97.8 F 09/17/23 07:49 Pulse 74 09/17/23 07:49 Resp 18 09/17/23 07:49 BP 129/68 09/17/23 07:49 Pulse Ox 95 09/17/23 07:49 O2 Del Method Room Air 09/16/23 12:00 O2 Flow Rate 1.5 09/13/23 13:17 Discharge Plan Discharge Patient Disposition: Xfer SNF Condition: Stable Prescriptions: New quetiapine 25 mg Tablet 25 mg PO BEDTIME Qty: 10 0RF Continued fluoxetine 20 mg capsule 20 mg PO DAILY 30 Days Qty: 30 1RF donepezil 5 mg Tablet 5 mg PO BEDTIME Qty: 30 0RF pantoprazole 40 mg Tablet,Delayed Release (Dr/Ec) 40 mg PO DAILY Qty: 30 0RF metoprolol tartrate 25 mg Tablet 12.5 mg PO BID@0900,2100 Qty: 30 0RF acetaminophen 325 mg Tablet 650 mg PO QID PRN (Reason: Pain) tamsulosin 0.4 mg capsule 0.4 mg PO DAILY Discontinued mirtazapine 15 mg tablet 15 mg PO BEDTIME bupropion HCl 150 mg Tablet Extended Release 24 Hr 150 mg PO DAILY Qty: 30 0RF Discharge Orders: Discharge Order (Routine); Ordered 09/17/23 Ordered By: Kt Nix Referrals: Merle Sanchez MD [Primary Care Provider] - Patient Instructions: Opioid Safety Discharge Attestations Time Spent in Discharge Care*: greater than 30 min Quality Metrics Clinical Quality Measures [ No reported AMI, CVA or VTE this stay] Coding Level of Care Code Acute Code for Chg Fwd Diagnoses KODI (acute kidney injury) N17.9 Tremor R25.1 Dementia F03.90 Protein-energy malnutrition E46 Physical deconditioning R53.81 Adult failure to thrive R62.7 Confusion R41.0
[2023-09-17 12:00] VITALS: BP 126/68; PULSE 74; RESP 18; TEMP 36.4; O2SAT 92
--- NOTE | 2023-09-17 12:52 | PC.NURSE ---
This nurse called report to Wilian at [facility] and updated him on patient. All questions addressed and answered.
[2023-09-17 16:00] VITALS: BP 126/68; PULSE 74; RESP 18; TEMP 36.4; O2SAT 92
== END 2023-09-17 16:00 | disposition skilled nursing facility (03) ==
LOC: ER 16:37 → CSU 19:26 → MEDSURG 09-13 21:58
PROVIDERS: Admitting Provider Internal Medicine; Emergency Provider Family Medicine; PCP Family Medicine; Visit Provider Internal Medicine
DX: N17.9 Acute kidney failure, unspecified (principal); R25.1 Tremor, unspecified; F03.90 Unspecified dementia, unspecified severity, without behavioral disturbance, psychotic disturbance, mood disturbance, and anxiety; E46 Unspecified protein-calorie malnutrition; Z68.1 Body mass index [BMI] 19.9 or less, adult; R53.81 Other malaise; R62.7 Adult failure to thrive; R41.0 Disorientation, unspecified; E78.5 Hyperlipidemia, unspecified; G47.30 Sleep apnea, unspecified; E86.0 Dehydration; Z91.81 History of falling; E87.20 Acidosis, unspecified; Z87.891 Personal history of nicotine dependence
CPT/HCPCS: 36415; 36416; 51702; 70450; 71045; 76770; 80053; 80069; 80202; 82436; 82962; 83605; 83735; 84100; 84133; 84145; 84300; 85025; 86140; 87040; 87641; 93005; 96361; 96365; 96372; 96375; 96376; 99285; G0378; J0696; J1630; J1644; J2060; J3370; J7030; J7050; J7799

== ENCOUNTER 2023-11-20 12:23 | Inpatient (IN) | payer OTHER, SELFPAY ==
[2023-11-20] VITALS (34 sets, daily range): BP systolic 81–122; BP diastolic 49–73; PULSE 41–118; RESP 6–31; TEMP 36.1–36.8; O2SAT 91–100; BMI 19.1; BMI 15.6
--- NOTE | 2023-11-20 12:31 | XR_ITS ---
WS: [id number] Exam: XR chest 1V portable [id number] Date/Time of Exam: 11/20/2023 12:36 PM Reason For Exam: dyspnea/cough Comparison 09/12/2023. There is infiltrate in the RIGHT lower lobe suggesting pneumonia. There may also be some infiltrate i n the LEFT retrocardiac region in the LEFT lower lobe. The remaining lung liriano are clear. No pneumo thorax or pleural effusion. Normal cardiomediastinal silhouette. Bony structures are intact. IMPRESSION: 1. RIGHT lower lobe infiltrate suggesting active pneumonia. There may also be some infiltrate in the LEFT lower lobe.
--- NOTE | 2023-11-20 12:32 | ECG_ITS ---
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 Measurements Intervals [place] Rate: 86 P: 71 OH: 150 QRS: 65 QRSD: 88 T: 70 QT: 373 QTc: 447 Interpretive Statements Possible sinus rhythm. Further interpretation is not possible because of the heavy artifact Electronically Signed On 11-20-2023 19:37:35 ORNAMENTER HAND by Gerard Hall M.D. [id number]
--- NOTE | 2023-11-20 12:37 | ED_ITS ---
HPI - SOB/Dyspnea 2 General: Chief Complaint: Shortness of Breath/Dyspnea Stated Complaint: Resp disress, AMS, Fever Time Seen by Provider: 11/20/23 12:30 Source: patient Mode of arrival: EMS History of Present Illness: HPI Narrative: 73-year-old male with a history of prese nts to the emergency room in acute respiratory distress hypotensive and slightly tachypneic requiring 4 L per nasal cannula. He lives at a fdc he has been on oral antibiotics in the form of Z-Tristen for the last 4 days progressively worsening to the today he had episode of acute respiratory distress developed a fever and was brought to the emergency room. The patient is nonresponsive to verbal stimuli. He is awake to simple commands MD elicited complaint: shortness of breath Pertinent past history: COPD and pneumonia Onset (ago): day(s) (4) Context: recent illness Timing: progressively worsening Associated symptoms: Deny abdominal pain, chest pain, fever(s), nausea or vomiting Treatment prior to arrival: oxygen Review of Systems 2 Const: Denies: fever(s) or chills Card: Denies: chest pain Resp: Reports: dyspnea, non-productive cough and wheezing GI: Denies: abdominal pain, nausea or vomiting : Denies: dysuria, urinary frequency or urinary urgency Musc: Denies: neck pain or back pain Skin/Breast: Denies: rash PFSH ED 2 PFSH: Medical History Tremor Lactic acidosis KODI (acute kidney injury) Dementia Protein-energy malnutrition PTSD (post-traumatic stress disorder) Depression Physical deconditioning CVA (cerebral vascular accident) Adult failure to thrive Weakness Hyperlipidemia Anxiety Sleep apnea History of kidney stones Adult failure to thrive Confusion Gastritis Hx of colonic polyps Surgical History Status post colonoscopy with polypectomy 12/09/2019: 3 polyps removed from descending colon, follow-up colonoscopy in 3 years H/O esophagogastroduodenoscopy 12/09/2019: Gastritis Family History Denies family history of Anesthesia complication Bleeding disorder Social History Smoking and tobacco/nicotine status: former use of tobacco/nicotine Alcohol intake: former Substance/Drug Use: never Lives independently: Yes Household members: spouse Current occupational status: retired Physical Exam 2 Const: GENERAL APPEARANCE: cooperative and lethargic O RIENTATION/CONSCIOUSNESS: Yes lethargic HENMT: COMMON NORMALS: normocephalic and atraumatic HEAD & SCALP: n ormocephalic and atraumatic Resp: EFFORT & INSPECTION: Yes tachypneic and Yes uses accessory muscles A USCULTATION: rhonchi, wheezes and diminished lung sounds Cardio: COMMON NORMALS: regular rhythm and No murmurs present (Cardio) R ATE: tachycardic RHYTHM: regular rhythm GI: COMMON NORMALS: Soft to palpation and No hepatosplenomegaly present A USCULTATION: Yes normoactive bowel sounds PALPATION: Yes Soft to palpation, No Tenderness to palpation present (GI), No Guarding due to palpation present (GI) and Yes No hepatosplenomegaly present Extremity: COMMON NORMALS: normal to inspection, capillary refill normal, no clubbing, cyanosis or edema, no calf tenderness and no pedal edema Neuro: SENSORIUM/ORIENTATION: Yes lethargic Skin: COMMON NORMALS: no rashes or lesions noted GENERAL SKIN EXAM: no rashes or lesions noted Course 2 Vital Signs: Vital signs: Vital Signs Temperature 97.6 F 11/21/23 08:15 Pulse Rate 48 L 11/21/23 12:00 Respiratory Rate 18 11/21/23 12:00 Blood Pressure 86/45 11/21/23 12:00 Pulse Oximetry 99 11/21/23 12:00 Oxygen Delivery Me thod Nasal Cannula 11/21/23 09:01 Oxygen Flow Rate 2 11/21/23 09:01 MDM - SOB/Dyspnea Medical Decision Making Pneumonia suspect patient has a secondary pneumonia also has COVID. D-dimer elevated consistent with what is typically seen in COVID patients. Mild acute kidney injury which she has had in the past as well. Admit to the ICU on Levophed discussed with hospitalist orders written Medical Records I reviewed the patient's medical records. Lab Data I reviewed the patient's lab results. 11/21/23 05:47 11/21/23 02:41 Labs/Radiology: Radiology Impressions Head CT 11/20/23 15:45 IMPRESSION: No acute intracranial abnormality. Chronic microvascular ischemic changes. Laboratory Results WBC 4.81 10^3/uL (3.29-11.43) 11/20/23 12:48 RBC 3.61 10^6/uL (3.85-5.65) L 11/20/23 12:48 Hgb 10.80 g/dL (11.27-16.99) L 11/20/23 12:48 Hct 34.6 % (37-53) L 11/20/23 12:48 MCV 95.8 fl (82-101) 11/20/23 12:48 MCH 29.9 pg (27-33) 11/20/23 12:48 MCHC 31.2 g/dL (30-55) 11/20/23 12:48 RDW 15.4 % (12.1-15.1) H 11/20/23 12:48 Plt Count 197 10^3/cmm (157-399) 11/20/23 12:48 MPV 10.8 fL (7.4-10.4) H 11/20/23 12:48 Lymph % (Auto) Not Reportable 11/20/23 12:48 [place] % (Auto) Not Reportable 11/20/23 12:48 Lymph # (Auto) Not Reportable 11/20/23 12:48 [place] # (Auto) Not Reportable 11/20/23 12:48 Total Counted 100 (0-100) 11/20/23 12:48 Atypical Lymphs % 3.0 % (0-5) 11/20/23 12:48 Absolute Neutrophils 4.1 10^3/cmm (1.4-6.5) 11/20/23 12:48 Segmented Neutrophils 58 % 11/20/23 12:48 Abs Segm Neuts (Man) 2.8 10/cmm (1.6-7.1) 11/20/23 12:48 Band Neutrophils 27.0 % 11/20/23 12:48 Abs Band Neuts (Man) 1.3 10^3/cmm (0.0-1.2) H 11/20/23 12:48 Absolute Lymphocytes 0.6 10^3/cmm (1.2-3.4) L 11/20/23 12:48 Lymphocytes (Manual) 10 % 11/20/23 12:48 Monocytes (Manual) 1.0 % 11/20/23 12:48 Absolute Monocytes 0.0 10^3/cmm (0.1-0.6) L 11/20/23 12:48 Eosinophils (Manual) 0 % 11/20/23 12:48 Absolute Eosinophils 0.0 10^3/cmm (0.0-0.7) 11/20/23 12:48 Basophils (Manual) 0.0 % 11/20/23 12:48 Absolute Basophils 0.0 10^3/cmm (0.0-0.2) 11/20/23 12:48 Metamyelocytes 1.0 % 11/20/23 12:48 Platelet Estimate Normal (Normal) 11/20/23 12:48 Giant Platelets Trace 11/20/23 12:48 Macrocytosis 1+ H 11/20/23 12:48 D-Dimer 1.77 ug/mLFEU (0-0.59) H 11/20/23 12:48 Specimen Type Arterial 11/20/23 12:36 Sample Site Radial, left 11/20/23 12:36 ABG pH 7.40 (7.35-7.45) 11/20/23 12:36 ABG pCO2 47.2 mmHg (35-45) H 11/20/23 12:36 ABG pO2 104.0 mmHg (80.0-100.0) H 11/20/23 12:36 ABG PO2/FiO2 Ratio 0 11/20/23 12:36 ABG HCO3 29.0 mmol/L (22-26) H 11/20/23 12:36 ABG O2 Saturation 98.5 11/20/23 12:36 ABG Base Excess 3.5 mmol/L (-2.0-2.0) H 11/20/23 12:36 Glen Test Pos 11/20/23 12:36 A-a O2 Gradient 8.7 mmHg (5-10) 11/20/23 12:36 Hematocrit 31.6 % (42-52) L 11/20/23 12:36 Hgb O2 Saturation 96.3 % (95-100) 11/20/23 12:36 Carboxyhemoglobin 1.1 %THgb (0.4-20.1) 11/20/23 12:36 Methemoglobin 1.2 % (0.4-1.5) 11/20/23 12:36 Total Hemoglobin 10.3 g/dL (14-18) L 11/20/23 12:36 Sodium 149.0 mmol/L (131-143) H 11/20/23 12:36 Potassium 4.3 mmol/L (3.5-5.0) 11/20/23 12:36 Glucose 133.0 mg/dL (70-115) H 11/20/23 12:36 Ionized Calcium 1.2 mmol/L (1.1-1.4) 11/20/23 12:36 O2 Delivery Device Nc 11/20/23 12:36 O2 Liters/Min 3.0 % 11/20/23 12:36 FiO2 32.0 % 11/20/23 12:36 Director Of Coding ID Cak 11/20/23 12:36 Sodium 149 mmol/L (136-145) H 11/20/23 12:48 Potassium 4.6 mmol/L (3.5-5.1) 11/20/23 12:48 Chloride 110 mmol/L (98-107) H 11/20/23 12:48 Carbon Dioxide 29 mmol/L (22-29) 11/20/23 12:48 Anion Gap 14.6 (5-19) 11/20/23 12:48 BUN 51 mg/dL (8-23) H 11/20/23 12:48 Creatinine 2.3 mg/dL (0.7-1.2) H 11/20/23 12:48 GFR Calculation Not Reportable 11/20/23 12:48 Glucose 129 mg/dL (65-115) H 11/20/23 12:48 Calculated Osmolality 323 mOsm/kg (285-295) H 11/20/23 12:48 Lactic Acid 2.0 mmol/L (0.5-2.2) 11/20/23 12:48 Calcium 9.1 mg/dL (8.5-10.5) 11/20/23 12:48 Magnesium 1.9 mg/dL (1.7-2.3) 11/20/23 12:48 Total Bilirubin 0.5 mg/dL (0.15-1.2) 11/20/23 12:48 AST 21 U/L (0-40) 11/20/23 12:48 ALT 18 U/L (0-41) 11/20/23 12:48 Alkaline Phosphatase 55 U/L (40-130) 11/20/23 12:48 Troponin T Baseline 26 ng/L (0-15) H 11/20/23 12:48 Troponin T 120 Minute 22.71 ng/L (0-15) H 11/20/23 14:51 Delta Troponin T -3.29 ABS# (0-10) L 11/20/23 14:51 Total Protein 6.1 g/dL (6.6-8.7) L 11/20/23 12:48 Albumin 3.5 g/dL (3.5-5.2) 11/20/23 12:48 Globulin 2.6 g/dL (1.3-4.6) 11/20/23 12:48 Procalcitonin 23.96 ng/mL (0-0.5) H 11/20/23 12:48 Urine Color Yellow (Yellow) 11/20/23 13:37 Urine Appearance Cloudy (CLEAR) A 11/20/23 13:37 Urine pH 5 (5-7) 11/20/23 13:37 Ur Specific [place] 1.020 (1.005-1.030) 11/20/23 13:37 Urine Protein 2+ (Negative) H 11/20/23 13:37 Urine Glucose (UA) Norm (Normal) 11/20/23 13:37 Urine Ketones Negative (Negative) 11/20/23 13:37 Urine Blood 2+ (Negative) H 11/20/23 13:37 Urine Nitrate Negative (Negative) 11/20/23 13:37 Urine Bilirubin Neg (Negative) 11/20/23 13:37 Urine Urobilinogen Norm mg/dL (Negative) 11/20/23 13:37 Ur Leukocyte Esterase Negative (Negative) 11/20/23 13:37 Urine RBC 0-4 /hpf (0-2) H 11/20/23 13:37 Urine WBC 5-10 /hpf (0-5) H 11/20/23 13:37 Ur Squamous Epith Cells 0-4 /hpf (0-5) H 11/20/23 13:37 Ur Transition Epith Cell 0-4 /hpf 11/20/23 13:37 Amorphous Sediment 1+ /hpf 11/20/23 13:37 Urine Bacteria 1+ /hpf (NONE) H 11/20/23 13:37 Fine Granular Casts 5-10 /lpf H 11/20/23 13:37 Urine Mucus 2+ /hpf 11/20/23 13:37 Coronavirus 229E (PCR) Not detected (NOT DETECT) 11/20/23 12:56 Influenza Type A Ag negative (Negative) 11/20/23 12:56 Influenza Type B Ag negative (Negative) 11/20/23 12:56 SARS-CoV-2 (PCR) Detected (NOT DETECT) A 11/20/23 12:56 All radiology interpretation(s) finalized by discharge Critical Care Time 2 Critical Care Time: Critical Care Time: Yes Total Critical Care Time: 40 Attestation: The high probability of a clinically significant, sudden or life threatening deterioration of the patient's respiratory system(s) required my full and direct attention, intervention and personal management. The critical care time is as shown. This time is in addition to time spent performing any reported procedures but includes the following: [x] Data and vital sign review and interpretation [x] Patient assessment, examination and intervention [x] Documentation [x] Medication orders and management Discharge Plan Discharge Patient Disposition: Admitted As Inpatient Admit Provider: Param Christina Clinical Impression: COVID-19, KODI (acute kidney injury), Hypotension, Hypernatremia, Respiratory failure with hypoxia, Community acquired pneumonia Condition: Stable Coding Level of Care Code ED Manager Environmental Affairs for Frankie Garcia
[2023-11-20 12:47] LABS: ABG PCO2 47.2 mmHg (35-45); Alveolar-Arterial Oxygen Gradi 8.7 mmHg (5-10); Arterial Blood Gas Hematocrit 31.6 % (42-52); Base Excess ABG 3.5 mmol/L (-2.0-2.0); Blood Gas Allen Test Pos; Blood Gas Operator Identificat CAK; Blood Gas Sample Site Radial, left; Blood Gas Sample Type Arterial; Carboxyhemoglobin 1.1 %THgb (0.4-20.1); HGB O2 Sat 96.3 % (95-100); Ionized Calcium Level - ABG 1.2 mmol/L (1.1-1.4); Methemoglobin 1.2 % (0.4-1.5); Oxygen Device NC; Oxygen Saturation ABG 98.5; PO2 FiO2 Ratio Arterial Blood 0; Potassium Level - ABG 4.3 mmol/L (3.5-5.0); Total Hemoglobin 10.3 g/dL (14-18)
[2023-11-20] MEDS: dexamethasone 10 mg/mL INJ IM (12:57)
[2023-11-20] MEDS: sodium chloride 0.9% 1,564.89 ML 1564.89 ML IV (13:03)
[2023-11-20 13:06] LABS: Hematocrit 34.6 % (37-53); Mean Corpuscular HGB Conc 31.2 g/dL (30-55); Mean Corpuscular Hemoglobin 29.9 pg (27-33); Mean Corpuscular Volume 95.8 fl (82-101); Mean Platelet Volume 10.8 fL (7.4-10.4); Platelet Count 197 10^3/cmm (157-399); Red Blood Count 3.61 10^6/uL (3.85-5.65); Red Cell Distribution Width 15.4 % (12.1-15.1); White Blood Count 4.81 10^3/uL (3.29-11.43)
[2023-11-20 13:15] LABS: Influenza A by IFA negative (Negative); Influenza B by IFA negative (Negative)
--- NOTE | 2023-11-20 13:18 | PC.PHAR ---
pt is from [facility] [phone]-per reji nurse at [facility] states the pt had all am meds today states the pt finished his z-pac on 11/19/23
[2023-11-20 13:29] LABS: Troponin(5th) Baseline 26 ng/L (0-15)
[2023-11-20] MEDS: piperacillin-tazobactam 3.375 GM in sodium chloride 0.9% (plus) 50 ML IV ×2 (13:30→22:17)
[2023-11-20] MEDS: norepinephrine 4 MG/250 ML BAG 30 MG IV (13:30)
[2023-11-20 13:33] LABS: Slide Review Slide Review Perform
[2023-11-20 13:34] LABS: Absolute Neutrophil 4.1 10^3/cmm (1.4-6.5); Absolute Segmented Neutrophil 2.8 10/cmm (1.6-7.1); Band Neutrophils Absolute 1.3 10^3/cmm (0.0-1.2); Eosinophils 0 %; Lymphocytes 10 %; Lymphocytes Absolute 0.6 10^3/cmm (1.2-3.4); Platelet Estimate Normal (Normal); Segmented Neutrophils 58 %; Total Cells Counted 100 (0-100)
[2023-11-20 13:35] LABS: Giant Platelets Trace; Macrocytosis 1+
[2023-11-20 13:37] LABS: Alanine Aminotransferase 18 U/L (0-41); Albumin Level 3.5 g/dL (3.5-5.2); Alkaline Phosphatase 55 U/L (40-130); Anion Gap 14.6 (5-19); Aspartate Amino Transferase 21 U/L (0-40); Blood Urea Nitrogen 51 mg/dL (8-23); Calcium 9.1 mg/dL (8.5-10.5); Carbon Dioxide 29 mmol/L (22-29); Chloride 110 mmol/L (98-107); Globulin 2.6 g/dL (1.3-4.6); Glucose 129 mg/dL (65-115); Magnesium 1.9 mg/dL (1.7-2.3); Osmolality Calculated 323 mOsm/kg (285-295); Potassium 4.6 mmol/L (3.5-5.1); Sodium 149 mmol/L (136-145); Total Bilirubin 0.5 mg/dL (0.15-1.2); Total Protein 6.1 g/dL (6.6-8.7)
[2023-11-20 13:42] LABS: Protein Urine 2+ (Negative); Urine Appearance Cloudy (CLEAR); Urine Color Yellow (Yellow); pH Urine 5 (5-7)
[2023-11-20 13:43] LABS: Add Urine Microscopic? YES; Bilirubin Urine Neg (Negative); Blood Urine 2+ (Negative); Glucose Urine UA Norm (Normal); Ketones Urine Negative (Negative); Leukocyte Esterase Urine Negative (Negative); Nitrate Urine Negative (Negative); Urobilinogen Urine Norm (Negative)
[2023-11-20] MEDS: ipratropium-albuterol 3 mL Neb INHALATION (13:49)
[2023-11-20 13:53] LABS: Amorphous Sediment Urine 1+ /hpf; Bacteria Urine 1+ /hpf; Mucus Urine 2+ /hpf; RBC Urine 0-4 /hpf (0-2); Squamous Epithelial Cell Urine 0-4 /hpf (0-5); Transitional Epi Cells Urine 0-4 /hpf
[2023-11-20 13:54] LABS: Add Urine Culture? No
[2023-11-20] MEDS: vancomycin 1,000 MG in sodium chloride 0.9% 250 ML 250 MG IV (14:18)
[2023-11-20 14:43] LABS: Adenovirus Not Detected (NOT DETECT); Chlamydia Pneumoniae Not Detected (NOT DETECT); Coronavirus 229E,HKU1,NL63,OC4 Not Detected (NOT DETECT); Human Metapneumovirus Not Detected (NOT DETECT); Human Rhinovirus/Enterovirus Not Detected (NOT DETECT); Influenza A Not Detected (NOT DETECT); Influenza A H1 Not Detected (NOT DETECT); Influenza A H1-2009 Not Detected (NOT DETECT); Influenza A H3 Not Detected (NOT DETECT); Influenza B Not Detected (NOT DETECT); Mycoplasma Pneumoniae Not Detected (NOT DETECT); Parainfluenza Virus Type 1 Not Detected (NOT DETECT); Parainfluenza Virus Type 2 Not Detected (NOT DETECT); Parainfluenza Virus Type 3 Not Detected (NOT DETECT); Parainfluenza Virus Type 4 Not Detected (NOT DETECT); Respiratory Syncytial Virus A Not Detected (NOT DETECT); Respiratory Syncytial Virus B Not Detected (NOT DETECT)
--- NOTE | 2023-11-20 14:47 | ECG_ITS ---
[facility] Test Date: 2023-11-20 Pat Name: Catalino Ivy Department: Room: Gender: Male Glue Maker Bone: : 1950 Requested By: Rosendo Boo Order Number: [id number] [place] MD: Gerard Hall M.D. Measurements Intervals [place] Rate: 74 P: 81 NM: 158 QRS: 61 QRSD: 94 T: 69 QT: 397 QTc: 441 Interpretive Statements SINUS RHYTHM POSSIBLE LEFT ATRIAL ENLARGEMENT [-0.1mV P-WAVE IN V1/V2] LOW QRS VOLTAGE IN EXTREMITY LEADS [QRS DEFLECTION < 0.5 mV IN LIMB LEADS] Compared to ECG 11/20/2023 12:37:11 Low QRS voltage now present Ventricular premature complex(es) no longer present Electronically Signed On 11-20-2023 19:43:04 RAILROAD COMMISSIONER by Gerard Hall M.D. [id number]
[2023-11-20 14:53] LABS: SARS-COV-2 Detected (NOT DETECT)
[2023-11-20 15:21] LABS: D Dimer 1.77 ug/mLFEU (0-0.59)
[2023-11-20 15:31] LABS: Troponin 5 2HR 22.71 ng/L (0-15)
[2023-11-20 15:32] LABS: Troponin 5 2HR Delta -3.29 ABS# (0-10)
[2023-11-20 15:38] LABS: Procalcitonin 23.96 ng/mL (0-0.5)
--- NOTE | 2023-11-20 15:45 | CTR_ITS ---
PROCEDURE INFORMATION: Exam: CT Head Without Contrast Exam date and time: 11/20/2023 5:48 PM Age: 73 years old Clinical indication: Altered mental status/memory loss; Additional info: AMS TECHNIQUE: Imaging protocol: Computed tomography of the head without contrast. Radiation optimization: All CT scans at this facility use at least one of these dose optimization techniques: automated exposure control; mA and/or kV adjustment per patient size (includes targeted exams where dose is matched to clinical indication); or iterative reconstruction. COMPARISON: CT head wo con* [id number] 09/12/2023 4:20 PM RADIATION DOSE METRICS: Total DLP (mGy-cm): 1838 FINDINGS: Brain: There are moderate periventricular and subcortical lucencies consistent with chronic microvascular ischemic changes.The aguirre-white differentiation is maintained. No hemorrhage. No edema. Cerebral ventricles: No ventriculomegaly. Paranasal sinuses: Mucous retention cyst/polyp in the right maxillary sinus. Mastoid air cells: Visualized mastoid air cells are well aerated. Orbital cavities: Bilateral cataract surgery. Bones/joints: Unremarkable. No acute fracture. Soft tissues: Unremarkable. CT/CT head wo con* [id number] IMPRESSION: No acute intracranial abnormality. Chronic microvascular ischemic changes.
[2023-11-20] MEDS: remdesivir 200 MG in sodium chloride 0.9% (100 ml) 60 ML 100 MG IV (15:56)
--- NOTE | 2023-11-20 16:26 | P.HP_ITS ---
Providers/Chief Complaint 2 Admitting Physician: Param Christina Primary Care Provider: Sridhar Bolanos MD Chief Complaint: Resp disress, AMS, Fever History of Present Illness Catalino Ivy is a 73 year old male Review of Systems 2 General: Reports: ROS unobtainable due to mental status Medications/Allergies Home Medications Medication Instructions Recorded Confirmed Last Taken Type tamsulosin 0.4 mg capsule 0.4 mg PO BEDTIME@20 09/04/23 11/20/23 11/19/23 History acetaminophen 325 mg tablet 650 mg PO Q6H PRN Pain 09/12/23 11/20/23 Unknown History albuterol sulfate 2.5 mg/3 mL 2.5 mg inhalation Q6H PRN 11/20/23 11/20/23 Unknown History (0.083 %) solution for nebulization Shortness Of Breath albuterol sulfate 90 mcg/actuation 2 puff inhalation Q4H PRN 11/20/23 11/20/23 Unknown History aerosol inhaler Shortness Of Breath azithromycin 250 mg tablet See Rx Instructions .Route .COMPLEX 11/20/23 11/20/23 11/19/23 History finished 11/19/23 bupropion HCl 150 mg 24 hr tablet, 150 mg PO DAILY@11/20/23 11/20/23 11/20/23 History extended release donepezil 5 mg tablet 5 mg PO BEDTIME@11/20/23 11/20/23 11/19/23 History fluoxetine 20 mg capsule 20 mg PO DAILY@11/20/23 11/20/23 11/20/23 History metoprolol tartrate 25 mg tablet 25 mg PO BID@11/20/23 11/20/23 11/20/23 History mirtazapine 15 mg tablet 15 mg PO BEDTIME@11/20/23 11/20/23 11/19/23 History pantoprazole 40 mg tablet,delayed 40 mg PO DAILY@11/20/23 11/20/23 11/20/23 History release Allergies Allergy/AdvReac Type Severity Reaction Status Date / Time No Known Drug Allergies Allergy Unknown Verified 03/13/23 15:31 PFSH Acute 2 PFSH: Medical History Tremor Lactic acidosis KODI (acute kidney injury) Dementia Protein-energy malnutrition PTSD (post-traumatic stress disorder) Depression Physical deconditioning CVA (cerebral vascular accident) Adult failure to thrive Weakness Hyperlipidemia Anxiety Sleep apnea History of kidney stones Adult failure to thrive Confusion Gastritis Hx of colonic polyps Surgical History Status post colonoscopy with polypectomy 12/09/2019: 3 polyps removed from descending colon, follow-up colonoscopy in 3 years H/O esophagogastroduodenoscopy 12/09/2019: Gastritis Family History Denies family history of Anesthesia complication Bleeding disorder Social History Smoking and tobacco/nicotine status: former use of tobacco/nicotine Alcohol intake: former Substance/Drug Use: never Lives independently: Yes Household members: spouse Current occupational status: retired Vitals/I&O/Wt Last Vital Signs Temp 98.3 F 11/20/23 12:32 Pulse 75 11/20/23 15:45 Resp 24 H 11/20/23 15:45 BP 96/57 11/20/23 15:45 Pulse Ox 98 11/20/23 15:45 O2 Del Method Nasal Cannula 11/20/23 15:00 O2 Flow Rate 4 11/20/23 15:00 11/20/23 11/20/23 11/20/23 06:59 14:59 22:59 Intake Total 1614.89 / 1614.89 Balance 1614.89 / 1614.89 Weight last 48 hrs Weight 52.163 kg Physical Exam 2 Const: ORIENTATION/CONSCIOUSNESS: Yes Other orientation findings (Minimally conscious.) HENMT: COMMON NORMALS: oropharynx normal Neck/C-Spine: COMMON NORMALS: no JVD Resp: COMMON NORMALS: normal respiratory effort and clear to auscultation bilaterally AUSCULTATION: clear to auscultation bilaterally Cardio: COMMON NORMALS: no JVD, regular rhythm, S1 normal heart sound present, S2 normal heart sound present and No murmurs present (Cardio) RHYTHM: regular rhythm HEART SOUNDS: S1 normal heart sound present and S2 normal heart sound present GI: COMMON NORMALS: Normal to inspection, nondistended, normoactive bowel sounds present, Soft to palpation and non-tender PALPATION: Yes Soft to palpation Extremity: COMMON NORMALS: no joint enlargement and no pedal edema Neuro: COMMON NORMALS: negative for patient oriented x3 S ENSORIUM/ORIENTATION: No alert Skin: GENERAL SKIN EXAM: ecchymosis and Excoriation Urinary Catheter Management: Rodriguez: Cath Placed During This Visit: yes Urinary Catheter Date of Insertion: 11/20/23 Urinary Catheter Time of Insertion: 13:50 Data 11/20/23 12:48 11/20/23 12:48 A&P Assessment and plan (1) Respiratory failure with hypoxia: Recently treated for pneumonia, has been on azithromycin, however, with progressive shortness of breath was brought in for evaluation to ER. With some acute encephalopathy, minimally conscious, unable to provide history or review of systems. Reviewed vitals, CBC, ABG, chemistry, procalcitonin, D-dimer, troponin series, magnesium, UA, COVID PCR panel, chest x-ray. Discussed with ER physician, ER documentation reviewed. Discussed with patient's guardian. Acute respiratory failure with requirement of 4 L nasal cannula oxygen, not normally on oxygen, tachypneic, 24 breaths/min. Severe COVID-19, positive COVID on PCR, new oxygen requirement. Remdesivir, Decadron. Oxygen support. Additionally noted abnormal D-dimer, possibly secondary to COVID-19, but as per discussion with guardian he is also hypotensive, dyspnea, tachypnea, cannot exclude PE. Assess lower extremity duplex. Hold beta-kari. Pressor support. Assess CT head. Empiric anticoagulation until able to more safely assess with CT angiogram. Would not be able to participate with VQ scan. (2) Hypotension: Possible hypovolemic shock with poor appetite, possible adrenal sufficiency with history of COPD acute illness. Received fluid challenge. Started on steroids. Does not fit criteria for sepsis. Possibly toxic effect of medication with acute kidney injury, including metoprolol, donepezil, tamsulosin. Hold medications. Pressor support. Treat COVID-19 as above. Empiric anticoagulation for possibility of PE. Assess TTE. Monitor on telemetry. Complete troponin EKG series. (3) KODI (acute kidney injury): KODI on CKD. Support blood pressure. Hold antihypertensives for now. Obtain kidney ultrasound. (4) Elevated d-dimer: As above. Plan Dementia: Hold donepezil, hold mirtazapine. Continue fluoxetine, bupropion. History of CVA Gastritis, continue PPI changed to IV dose. Tremor Other medical problems Attestations 2 Medical Necessity Statement*: Admission over 2 midnights regarding the need for discussed management of respiratory failure, encephalopathy, hypotension, KODI. Coding Level of Care Code Critical Care >/= 30 minutes Critical care time (in minutes): 40 The high probability of a clinically significant, sudden or life threatening deterioration, as referenced in this documentation, required my full and direct attention, intervention and personal management. The critical care time shown is in addition to time spent performing any reported separately billable procedures and includes the following: [x] Data and vital sign review and interpretation [x ] Patient assessment, examination and intervention [x] Medication orders and management [x] Patient/Family updates as able [x] Care Coordination and Documentation. Diagnoses Respiratory failure with hypoxia J96.91 Hypotension I95.9 KODI (acute kidney injury) N17.9 Elevated d-dimer R79.89
--- NOTE | 2023-11-20 18:26 | ECG_ITS ---
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 Measurements Intervals [place] Rate: 47 P: 0 ND: 0 QRS: 94 QRSD: 98 T: 67 QT: 463 QTc: 411 Interpretive Statements Possible sinus bradycardia Heavy baseline artifact Defective EKG Need to repeat Electronically Signed On 11-20-2023 19:45:17 GEOGRAPHY TEACHER by Gerard Hall M.D. [email or web address] Fundlawrence county hospitalTyfonecleveland clinic south pointe [email or web address].[id number]
--- NOTE | 2023-11-20 18:29 | USCV_ITS ---
Catalino Ivy Age: 73 Gender: M : 1950 Exam Date: 11/20/2023 20:51 Ordering Phys: Param Christina MD Technologist: SARAH [place] [facility] [place]: COVID isolation, febrile, respiratory distress, hypotension. Patient is unresponsive in ICU-9 BP: 115 / 62 HR: 58 Rhythm: Sinus Technical Quality: Adequate MEASUREMENTS (Male / Female) Normal Values 2D ECHO LV Diastolic Diameter PLAX 3.9 cm 4.2 - 5.9 / 3.9 - 5.3 cm LV Systolic Diameter PLAX 2.6 cm IVS Diastolic Thickness 0.8 cm 0.6 - 1.0 / 0.6 - 0.9 cm IVS Systolic Thickness 1.0 cm LVPW Diastolic Thickness 0.9 cm 0.6 - 1.0 / 0.6 - 0.9 cm LVPW Systolic Thickness 1.1 cm LVOT Diameter 1.8 cm LV Ejection Fraction 2D Teich 62.8 % LV Ejection Fraction MOD 2C 62.0 % LV Ejection Fraction 2C AL 62.2 % LA Diameter 2.6 cm LA Width 3.5 cm LA Height 2.8 cm RA Width 3.5 cm RA Height 3.1 cm Aorta at Sinotubular Diameter 3.1 cm IVC Diameter 2.0 cm M-MODE Aortic Annulus Diameter 2.5 cm LA Ao Ratio MM 1.0 MV E Point Septal Separation 0.2 cm DOPPLER AV Peak Velocity 99.0 cm/s LVOT Peak Velocity 82.0 cm/s AV Area Cont Eq vti 1.7 cm squared AV Area Cont Eq pk 2.1 cm squared MV Peak Velocity 104.0 cm/s MV Area PHT 1.9 cm squared Mitral E to A Ratio 1.4 MV E' Velocity 66.2 cm/s Mitral E to MV E' Ratio 11.1 Mitral E to LV E' Lateral Ratio 8.9 Mitral E to LV E' Septal Ratio 14.6 TR Peak Velocity 235.0 cm/s TR Peak Gradient 22.1 mmHg TV Peak E Velocity 54.0 cm/s Right Atrial Pressure 5.0 mmHg Pulmonary Artery Systolic Pressu 27.1 mmHg PV Peak Velocity 83.0 cm/s RV Acceleration Time 0.1 s RV Ejection Time 0.3 s RV AcT/ET 0.4 FINDINGS Left Ventricle Normal left ventricular size, systolic function and wall thickness, with no regional wall motion abnormalities. Left ventricular ejection fraction is estimated at 65%. Grade I/IV diastolic dysfunction (abnormal relaxation filling pattern), normal to mildly elevated filling pressures. Right Ventricle Normal right ventricular size and systolic function. Normal right ventricular systolic pressure. Right Atrium The right atrium is normal in size. Left Atrium The left atrium is normal in size. Mitral Valve Structurally normal mitral valve. Trace mitral valve regurgitation. Aortic Valve Structurally normal trileaflet aortic valve. Mild aortic valve regurgitation. No aortic valve stenosis. Tricuspid Valve Structurally normal tricuspid valve. Trace tricuspid valve regurgitation. Pulmonic Valve Pulmonic valve not well visualized. Pericardium Normal pericardium without effusion. Aorta Normal ascending aorta dimension. IVC The inferior vena cava appears normal. CONCLUSIONS Normal left ventricular size, systolic function and wall thickness, with no regional wall motion abnormalities. Left ventricular ejection fraction is estimated at 65%. Grade I/IV diastolic dysfunction (abnormal relaxation filling pattern), normal to mildly elevated filling pressures. Structurally normal mitral valve. Trace mitral valve regurgitation. Structurally normal trileaflet aortic valve. Mild aortic valve regurgitation. No aortic valve stenosis. There are no prior echocardiogram studies to compare. Dr. Loi Lorenzana MD (Electronically Signed) Final Date: 21 November 2023 08:21 S
--- NOTE | 2023-11-20 18:29 | US_ITS ---
WS: [id number] RENAL ULTRASOUND HISTORY: KODI on ckd COMPARISON: 09/12/2023 TECHNIQUE: 2-D and color Doppler imaging of the kidney submitted. Right kidney: 5.8 cm x 2.8 cm x 2.3 cm. Cortex: 0.3 cm Moderate atrophy entire RIGHT kidney. Increased echogenicity. Marked diffuse cortical thinning. No ob struction. Left kidney: 10.3 cm x 4.5 cm x 4.8 cm. Cortex: 1.2 cm Normal size kidney with no hydronephrosis. There are 2 very small cortical cysts along the inferior p ole with the largest measuring 0.9 cm. Aorta: Normal. Urinary Bladder: Nondistended. Rodriguez catheter is present. IMPRESSION: 1. Moderate atrophy RIGHT kidney with chronic medical renal disease. Similar to the study of 3. 2. Very tiny cortical cysts lower pole LEFT kidney. No obstruction.
--- NOTE | 2023-11-20 18:29 | USCV_ITS ---
Catalino Ivy Age: 73 Gender: M : 1950 Exam Date: 11/20/2023 22:47 Ordering Phys: Param Christina MD Technologist: SARAH Exam Location: [facility] [place] Indication: elevated d-dimer. Patient is unresponsive in ICU-9 HISTORY: elevated d-dimer. Patient is unresponsive in ICU-9 PROCEDURES: Venous duplex imaging was performed in bilateral lower extremities. The following venous structures were evaluated: common femoral vein, profunda vein, proximal portion of the greater saphenous vein, superficial femoral vein, and the popliteal vein. In addition, the posterior tibial veins were evaluated. Serial compression, augmentation maneuvers, and spectral Doppler flow evaluation were performed, which were normal. FINDINGS: Normal 2-D Doppler and augmentation and compressibility throughout the lower extremity venous structures. Additional imaging through the proximal calf veins also reveals no thrombus. Limited evaluation of the greater saphenous vein is patent with no thrombus. CONCLUSIONS No DVT bilateral lower extremities. Dr. Jesika Urena DO (Electronically Signed) Final Date: 21 November 2023 07:55 S
--- NOTE | 2023-11-20 19:01 | PC.NURSE ---
Pt just admitted to ICU at 1814. Levophed infusing at 8mcg/min. Pt giggles when asked his name.
[2023-11-20] MEDS: pantoprazole 40 mg SDV IVP (20:18)
[2023-11-20] MEDS: heparin drip 25,000 UNIT/500 ML PREMIX 14.61 UNIT IV (20:23)
[2023-11-20] MEDS: norepinephrine 4 MG/250 ML BAG 22.5 MG IV (20:28)
--- NOTE | 2023-11-20 20:29 | PC.NURSE ---
Levophed: Levophed running @8mcg/min on arrival to shift. Decreased to 6mcg/min @2019. New bag started @2029.
[2023-11-20 20:35] LABS: Troponin 5 6HR 23.65 ng/L (0-15)
[2023-11-20 20:36] LABS: Troponin 5 6HR Delta -2.35 ng/L (0-12)
[2023-11-20] MEDS: sodium chloride 0.9% 1,000 ML 100 ML IV (20:36)
[2023-11-20] MEDS: linezolid premix 600 MG/300 ML PREMIX 300 MG IV (20:42)
--- NOTE | 2023-11-20 22:21 | PC.NURSE ---
Low HR: Notified Dr. Lopez of HR in the low 40's w/ stable BP @2130. New order for 1mg PRN Atropine sry for HR less than 60 bmp, if pt is hemodynamically unstable- call physician before use. Notified Dr. Lopez of crackles in the lungs @3. New order to discontinue IV fluids, NS @100ml/hr.
[2023-11-21] VITALS (88 sets, daily range): BP systolic 76–132; BP diastolic 43–73; PULSE 39–100; RESP 16–29; TEMP 36.2–36.4; O2SAT 80–100
[2023-11-21] MEDS: dexamethasone 10 mg/mL INJ 6 MG IVP (01:48)
[2023-11-21 03:06] LABS: Anion Gap 13.6 (5-19); Blood Urea Nitrogen 49 mg/dL (8-23); Calcium 8.7 mg/dL (8.5-10.5); Carbon Dioxide 27 mmol/L (22-29); Chloride 109 mmol/L (98-107); Glucose 104 mg/dL (65-115); Osmolality Calculated 313 mOsm/kg (285-295); Potassium 4.6 mmol/L (3.5-5.1); Sodium 145 mmol/L (136-145)
[2023-11-21] MEDS: heparin 5,000 unit/mL INJ 1 mL IV (03:13)
[2023-11-21] MEDS: piperacillin-tazobactam 3.375 GM in sodium chloride 0.9% (plus) 50 ML IV ×3 (04:10→21:05)
[2023-11-21] MEDS: linezolid premix 600 MG/300 ML PREMIX 300 MG IV ×2 (05:51→17:25)
[2023-11-21 06:05] LABS: Basophils % 0.6 %; Hematocrit 32.9 % (37-53); Lymphocytes # 0.7 10^3/uL (0.8-4.8); Mean Corpuscular HGB Conc 30.1 g/dL (30-55); Mean Corpuscular Hemoglobin 29.6 pg (27-33); Mean Corpuscular Volume 98.2 fl (82-101); Mean Platelet Volume 11.1 fL (7.4-10.4); Monocytes # 0.4 10^3/uL (0.2-0.9); Monocytes % 6.3 %; Neutrophils % 81.6 %; Nucleated Red Blood Cells % 0 %; Platelet Count 246 10^3/cmm (157-399); Red Blood Count 3.35 10^6/uL (3.85-5.65); Red Cell Distribution Width 15.7 % (12.1-15.1); White Blood Count 6.37 10^3/uL (3.29-11.43)
[2023-11-21 06:29] LABS: Slide Review Slide Review Perform
--- OUTSIDE RECORDS SUMMARY | 2023-11-21 07:18 | XMS_ITS | Patient Health Record ---
Author Name Unknown Organization [facility] Address [address] [place] [address] Care Team Providers Care Sword Swallower Name Role Phone Merle Parham MD Primary Care Provider Deep Vincent Unavailable [phone] Jareth Bolanos Unavailable [phone] ALLERGIES No Known Allergies REASON FOR REFERRAL No Information MEDICATIONS Medication SIG (Take, Route, Frequency, Duration) Notes Start Date End Date Status buPROPion HCl 75 MG 2 tablets Orally Once a day Active Combivent Combivent 03/16/2015 Unknown Bupropion Hydrochloride 75 MG Oral Tablet Bupropion Hydrochloride 75 MG Oral Tablet 03/16/2015 Not-Taking Hydroxyzine Hydroxyzine 07/28/2016 Unkno wn Loratadine 10 MG Oral Tablet Loratadine 10 MG Oral Tablet 08/28/2016 Unknown tamsulosin tamsulosin 04/19/2017 Unknown Ascorbic Acid 4.7 MG/ML / POLYETHYLENE GLYCOL 3350 100 MG/ML / Potassium Chloride 0.0136 MEQ/ML / Sodium Ascorbate 5.9 MG/ML / Sodium Chloride 0.046 MEQ/ML / sodium sulfate 7.5 MG/ML Oral Solution [MoviPrep] Ascorbic Acid 4.7 MG/ML / POLYETHYLENE GLYCOL 3350 100 MG/ML / Potassium Chloride 0.0136 MEQ/ML / Sodium Ascorbate 5.9 MG/ML / Sodium Chloride 0.046 MEQ/ML / sodium sulfate 7.5 MG/ML Oral Solution [MoviPrep] 09/14/2016 Unknown Claritin Claritin 09/02/2015 Unknown Hydroxyzine Hydrochloride 10 MG Oral Tablet Hydroxyzine Hydrochloride 10 MG Oral Tablet 08/28/2016 Unknown Donepezil HCl 5 MG 1 tablet at bedtime Orally Once a day Active Tamsulosin hydrochloride 0.4 MG Oral Capsule Tamsulosin hydrochloride 0.4 MG Oral Capsule 08/28/2016 Unknown FLUoxetine HCl 20 MG 1 capsule Orally Once a day Active 120 ACTUAT Albuterol 0.1 MG/ACTUAT / Ipratropium Aurora 0.02 MG/ACTUAT Metered Dose Inhaler [Combivent 20/100] 120 ACTUAT Albuterol 0.1 MG/ACTUAT / Ipratropium Aurora 0.02 MG/ACTUAT Metered Dose Inhaler [Combivent 20/100] 08/28/2016 Unknown Mirtazapine 15 MG 1 tablet at bedtime Orally Once a day Active potassium citrate 10 MEQ Extended Release Tablet potassium citrate 10 MEQ Extended Release Tablet 08/28/2016 Unknown Aspirin Aspirin 04/19/2017 Unknown Aspirin 81 MG Oral Tablet Aspirin 81 MG Oral Tablet 08/28/2016 Unknown trazodone Trazodone 07/28/2016 Unknown Tylenol 325 MG 2 tablet as needed Orally every 6 hrs Active Primidone 50 MG Oral Tablet Primidone 50 MG Oral Tablet 08/28/2016 Unknown Metoprolol Tartrate 25 MG 1 tablet with food Orally Twice a day Active sildenafil 100 MG Oral Tablet sildenafil 100 MG Oral Tablet 08/28/2016 Unknown SOCIAL HISTORY Sex Assigned At : Social History Observation Description Sex Assigned At Unknown PROBLEMS Problem Type ICD Code Onset Dates Problem Status W/U Status Risk SNOMED Code Notes Problem Adjustment disorder with mixed disturbance of emotions and conduct (F43.25) Active confirmed Adjustment disorder with mixed disturbance of emotions AND conduct (59863631) Problem Expressive language disorder (F80.1) Active confirmed Expressive language disorder (819881738) Problem Cerebral ischemia (I67.82) Active confirmed Cerebral ischemia (447094013) Problem Psychosis (F29) Active confirmed Psycho sis (64585463) Problem Brain atrophy (G31.9) Active confirmed Degenerative disease of the central nervous system (disorder) (10330446) Encounters Encounter Location Date Provider Diagnosis [facility] [address] [place] [id number] 04/13/2023 Christopher Bolanos Psychosis F29 and Adjustment disorder with mixed disturbance of emotions and conduct F43.25 [facility] [address] [place] [address] 04/20/2023 Christopher Bolanos Psychosis F29 ; Adjustment disorder with mixed disturbance of emotions and conduct F43.25 ; Brain atrophy G31.9 and Cerebral ischemia I67.82 [facility] [address] [place] [id number] [facility] [address] [place] [address] 05/25/2023 Jareth Bolanos Psychosis F29 ; Cerebral ischemia I67.82 and Expressive language disorder F80.1 [facility] [address] [place] [address] 06/22/2023 Jareth Bolanos Psychosis F29 ; Brain atrophy G31.9 and Cerebral ischemia I67.82 [facility] [address] [place] [address] 08/03/2023 [facility] [address] [place] [address] 08/17/2023 [facility] [address] [place] [address] 10/05/2023 Jareth Bolanos [facility] [address] [place] [address] 10/19/2023 Jareth Bolanos ASSESSMENTS Encounter Date Diagnosis Assessment Notes Treatment Notes Treatment Clinical Notes 04/13/2023 Adjustment disorder with mixed disturbance of emotions and conduct (ICD-10 - F43.25) 04/13/2023 Psychosis (ICD-10 - F29) 04/20/2023 Adjustment disorder with mixed disturbance of emotions and conduct (ICD-10 - F43.25) 04/20/2023 Psychosis (ICD-10 - F29) 05/25/2023 Cerebral ischemia (ICD-10 - I67.82) 05/25/2023 Psychosis (ICD-10 - F29) 06/22/2023 Psychosis (ICD-10 - F29) 06/22/2023 Brain atrophy (ICD-10 - G31.9) 06/22/2023 Cerebral ischemia (ICD-10 - I67.82) 04/20/2023 Brain atrophy (ICD-10 - G31.9) 05/25/2023 Expressive language disorder (ICD-10 - F80.1) 04/20/2023 Cerebral ischemia (ICD-10 - I67.82) PLAN OF TREATMENT No Information Insurance Providers Payer Name Payer Address Payer Phone Subscriber Number Group Number Insured Name Patient Relationship to Insured Coverage Start Date Coverage End Date [employer] [address] [place] [phone] [id number] Catalino Ivy Self - patient is the insured [place] [address] [place] [phone] [id number] Catalino Ivy Self - patient is the insured MEDICAL (GENERAL) HISTORY Medical History History ICD Code Problem:At risk for falls (finding) , St atus :: Active Problem:Chronic obstructive lung disease (disorder) , Status :: Active Problem:Hydronephrosis (disorder) , Stat us :: Active Problem:Raised prostate specific antigen (finding) , Status :: Active Problem:Sleep apnea (finding) , Status : : Active Problem:Ureteric stone (disorder) , Stat us :: Active Problem:Anxiety (finding) , Status :: Ac tive Problem:Chronic obstructive lung disease (disorder) , Status :: Active Problem:Depressive disorder (disorder) , Status :: Active Problem:Kidney stone (disorder) , Status :: Active Cerebral infarction, unspecified I63.9 Altered mental status, unspecified R41.8 2 Disorientation, unspecified R41.0 Adult failure to thrive R62.7 Acute kidney failure, unspecified N17.9 Abnormal levels of other serum enzymes R 74.8 Hydrocephalus, unspecified G91.9 Unspecified protein-calorie malnutrition E46 Other malaise R53.81 Chronic obstructive pulmonary disease wi th (acute) exacerbation J44.1 Chronic obstructive pulmonary disease, u nspecified J44.9 Anxiety disorder, unspecified F41.9 Major depressive disorder, recurrent, un specified F33.9 Hyperlipidemia, unspecified E78.5 Post-traumatic stress disorder, chronic F43.12 Unspecified dementia, unspec ified severity, without behavioral disturbance, psychotic disturbance, mood disturbance, and anxiety F03.90
[2023-11-21] MEDS: fluoxetine 20 mg Capsule PO (07:46)
[2023-11-21] MEDS: buPROPion SR (12 HR) 100 mg Tablet PO ×2 (08:11→17:25)
[2023-11-21] MEDS: albuterol 2.5 mg/3 mL Neb INHALATION ×3 (09:01→20:06)
[2023-11-21 09:58] LABS: Partial Thromboplastin Time 51.9 SECONDS (23.9-36.7)
--- NOTE | 2023-11-21 14:45 | P.PN_ITS ---
Subjective 2 Subjective: Denies pain. Not oriented. But is more alert than yesterday. Feels cold Vitals/I&O/Wt Last Vital Signs Temp 97.6 F 11/21/23 08:15 Pulse 69 11/21/23 14:00 Resp 26 H 11/21/23 14:00 BP 102/64 11/21/23 13:30 Pulse Ox 80 L 11/21/23 14:00 O2 Del Method Nasal Cannula 11/21/23 09:01 O2 Flow Rate 2 11/21/23 09:01 11/20/23 11/21/23 11/21/23 22:59 06:59 14:59 Intake Total 999.625 / 2614.515 232.555 / 2847.070 168.133 / 168.133 Output Total 400 / 400 Balance 999.625 / 2614.515 -167.445 / 2447.070 168.133 / 168.133 Weight last 48 hrs Weight 42.638 kg Weight 52.163 kg Physical Exam 2 Const: COMMON NORMALS: alert; negative for patient oriented x3 ORIENTATION/CONSCIOUSNESS: Yes Other orientation findings (Minimally conscious.) HENMT: COMMON NORMALS: oropharynx normal Neck/C-Spine: COMMON NORMALS: no JVD Resp: COMMON NORMALS: normal respiratory effort and clear to auscultation bilaterally AUSCULTATION: clear to auscultation bilaterally Cardio: COMMON NORMALS: no JVD, regular rhythm, S1 normal heart sound present, S2 normal heart sound present and No murmurs present (Cardio) RHYTHM: regular rhythm HEART SOUNDS: S1 normal heart sound present and S2 normal heart sound present GI: COMMON NORMALS: Normal to inspection, nondistended, normoactive bowel sounds present, Soft to palpation and non-tender PALPATION: Yes Soft to palpation Extremity: COMMON NORMALS: no joint enlargement and no pedal edema Neuro: COMMON NORMALS: negative for patient oriented x3 S ENSORIUM/ORIENTATION: Yes alert Skin: GENERAL SKIN EXAM: ecchymosis and Excoriation Urinary Catheter Management: Rodriguez: Cath Placed During This Visit: yes Reason for Continuing Indwelling Catheter: Accurate Measurement of Urinary Output in Critically Ill Patients Urinary Catheter Date of Insertion: 11/20/23 Urinary Catheter Time of Insertion: 13:50 Data 11/21/23 05:47 11/21/23 02:41 A&P Assessment and plan (1) Respiratory failure with hypoxia: With some improvement in hypoxia, however, with some persistence of shock. Improvement in encephalopathy. He is not able to provide history, but is more interactive. Following directions. Continue treatment of severe COVID-19 pneumonia. Continue. Antibiotic coverage for secondary bacterial pneumonia. For now continues with anticoagulation as cannot rule out PE at current time. Monitor for bleeding due to risk. Follow-up D-dimer level. Reviewed vitals, CBC, PTT, CMP, troponin series. Echocardiogram. Discussed with piano case maker. Additionally noted abnormal D-dimer, possibly secondary to COVID-19, but he is also hypotensive, dyspnea, tachypnea, cannot exclude PE. Assess lower extremity duplex. Hold beta-kari. Pressor support. Assess CT head. Empiric anticoagulation until able to more safely assess with CT angiogram. Would not be able to participate with VQ scan. Reviewed venous duplex ultrasound, no DVT. (2) Hypotension: With improvement but still some persistent requirement for Levophed. Continue to withhold offending medications. Treat severe COVID, secondary bacterial pneumonia. Discussed with nursing staff will additionally obtain NICOM assessment, additional fluid resuscitation and responsive. Add midodrine 5 mg 3 times daily. Reviewed echocardiogram Does not meet sepsis criteria Reviewed troponin EKG series. Mild troponin elevation. Echocardiogram with normal ejection fraction, grade 1 diastolic dysfunction. No regional wall motion abnormality. Trace MVR. No AVS. (3) KODI (acute kidney injury): Reviewed BUN, creatinine, improvement in creatinine down to 1.9. KODI on CKD. Support blood pressure. Hold antihypertensives for now. Reviewed kidney ultrasound. Moderate atrophy right kidney which is known. Tiny cortical cyst lower pole left kidney. (4) Elevated d-dimer: As above. Plan Dementia: Hold donepezil, hold mirtazapine. Continue fluoxetine, bupropion. History of CVA Gastritis, continue PPI changed to IV dose. Tremor Other medical problems Attestations 2 Medical Necessity Statement*: Continue admission for assessment management of severe COVID-19, shock, KODI and gentleman with dementia and additional comorbidities as above. Coding Level of Care Code Critical Care >/= 30 minutes Critical care time (in minutes): 35 The high probability of a clinically significant, sudden or life threatening deterioration, as referenced in this documentation, required my full and direct attention, intervention and personal management. The critical care time shown is in addition to time spent performing any reported separately billable procedures and includes the following: [x] Data and vital sign review and interpretation [x ] Patient assessment, examination and intervention [x] Medication orders and management [x] Patient/Family updates as able [x] Care Coordination and Documentation. Diagnoses Respiratory failure with hypoxia J96.91 Hypotension I95.9 KODI (acute kidney injury) N17.9 Elevated d-dimer R79.89
[2023-11-21] MEDS: midodrine 5 mg TABLET PO ×2 (15:52→21:05)
[2023-11-21] MEDS: remdesivir 100 MG in sodium chloride 0.9% (100 ml) 80 ML IV (16:08)
[2023-11-21] MEDS: pantoprazole 40 mg SDV IVP (17:25)
[2023-11-21 18:46] LABS: Partial Thromboplastin Time 39.1 SECONDS (23.9-36.7)
[2023-11-21 20:53] LABS: Partial Thromboplastin Time 48.4 SECONDS (23.9-36.7)
--- NOTE | 2023-11-21 22:00 | PC.NURSE ---
Patient is restless in bed. We have repositioned him several times. He is only tohis name and is unable to tell us what is making him restless. Linens are clean and dry and we have positioned him with pillows. Patient is also having tremors in both arms and it is difficult for the monitor to get BP readings. We have tried both arms and both lower legs. Currently BP cuff is on patient's lower left leg.
[2023-11-22] VITALS (26 sets, daily range): BP systolic 94–147; BP diastolic 43–97; PULSE 44–82; RESP 17–29; TEMP 36.1–36.4; O2SAT 90–100
[2023-11-22] MEDS: dexamethasone 10 mg/mL INJ 6 MG IVP (00:36)
[2023-11-22] MEDS: norepinephrine 4 MG/250 ML BAG 7.5 MG IV (00:37)
[2023-11-22] MEDS: heparin drip 25,000 UNIT/500 ML PREMIX 20 UNIT IV (02:16)
[2023-11-22 03:12] LABS: Basophils % 0.1 %; Hematocrit 31.8 % (37-53); Lymphocytes # 0.6 10^3/uL (0.8-4.8); Lymphocytes % 7.5 %; Mean Corpuscular HGB Conc 31.1 g/dL (30-55); Mean Corpuscular Hemoglobin 29.5 pg (27-33); Mean Corpuscular Volume 94.6 fl (82-101); Mean Platelet Volume 10.8 fL (7.4-10.4); Monocytes # 0.6 10^3/uL (0.2-0.9); Monocytes % 6.9 %; Neutrophils # 6.94 10^3/uL (1.8-7.7); Neutrophils % 84.2 %; Nucleated Red Blood Cells % 0 %; Platelet Count 323 10^3/cmm (157-399); Red Blood Count 3.36 10^6/uL (3.85-5.65); Red Cell Distribution Width 15.7 % (12.1-15.1); White Blood Count 8.25 10^3/uL (3.29-11.43)
[2023-11-22 03:32] LABS: Anion Gap 13.5 (5-19); Blood Urea Nitrogen 42 mg/dL (8-23); Calcium 8.8 mg/dL (8.5-10.5); Carbon Dioxide 26 mmol/L (22-29); Chloride 109 mmol/L (98-107); Glucose 133 mg/dL (65-115); Osmolality Calculated 310 mOsm/kg (285-295); Potassium 4.5 mmol/L (3.5-5.1); Sodium 144 mmol/L (136-145)
[2023-11-22 03:33] LABS: Partial Thromboplastin Time 59.3 SECONDS (23.9-36.7)
[2023-11-22 03:35] LABS: D Dimer 2.77 ug/mLFEU (0-0.59)
[2023-11-22 03:39] LABS: Slide Review Slide Review Perform
[2023-11-22] MEDS: piperacillin-tazobactam 3.375 GM in sodium chloride 0.9% (plus) 50 ML IV ×3 (04:40→20:58)
[2023-11-22] MEDS: linezolid premix 600 MG/300 ML PREMIX 300 MG IV ×2 (05:04→17:00)
[2023-11-22] MEDS: fluoxetine 20 mg Capsule PO (06:18)
[2023-11-22] MEDS: buPROPion SR (12 HR) 100 mg Tablet PO ×2 (09:27→17:00)
[2023-11-22] MEDS: midodrine 5 mg TABLET PO ×3 (09:27→20:59)
[2023-11-22 10:28] LABS: Partial Thromboplastin Time 69.8 SECONDS (23.9-36.7)
--- NOTE | 2023-11-22 14:59 | P.PN_ITS ---
Subjective 2 Subjective: He is unable to provide history, provide limited review of systems. Left middle IV site is bothering him some. There is no swelling or redness. Vitals/I&O/Wt Last Vital Signs Temp 97.2 F L 11/22/23 06:00 Pulse 50 L 11/22/23 14:49 Resp 18 11/22/23 14:49 BP 107/85 11/22/23 13:00 Pulse Ox 92 11/22/23 14:49 O2 Del Method Nasal Cannula 11/22/23 14:49 O2 Flow Rate 2 11/22/23 14:49 11/21/23 11/22/23 11/22/23 22:59 06:59 14:59 Intake Total 684.371 / 898.254 234.066 / 1132.320 50 / 50 Output Total 700 / 700 Balance 684.371 / 898.254 -465.934 / 432.320 50 / 50 Weight last 48 hrs Weight 43.5 kg Weight 42.638 kg Physical Exam 2 Const: COMMON NORMALS: alert; negative for patient oriented x3 ORIENTATION/CONSCIOUSNESS: Yes Other orientation findings (Minimally conscious.) HENMT: COMMON NORMALS: oropharynx normal Neck/C-Spine: COMMON NORMALS: no JVD Resp: COMMON NORMALS: normal respiratory effort and clear to auscultation bilaterally AUSCULTATION: clear to auscultation bilaterally Cardio: COMMON NORMALS: no JVD, regular rhythm, S1 normal heart sound present, S2 normal heart sound present and No murmurs present (Cardio) RHYTHM: regular rhythm HEART SOUNDS: S1 normal heart sound present and S2 normal heart sound present GI: COMMON NORMALS: Normal to inspection, nondistended, normoactive bowel sounds present, Soft to palpation and non-tender PALPATION: Yes Soft to palpation Extremity: COMMON NORMALS: no joint enlargement and no pedal edema Neuro: COMMON NORMALS: negative for patient oriented x3 S ENSORIUM/ORIENTATION: Yes alert Skin: GENERAL SKIN EXAM: ecchymosis and Excoriation Urinary Catheter Management: Rodriguez: Cath Placed During This Visit: yes Reason for Continuing Indwelling Catheter: Accurate Measurement of Urinary Output in Critically Ill Patients Urinary Catheter Date of Insertion: 11/20/23 Urinary Catheter Time of Insertion: 13:50 Data 11/22/23 02:57 11/22/23 02:57 A&P Assessment and plan (1) Respiratory failure with hypoxia: With some improvement, oxygen requirement down to 2 L. Reviewed vitals, CBC, PTT, D-dimer, chemistry. D-dimer with some worsening up to 2.77. Continue anticoagulation. Monitor for any bleeding due to risk of anticoagulation, reassess CBC. Continue remdesivir, Decadron. Monitor for hyperglycemia due to risk with steroids. Continue treatment of severe COVID-19 pneumonia. Continue. Antibiotic coverage for secondary bacterial pneumonia. For now continues with anticoagulation as cannot rule out PE at current time. Monitor for bleeding due to risk. Follow-up D-dimer level. Discussed with cyanide case hardener. Abnormal D-dimer, possibly secondary to COVID-19, but he is also hypotensive, dyspnea, tachypnea, cannot exclude PE. Assess lower extremity duplex. Hold beta-kari. Pressor support. Assess CT head. Empiric anticoagulation until able to more safely assess with CT angiogram. Would not be able to participate with VQ scan. Venous duplex ultrasound, no DVT. (2) Hypotension: Gradual improvement. Weaning off of pressor. Was started on midodrine, no room to uptitrate due to heart rates already on the low side, down to 50s. Discontinue midodrine as soon as not needed. Monitor on telemetry with risk of worsening bradycardia. Continue care in ICU for tonight in case requiring additional pressor. Withhold suspected offending medications. Treat severe COVID, secondary bacterial pneumonia. NICOM results reviewed, not fluid responsive. Transfer to medical surgical floor. Discussed with cyanide case hardener. Does not meet sepsis criteria Reviewed troponin EKG series. Mild troponin elevation. Echocardiogram with normal ejection fraction, grade 1 diastolic dysfunction. No regional wall motion abnormality. Trace MVR. No AVS. (3) KODI (acute kidney injury): Reviewed BUN, creatinine. Noted renal function gradually improving. BUN down to 42, creatinine down to 1.5. Reviewed electrolytes, potassium and K4.5. KODI on CKD. Support blood pressure. Hold antihypertensives for now. Reviewed kidney ultrasound. Moderate atrophy right kidney which is known. Tiny cortical cyst lower pole left kidney. (4) Elevated d-dimer: As above. Plan Dementia: Hold donepezil, hold mirtazapine. Continue fluoxetine, bupropion. History of CVA Gastritis, continue PPI IV. Tremor Other medical problems Attestations 2 Medical Necessity Statement*: Continue admission for assessment management of severe COVID-19, KODI and gentleman with additional comorbidities as above. Diagnoses Respiratory failure with hypoxia J96.91 Hypotension I95.9 KODI (acute kidney injury) N17.9 Elevated d-dimer R79.89
[2023-11-22 16:49] LABS: Partial Thromboplastin Time 84.1 SECONDS (23.9-36.7)
[2023-11-22] MEDS: pantoprazole 40 mg SDV IVP (17:00)
[2023-11-22] MEDS: remdesivir 100 MG in sodium chloride 0.9% (100 ml) 80 ML IV (17:00)
--- NOTE | 2023-11-22 20:43 | PC.NURSE ---
Levophed: On arrival to shift @1900 Levophed was off and disconnected from pt. MAR edited for 1899 to reflect this. Per report w/ JONATHAN Young Levophed has been off all shift.
[2023-11-23] VITALS (12 sets, daily range): BP systolic 112–134; BP diastolic 56–84; PULSE 39–85; RESP 16–21; TEMP 36.6–36.7; O2SAT 92–97
[2023-11-23] MEDS: dexamethasone 10 mg/mL INJ 6 MG IVP (00:15)
[2023-11-23 01:03] LABS: Partial Thromboplastin Time 105.3 SECONDS (23.9-36.7)
[2023-11-23] MEDS: heparin drip 25,000 UNIT/500 ML PREMIX 16 UNIT IV (04:12)
[2023-11-23] MEDS: piperacillin-tazobactam 3.375 GM in sodium chloride 0.9% (plus) 50 ML IV (04:13)
--- NOTE | 2023-11-23 05:49 | PC.NURSE ---
Transfer to [facility]: Pt was transferred to [facility] @[id number]. Room 273.
[2023-11-23] MEDS: fluoxetine 20 mg Capsule PO (06:11)
[2023-11-23] MEDS: linezolid premix 600 MG/300 ML PREMIX 300 MG IV (06:11)
[2023-11-23 08:02] LABS: Basophils % 0.4 %; Hematocrit 33.5 % (37-53); Lymphocytes # 0.5 10^3/uL (0.8-4.8); Lymphocytes % 11.6 %; Mean Corpuscular HGB Conc 30.4 g/dL (30-55); Mean Corpuscular Hemoglobin 29.5 pg (27-33); Mean Corpuscular Volume 96.8 fl (82-101); Mean Platelet Volume 10.5 fL (7.4-10.4); Monocytes # 0.2 10^3/uL (0.2-0.9); Monocytes % 4.7 %; Neutrophils # 3.76 10^3/uL (1.8-7.7); Neutrophils % 81.1 %; Nucleated Red Blood Cells % 0 %; Platelet Count 293 10^3/cmm (157-399); Red Blood Count 3.46 10^6/uL (3.85-5.65); Red Cell Distribution Width 15.7 % (12.1-15.1); White Blood Count 4.64 10^3/uL (3.29-11.43)
[2023-11-23 08:17] LABS: Anion Gap 13.5 (5-19); Blood Urea Nitrogen 36 mg/dL (8-23); Calcium 8.8 mg/dL (8.5-10.5); Carbon Dioxide 26 mmol/L (22-29); Chloride 106 mmol/L (98-107); Glucose 217 mg/dL (65-115); Osmolality Calculated 307 mOsm/kg (285-295); Potassium 4.5 mmol/L (3.5-5.1); Sodium 141 mmol/L (136-145)
[2023-11-23 08:20] LABS: Partial Thromboplastin Time 78.2 SECONDS (23.9-36.7)
[2023-11-23 08:51] LABS: D Dimer 1.35 ug/mLFEU (0-0.59)
[2023-11-23] MEDS: albuterol 2.5 mg/3 mL Neb INHALATION (08:58)
[2023-11-23] MEDS: buPROPion SR (12 HR) 100 mg Tablet PO (09:47)
[2023-11-23] MEDS: midodrine 5 mg TABLET PO (09:47)
--- NOTE | 2023-11-23 12:36 | PM.DCS ---
Discharge Providers Date of Admission: 11/20/23 18:29 Date of Discharge: November 23, 2023 Attending Provider at Admission: Param Christina Attending Provider at Discharge: Param Christina Primary Care Provider: Sridhar Bolanos MD Diagnoses at Discharge Discharge Diagnosis (1) Respiratory failure with hypoxia: Status: Acute (2) Hypotension: Status: Acute (3) KODI (acute kidney injury): Status: Acute (4) Elevated d-dimer: Status: Acute Reason for Visit Reason for Visit: Resp disress, AMS, Fever Hospital Course Hospital Course 73-year-old gentleman with history of dementia was brought in from senior living in respite distress, with altered mental status, fever, was recently treated for pneumonia with azithromycin. On testing ER found to have COVID-19, with severe disease was treated with remdesivir, Decadron, with suspected superimposed bacterial pneumonia with noted right lower lobe infiltrate suggestive of acute pneumonia on imaging, was treated empirically with broad-spectrum antibiotic coverage with Zosyn, linezolid. On presentation also with acute kidney injury, during hospitalization also with shock, suspected toxic effect of medication including donepezil, mirtazapine, possibly metoprolol. These medications were held. He did transiently require pressor support. With support of blood pressure kidney injury gradually has been resolving. Creatinine down from highest 2.3 down to 1.2. Kidney ultrasound showed moderate atrophy right kidney with chronic medical renal disease. Similar to prior. Very tiny cortical cyst lower pole left kidney no obstruction. Acute encephalopathy had resolved. CT of the head showed chronic microvascular ischemic changes. No acute abnormality. Respiratory function continued to gradually improve, he weaned down to needing only 1 L of oxygen by nasal cannula currently. Continue, target saturation 90%, wean down as tolerating. On presentation was transiently on anticoagulation with abnormal D-dimer, could not exclude PE, was empirically on anticoagulation. Venous duplex of lower extremities was obtained. There was no DVT. His condition has continued to improve, no suggestion of PE at current time. D-dimer has also shown improvement and likely related to COVID-19. Discussed his condition and anticoagulation with his guardian. At the current time concern would be higher for falls and trauma and bleeding, thus anticoagulation is not continued. He is noted to have some risk of aspiration. Speech therapy assessment is requested prior to discharge. Maintain aspiration precautions. Continue follow-up with speech therapy. Physical Exam Const: COMMON NORMALS: alert; negative for patient oriented x3 ORIENTATION/CONSCIOUSNESS: Yes Other orientation findings (Minimally conscious.) HENMT: COMMON NORMALS: oropharynx normal Neck/C-Spine: COMMON NORMALS: no JVD Resp: COMMON NORMALS: normal respiratory effort and clear to auscultation bilaterally AUSCULTATION: clear to auscultation bilaterally Cardio: COMMON NORMALS: no JVD, regular rhythm, S1 normal heart sound present, S2 normal heart sound present and No murmurs present (Cardio) RHYTHM: regular rhythm HEART SOUNDS: S1 normal heart sound present and S2 normal heart sound present GI: COMMON NORMALS: Normal to inspection, nondistended, normoactive bowel sounds present, Soft to palpation and non-tender PALPATION: Yes Soft to palpation Extremity: COMMON NORMALS: no joint enlargement and no pedal edema Neuro: COMMON NORMALS: negative for patient oriented x3 SENSORIUM/ORIENTATION: Yes alert Skin: GENERAL SKIN EXAM: ecchymosis and Excoriation Urinary Catheter Management: Rodriguez: Cath Placed During This Visit: yes Reason for Continuing Indwelling Catheter: Accurate Measurement of Urinary Output in Critically Ill Patients Urinary Catheter Date of Insertion: 11/20/23 Urinary Catheter Time of Insertion: 13:50 Discharge Data Studies Completed and Pending Completed Studies During Hospitalization Category Date Time Status CT head wo con* [id number] Stat Cat Scan 11/20/23 15:45 Completed XR chest 1V portable [id number] Stat Exams 11/20/23 12:31 [place] [id number] Routine Ultrasound 11/20/23 18:29 Completed CV. echo complete* [id number] Routine Ultrasound 11/20/23 18:29 Completed US renal BI* [id number] Routine Ultrasound 11/20/23 18:29 Completed Pending at discharge Category Date Time Status Blood Cultures ([facility]) Routine Lab 11/20/23 12:48 Received Blood Cultures ([facility]) Routine Lab 11/20/23 12:48 Received D Dimer AM LABS Lab 11/24/23 04:00 Ordered PTT [Partial Thromboplastin Time] Timed Lab 11/23/23 13:30 Ordered Platelet Count Q2D Lab 11/24/23 04:00 Ordered Sputum Culture and Gram Stain Stat Lab 11/20/23 12:43 Uncollected Radiology Impressions Head CT 11/20/23 15:45 IMPRESSION: No acute intracranial abnormality. Chronic microvascular ischemic changes. Laboratory Results WBC 4.64 10^3/uL (3.29-11.43) 11/23/23 07:40 RBC 3.46 10^6/uL (3.85-5.65) L 11/23/23 07:40 Hgb 10.20 g/dL (11.27-16.99) L 11/23/23 07:40 Hct 33.5 % (37-53) L 11/23/23 07:40 MCV 96.8 fl (82-101) 11/23/23 07:40 MCH 29.5 pg (27-33) 11/23/23 07:40 MCHC 30.4 g/dL (30-55) 11/23/23 07:40 RDW 15.7 % (12.1-15.1) H 11/23/23 07:40 Plt Count 293 10^3/cmm (157-399) 11/23/23 07:40 MPV 10.5 fL (7.4-10.4) H 11/23/23 07:40 Neut % (Auto) 81.1 % 11/23/23 07:40 Lymph % (Auto) 11.6 % 11/23/23 07:40 [place] % (Auto) 4.7 % 11/23/23 07:40 Eos % (Auto) 0.0 % 11/23/23 07:40 Baso % (Auto) 0.4 % 11/23/23 07:40 Neut # (Auto) 3.76 10^3/uL (1.8-7.7) 11/23/23 07:40 Lymph # (Auto) 0.5 10^3/uL (0.8-4.8) L 11/23/23 07:40 [place] # (Auto) 0.2 10^3/uL (0.2-0.9) 11/23/23 07:40 Eos # (Auto) 0.0 10^3/uL (0.0-0.8) 11/23/23 07:40 Baso # (Auto) 0.0 10^3/uL (0.0-0.1) 11/23/23 07:40 Nucleated RBC % (auto) 0 % 11/23/23 07:40 Total Counted 100 (0-100) 11/20/23 12:48 Atypical Lymphs % 3.0 % (0-5) 11/20/23 12:48 Absolute Neutrophils 4.1 10^3/cmm (1.4-6.5) 11/20/23 12:48 Segmented Neutrophils 58 % 11/20/23 12:48 Abs Segm Neuts (Man) 2.8 10/cmm (1.6-7.1) 11/20/23 12:48 Band Neutrophils 27.0 % 11/20/23 12:48 Abs Band Neuts (Man) 1.3 10^3/cmm (0.0-1.2) H 11/20/23 12:48 Absolute Lymphocytes 0.6 10^3/cmm (1.2-3.4) L 11/20/23 12:48 Lymphocytes (Manual) 10 % 11/20/23 12:48 Monocytes (Manual) 1.0 % 11/20/23 12:48 Absolute Monocytes 0.0 10^3/cmm (0.1-0.6) L 11/20/23 12:48 Eosinophils (Manual) 0 % 11/20/23 12:48 Absolute Eosinophils 0.0 10^3/cmm (0.0-0.7) 11/20/23 12:48 Basophils (Manual) 0.0 % 11/20/23 12:48 Absolute Basophils 0.0 10^3/cmm (0.0-0.2) 11/20/23 12:48 Metamyelocytes 1.0 % 11/20/23 12:48 Nucleated RBCs # 0.0 /100WBC 11/23/23 07:40 Platelet Estimate Normal (Normal) 11/20/23 12:48 Giant Platelets Trace 11/20/23 12:48 Macrocytosis 1+ H 11/20/23 12:48 APTT 78.2 SECONDS (23.9-36.7) H 11/23/23 07:40 D-Dimer 1.35 ug/mLFEU (0-0.59) H 11/23/23 07:40 Specimen Type Arterial 11/20/23 12:36 Sample Site Radial, left 11/20/23 12:36 ABG pH 7.40 (7.35-7.45) 11/20/23 12:36 ABG pCO2 47.2 mmHg (35-45) H 11/20/23 12:36 ABG pO2 104.0 mmHg (80.0-100.0) H 11/20/23 12:36 ABG PO2/FiO2 Ratio 0 11/20/23 12:36 ABG HCO3 29.0 mmol/L (22-26) H 11/20/23 12:36 ABG O2 Saturation 98.5 11/20/23 12:36 ABG Base Excess 3.5 mmol/L (-2.0-2.0) H 11/20/23 12:36 Glen Test Pos 11/20/23 12:36 A-a O2 Gradient 8.7 mmHg (5-10) 11/20/23 12:36 Hematocrit 31.6 % (42-52) L 11/20/23 12:36 Hgb O2 Saturation 96.3 % (95-100) 11/20/23 12:36 Carboxyhemoglobin 1.1 %THgb (0.4-20.1) 11/20/23 12:36 Methemoglobin 1.2 % (0.4-1.5) 11/20/23 12:36 Total Hemoglobin 10.3 g/dL (14-18) L 11/20/23 12:36 Sodium 149.0 mmol/L (131-143) H 11/20/23 12:36 Potassium 4.3 mmol/L (3.5-5.0) 11/20/23 12:36 Glucose 133.0 mg/dL (70-115) H 11/20/23 12:36 Ionized Calcium 1.2 mmol/L (1.1-1.4) 11/20/23 12:36 O2 Delivery Device Nc 11/20/23 12:36 O2 Liters/Min 3.0 % 11/20/23 12:36 FiO2 32.0 % 11/20/23 12:36 Support Services Manager ID Cak 11/20/23 12:36 Sodium 141 mmol/L (136-145) 11/23/23 07:40 Potassium 4.5 mmol/L (3.5-5.1) 11/23/23 07:40 Chloride 106 mmol/L (98-107) 11/23/23 07:40 Carbon Dioxide 26 mmol/L (22-29) 11/23/23 07:40 Anion Gap 13.5 (5-19) 11/23/23 07:40 BUN 36 mg/dL (8-23) H 11/23/23 07:40 Creatinine 1.2 mg/dL (0.7-1.2) 11/23/23 07:40 GFR Calculation Not Reportable 11/23/23 07:40 Glucose 217 mg/dL (65-115) H 11/23/23 07:40 Calculated Osmolality 307 mOsm/kg (285-295) H 11/23/23 07:40 Lactic Acid 2.0 mmol/L (0.5-2.2) 11/20/23 12:48 Calcium 8.8 mg/dL (8.5-10.5) 11/23/23 07:40 Magnesium 1.9 mg/dL (1.7-2.3) 11/20/23 12:48 Total Bilirubin 0.5 mg/dL (0.15-1.2) 11/20/23 12:48 AST 21 U/L (0-40) 11/20/23 12:48 ALT 18 U/L (0-41) 11/20/23 12:48 Alkaline Phosphatase 55 U/L (40-130) 11/20/23 12:48 Troponin T Baseline 26 ng/L (0-15) H 11/20/23 12:48 Troponin T 120 Minute 22.71 ng/L (0-15) H 11/20/23 14:51 Delta Troponin T -3.29 ABS# (0-10) L 11/20/23 14:51 Troponin T Hi Sens 6Hr 23.65 ng/L (0-15) H 11/20/23 20:02 Troponin T Hi Sens 6Hr Delta -2.35 ng/L (0-12) L 11/20/23 20:02 Total Protein 6.1 g/dL (6.6-8.7) L 11/20/23 12:48 Albumin 3.5 g/dL (3.5-5.2) 11/20/23 12:48 Globulin 2.6 g/dL (1.3-4.6) 11/20/23 12:48 Procalcitonin 23.96 ng/mL (0-0.5) H 11/20/23 12:48 Urine Color Yellow (Yellow) 11/20/23 13:37 Urine Appearance Cloudy (CLEAR) A 11/20/23 13:37 Urine pH 5 (5-7) 11/20/23 13:37 Ur Specific [place] 1.020 (1.005-1.030) 11/20/23 13:37 Urine Protein 2+ (Negative) H 11/20/23 13:37 Urine Glucose (UA) Norm (Normal) 11/20/23 13:37 Urine Ketones Negative (Negative) 11/20/23 13:37 Urine Blood 2+ (Negative) H 11/20/23 13:37 Urine Nitrate Negative (Negative) 11/20/23 13:37 Urine Bilirubin Neg (Negative) 11/20/23 13:37 Urine Urobilinogen Norm mg/dL (Negative) 11/20/23 13:37 Ur Leukocyte Esterase Negative (Negative) 11/20/23 13:37 Urine RBC 0-4 /hpf (0-2) H 11/20/23 13:37 Urine WBC 5-10 /hpf (0-5) H 11/20/23 13:37 Ur Squamous Epith Cells 0-4 /hpf (0-5) H 11/20/23 13:37 Ur Transition Epith Cell 0-4 /hpf 11/20/23 13:37 Amorphous Sediment 1+ /hpf 11/20/23 13:37 Urine Bacteria 1+ /hpf (NONE) H 11/20/23 13:37 Fine Granular Casts 5-10 /lpf H 11/20/23 13:37 Urine Mucus 2+ /hpf 11/20/23 13:37 Coronavirus 229E (PCR) Not detected (NOT DETECT) 11/20/23 12:56 Influenza Type A Ag negative (Negative) 11/20/23 12:56 Influenza Type B Ag negative (Negative) 11/20/23 12:56 SARS-CoV-2 (PCR) Detected (NOT DETECT) A 11/20/23 12:56 Vitals Last Vital Signs Temp 97.9 F 11/23/23 10:00 Pulse 64 11/23/23 10:00 Resp 18 11/23/23 10:00 BP 132/84 11/23/23 10:00 Pulse Ox 93 11/23/23 10:00 O2 Del Method Nasal Cannula 11/23/23 09:04 O2 Flow Rate 1 11/23/23 09:04 Discharge Plan Discharge Patient Disposition: Xfer SNF Condition: Stable Prescriptions: New cefdinir 300 mg capsule 300 mg PO BID 3 Days Qty: 6 0RF linezolid 600 mg tablet 600 mg PO BID 3 Days Qty: 6 0RF midodrine 5 mg Tablet 2.5 mg PO TID Qty: 135 0RF Continued acetaminophen 325 mg Tablet 650 mg PO Q6H PRN (Reason: Pain) albuterol sulfate 2.5 mg /3 mL (0.083 %) solution for nebulization 2.5 mg inhalation Q6H PRN (Reason: Shortness Of Breath) albuterol sulfate 90 mcg/actuation HFA aerosol inhaler 2 puff INHALATION Q4H PRN (Reason: Shortness Of Breath) bupropion HCl 150 mg tablet extended release 24 hr 150 mg PO DAILY@08 pantoprazole 40 mg tablet,delayed release (DR/EC) 40 mg PO DAILY@06 fluoxetine 20 mg capsule 20 mg PO DAILY@07 tamsulosin 0.4 mg capsule 0.4 mg PO BEDTIME@20 Discontinued azithromycin 250 mg tablet See Rx Instructions .ROUTE .COMPLEX Rx Instructions: as directed (start date 11/14/23 end date 11/19/23) mirtazapine 15 mg tablet 15 mg PO BEDTIME@20 donepezil 5 mg tablet 5 mg PO BEDTIME@18 metoprolol tartrate 25 mg tablet 25 mg PO BID@07,18 Discharge Orders: Discharge Order (Routine); Ordered 11/23/23 Ordered By: Param Christina Referrals: Sridhar Bolanos MD [Primary Care Provider] - 4-7 days Discharge Diet: Regular Discharge Activity: Increase activity as tolerated and Oxygen as instructed Patient Instructions: Acute Kidney Injury (GEN), Fall Prevention (GEN), Aspiration Precautions (GEN), COVID-19 (Coronavirus Disease 2019) (GEN) Activity Restrictions/Additional Instructions: Follow-up with your primary provider for reassessment of recovery from COVID-19 pneumonia, superimposed suspected bacterial pneumonia. D-dimer decreasing and suspected related to COVID-19, otherwise at this time no signs of pulmonary embolism, venous duplex did not show any blood clots. Blood thinner medication is not continued also due to risk of falls. May be at elevated risk of developing blood clots due to recent COVID-19, monitor for any changes in condition. Reassess kidney function, acute kidney injury has been improving. Creatinine down to 1.2. Avoid any nephrotoxic medications. Blood pressure is doing better, 132/84 currently, will cut down midodrine down to 2.5 mg 3 times daily, reassess blood pressures, consider discontinuing midodrine if able to maintain blood pressures without further issues. Metoprolol, donepezil and mirtazapine are not yet restarted due to recent hypotension and possibly contributing, reassess blood pressures, consider slow stepwise restart if wanting to resume the medications. Continue oxygen 1 L/min nasal cannula, target oxygen saturation 92% while recovering from COVID, wean off as tolerating. Maintain aspiration precautions. Continue follow-up with speech therapy. Discharge Attestations Time Spent in Discharge Care*: greater than 30 min Quality Metrics Clinical Quality Measures [ No reported AMI, CVA or VTE this stay] Coding Level of Care Code 05244 Total time (in minutes) for Discharge: 45 Diagnoses Respiratory failure with hypoxia J96.91 Hypotension I95.9 KODI (acute kidney injury) N17.9 Elevated d-dimer R79.89
[2023-11-23] MEDS: albumin 25 G/100 ML BAG 60 G IV (12:37)
[2023-11-23 13:51] LABS: Partial Thromboplastin Time 44.3 SECONDS (23.9-36.7)
--- NOTE | 2023-11-23 14:21 | PC.SOCIAL ---
IMM Updated Updated IMM. Provided pt a copy. Initialed, dated, & timed a copy & placed in chart.
== END 2023-11-23 16:08 | disposition skilled nursing facility (03) | DRG 177 ==
LOC: ER 15:37 → ICU 15:47 → MEDSURG 11-23 05:47
PROVIDERS: Family Medicine; Admitting Provider Internal Medicine; Emergency Provider Family Medicine; PCP Internal Medicine; Visit Provider Internal Medicine
DX: U07.1 COVID-19 (principal); J12.82 Pneumonia due to coronavirus disease 2019; J96.01 Acute respiratory failure with hypoxia; J15.9 Unspecified bacterial pneumonia; R57.1 Hypovolemic shock; N17.9 Acute kidney failure, unspecified; E87.0 Hyperosmolality and hypernatremia; G93.40 Encephalopathy, unspecified; Z87.891 Personal history of nicotine dependence; R25.1 Tremor, unspecified; F03.90 Unspecified dementia, unspecified severity, without behavioral disturbance, psychotic disturbance, mood disturbance, and anxiety; F43.10 Post-traumatic stress disorder, unspecified; F32.A Depression, unspecified; Z86.73 Personal history of transient ischemic attack (TIA), and cerebral infarction without residual deficits; E78.5 Hyperlipidemia, unspecified; F41.9 Anxiety disorder, unspecified; G47.30 Sleep apnea, unspecified; J44.9 Chronic obstructive pulmonary disease, unspecified; K29.70 Gastritis, unspecified, without bleeding; N18.9 Chronic kidney disease, unspecified; N26.1 Atrophy of kidney (terminal); N28.1 Cyst of kidney, acquired
CPT/HCPCS: 36415; 36600; 51702; 70450; 71045; 76770; 76857; 80048; 80051; 80053; 81001; 82330; 82805; 83605; 83735; 84145; 84484; 85007; 85025; 85378; 85730; 87040; 87635; 87804; 92610; 93005; 93306; 93970; 94640; 96365; 96366; 96367; 96372; 99285; C9113; J0248; J1100; J1644; J2020; J2543; J3370; J7030; J7050; J7613; P9046

== ENCOUNTER 2023-11-27 11:49 | Inpatient (IN) | payer OTHER, SELFPAY ==
[2023-11-27] VITALS (10 sets, daily range): BP systolic 100–119; BP diastolic 57–67; PULSE 58–89; RESP 16–18; TEMP 36.6–36.8; O2SAT 94–100
--- NOTE | 2023-11-27 12:03 | XR_ITS ---
WS: [id number] PORTABLE CHEST HISTORY: sob COMPARISON: Chest radiograph 11/20/2023 and 09/12/2023 Mildly hyperexpanded lungs. The previously described pneumonia in the medial RIGHT lower lung field h as nearly completely resolved. There is a new lucency with surrounding increased density in the RIGHT lower lobe. This was not present on the prior study and does not have the typical appearance of a ni pple shadow. This RIGHT lower lobe abnormality measures 2.0 x 1.6 cm. No pleural effusion or pneumoth orax. Cardiac size: Normal. Mediastinum/Aorta: Mild atherosclerosis aorta. No osseous abnormality seen. IMPRESSION: 1. New cavitary like lesion in the RIGHT lower lobe measures 2.0 x 1.6 cm. This was not seen on the prior study and does not have a typical appearance for nipple shadow. Recommend follow-up chest CT wi th contrast. Differential includes pneumonia, abscess, necrotic lesion or septic emboli. 2. Previously described medial RIGHT lower lobe pneumonia has nearly completely resolved.
[2023-11-27] MEDS: ipratropium-albuterol 3 mL Neb INHALATION (12:28)
[2023-11-27 12:32] LABS: Basophils % 0.1 %; Eosinophils # 0.1 10^3/uL (0.0-0.8); Eosinophils % 0.7 %; Hematocrit 40.3 % (37-53); Lymphocytes % 8.6 %; Mean Corpuscular Hemoglobin 29.6 pg (27-33); Mean Corpuscular Volume 95.5 fl (82-101); Mean Platelet Volume 9.8 fL (7.4-10.4); Monocytes # 0.5 10^3/uL (0.2-0.9); Monocytes % 4.3 %; Neutrophils # 9.57 10^3/uL (1.8-7.7); Neutrophils % 84.8 %; Nucleated Red Blood Cells % 0 %; Platelet Count 317 10^3/cmm (157-399); Red Blood Count 4.22 10^6/uL (3.85-5.65); Red Cell Distribution Width 15.3 % (12.1-15.1); White Blood Count 11.28 10^3/uL (3.29-11.43)
[2023-11-27 12:35] LABS: ABG PH Result 7.45 (7.35-7.45); Arterial Blood Gas Hematocrit 34.6 % (42-52); Base Excess ABG 5.8 mmol/L (-2.0-2.0); Blood Gas Allen Test Pos; Blood Gas Operator Identificat CAK; Blood Gas Sample Site Radial, left; Blood Gas Sample Type Arterial; Carboxyhemoglobin 0.9 %THgb (0.4-20.1); HCO3 ABG 30.5 mmol/L (22-26); HGB O2 Sat 96.6 % (95-100); Methemoglobin 0.4 % (0.4-1.5); Oxygen Device NC; PO2 ABG 87.6 mmHg (80.0-100.0); PO2 FiO2 Ratio Arterial Blood 0; Total Hemoglobin 11.3 g/dL (14-18)
[2023-11-27] MEDS: methylPREDNISolone sod succ 125 mg/2 mL INJ IV (13:09)
--- NOTE | 2023-11-27 13:46 | CT_ITS ---
WS: [id number] CTA OF THE CHEST WITH PULMONARY EMBOLISM PROTOCOL TECHNIQUE: High-resolution contrast enhanced CTA of the chest with coronal and sagittal reformatted i mages with pulmonary embolism protocol. MIP images are also reviewed. CLINICAL INFORMATION: sob COMPARISON: 2020 DLP: 170.[address] scans at [facility] use at least one of these dose optimization techniques: automated e xposure control; mA and/or kV adjustment per patient size (includes targeted exams where dose is matc hed to clinical indication); or iterative reconstruction. FINDINGS: Cavitary lesion in the RIGHT lower lobe with air-fluid level measuring 2.7 x 2.2 cm. Small amount of surrounding hazy infiltrate. Small bilateral pleural effusions with compressive atelectasis in the vickey ng bases. Moderate chronic emphysematous changes. Tree-in-bud type opacities in the RIGHT middle lobe and both lower lobes. Normal caliber thoracic aorta. Aortic calcification. No mediastinal or hilar lymphadenopathy. Proxima l main pulmonary arteries are normal. Hilar bronchiectasis. No evidence of pulmonary embolus. Tiny esophageal hiatal hernia. Mild thoracic curve. Hypertrophic changes thoracic spine. IMPRESSION: 1. No evidence of pulmonary embolus. 2. Small bilateral pleural effusions LEFT greater than RIGHT with compressive atelectasis in the krista g bases. 3. Cavitary lesion superior segment RIGHT lower lobe with air-fluid level. Primary considerations in clude Lung abscess and cavitary neoplasm. Recommend pulmonary consultation. Additional considerations include fungal infection, septic embolism, and less likely tuberculosis. 4. Tree-in-bud opacities in the RIGHT middle lobe and both lower lobes with bronchiectasis
[2023-11-27 13:52] LABS: Alanine Aminotransferase 18 U/L (0-41); Albumin Level 2.9 g/dL (3.5-5.2); Alkaline Phosphatase 58 U/L (40-130); Blood Urea Nitrogen 19 mg/dL (8-23); Calcium 9.4 mg/dL (8.5-10.5); Carbon Dioxide 23 mmol/L (22-29); Chloride 103 mmol/L (98-107); Globulin 3.8 g/dL (1.3-4.6); Glucose 83 mg/dL (65-115); Lipase 28 U/L (13-60); NT Pro B Type Natriuretic Pept 1148 pg/mL (0-125); Osmolality Calculated 291 mOsm/kg (285-295); Sodium 140 mmol/L (136-145); Total Bilirubin 0.5 mg/dL (0.15-1.2); Total Protein 6.7 g/dL (6.6-8.7)
[2023-11-27 13:54] LABS: Anion Gap 18.4 (5-19); Aspartate Amino Transferase 18 U/L (0-40); Potassium 4.4 mmol/L (3.5-5.1)
--- NOTE | 2023-11-27 15:04 | ED_ITS ---
HPI - SOB/Dyspnea 2 General: Chief Complaint: Shortness of Breath/Dyspnea Stated Complaint: SOB Time Seen by Provider: 11/27/23 11:50 Source: EMS Mode of arrival: EMS Limitations: altered mental status History of Present Illness: HPI Narrative: 73-year-old male sent here from [facility] for increasing shortness of breath that had to place him on 4 L does have increasing cough as well. He is afebrile here patient has confusion at baseline full history is not available from him. Associated symptoms: Deny abdominal pain, chest pain, fever(s), nausea or vomiting Review of Systems 2 Const: Denies: fever(s) or chills Eyes: Denies: eye discomfort ENMT: Denies: throat pain or dental pain Card: Denies: chest pain Resp: Reports: dyspnea GI: Denies: abdominal pain, nausea, vomiting or diarrhea Musc: Denies: neck pain or back pain Skin/Breast: Denies: rash Neuro: Denies: headache(s) PFSH ED 2 PFSH: Medical History Tremor Lactic acidosis KODI (acute kidney injury) Dementia Protein-energy malnutrition PTSD (post-traumatic stress disorder) Depression Physical deconditioning CVA (cerebral vascular accident) Adult failure to thrive Weakness Hyperlipidemia Anxiety Sleep apnea History of kidney stones Adult failure to thrive Confusion Gastritis Hx of colonic polyps Surgical History Status post colonoscopy with polypectomy 12/09/2019: 3 polyps removed from descending colon, follow-up colonoscopy in 3 years H/O esophagogastroduodenoscopy 12/09/2019: Gastritis Family History Denies family history of Anesthesia complication Bleeding disorder Social History Smoking and tobacco/nicotine status: former use of tobacco/nicotine Alcohol intake: former Substance/Drug Use: never Lives independently: Yes Household members: spouse Current occupational status: retired Physical Exam 2 Const: GENERAL APPEARANCE: ill appearing HENMT: COMMON NORMALS: normocephalic and atraumatic HEAD & SCALP: n ormocephalic and atraumatic Neck/C-Spine: COMMON NORMALS: full ROM and supple Chest: COMMONS NORMALS: normal inspection of the chest Resp: COMMON NORMALS: No retractions EFFORT & INSPECTION: Yes respiratory distress AUSCULTATION: crackles Cardio: COMMON NORMALS: regular rate, regular rhythm and No murmurs present (Cardio) RATE: regular rate RHYTHM: regular rhythm GI: COMMON NORMALS: Normal to inspection, nondistended, normoactive bowel sounds present, Soft to palpation, non-tender and no masses PALPATION: Yes Soft to palpation Extremity: COMMON NORMALS: normal to inspection and full ROM Neuro: COMMON NORMALS: moves all extremities and no focal motor deficits Psych: COMMON NORMALS: mental status grossly normal, Normal thought process present and cooperative THOUGHT PROCESS: Normal thought process present Skin: COMMON NORMALS: no rashes or lesions noted and no wounds GENERAL SKIN EXAM: no rashes or lesions noted Course 2 Vital Signs: Vital signs: Vital Signs Temperature 98.3 F 11/27/23 11:51 Pulse Rate 74 11/27/23 12:30 Respiratory Rate 16 11/27/23 12:25 Pulse Oximetry 99 11/27/23 12:25 Oxygen Delivery Me thod Nasal Cannula 11/27/23 12:25 Oxygen Flow Rate 2 11/27/23 12:25 MDM - SOB/Dyspnea Medical Decision Making Patient presents here with cough shortness of breath CT shows a possible cavitary lesion versus pneumonia spoke to hospitalist will admit. Medical Records I reviewed the patient's medical records. Lab Data I reviewed the patient's lab results. 11/27/23 12:24 11/27/23 13:13 Labs/Radiology: Laboratory Results WBC 11.28 10^3/uL (3.29-11.43) 11/27/23 12:24 RBC 4.22 10^6/uL (3.85-5.65) 11/27/23 12:24 Hgb 12.50 g/dL (11.27-16.99) 11/27/23 12:24 Hct 40.3 % (37-53) 11/27/23 12:24 MCV 95.5 fl (82-101) 11/27/23 12:24 MCH 29.6 pg (27-33) 11/27/23 12:24 MCHC 31.0 g/dL (30-55) 11/27/23 12:24 RDW 15.3 % (12.1-15.1) H 11/27/23 12:24 Plt Count 317 10^3/cmm (157-399) 11/27/23 12:24 MPV 9.8 fL (7.4-10.4) 11/27/23 12:24 Neut % (Auto) 84.8 % 11/27/23 12:24 Lymph % (Auto) 8.6 % 11/27/23 12:24 [place] % (Auto) 4.3 % 11/27/23 12:24 Eos % (Auto) 0.7 % 11/27/23 12:24 Baso % (Auto) 0.1 % 11/27/23 12:24 Neut # (Auto) 9.57 10^3/uL (1.8-7.7) H 11/27/23 12:24 Lymph # (Auto) 1.0 10^3/uL (0.8-4.8) 11/27/23 12:24 [place] # (Auto) 0.5 10^3/uL (0.2-0.9) 11/27/23 12:24 Eos # (Auto) 0.1 10^3/uL (0.0-0.8) 11/27/23 12:24 Baso # (Auto) 0.0 10^3/uL (0.0-0.1) 11/27/23 12:24 Nucleated RBC % (auto) 0 % 11/27/23 12:24 Nucleated RBCs # 0.0 /100WBC 11/27/23 12:24 Specimen Type Arterial 11/27/23 12:24 Sample Site Radial, left 11/27/23 12:24 ABG pH 7.45 (7.35-7.45) 11/27/23 12:24 ABG pCO2 44.0 mmHg (35-45) 11/27/23 12:24 ABG pO2 87.6 mmHg (80.0-100.0) 11/27/23 12:24 ABG PO2/FiO2 Ratio 0 11/27/23 12:24 ABG HCO3 30.5 mmol/L (22-26) H 11/27/23 12:24 ABG Base Excess 5.8 mmol/L (-2.0-2.0) H 11/27/23 12:24 Glen Test Pos 11/27/23 12:24 Hematocrit 34.6 % (42-52) L 11/27/23 12:24 Hgb O2 Saturation 96.6 % (95-100) 11/27/23 12:24 Carboxyhemoglobin 0.9 %THgb (0.4-20.1) 11/27/23 12:24 Methemoglobin 0.4 % (0.4-1.5) 11/27/23 12:24 Total Hemoglobin 11.3 g/dL (14-18) L 11/27/23 12:24 O2 Delivery Device Nc 11/27/23 12:24 O2 Liters/Min 2.0 % 11/27/23 12:24 FiO2 28.0 % 11/27/23 12:24 Filling Winder ID Cak 11/27/23 12:24 Sodium 140 mmol/L (136-145) 11/27/23 13:13 Potassium 4.4 mmol/L (3.5-5.1) 11/27/23 13:13 Chloride 103 mmol/L (98-107) 11/27/23 13:13 Carbon Dioxide 23 mmol/L (22-29) 11/27/23 13:13 Anion Gap 18.4 (5-19) 11/27/23 13:13 BUN 19 mg/dL (8-23) 11/27/23 13:13 Creatinine 1.0 mg/dL (0.7-1.2) 11/27/23 13:13 GFR Calculation Not Reportable 11/27/23 13:13 Glucose 83 mg/dL (65-115) 11/27/23 13:13 Calculated Osmolality 291 mOsm/kg (285-295) 11/27/23 13:13 Calcium 9.4 mg/dL (8.5-10.5) 11/27/23 13:13 Total Bilirubin 0.5 mg/dL (0.15-1.2) 11/27/23 13:13 AST 18 U/L (0-40) 11/27/23 13:13 ALT 18 U/L (0-41) 11/27/23 13:13 Alkaline Phosphatase 58 U/L (40-130) 11/27/23 13:13 NT-Pro-B Natriuret Pep 1148 pg/mL (0-125) H 11/27/23 13:13 Total Protein 6.7 g/dL (6.6-8.7) 11/27/23 13:13 Albumin 2.9 g/dL (3.5-5.2) L 11/27/23 13:13 Globulin 3.8 g/dL (1.3-4.6) 11/27/23 13:13 Lipase 28 U/L (13-60) 11/27/23 13:13 All radiology interpretation(s) finalized by discharge Discharge Plan Discharge Patient Disposition: Admitted As Inpatient Admit Provider: Kt Nix Clinical Impression: Pulmonary cavitary lesion Condition: Stable Coding Level of Care Code ED [employer]r for Frankie Garcia
[2023-11-27] MEDS: iohexol 350 mg/mL 500 mL Btl (per mL) IV (15:09)
--- NOTE | 2023-11-27 16:30 | P.HP_ITS ---
Providers/Chief Complaint 2 Primary Care Provider: Sridhar Bolanos MD Chief Complaint: SOB History of Present Illness Catalino Ivy is a 73 year old male has been sent from facility for concern related to hypoxia at baseline uses 2 L, the ER he has been diagnosed with cavitary lesion concern for abscess he is afebrile no sign of sepsis, he has been admitted for further workup. I have requested respiratory panel MRSA nares PCP pneumonia antigen along LDH started vancomycin and Zosyn. Patient is not endorsing any active chest pain or shortness of breath fever stating that he has no family, his has , he has no active complaints at the time of admission Review of Systems 2 Const: Denies: fever(s) Eyes: Denies: change in vision ENMT: Denies: throat pain Card: Denies: chest pain Resp: Denies: dyspnea Medications/Allergies Home Medications Medication Instructions Recorded Confirmed Last Taken Type tamsulosin 0.4 mg capsule 0.4 mg PO BEDTIME@09/04/23 11/27/23 11/26/23 History acetaminophen 325 mg tablet 650 mg PO Q6H PRN Pain 09/12/23 11/27/23 Unknown History bupropion HCl 150 mg 24 hr tablet, 150 mg PO DAILY@11/20/23 11/27/23 11/27/23 History extended release fluoxetine 20 mg capsule 20 mg PO DAILY@11/20/23 11/27/23 11/27/23 History pantoprazole 40 mg tablet,delayed 40 mg PO DAILY@11/20/23 11/27/23 11/27/23 History release donepezil 5 mg tablet 5 mg PO BEDTIME 11/27/23 11/27/23 11/26/23 History metoprolol tartrate 25 mg tablet 25 mg PO BID 11/27/23 11/27/23 11/27/23 History mirtazapine 15 mg tablet 15 mg PO BEDTIME 11/27/23 11/27/23 11/26/23 History Allergies Allergy/AdvReac Type Severity Reaction Status Date / Time No Known Drug Allergies Allergy Unknown Verified 11/21/23 07:32 PFSH Acute 2 PFSH: Medical History Tremor Lactic acidosis KODI (acute kidney injury) Dementia Protein-energy malnutrition PTSD (post-traumatic stress disorder) Depression Physical deconditioning CVA (cerebral vascular accident) Adult failure to thrive Weakness Hyperlipidemia Anxiety Sleep apnea History of kidney stones Adult failure to thrive Confusion Gastritis Hx of colonic polyps Surgical History Status post colonoscopy with polypectomy 12/09/2019: 3 polyps removed from descending colon, follow-up colonoscopy in 3 years H/O esophagogastroduodenoscopy 12/09/2019: Gastritis Family History Denies family history of Anesthesia complication Bleeding disorder Social History Smoking and tobacco/nicotine status: former use of tobacco/nicotine Alcohol intake: former Substance/Drug Use: never Lives independently: Yes Household members: spouse Current occupational status: retired Vitals/I&O/Wt Last Vital Signs Temp 98.3 F 11/27/23 11:51 Pulse 74 11/27/23 12:30 Resp 16 11/27/23 12:25 Pulse Ox 99 11/27/23 12:25 O2 Del Method Nasal Cannula 11/27/23 12:25 O2 Flow Rate 2 11/27/23 12:25 Physical Exam 2 Narrative: Malnourished GCS 15 Currently on 4 L Pleasant calm After shortness of breath No active chest pain Laying supine Able to answer simple questions Struggling to think of words sometimes However able to follow commands I do not appreciate any focal deficits Concern for aspiration Data 11/28/23 05:03 11/28/23 05:03 A&P Assessment and plan (1) Respiratory failure with hypoxia: (2) Pulmonary cavitary lesion: (3) Lung abscess: Plan Cavitary lesion Concern for lung abscess Rule out lung cancer Will start patient on antibiotics No active fever or sign of sepsis Start vancomycin and Zosyn Requested MRSA PCR, nares respiratory panel and QuantiFERON Patient from assisted living Full code Will keep him on modified diet Keep him in isolation DVT prophylaxis added Patient has history of dementia uses donepezil [place] administrator is the DPOA Patient at baseline not very mobile, uses a wheelchair for ambulation, patient is not able to tell me his diet texture but seem like he is at risk of chronic aspiration Requested speech therapy Previous records reviewed, most information taken from the collaterals Patient not a good historian Called nursing facility Attestations 2 Medical Necessity Statement*: More than 2 midnights anticipated Diagnoses Respiratory failure with hypoxia J96.91 Pulmonary cavitary lesion J98.4 Lung abscess J85.2
[2023-11-27] MEDS: levofloxacin-dextrose 5 % 750 MG/150 ML PREMIX 100 MG IV (16:41)
[2023-11-27] MEDS: piperacillin-tazobactam 3.375 GM in sodium chloride 0.9% (plus) 50 ML IV (16:43)
[2023-11-27] MEDS: vancomycin 1,000 MG in sodium chloride 0.9% 250 ML 250 MG IV (18:42)
[2023-11-27] MEDS: sodium chloride 0.9% 1,000 ML 75 ML IV (19:47)
[2023-11-27] MEDS: tamsulosin 0.4 mg Capsule PO (19:47)
[2023-11-27] MEDS: enoxaparin 40 mg/0.4 mL Syringe SUBCUT (19:47)
[2023-11-27] MEDS: metoprolol tartrate 25 mg Tablet PO (19:47)
[2023-11-27 20:18] LABS: D Dimer 1.35 ug/mLFEU (0-0.59)
--- NOTE | 2023-11-27 20:29 | PC.PHAR ---
PHARMACY TO DOSE VANCOMYCIN Vanco Initial Dosing Patient Information Sex M M/F Last Name TONI AGE 73 years First Name HAROON Ht 65 inches : 1950 ABW 42.728 kg Location: [facility] IBW 61.5 kg If loading dose given: DW 42.728 kg Loading DOSE: 750 mg SCr 1 mg/dl This Dose = 17.6 mg/kg CrCl 39.8 ml/min 1st dose Cmax: 23.0 mcg/ml Vd 32.046 liters Time elapsed: 24.0 hrs Ke 0.037 hrs-1 Serum Conc. = 9.4 mcg/ml t1/2 19 hrs Hrs until 20 mcg/ml 4.7 hrs Hrs until 15 mcg/ml 12.4 hours Hrs until 10 mcg/ml 23.2 hours Dose Tau (Freq) Levels expected Standard 750 24 Cmax 38.1 Targets 17.55 27.8 Cpeak 36.7 25 to 40 mg/kg hours Cmin 16.7 10 to 20
[2023-11-27] MEDS: donepezil 5 MG Tablet PO (20:42)
[2023-11-27 21:06] LABS: Thyroid Stimulating Hormone 0.75 uIU/mL (0.27-4.20)
[2023-11-27 21:52] LABS: Lactate Dehydrogenase 213 U/L (135-225)
[2023-11-28] VITALS: BP 103/60; PULSE 62; RESP 17; TEMP 36.6; O2SAT 91
[2023-11-28 00:19] VITALS: BMI 16.3
[2023-11-28] MEDS: piperacillin-tazobactam 3.375 GM in sodium chloride 0.9% (plus) 50 ML IV ×3 (00:50→16:51)
[2023-11-28 02:05] LABS: Adenovirus Not Detected (NOT DETECT); Chlamydia Pneumoniae Not Detected (NOT DETECT); Coronavirus 229E,HKU1,NL63,OC4 Not Detected (NOT DETECT); Human Metapneumovirus Not Detected (NOT DETECT); Human Rhinovirus/Enterovirus Not Detected (NOT DETECT); Influenza A Not Detected (NOT DETECT); Influenza A H1 Not Detected (NOT DETECT); Influenza A H1-2009 Not Detected (NOT DETECT); Influenza A H3 Not Detected (NOT DETECT); Influenza B Not Detected (NOT DETECT); Mycoplasma Pneumoniae Not Detected (NOT DETECT); Parainfluenza Virus Type 1 Not Detected (NOT DETECT); Parainfluenza Virus Type 2 Not Detected (NOT DETECT); Parainfluenza Virus Type 3 Not Detected (NOT DETECT); Parainfluenza Virus Type 4 Not Detected (NOT DETECT); Respiratory Syncytial Virus A Not Detected (NOT DETECT); Respiratory Syncytial Virus B Not Detected (NOT DETECT); SARS-COV-2 Not Detected (NOT DETECT)
[2023-11-28 04:00] VITALS: BP 117/67; PULSE 50; RESP 18; TEMP 36.6; O2SAT 95
[2023-11-28 05:49] LABS: Basophils % 0.1 %; Hematocrit 30.1 % (37-53); Lymphocytes # 0.8 10^3/uL (0.8-4.8); Lymphocytes % 8.4 %; Mean Corpuscular HGB Conc 30.6 g/dL (30-55); Mean Platelet Volume 9.5 fL (7.4-10.4); Monocytes # 0.3 10^3/uL (0.2-0.9); Monocytes % 2.6 %; Neutrophils # 8.71 10^3/uL (1.8-7.7); Neutrophils % 87.3 %; Nucleated Red Blood Cells % 0 %; Platelet Count 301 10^3/cmm (157-399); Red Blood Count 3.17 10^6/uL (3.85-5.65); Red Cell Distribution Width 15.2 % (12.1-15.1); White Blood Count 9.98 10^3/uL (3.29-11.43)
[2023-11-28 06:07] LABS: Anion Gap 13.2 (5-19); Blood Urea Nitrogen 21 mg/dL (8-23); Calcium 8.6 mg/dL (8.5-10.5); Carbon Dioxide 27 mmol/L (22-29); Chloride 104 mmol/L (98-107); Creatinine Clr Calc Pharmacy 37.7196; Glucose 87 mg/dL (65-115); Magnesium 1.9 mg/dL (1.7-2.3); Osmolality Calculated 292 mOsm/kg (285-295); Potassium 4.2 mmol/L (3.5-5.1); Sodium 140 mmol/L (136-145)
[2023-11-28 06:13] LABS: Procalcitonin 0.21 ng/mL (0-0.5)
[2023-11-28] MEDS: pantoprazole DR 40 mg Tablet PO (06:28)
[2023-11-28 08:00] VITALS: BP 122/68; PULSE 98; RESP 16; TEMP 36.6; O2SAT 94
[2023-11-28] MEDS: metoprolol tartrate 25 mg Tablet PO ×2 (08:54→17:11)
[2023-11-28] MEDS: sodium chloride 0.9% 1,000 ML 75 ML IV (08:55)
[2023-11-28] MEDS: sennosides-docusate Tablet 1 TAB PO (08:55)
--- NOTE | 2023-11-28 11:27 | P.PN_ITS ---
Subjective 2 Subjective: No overnight events Afebrile No leukocytosis Will request modified barium swallow Plan to discharge him by tomorrow His symptoms are related to chronic aspiration Vitals/I&O/Wt Last Vital Signs Temp 97.8 F 11/28/23 08:00 Pulse 98 11/28/23 08:00 Resp 16 11/28/23 08:00 BP 122/68 11/28/23 08:00 Pulse Ox 94 11/28/23 08:00 O2 Del Method Room Air 11/28/23 08:00 O2 Flow Rate 2 11/27/23 18:00 11/27/23 11/28/23 11/28/23 22:59 06:59 14:59 Intake Total 279.167 / 279.167 200 / 284.131 7416 / 1225 Balance 279.167 / 279.167 200 / 074.039 2249 / 1225 Weight last 48 hrs Weight 44.497 kg Weight 44.588 kg Weight 42.728 kg Physical Exam 2 Narrative: Currently on 2 L No active shortness of breath or chest pain Malnourished GCS 15 Able to answer simple questions I do not appreciate any focal deficits today as well Pleasant and cooperative during my evaluation Data 11/28/23 05:03 11/28/23 05:03 A&P Assessment and plan (1) Hypotension: (2) KODI (acute kidney injury): (3) Debility: (4) Pulmonary cavitary lesion: (5) Lung abscess: (6) Respiratory failure with hypoxia: Plan I do believe patient has symptoms and signs related to aspiration Speech therapist do agree with chronic aspiration episodes Will request modified barium swallow Continue vancomycin and Zosyn Plan to discharge him back to facility by tomorrow he is back to his baseline oxygen requirement of 2 L No signs of fever or sepsis I do not anticipate patient will be positive for tuberculosis, he is not on any immunosuppressants, he is full code Continue DVT prophylaxis Attestations 2 Medical Necessity Statement*: Continue medical management Diagnoses Hypotension I95.9 KODI (acute kidney injury) N17.9 Debility R53.81 Pulmonary cavitary lesion J98.4 Lung abscess J85.2 Respiratory failure with hypoxia J96.91
[2023-11-28 12:00] VITALS: PULSE 110; RESP 15; TEMP 36.6; O2SAT 94
[2023-11-28 15:33] VITALS: BP 132/73; PULSE 53; RESP 16; TEMP 36.7; O2SAT 94
[2023-11-28] MEDS: enoxaparin 40 mg/0.4 mL Syringe SUBCUT (18:34)
[2023-11-28 19:36] VITALS: BP 116/72; PULSE 110; RESP 18; TEMP 36.4; O2SAT 94
[2023-11-28] MEDS: vancomycin 750 MG in sodium chloride 0.9% 250 ML 250 MG IV (20:02)
[2023-11-28] MEDS: donepezil 5 MG Tablet PO (20:03)
[2023-11-28] MEDS: tamsulosin 0.4 mg Capsule PO (20:03)
[2023-11-29] VITALS: BP 137/69; PULSE 61; RESP 16; TEMP 36.4; O2SAT 95
--- NOTE | 2023-11-29 | FL_ITS ---
FL barium swallow modifd [id number] REASON FOR EXAM: Other dysphagia FLUOROSCOPY TIME: 5min [id number] SPOT FILMS: None FINDINGS: Examination was supervised by the speech therapy department. Patient was examined in the upright sitting lateral projection. The swallowing of the barium consistencies of barium was performed under fluoroscopic observation and video recorded. A detailed report of the swallowing will be rendered by the speech therapy department. IMPRESSION: Modified barium swallow as above. MTDD
[2023-11-29] MEDS: piperacillin-tazobactam 3.375 GM in sodium chloride 0.9% (plus) 50 ML IV ×2 (01:07→11:04)
[2023-11-29 04:00] VITALS: BP 120/66; PULSE 107; RESP 16; TEMP 36.6; O2SAT 95
[2023-11-29] MEDS: pantoprazole DR 40 mg Tablet PO (06:10)
[2023-11-29 06:49] LABS: Basophils % 0.1 %; Eosinophils # 0.1 10^3/uL (0.0-0.8); Eosinophils % 0.5 %; Lymphocytes # 1.3 10^3/uL (0.8-4.8); Lymphocytes % 12.4 %; Mean Corpuscular HGB Conc 30.6 g/dL (30-55); Mean Corpuscular Hemoglobin 29.4 pg (27-33); Mean Corpuscular Volume 96.2 fl (82-101); Mean Platelet Volume 8.9 fL (7.4-10.4); Monocytes # 0.5 10^3/uL (0.2-0.9); Monocytes % 4.8 %; Neutrophils # 8.68 10^3/uL (1.8-7.7); Neutrophils % 81.1 %; Nucleated Red Blood Cells % 0 %; Platelet Count 270 10^3/cmm (157-399); Red Blood Count 3.43 10^6/uL (3.85-5.65); Red Cell Distribution Width 15.4 % (12.1-15.1)
[2023-11-29 07:09] LABS: Blood Urea Nitrogen 20 mg/dL (8-23); Calcium 9.1 mg/dL (8.5-10.5); Carbon Dioxide 28 mmol/L (22-29); Chloride 105 mmol/L (98-107); Glucose 82 mg/dL (65-115); Osmolality Calculated 294 mOsm/kg (285-295); Sodium 141 mmol/L (136-145)
[2023-11-29 07:20] LABS: Anion Gap 12.5 (5-19); Potassium 4.5 mmol/L (3.5-5.1)
[2023-11-29 08:00] VITALS: BP 112/62; PULSE 78; RESP 14; TEMP 36.7; O2SAT 94
[2023-11-29 10:53] LABS: SARS Covid-2 Antigen negative (Negative)
[2023-11-29] MEDS: metoprolol tartrate 25 mg Tablet PO (11:04)
[2023-11-29] MEDS: sennosides-docusate Tablet 1 TAB PO (11:04)
[2023-11-29 11:42] VITALS: BP 118/69; PULSE 64; RESP 14; TEMP 36.5; O2SAT 97
--- NOTE | 2023-11-29 13:02 | P.DS_ITS ---
Discharge Providers Date of Admission: 11/27/23 17:43 Date of Discharge: November 29, 2023 Attending Provider at Admission: Kt Nix MD Attending Provider at Discharge: Kt Nix MD Primary Care Provider: Sridhar Bolanos MD Diagnoses at Discharge Discharge Diagnosis (1) Hypotension: Status: Acute (2) KODI (acute kidney injury): Status: Acute (3) Debility: Status: Acute (4) Pulmonary cavitary lesion: Status: Acute (5) Lung abscess: Status: Acute (6) Respiratory failure with hypoxia: Status: Acute Reason for Visit Reason for Visit: SOB Hospital Course Hospital Course 73 male who was admitted for management evaluation of cavitary lesion, it was concern for lung abscess, patient remained afebrile no sign of sepsis, my concern was related to aspiration, modified barium swallow was requested, speech therapy requested, as per speech therapy patient is at risk of aspiration for our food consistency, his lesion is related to chronic aspiration I will discharge him on Augmentin he is not requiring oxygen he has remained afebrile, patient is malnourished, would not be a good candidate for PEG tube placement, does not have any family, 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 He will be discharged back to his facility. Unfortunately, he is at high risk for recurrent aspiration. Guardian has been notified Betzy mcgovern. She is in agreement that procedure of PEG tube placement will be considered high risk at this point Physical Exam Narrative: Malnourished GCS 15 Awake and alert Currently on room Discharge Data Studies Completed and Pending Completed Studies During Hospitalization Category Date Time Status CTA chest [CT angio chest PE protcl [id number]] Stat Cat Scan 11/27/23 13:46 Completed XR chest 1V portable [id number] Stat Exams 11/27/23 12:03 Completed Pending at discharge Category Date Time Status FL barium swallow modifd [id number] Routine Exams 11/29/23 Taken Blood Cultures ([facility]) Routine Lab 11/27/23 14:00 Results Blood Cultures ([facility]) Routine Lab 11/27/23 14:05 Results Clostridium Difficile PCR Routine Lab 11/28/23 15:08 Received Fungitell Glucan Assay (Blood) Routine Lab 11/28/23 14:08 Received Methicillin Resistant S.aureu Routine Lab 11/28/23 05:03 Received Pneumocystis jiroveci Qual PCR Routine Lab 11/28/23 12:24 Ordered Fpryucnjmbd-AV-Yetl Plus Routine Lab 11/27/23 18:54 Received Laboratory Results WBC 10.70 10^3/uL (3.29-11.43) 11/29/23 06:42 RBC 3.43 10^6/uL (3.85-5.65) L 11/29/23 06:42 Hgb 10.10 g/dL (11.27-16.99) L 11/29/23 06:42 Hct 33.0 % (37-53) L 11/29/23 06:42 MCV 96.2 fl (82-101) 11/29/23 06:42 MCH 29.4 pg (27-33) 11/29/23 06:42 MCHC 30.6 g/dL (30-55) 11/29/23 06:42 RDW 15.4 % (12.1-15.1) H 11/29/23 06:42 Plt Count 270 10^3/cmm (157-399) 11/29/23 06:42 MPV 8.9 fL (7.4-10.4) 11/29/23 06:42 Neut % (Auto) 81.1 % 11/29/23 06:42 Lymph % (Auto) 12.4 % 11/29/23 06:42 [place] % (Auto) 4.8 % 11/29/23 06:42 Eos % (Auto) 0.5 % 11/29/23 06:42 Baso % (Auto) 0.1 % 11/29/23 06:42 Neut # (Auto) 8.68 10^3/uL (1.8-7.7) H 11/29/23 06:42 Lymph # (Auto) 1.3 10^3/uL (0.8-4.8) 11/29/23 06:42 [place] # (Auto) 0.5 10^3/uL (0.2-0.9) 11/29/23 06:42 Eos # (Auto) 0.1 10^3/uL (0.0-0.8) 11/29/23 06:42 Baso # (Auto) 0.0 10^3/uL (0.0-0.1) 11/29/23 06:42 Nucleated RBC % (auto) 0 % 11/29/23 06:42 Nucleated RBCs # 0.0 /100WBC 11/29/23 06:42 D-Dimer 1.35 ug/mLFEU (0-0.59) H 11/27/23 19:30 Specimen Type Arterial 11/27/23 12:24 Sample Site Radial, left 11/27/23 12:24 ABG pH 7.45 (7.35-7.45) 11/27/23 12:24 ABG pCO2 44.0 mmHg (35-45) 11/27/23 12:24 ABG pO2 87.6 mmHg (80.0-100.0) 11/27/23 12:24 ABG PO2/FiO2 Ratio 0 11/27/23 12:24 ABG HCO3 30.5 mmol/L (22-26) H 11/27/23 12:24 ABG Base Excess 5.8 mmol/L (-2.0-2.0) H 11/27/23 12:24 Glen Test Pos 11/27/23 12:24 Hematocrit 34.6 % (42-52) L 11/27/23 12:24 Hgb O2 Saturation 96.6 % (95-100) 11/27/23 12:24 Carboxyhemoglobin 0.9 %THgb (0.4-20.1) 11/27/23 12:24 Methemoglobin 0.4 % (0.4-1.5) 11/27/23 12:24 Total Hemoglobin 11.3 g/dL (14-18) L 11/27/23 12:24 O2 Delivery Device Nc 11/27/23 12:24 O2 Liters/Min 2.0 % 11/27/23 12:24 FiO2 28.0 % 11/27/23 12:24 Shake Maker ID Cak 11/27/23 12:24 Sodium 141 mmol/L (136-145) 11/29/23 06:42 Potassium 4.5 mmol/L (3.5-5.1) 11/29/23 06:42 Chloride 105 mmol/L (98-107) 11/29/23 06:42 Carbon Dioxide 28 mmol/L (22-29) 11/29/23 06:42 Anion Gap 12.5 (5-19) 11/29/23 06:42 BUN 20 mg/dL (8-23) 11/29/23 06:42 Creatinine 1.2 mg/dL (0.7-1.2) 11/29/23 06:42 GFR Calculation Not Reportable 11/29/23 06:42 Glucose 82 mg/dL (65-115) 11/29/23 06:42 Calculated Osmolality 294 mOsm/kg (285-295) 11/29/23 06:42 Calcium 9.1 mg/dL (8.5-10.5) 11/29/23 06:42 Magnesium 1.9 mg/dL (1.7-2.3) 11/28/23 05:03 Total Bilirubin 0.5 mg/dL (0.15-1.2) 11/27/23 13:13 AST 18 U/L (0-40) 11/27/23 13:13 ALT 18 U/L (0-41) 11/27/23 13:13 Alkaline Phosphatase 58 U/L (40-130) 11/27/23 13:13 Lactate Dehydrogenase 213 U/L (135-225) 11/27/23 19:30 C-Reactive Protein 37.0 mg/L (0.0-4.9) H 11/28/23 05:03 NT-Pro-B Natriuret Pep 1148 pg/mL (0-125) H 11/27/23 13:13 Total Protein 6.7 g/dL (6.6-8.7) 11/27/23 13:13 Albumin 2.9 g/dL (3.5-5.2) L 11/27/23 13:13 Globulin 3.8 g/dL (1.3-4.6) 11/27/23 13:13 Lipase 28 U/L (13-60) 11/27/23 13:13 Procalcitonin 0.21 ng/mL (0-0.5) 11/28/23 05:03 TSH 0.75 uIU/mL (0.27-4.20) 11/27/23 19:30 Adenovirus (PCR) Not detected (NOT DETECT) 11/28/23 00:20 C. pneumoniae DNA (PCR) Not detected (NOT DETECT) 11/28/23 00:20 Coronavirus 229E (PCR) Not detected (NOT DETECT) 11/28/23 00:20 Human Metapneumovir PCR Not detected (NOT DETECT) 11/28/23 00:20 Influenza A (H1) PCR Not detected (NOT DETECT) 11/28/23 00:20 Influ A (H1/09) PCR Not detected (NOT DETECT) 11/28/23 00:20 Influenza A (H3) PCR Not detected (NOT DETECT) 11/28/23 00:20 Influenza Type A (PCR) Not detected (NOT DETECT) 11/28/23 00:20 Influenza Type B (PCR) Not detected (NOT DETECT) 11/28/23 00:20 M. pneumoniae (PCR) Not detected (NOT DETECT) 11/28/23 00:20 Parainfluenza 1 (PCR) Not detected (NOT DETECT) 11/28/23 00:20 Parainfluenza 2 (PCR) Not detected (NOT DETECT) 11/28/23 00:20 Parainfluenza 3 (PCR) Not detected (NOT DETECT) 11/28/23 00:20 Parainfluenza 4 (PCR) Not detected (NOT DETECT) 11/28/23 00:20 Pneumocystis Source Cancelled 11/28/23 05:03 Pneumocyst jirovecii PCR Cancelled 11/28/23 05:03 RSV Type A (PCR) Not detected (NOT DETECT) 11/28/23 00:20 RSV Type B (PCR) Not detected (NOT DETECT) 11/28/23 00:20 Entero/Rhino (PCR) Not detected (NOT DETECT) 11/28/23 00:20 SARS-CoV-2 (PCR) Not detected (NOT DETECT) 11/28/23 00:20 SARS-CoV-2 Ag (Rapid) negative (Negative) 11/29/23 09:57 MRSA (PCR) Cancelled 11/28/23 05:03 Beta-(1,3)-D-Glucan Cancelled 11/28/23 05:03 B-(1,3)-D-Glucan Intrp Cancelled 11/28/23 05:03 Vitals Last Vital Signs Temp 97.7 F 11/29/23 11:42 Pulse 64 11/29/23 11:42 Resp 14 11/29/23 11:42 BP 118/69 11/29/23 11:42 Pulse Ox 97 11/29/23 11:42 O2 Del Method Nasal Cannula 11/29/23 11:42 O2 Flow Rate 2 11/29/23 09:18 Discharge Plan Discharge Patient Disposition: Xfer SNF Condition: Stable Prescriptions: New amoxicillin-pot clavulanate 875-125 mg tablet 1 tab PO BID Qty: 20 0RF Continued acetaminophen 325 mg Tablet 650 mg PO Q6H PRN (Reason: Pain) bupropion HCl 150 mg tablet extended release 24 hr 150 mg PO DAILY@08 pantoprazole 40 mg tablet,delayed release (DR/EC) 40 mg PO DAILY@06 fluoxetine 20 mg capsule 20 mg PO DAILY@07 donepezil 5 mg tablet 5 mg PO BEDTIME mirtazapine 15 mg tablet 15 mg PO BEDTIME metoprolol tartrate 25 mg tablet 25 mg PO BID tamsulosin 0.4 mg capsule 0.4 mg PO BEDTIME@20 Discharge Orders: Discharge Order (Routine); Ordered 11/29/23 Ordered By: Kt Nix Referrals: [facility] [Outside] Sridhar Bolanos MD [Primary Care Provider] - Discharge Diet: As Directed Patient Instructions: Amoxicillin/Clavulanate Potassium (By mouth), Opioid Safety Patient's Health Concerns: pt is at risk of aspiration, pur?ed thick diet with thickened honey consistency recommended Discharge Attestations Time Spent in Discharge Care*: greater than 30 min Quality Metrics Clinical Quality Measures [ No reported AMI, CVA or VTE this stay] Coding Level of Care Code Acute Code for Chg Fwd Diagnoses Hypotension I95.9 KODI (acute kidney injury) N17.9 Debility R53.81 Pulmonary cavitary lesion J98.4 Lung abscess J85.2 Respiratory failure with hypoxia J96.91
[2023-11-29 14:24] LABS: Clostridium Difficile PCR NOT DETECTED (NOT DETECTED)
[2023-11-29 15:02] VITALS: BP 118/69; PULSE 64; RESP 14; TEMP 36.5; O2SAT 97
[2023-11-30 12:59] LABS: Quantiferon Mitogen 1.84 IU/mL; Quantiferon Nil 0.01 IU/mL; Quantiferon TB Gold NEGATIVE (NEGATIVE)
[2023-12-02 18:55] LABS: Fungitell 1-3-B Glucan Assay <31 pg/mL; Interpretation NEGATIVE
== END 2023-11-29 15:03 | disposition skilled nursing facility (03) | DRG 205 ==
LOC: ER 15:07 → MEDSURG 17:43
PROVIDERS: Admitting Provider Internal Medicine; Emergency Provider Emergency Medicine; PCP Internal Medicine; Visit Provider Internal Medicine
DX: J98.4 Other disorders of lung (principal); J85.2 Abscess of lung without pneumonia; J96.91 Respiratory failure, unspecified with hypoxia; N17.9 Acute kidney failure, unspecified; E46 Unspecified protein-calorie malnutrition; Z68.1 Body mass index [BMI] 19.9 or less, adult; Z87.891 Personal history of nicotine dependence; I95.9 Hypotension, unspecified; F03.90 Unspecified dementia, unspecified severity, without behavioral disturbance, psychotic disturbance, mood disturbance, and anxiety; F43.10 Post-traumatic stress disorder, unspecified; F32.A Depression, unspecified; Z86.73 Personal history of transient ischemic attack (TIA), and cerebral infarction without residual deficits; E78.5 Hyperlipidemia, unspecified; G47.30 Sleep apnea, unspecified; F41.9 Anxiety disorder, unspecified
CPT/HCPCS: 36415; 36600; 71045; 71275; 74230; 80048; 80053; 82805; 83615; 83690; 83735; 83880; 84145; 84443; 85025; 85378; 86140; 86480; 87040; 87426; 87449; 87486; 87493; 87581; 87633; 87641; 92523; 92610; 92611; 94640; 96365; 96367; 96372; 96375; 99285; J1650; J1956; J2543; J2930; J3370; J7030; J7050; Q9967

== ENCOUNTER 2023-12-11 02:06 | Observation (INO) | payer OTHER, SELFPAY ==
[2023-12-11] VITALS (14 sets, daily range): BP systolic 101–135; BP diastolic 59–104; PULSE 64–89; RESP 16–27; TEMP 36.6–37.2; O2SAT 90–100; BMI 16.6
--- NOTE | 2023-12-11 02:16 | XRR_ITS ---
PROCEDURE INFORMATION: Exam: XR Chest Exam date and time: 12/11/2023 2:24 AM Age: 73 years old Clinical indication: Other: Hypoxia TECHNIQUE: Imaging protocol: Radiologic exam of the chest. Views: 1 view. COMPARISON: CT angio chest PE protcl [id number] 11/27/2023 3:04 PM FINDINGS: Lungs: 13 mm lung right basilar lung elliptical density corresponds in location to the 25 mm cavitary lesion identified on 11/27/2023 CT chest; difference in size may be related to differences in scan technique versus interval improvement. Clinically correlate. Question of interval development of a 2nd elliptical soft tissue nodular density medial to this at the right lung base (not seen on the recent CT chest), measuring 23 mm long; DX for this nodular density includes round atelectasis versus round pneumonia versus other inflammatory/infectious nodular densities, versus artifact from summation shadows. . Pleural spaces: No pneumothorax .Apparent interval resolution of previously seen small bilateral effusions and associated mild bibasilar consolidates Heart/Mediastinum: Heart size normal Bones/joints: Unremarkable. XR/XR chest 1V portable [id number] IMPRESSION: Right basilar lung nodular densities as above. Consider CT chest for further characterization if clinically indicated.
--- NOTE | 2023-12-11 02:17 | ECG_ITS ---
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 Measurements Intervals [place] Rate: 85 P: 85 SD: 142 QRS: 83 QRSD: 98 T: 74 QT: 367 QTc: 438 Interpretive Statements SINUS RHYTHM POSSIBLE RIGHT ATRIAL ENLARGEMENT [0.25mV P-WAVE] POSSIBLE LEFT ATRIAL ENLARGEMENT [-0.1mV P-WAVE IN V1/V2] LOW QRS VOLTAGE IN EXTREMITY LEADS [QRS DEFLECTION < 0.5 mV IN LIMB LEADS] Compared to ECG 11/20/2023 18:26:14 Low QRS voltage now present Electronically Signed On 12-11-2023 9:56:32 OIL TREATER by Gio Walters M.D. [email or web address] [email or web address] regional medical centerDartfishfulton county health center.[email or web address]/store/NU/[id number] f
--- NOTE | 2023-12-11 02:22 | W.ED.SOB ---
HPI - SOB/Dyspnea General: Chief Complaint: Shortness of Breath/Dyspnea Stated Complaint: respiratory distress Time Seen by Provider: 12/11/23 02:12 History of Present Illness: HPI Narrative: Patient presents to the ER by EMS with a complaint of shortness of breath. Patient is normally not on any oxygen but he was found to be hypoxic at the halfway they put him on 4 L per mask when EMS arrived there he was undergoing a breathing treatment with his sats in the 80s. EMS bumped him up to 6 L and reposition him and his sats came up to the mid 90s. Upon arrival here he is on 4 L per nasal cannula satting approximately 94%. Patient just recently was discharged from the hospital here on Augmentin with a diagnosis of pulmonary cavitary lesion, lung abscess, respiratory failure with hypoxia, acute kidney injury, hypotension [facility] ED PFSH: Medical History (Updated 12/11/23 @ 05:57 by Vin Wellington MD) Pulmonary cavitary lesion KODI (acute kidney injury) Dementia Adult failure to thrive Lung abscess Respiratory failure with hypoxia Hypotension KODI (acute kidney injury) Debility Tremor Lactic acidosis Protein-energy malnutrition PTSD (post-traumatic stress disorder) Depression Physical deconditioning CVA (cerebral vascular accident) Weakness Hyperlipidemia Anxiety Sleep apnea History of kidney stones Adult failure to thrive Confusion Gastritis Hx of colonic polyps Surgical History Status post colonoscopy with polypectomy 12/09/2019: 3 polyps removed from descending colon, follow-up colonoscopy in 3 years H/O esophagogastroduodenoscopy 12/09/2019: Gastritis Family History Denies family history of Anesthesia complication Bleeding disorder Social History Smoking and tobacco/nicotine status: former use of tobacco/nicotine Alcohol intake: former Substance/Drug Use: never Lives independently: Yes Household members: spouse Current occupational status: retired Physical Exam HENMT: COMMON NORMALS: normocephalic, atraumatic, external ears normal, Normal external nose present, moist oral mucous membranes and oropharynx normal HEAD & SCALP: normocephalic and atraumatic NOSE: Normal external nose present EXTERNAL EAR: Yes external ears normal Neck/C-Spine: COMMON NORMALS: no JVD Chest: COMMONS NORMALS: normal inspection of the chest and normal palpation of entire chest wall Resp: COMMON NORMALS: normal respiratory effort, No retractions and No use of accessory muscles; negative for clear to auscultation bilaterally (Diffuse rhonchi) AUSCULTATION: not clear to auscultation bilaterally (Diffuse rhonchi) Cardio: COMMON NORMALS: no JVD, regular rate, regular rhythm, S1 normal heart sound present, S2 normal heart sound present, No gallops present (Cardio), No clicks present (Cardio), No murmurs present (Cardio) and No rub (Cardio) RATE: regular rate RHYTHM: regular rhythm HEART SOUNDS: S1 normal heart sound present and S2 normal heart sound present GI: COMMON NORMALS: Normal to inspection, nondistended, normoactive bowel sounds present, Soft to palpation, non-tender, No hepatosplenomegaly present and no masses PALPATION: Yes Soft to palpation and Yes No hepatosplenomegaly present Course Vital Signs: Vital signs: Vital Signs Temperature 98.9 F 12/11/23 02:08 Pulse Rate 83 12/11/23 05:30 Respiratory Rate 25 H 12/11/23 05:30 Blood Pressure 114/73 12/11/23 05:30 Pulse Oximetry 93 12/11/23 05:30 Oxygen Delivery Me thod Nasal Cannula 12/11/23 05:30 Oxygen Flow Rate 2 12/11/23 05:30 MDM - SOB/Dyspnea Medical Decision Making Lab work was obtained showed right basilar nodular density not on previous x-ray, elevated BUN/creatinine of 33 and 2.1, lactic acid procalcitonin as well as serial troponins unremarkable patient is alert but nonverbal. Patient is currently still on Augmentin from previous hospitalization. Discussed the case with Dr. Wellington who will put the patient in observation and probably discuss hospice measures with the DPOA. Differential Diagnosis Unlikely acute exacerbation of chronic obstructive airways disease, congestive heart failure, community acquired pneumonia, asthma with exacerbation or pulmonary embolism Medical Records I reviewed the patient's medical records. Lab Data I reviewed the patient's lab results. 12/11/23 02:37 12/11/23 02:37 Labs/Radiology: Radiology Impressions Chest X-Ray 12/11/23 02:16 IMPRESSION: Right basilar lung nodular densities as above. Consider CT chest for further characterization if clinically indicated. Laboratory Results WBC 10.23 10^3/uL (3.29-11.43) 12/11/23 02:37 RBC 3.53 10^6/uL (3.85-5.65) L 12/11/23 02:37 Hgb 10.50 g/dL (11.27-16.99) L 12/11/23 02:37 Hct 34.8 % (37-53) L 12/11/23 02:37 MCV 98.6 fl (82-101) 12/11/23 02:37 MCH 29.7 pg (27-33) 12/11/23 02:37 MCHC 30.2 g/dL (30-55) 12/11/23 02:37 RDW 15.7 % (12.1-15.1) H 12/11/23 02:37 Plt Count 297 10^3/cmm (157-399) 12/11/23 02:37 MPV 9.5 fL (7.4-10.4) 12/11/23 02:37 Neut % (Auto) 81.7 % 12/11/23 02:37 Lymph % (Auto) 11.4 % 12/11/23 02:37 [place] % (Auto) 5.9 % 12/11/23 02:37 Eos % (Auto) 0.4 % 12/11/23 02:37 Baso % (Auto) 0.3 % 12/11/23 02:37 Neut # (Auto) 8.36 10^3/uL (1.8-7.7) H 12/11/23 02:37 Lymph # (Auto) 1.2 10^3/uL (0.8-4.8) 12/11/23 02:37 [place] # (Auto) 0.6 10^3/uL (0.2-0.9) 12/11/23 02:37 Eos # (Auto) 0.0 10^3/uL (0.0-0.8) 12/11/23 02:37 Baso # (Auto) 0.0 10^3/uL (0.0-0.1) 12/11/23 02:37 Nucleated RBC % (auto) 0 % 12/11/23 02:37 Nucleated RBCs # 0.0 /100WBC 12/11/23 02:37 Sodium 147 mmol/L (136-145) H 12/11/23 02:37 Potassium 4.8 mmol/L (3.5-5.1) 12/11/23 02:37 Chloride 106 mmol/L (98-107) 12/11/23 02:37 Carbon Dioxide 30 mmol/L (22-29) H 12/11/23 02:37 Anion Gap 15.8 (5-19) 12/11/23 02:37 BUN 33 mg/dL (8-23) H 12/11/23 02:37 Creatinine 2.1 mg/dL (0.7-1.2) H 12/11/23 02:37 GFR Calculation Not Reportable 12/11/23 02:37 Glucose 115 mg/dL (65-115) 12/11/23 02:37 Calculated Osmolality 312 mOsm/kg (285-295) H 12/11/23 02:37 Lactic Acid 1.8 mmol/L (0.5-2.2) 12/11/23 02:37 Calcium 9.6 mg/dL (8.5-10.5) 12/11/23 02:37 Total Bilirubin 0.5 mg/dL (0.15-1.2) 12/11/23 02:37 AST 22 U/L (0-40) 12/11/23 02:37 ALT 51 U/L (0-41) H 12/11/23 02:37 Alkaline Phosphatase 107 U/L (40-130) 12/11/23 02:37 Troponin T Baseline 21 ng/L (0-15) H 12/11/23 02:37 Troponin T 120 Minute 20.38 ng/L (0-15) H 12/11/23 04:28 Delta Troponin T -0.62 ABS# (0-10) L 12/11/23 04:28 C-Reactive Protein 20.7 mg/L (0.0-4.9) H 12/11/23 02:37 NT-Pro-B Natriuret Pep 404 pg/mL (0-125) H 12/11/23 02:37 Total Protein 7.1 g/dL (6.6-8.7) 12/11/23 02:37 Albumin 3.7 g/dL (3.5-5.2) 12/11/23 02:37 Globulin 3.4 g/dL (1.3-4.6) 12/11/23 02:37 Procalcitonin 0.24 ng/mL (0-0.5) 12/11/23 02:37 Urine Color Yellow (Yellow) 12/11/23 02:56 Urine Appearance Sl hazy (CLEAR) A 12/11/23 02:56 Urine pH 5 (5-7) 12/11/23 02:56 Ur Specific [place] 1.020 (1.005-1.030) 12/11/23 02:56 Urine Protein 1+ (Negative) H 12/11/23 02:56 Urine Glucose (UA) Norm (Normal) 12/11/23 02:56 Urine Ketones Negative (Negative) 12/11/23 02:56 Urine Blood 2+ (Negative) H 12/11/23 02:56 Urine Nitrate Negative (Negative) 12/11/23 02:56 Urine Bilirubin Neg (Negative) 12/11/23 02:56 Urine Urobilinogen Neg mg/dL (Negative) 12/11/23 02:56 Ur Leukocyte Esterase Negative (Negative) 12/11/23 02:56 Urine RBC 0-4 /hpf (0-2) H 12/11/23 02:56 Urine WBC None /hpf (0-5) 12/11/23 02:56 Ur Squamous Epith Cells None /hpf (0-5) 12/11/23 02:56 Amorphous Sediment Not Reportable 12/11/23 02:56 Urine Bacteria Trace /hpf (NONE) 12/11/23 02:56 Hyaline Casts 0-4 /lpf H 12/11/23 02:56 Urine Mucus 2+ /hpf 12/11/23 02:56 Influenza Type A Ag negative (Negative) 12/11/23 02:42 Influenza Type B Ag negative (Negative) 12/11/23 02:42 SARS-CoV-2 Ag (Rapid) negative (Negative) 12/11/23 02:42 All radiology interpretation(s) finalized by discharge Discharge Plan Discharge Patient Disposition: Placed in Observation Clinical Impression: Acute kidney insufficiency, Right lower lobe pulmonary infiltrate Altered mental status Qualifiers: Altered mental status type: unspecified Qualified Code(s): R41.82 - Altered mental status, unspecified Sign Out Sign Out Data: Patient Sign Out occurred on 12/11/23 at 06:01. Patient's care was discussed, and care was transferred from Anival Ko DO to Rosendo Crowley DO. Coding Level of Care Code ED Drop Pit Worker for Frankie Garcia
[2023-12-11] MEDS: sodium chloride 0.9% 1,000 ML 999 ML IV (02:37)
[2023-12-11 02:47] LABS: Basophils % 0.3 %; Eosinophils % 0.4 %; Hematocrit 34.8 % (37-53); Lymphocytes # 1.2 10^3/uL (0.8-4.8); Lymphocytes % 11.4 %; Mean Corpuscular HGB Conc 30.2 g/dL (30-55); Mean Corpuscular Hemoglobin 29.7 pg (27-33); Mean Corpuscular Volume 98.6 fl (82-101); Mean Platelet Volume 9.5 fL (7.4-10.4); Monocytes # 0.6 10^3/uL (0.2-0.9); Monocytes % 5.9 %; Neutrophils # 8.36 10^3/uL (1.8-7.7); Neutrophils % 81.7 %; Nucleated Red Blood Cells % 0 %; Platelet Count 297 10^3/cmm (157-399); Red Blood Count 3.53 10^6/uL (3.85-5.65); Red Cell Distribution Width 15.7 % (12.1-15.1); White Blood Count 10.23 10^3/uL (3.29-11.43)
[2023-12-11 03:07] LABS: Lactic Sepsis W/Reflex 1.8 mmol/L (0.5-2.2)
[2023-12-11 03:08] LABS: Troponin(5th) Baseline 21 ng/L (0-15)
[2023-12-11 03:11] LABS: Influenza A by IFA negative (Negative); Influenza B by IFA negative (Negative); SARS Covid-2 Antigen negative (Negative)
[2023-12-11 03:19] LABS: NT Pro B Type Natriuretic Pept 404 pg/mL (0-125); Procalcitonin 0.24 ng/mL (0-0.5)
[2023-12-11 03:26] LABS: Add Urine Microscopic? YES; Bilirubin Urine Neg (Negative); Blood Urine 2+ (Negative); Glucose Urine UA Norm (Normal); Ketones Urine Negative (Negative); Leukocyte Esterase Urine Negative (Negative); Nitrate Urine Negative (Negative); Protein Urine 1+ (Negative); RBC Urine 0-4 /hpf (0-2); Urine Appearance SL Hazy (CLEAR); Urine Color Yellow (Yellow); Urobilinogen Urine Neg (Negative); pH Urine 5 (5-7)
[2023-12-11 03:27] LABS: Add Urine Culture? No; Bacteria Urine TRACE /hpf; Hyaline Casts Urine 0-4 /lpf; Mucus Urine 2+ /hpf
[2023-12-11 03:29] LABS: Slide Review Slide Review Perform
[2023-12-11 03:30] LABS: Alanine Aminotransferase 51 U/L (0-41); Albumin Level 3.7 g/dL (3.5-5.2); Alkaline Phosphatase 107 U/L (40-130); Anion Gap 15.8 (5-19); Aspartate Amino Transferase 22 U/L (0-40); Blood Urea Nitrogen 33 mg/dL (8-23); C Reactive Protein 20.7 mg/L (0.0-4.9); Calcium 9.6 mg/dL (8.5-10.5); Carbon Dioxide 30 mmol/L (22-29); Chloride 106 mmol/L (98-107); Globulin 3.4 g/dL (1.3-4.6); Glucose 115 mg/dL (65-115); Osmolality Calculated 312 mOsm/kg (285-295); Potassium 4.8 mmol/L (3.5-5.1); Sodium 147 mmol/L (136-145); Total Bilirubin 0.5 mg/dL (0.15-1.2); Total Protein 7.1 g/dL (6.6-8.7)
--- NOTE | 2023-12-11 04:11 | ECG_ITS ---
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 Measurements Intervals [place] Rate: 89 P: 90 PA: 162 QRS: 76 QRSD: 105 T: 84 QT: 362 QTc: 440 Interpretive Statements SINUS RHYTHM WITH FREQUENT VENTRICULAR PREMATURE COMPLEXES POSSIBLE LEFT ATRIAL ENLARGEMENT [-0.1mV P-WAVE IN V1/V2] LOW QRS VOLTAGE IN EXTREMITY LEADS [QRS DEFLECTION < 0.5 mV IN LIMB LEADS] ABNORMAL RHYTHM ECG Compared to ECG 11/20/2023 18:26:14 Ventricular premature complex(es) now present Low QRS voltage now present Electronically Signed On 12-11-2023 9:57:24 SHOE SALESPERSON by Gio Walters M.D. [id number]
[2023-12-11 04:53] LABS: Troponin 5 2HR 20.38 ng/L (0-15)
[2023-12-11 04:54] LABS: Troponin 5 2HR Delta -0.62 ABS# (0-10)
--- NOTE | 2023-12-11 05:31 | P.HP_ITS ---
Providers/Chief Complaint 2 Primary Care Provider: Sridhar Bolanos MD Chief Complaint: respiratory distress History of Present Illness Catalino Ivy is a 73 year old male with a past medical history significant for chronic aspiration, dysphagia, cavitary lung lesion on Augmentin, severe dementia, failure to thrive, and recurrent admission who presents from nursing facility with acute on chronic hypoxic respiratory failure. Upon assessment, patient is awake but unable to provide any history. History obtained from ED provider and chart review. He has a known history of severe dementia. He has had multiple recent admissions with the last admission revealing a lung cavitation for which he is on Augmentin. He was found to have chronic aspiration and deemed a poor candidate for PEG tube placement. Per chart, patient has DPOA who is his decision maker. Review of Systems 2 Narrative: Attempted to obtain a complete review of systems but patient unable to provide history due to clinical condition. Medications/Allergies Home Medications Medication Instructions Recorded Confirmed Last Taken Type tamsulosin 0.4 mg capsule 0.4 mg PO BEDTIME@20 09/04/23 11/27/23 11/26/23 History acetaminophen 325 mg tablet 650 mg PO Q6H PRN Pain 09/12/23 11/27/23 Unknown History bupropion HCl 150 mg 24 hr tablet, 150 mg PO DAILY@11/20/23 11/27/23 11/27/23 History extended release fluoxetine 20 mg capsule 20 mg PO DAILY@11/20/23 11/27/23 11/27/23 History pantoprazole 40 mg tablet,delayed 40 mg PO DAILY@11/20/23 11/27/23 11/27/23 History release donepezil 5 mg tablet 5 mg PO BEDTIME 11/27/23 11/27/23 11/26/23 History metoprolol tartrate 25 mg tablet 25 mg PO BID 11/27/23 11/27/23 11/27/23 History mirtazapine 15 mg tablet 15 mg PO BEDTIME 11/27/23 11/27/23 11/26/23 History amoxicillin 875 mg-potassium 1 tab PO BID #20 tabs 11/29/23 Unknown Rx clavulanate 125 mg tablet Allergies Allergy/AdvReac Type Severity Reaction Status Date / Time No Known Drug Allergies Allergy Unknown Verified 12/11/23 02:20 PFSH Acute 2 PFSH: Medical History (Updated 12/11/23 @ 06:03 by Vin Wellington MD) Pulmonary cavitary lesion KODI (acute kidney injury) Dementia Adult failure to thrive Lung abscess Respiratory failure with hypoxia Hypotension KODI (acute kidney injury) Debility Tremor Lactic acidosis Protein-energy malnutrition PTSD (post-traumatic stress disorder) Depression Physical deconditioning CVA (cerebral vascular accident) Weakness Hyperlipidemia Anxiety Sleep apnea History of kidney stones Adult failure to thrive Confusion Gastritis Hx of colonic polyps Surgical History Status post colonoscopy with polypectomy 12/09/2019: 3 polyps removed from descending colon, follow-up colonoscopy in 3 years H/O esophagogastroduodenoscopy 12/09/2019: Gastritis Family History Denies family history of Anesthesia complication Bleeding disorder Social History Smoking and tobacco/nicotine status: former use of tobacco/nicotine Alcohol intake: former Substance/Drug Use: never Lives independently: Yes Household members: spouse Current occupational status: retired Vitals/I&O/Wt Last Vital Signs Temp 98.9 F 12/11/23 02:08 Pulse 86 12/11/23 05:08 Resp 25 H 12/11/23 05:08 BP 108/61 12/11/23 05:08 Pulse Ox 90 12/11/23 05:08 O2 Del Method Room Air 12/11/23 05:08 O2 Flow Rate 4 12/11/23 03:31 12/10/23 12/10/23 12/11/23 14:59 22:59 06:59 Intake Total 1000 / 1000 Balance 1000 / 1000 Weight last 48 hrs Weight 45.359 kg Physical Exam 2 Narrative: Patient awake on stretcher. He has diffuse tremors. Extremely frail and cachetic appearing. Audible respiratory secretions. Temporal wasting. EOMI. Dry mucous membranes. No JVD No gallop. No rub. Faint bilateral rhonchi. Tachypnea. No wheezes. Moves all 4 extremities. Abnormal body movements. Skin is dry and warm. Unable to asses psych d/t clinical status. Data 12/11/23 02:37 12/11/23 02:37 Micro: Microbiology 12/11/23 02:40 Blood Culture - Preliminary Blood SPECIMEN COLLECTED 12/11/23 02:37 Blood Culture - Preliminary Blood SPECIMEN COLLECTED A&P Assessment and plan (1) Pulmonary cavitary lesion: Acute on chronic hypoxia; recent baseline oxygen requirements unclear, was recently on 2L Associated with chronic aspiration Rotate to Unasyn (2) KODI (acute kidney injury): Start IVF (3) Adult failure to thrive: Patient with severe dementia with recurrent illnesses associated with chronic aspiration. He is not a good PEG tube candidate. PEG tubes do not necessarily prevent aspiration either. I strongly recommend hospice care. CM/SW consult in AM. Patient has DPOA. (4) Dementia: NPO for now while determining goals of care Reconcile home medications after updated Qualifiers: Dementia type: Alzheimer's Alzheimer's disease onset: unspecified onset Dementia severity: severe Dementia behavioral or psychological symptom: with other behavioral disturbance Qualified Code(s): G30.9 - Alzheimer's disease, unspecified; F02.C18 - Dementia in other diseases classified elsewhere, severe, with other behavioral disturbance (5) Hypernatremia: Mild Start IVF Plan DVT ppx: Heparin Attestations 2 Medical Necessity Statement*: Patient presents with acute on chronic hypoxia suspected 2/2 continued aspiration with expected hospitalization to further facilitate goals of care. Coding Level of Care Code Acute Code for g Fwd Diagnoses Pulmonary cavitary lesion J98.4 KODI (acute kidney injury) N17.9 Adult failure to thrive R62.7 Severe Alzheimer's dementia with other behavioral disturbance, unspecified timing of dementia onset G30.9; F02.C18 Dementia type: Alzheimer's Alzheimer's disease onset: unspecified onset Dementia severity: severe Dementia behavioral or psychological symptom: with other behavioral disturbance Hypernatremia E87.0
--- NOTE | 2023-12-11 07:30 | PC.PHAR ---
Addendum entered by Netta Cardona 12/11/23 11:12: dewayne salas at [facility] faxed med list went to enter med rec but all previous meds that were in were deleted and discharge orders were put in-called med surg talked to pts nurse maritza states the pt was being discharged back to [facility] on hospice and not to enter the mar and tar that was faxed Addendum entered by Netta Cardona 12/11/23 10:11: dewayne salas from [facility] states she will fax med list Addendum entered by Netta Cardona 12/11/23 09:14: still no med list called [facility] back saritha vergara will fax again Addendum entered by Netta Cardona 12/11/23 08:03: saritha vergara will refax mar and tar Original Note: pt is from [facility] [phone] mar and tar was in pts chart called [facility] per saritha [facility] will fax mar and tar-
--- NOTE | 2023-12-11 08:24 | PC.SOCIAL ---
Spoke with Dr. Nix regarding admission. Told him we could arrange hospice and discharge back to SNF out of ED. Spoke with guardian, Betzy Jj, who chose [facility]. Referral faxed at this time.
--- NOTE | 2023-12-11 08:37 | PC.SOCIAL ---
SS Note Received a call from Tiki @ [facility] who reports that [facility] [place] [facility] Called and spoke to Nadeen @ [facility] and reports that patient is on palliative w/ [facility]. She states they are calling patients guardian to discuss hospice companies. She reports that patient can DC back to [facility] today and they will work w/ Betzy Jj (guardian) on selecting a hospice company and moving forward w/ hospice.
--- NOTE | 2023-12-11 08:59 | ECG_ITS ---
[facility] Test Date: 2023-12-11 Pat Name: Catalino Ivy Department: Room: 253 Gender: Male Hot Baller: : 1950 Requested By: Anival Ko Order Number: [id number] [place] MD: Gio Walters M.D. Measurements Intervals [place] Rate: 55 P: 88 AL: 153 QRS: 78 QRSD: 94 T: 75 QT: 413 QTc: 396 Interpretive Statements SINUS BRADYCARDIA POSSIBLE LEFT ATRIAL ENLARGEMENT [-0.1mV P-WAVE IN V1/V2] Compared to ECG 12/11/2023 04:11:07 Sinus rhythm no longer present Ventricular premature complex(es) no longer present Electronically Signed On 12-11-2023 9:56:42 SUPERVISOR [employer]AGE CARPENTRY by Gio Walters M.D. [email or web address] [email or web address] choice [facility] of smith countyCOARE Biotechnologyriverview [id number]
[2023-12-11 09:16] LABS: Troponin 5 6HR 20.41 ng/L (0-15)
[2023-12-11 09:17] LABS: Troponin 5 6HR Delta -0.59 ng/L (0-12)
[2023-12-11] MEDS: heparin 5,000 unit/mL INJ 1 mL 5000 UNIT SUBCUT (09:56)
--- NOTE | 2023-12-11 09:57 | P.DS_ITS ---
Discharge Providers Date of Admission: 12/11/23 06:33 Date of Discharge: December 11, 2023 Attending Provider at Admission: Vin Wellington MD Attending Provider at Discharge: Kt Nix MD Primary Care Provider: Sridhar Bolanos MD Diagnoses at Discharge Discharge Diagnosis (1) Pulmonary cavitary lesion: Status: Acute (2) KODI (acute kidney injury): Status: Acute (3) Adult failure to thrive: Status: Acute (4) Dementia: Status: Acute Qualifiers: Dementia type: Alzheimer's Alzheimer's disease onset: unspecified onset Dementia severity: severe Dementia behavioral or psychological symptom: with other behavioral disturbance Qualified Code(s): G30.9 - Alzheimer's disease, unspecified; F02.C18 - Dementia in other diseases classified elsewhere, severe, with other behavioral disturbance (5) Hypernatremia: Status: Acute Reason for Visit Reason for Visit: respiratory distress Hospital Course Hospital Course 73-year-old male who was discharged from the hospital recently after management of aspiration related cavitary lesion, patient is bedbound, severe/advanced d ementia, presented for failure to thrive losing weight not doing well at all, spoke with the [facility] power of trust and estates attorney public victim witness administrator who agrees with hospice care management at this point. We have arranged hospice and will discharge patient back to the facility. Unfortunately he is not a good candidate for TPN or PEG tube placement. I would recommend holding off on antibiotics or donepezil at this point. Prognosis extremely poor. Coordinated care with with discharge planners Physical Exam Narrative: Extremely dehydrated Failure to thrive features present Able to respond to simple questions Currently on 2 L Cachectic, malnourished Discharge Data Studies Completed and Pending Completed Studies During Hospitalization Category Date Time Status XR chest 1V portable [id number] Stat Exams 12/11/23 02:16 Completed Pending at discharge Category Date Time Status Blood Culture Stat Lab 12/11/23 02:40 Results Radiology Impressions Chest X-Ray 12/11/23 02:16 IMPRESSION: Right basilar lung nodular densities as above. Consider CT chest for further characterization if clinically indicated. Laboratory Results WBC 10.23 10^3/uL (3.29-11.43) 12/11/23 02:37 RBC 3.53 10^6/uL (3.85-5.65) L 12/11/23 02:37 Hgb 10.50 g/dL (11.27-16.99) L 12/11/23 02:37 Hct 34.8 % (37-53) L 12/11/23 02:37 MCV 98.6 fl (82-101) 12/11/23 02:37 MCH 29.7 pg (27-33) 12/11/23 02:37 MCHC 30.2 g/dL (30-55) 12/11/23 02:37 RDW 15.7 % (12.1-15.1) H 12/11/23 02:37 Plt Count 297 10^3/cmm (157-399) 12/11/23 02:37 MPV 9.5 fL (7.4-10.4) 12/11/23 02:37 Neut % (Auto) 81.7 % 12/11/23 02:37 Lymph % (Auto) 11.4 % 12/11/23 02:37 [place] % (Auto) 5.9 % 12/11/23 02:37 Eos % (Auto) 0.4 % 12/11/23 02:37 Baso % (Auto) 0.3 % 12/11/23 02:37 Neut # (Auto) 8.36 10^3/uL (1.8-7.7) H 12/11/23 02:37 Lymph # (Auto) 1.2 10^3/uL (0.8-4.8) 12/11/23 02:37 [place] # (Auto) 0.6 10^3/uL (0.2-0.9) 12/11/23 02:37 Eos # (Auto) 0.0 10^3/uL (0.0-0.8) 12/11/23 02:37 Baso # (Auto) 0.0 10^3/uL (0.0-0.1) 12/11/23 02:37 Nucleated RBC % (auto) 0 % 12/11/23 02:37 Nucleated RBCs # 0.0 /100WBC 12/11/23 02:37 Sodium 147 mmol/L (136-145) H 12/11/23 02:37 Potassium 4.8 mmol/L (3.5-5.1) 12/11/23 02:37 Chloride 106 mmol/L (98-107) 12/11/23 02:37 Carbon Dioxide 30 mmol/L (22-29) H 12/11/23 02:37 Anion Gap 15.8 (5-19) 12/11/23 02:37 BUN 33 mg/dL (8-23) H 12/11/23 02:37 Creatinine 2.1 mg/dL (0.7-1.2) H 12/11/23 02:37 GFR Calculation Not Reportable 12/11/23 02:37 Glucose 115 mg/dL (65-115) 12/11/23 02:37 Calculated Osmolality 312 mOsm/kg (285-295) H 12/11/23 02:37 Lactic Acid 1.8 mmol/L (0.5-2.2) 12/11/23 02:37 Calcium 9.6 mg/dL (8.5-10.5) 12/11/23 02:37 Total Bilirubin 0.5 mg/dL (0.15-1.2) 12/11/23 02:37 AST 22 U/L (0-40) 12/11/23 02:37 ALT 51 U/L (0-41) H 12/11/23 02:37 Alkaline Phosphatase 107 U/L (40-130) 12/11/23 02:37 Troponin T Baseline 21 ng/L (0-15) H 12/11/23 02:37 Troponin T 120 Minute 20.38 ng/L (0-15) H 12/11/23 04:28 Delta Troponin T -0.62 ABS# (0-10) L 12/11/23 04:28 Troponin T Hi Sens 6Hr 20.41 ng/L (0-15) H 12/11/23 08:40 Troponin T Hi Sens 6Hr Delta -0.59 ng/L (0-12) L 12/11/23 08:40 C-Reactive Protein 20.7 mg/L (0.0-4.9) H 12/11/23 02:37 NT-Pro-B Natriuret Pep 404 pg/mL (0-125) H 12/11/23 02:37 Total Protein 7.1 g/dL (6.6-8.7) 12/11/23 02:37 Albumin 3.7 g/dL (3.5-5.2) 12/11/23 02:37 Globulin 3.4 g/dL (1.3-4.6) 12/11/23 02:37 Procalcitonin 0.24 ng/mL (0-0.5) 12/11/23 02:37 Urine Color Yellow (Yellow) 12/11/23 02:56 Urine Appearance Sl hazy (CLEAR) A 12/11/23 02:56 Urine pH 5 (5-7) 12/11/23 02:56 Ur Specific [place] 1.020 (1.005-1.030) 12/11/23 02:56 Urine Protein 1+ (Negative) H 12/11/23 02:56 Urine Glucose (UA) Norm (Normal) 12/11/23 02:56 Urine Ketones Negative (Negative) 12/11/23 02:56 Urine Blood 2+ (Negative) H 12/11/23 02:56 Urine Nitrate Negative (Negative) 12/11/23 02:56 Urine Bilirubin Neg (Negative) 12/11/23 02:56 Urine Urobilinogen Neg mg/dL (Negative) 12/11/23 02:56 Ur Leukocyte Esterase Negative (Negative) 12/11/23 02:56 Urine RBC 0-4 /hpf (0-2) H 12/11/23 02:56 Urine WBC None /hpf (0-5) 12/11/23 02:56 Ur Squamous Epith Cells None /hpf (0-5) 12/11/23 02:56 Amorphous Sediment Not Reportable 12/11/23 02:56 Urine Bacteria Trace /hpf (NONE) 12/11/23 02:56 Hyaline Casts 0-4 /lpf H 12/11/23 02:56 Urine Mucus 2+ /hpf 12/11/23 02:56 Influenza Type A Ag negative (Negative) 12/11/23 02:42 Influenza Type B Ag negative (Negative) 12/11/23 02:42 SARS-CoV-2 Ag (Rapid) negative (Negative) 12/11/23 02:42 Vitals Last Vital Signs Temp 98.9 F 12/11/23 02:08 Pulse 72 12/11/23 07:51 Resp 20 H 12/11/23 07:51 BP 113/70 12/11/23 07:51 Pulse Ox 92 12/11/23 07:51 O2 Del Method Nasal Cannula 12/11/23 08:44 O2 Flow Rate 2 12/11/23 07:51 Discharge Plan Discharge Patient Disposition: Xfer SNF Condition: Critical Prescriptions: New morphine 20 mg/5 mL (4 mg/mL) solution 5 mg PO Q4H PRN (Reason: pain) Qty: 100 0RF Discontinued acetaminophen 325 mg Tablet 650 mg PO Q6H PRN (Reason: Pain) bupropion HCl 150 mg tablet extended release 24 hr 150 mg PO DAILY@08 pantoprazole 40 mg tablet,delayed release (DR/EC) 40 mg PO DAILY@06 fluoxetine 20 mg capsule 20 mg PO DAILY@07 donepezil 5 mg tablet 5 mg PO BEDTIME mirtazapine 15 mg tablet 15 mg PO BEDTIME metoprolol tartrate 25 mg tablet 25 mg PO BID amoxicillin-pot clavulanate 875-125 mg tablet 1 tab PO BID Qty: 20 0RF tamsulosin 0.4 mg capsule 0.4 mg PO BEDTIME@20 Discharge Orders: Discharge Order (Routine); Ordered 12/11/23 Ordered By: Kt Nix Referrals: Sridhar Bolanos MD [Primary Care Provider] - Patient Instructions: Opioid Safety Discharge Attestations Time Spent in Discharge Care*: greater than 30 min Quality Metrics Clinical Quality Measures [ No reported AMI, CVA or VTE this stay] Coding Level of Care Code Acute Code for Chg Fwd Diagnoses Pulmonary cavitary lesion J98.4 KODI (acute kidney injury) N17.9 Adult failure to thrive R62.7 Severe Alzheimer's dementia with other behavioral disturbance, unspecified timing of dementia onset G30.9; F02.C18 Dementia type: Alzheimer's Alzheimer's disease onset: unspecified onset Dementia severity: severe Dementia behavioral or psychological symptom: with other behavioral disturbance Hypernatremia E87.0
[2023-12-11] MEDS: ampicillin-sulbactam 3 GM in sodium chloride 0.9% (plus) 50 ML IV (09:58)
--- NOTE | 2023-12-11 10:41 | PC.NURSE ---
Report called to ALYSSA Urban at [facility].
--- NOTE | 2023-12-11 14:39 | PC.NURSE ---
Noé Trent here to transport pt. back to [facility]
== END 2023-12-11 14:47 | disposition skilled nursing facility (03) ==
LOC: ER 06:03 → MEDSURG 06:33
PROVIDERS: Admitting Provider Internal Medicine; Emergency Provider Emergency Medicine; PCP Internal Medicine; Visit Provider Internal Medicine
DX: J98.4 Other disorders of lung (principal); N17.9 Acute kidney failure, unspecified; R62.7 Adult failure to thrive; G30.9 Alzheimer's disease, unspecified; F02.C18 Dementia in other diseases classified elsewhere, severe, with other behavioral disturbance; E87.0 Hyperosmolality and hypernatremia; G47.30 Sleep apnea, unspecified; Z87.891 Personal history of nicotine dependence; E78.5 Hyperlipidemia, unspecified
CPT/HCPCS: 36415; 71045; 80053; 81001; 83605; 83880; 84145; 84484; 85025; 86140; 87040; 87426; 87804; 93005; 96365; 96372; 99285; G0378; J0295; J1644; J7030